=== PATIENT | male | born 1935 | race Caucasian/White ===

== ENCOUNTER 2020-02-10 14:34 | Inpatient (IN) | payer MEDICARE, SELFPAY ==
[2020-02-10 15:43] VITALS: BP 150/95; PULSE 78; RESP 18; TEMP 36.2; O2SAT 100
[2020-02-10 17:33] LABS: Lactate Dehydrogenase 239 U/L (118-273); Phosphorus 3.7 mg/dL (2.7-4.5)
[2020-02-10 17:34] LABS: Alanine Aminotransferase 35 U/L (0-40); Albumin Level 3.8 g/dL (3.5-5.0); Alkaline Phosphatase 107 U/L (39-117); Anion Gap 12 (12-20); Aspartate Amino Transferase 30 U/L (5-37); Bilirubin Total 0.3 mg/dL (0.0-1.0); Blood Urea Nitrogen 36 mg/dL (9-16); Calcium 9.4 mg/dL (8.4-10.2); Carbon Dioxide 27 mmol/L (22-29); Chloride 109 mmol/L (96-108); Estimated Glomerular Filt Rate 40; Glucose Random 145 mg/dL (60-115); Potassium 4.9 mmol/l (3.3-5.1); Sodium 143 mmol/L (135-145)
[2020-02-10 17:36] LABS: Uric Acid 5.8 mg/dL (3.4-7.0)
[2020-02-10] MEDS: 0.9 % Sodium Chloride 1,000 ML 100 ML IVCONT (17:59)
[2020-02-10] MEDS: 0.9 % Sodium Chloride Flush 3 ML SYRINGE 2 ML IVFLUSH (18:00)
[2020-02-10 19:42] LABS: INTERNATIONAL NORM RATIO 2.6 (0.9-1.1); Prothrombin Time 30.7 SEC (10.8-13.0)
[2020-02-10] MEDS: Warfarin Sodium 2.5 MG TABLET PO (20:51)
[2020-02-11] VITALS: BP 140/73; PULSE 79; RESP 19; TEMP 36.8; O2SAT 98
[2020-02-11] MEDS: 0.9 % Sodium Chloride 1,000 ML 100 ML IVCONT (03:31)
[2020-02-11 07:04] LABS: Anion Gap 13 (12-20); Blood Urea Nitrogen 32 mg/dL (9-16); Carbon Dioxide 23 mmol/L (22-29); Chloride 110 mmol/L (96-108); Estimated Glomerular Filt Rate 45; Glucose Random 142 mg/dL (60-115); Lactate Dehydrogenase 240 U/L (118-273); Potassium 4.2 mmol/l (3.3-5.1); Sodium 142 mmol/L (135-145); Uric Acid 5.6 mg/dL (3.4-7.0)
[2020-02-11 07:30] LABS: Calcium 8.7 mg/dL (8.4-10.2)
[2020-02-11 08:00] VITALS: BP 149/80; PULSE 92; RESP 20; TEMP 36.3; O2SAT 99
--- NOTE | 2020-02-11 09:38 | HP_ITS ---
DATE OF SERVICE: 02/10/2020 ONCOLOGIST: Sarah Villarreal MD CHIEF COMPLAINT: The patient undergoing chemotherapy treatment for chronic lymphocytic leukemia with high risk for tumor lysis syndrome due to increase dose of chemotherapy agent. HISTORY OF PRESENTING ILLNESS: This 84-year-old gentleman with past medical history of chronic kidney disease, BPH, and CLL, currently undergoing treatment with venetoclax followed by Dr. Villarreal due to increase in dosage of the chemo agent, the patient is at high risk for tumor lysis syndrome, therefore needs to be admitted to [facility] for IV hydration and monitoring of electrolytes including phosphorus, potassium, LDH, and uric acid. At the present time, the patient offers no acute complaints of chest pain, shortness of breath, nausea, and vomiting. He does complain of chronic ongoing constipation, no relief with use of stool softeners. PAST MEDICAL HISTORY: 1. Significant for diet-controlled diabetes mellitus. 2. Basal cell carcinoma. 3. History of melanoma. 4. History of benign prostatic hypertrophy. 5. History of hypertension. 6. History of chronic kidney disease stage 3. 7. History of DVT, currently on Coumadin. 8. History of CLL. PAST SURGICAL HISTORY: 1. Status post ruptured appendix. 2. Status post TURP. 3. History of umbilical hernia repair. 4. History of right inguinal hernia surgery. 5. Status post cataract surgery. 6. Status post multiple skin cancer removal. FAMILY HISTORY: Significant for coronary artery disease. SOCIAL HISTORY: The patient denies history of tobacco use, illicit drug use, or alcohol abuse. The patient ambulates with the assistance of cane. CURRENT MEDICATIONS: The patient's current medications are, allopurinol 100 mg daily, vitamin B daily, Colace 200 mg daily, fluconazole 400 mg daily, multivitamin 1 by mouth daily, pyridoxine 50 mg daily, Venetocllex dose increased from 50 mg to 100 mg by mouth daily, and Coumadin 2.5 mg by mouth daily. ALLERGIES: THE PATIENT IS ALLERGIC TO GLUTEN, LACTOSE, UNKNOWN ALLERGY; SILVER FROM TEGADERM MESH THAT CAUSES PEELING OF SKIN; AND MORPHINE CAUSES VOMITING. REVIEW OF SYSTEMS: GENERAL: The patient denies any fever or chills. CVS: The patient denies any chest pain or palpitation. PULMONARY: The patient denies any cough or sputum production. All other systems are reviewed and are negative. PHYSICAL EXAMINATION: GENERAL: The patient is sitting comfortably. Does not appear to be in acute distress. VITAL SIGNS: BP 150/95 with a pulse of 78, respiratory rate 18, he is afebrile with a finger oximetry of 100 on room air. CONSTITUTIONAL: The patient awake, alert, no apparent distress. NECK: Supple. No increased JVD. HEART: Regular rate and rhythm. No murmur, regurg, or gallop. The patient has bilateral mild pitting edema. RESPIRATORY: Lungs are clear to auscultation. No respiratory distress. No use of accessory muscles. SKIN: Warm and dry with no rashes. NEUROLOGICAL: The patient is alert and oriented x3. ASSESSMENT AND PLAN: This 84-year-old gentleman with a history of chronic kidney disease, benign prostatic hyperplasia, and chronic lymphocytic leukemia, currently undergoing chemotherapy by Dr. Villarreal, is being admitted to monitor for tumor lysis syndrome. PROBLEM LIST: 1. CLL. The patient will be continued on venetoclax. The patient will be placed on IV fluids. We will continue allopurinol. The patient's electrolytes,ldh,uric acid,phosphorous, will be monitored. 2. Chronic kidney disease stage 3. The patient's renal function seems to be at baseline. We will monitor renal function. 3. Diabetes mellitus, diet controlled. Continue diabetic diet. Follow blood sugars and insulin sliding scale. 4. History of DVT/PE. Continue Coumadin. Follow INR. 5. Deep vein thrombosis prophylaxis. The patient is on Coumadin. MD PAT Jimenes/LUCIAN / [id number] MTDD
[2020-02-11] MEDS: Pyridoxine HCl (Vitamin B6) 50 MG TABLET PO (10:39)
[2020-02-11] MEDS: Fluconazole 100 MG TABLET 400 MG PO (10:39)
[2020-02-11] MEDS: Docusate Sodium 100 MG CAPSULE 200 MG PO (10:39)
[2020-02-11] MEDS: Cyanocobalamin (Vitamin B-12) 1,000 MCG TABLET 1000 MCG PO (10:39)
[2020-02-11] MEDS: allopurinoL 100 MG TABLET PO (10:39)
[2020-02-11] MEDS: Multivitamin TABLET 1 TAB PO (10:39)
[2020-02-11] MEDS: 0.9 % Sodium Chloride Flush 3 ML SYRINGE 2 ML IVFLUSH (10:40)
--- NOTE | 2020-02-11 11:12 | PM.DS ---
DS: Providers Provider Date of admission: 02/10/20 14:34 Primary care physician: Abel Velasco MD DS: Summary Hospital Course Hospital Course: 84-year-old gentleman with past medical history of chronic kidney disease BPH and CLL currently undergoing treatment with venetoclax due to recent increase in dose and for high risk for tumor lysis syndrome patient was admitted to [facility] for monitoring of electrolytes, uric acid, phosphorous and LDH all labs are within normal range patient will receive it today's dose of mannitol clocks and will be subsequently discharged home to have close outpatient follow-up with oncologist. Status at Discharge Functional status at discharge: uses cane/walker Time Spent with Patient Time attestation: Total time spent providing and/or coordinating discharge services: Time spent: Greater than 30 minutes Physical Exam Vital Signs and I&O and Narrative: Vital Signs and I&O: Vital Signs Temp 97.3 F 02/11/20 08:00 Pulse 92 02/11/20 08:00 Resp 20 02/11/20 08:00 BP 149/80 H 02/11/20 08:00 Pulse Ox 99 02/11/20 08:00 Intake & Output 02/10/20 02/11/20 02/11/20 18:59 06:59 18:59 Intake Total 1073.333 / 1073.33 3 Output Total 1350 / 1350 1000 / 1000 Balance -276.667 / -276.66 7 -1000 / -1000 Intake: Intake, Oral [place] unt 120 / 120 Intake, IV Amoun t 953.333 / 953.333 0.9 % Sodium C hloride 1,000 ml 953.333 / 953.333 @ 100 mls/hr I VCONT .Q10H YONNY Rx#:[id number] Output: Output, Urine Am ount 1350 / 1350 1000 / 1000 Other: Meal Refused No NPO No Breakfast % Eate n 75% Dinner % Eaten 75% Number of Bowel Movements 1 Urine Urinal Urinal Urine Color Yellow Yellow Stool Bathroom DS: Data Data Completed and Pending Labs on day of discharge: Labs from last 24 hours 02/11/20 02/11/20 02/10/20 06:03 06:03 19:06 PT 30.7 H INR 2.6 H Sodium 142 Potassium 4.2 Chloride 110 H Carbon Dioxide 23 Anion Gap 13 BUN 32 H Creatinine 1.48 H Estim Creat Clear Calc TNP Estimated GFR 45 Random Glucose 142 H Uric Acid 5.6 Calcium 8.7 Phosphorus 3.0 Total Bilirubin AST ALT Alkaline Phosphatase Lactate Dehydrogenase 240 Total Protein Albumin 02/10/20 02/10/20 02/10/20 16:46 16:46 16:46 PT INR Sodium 143 Potassium 4.9 Chloride 109 H Carbon Dioxide 27 Anion Gap 12 BUN 36 H Creatinine 1.65 H Estim Creat Clear Calc TNP Estimated GFR 40 Random Glucose 145 H Uric Acid 5.8 Calcium 9.4 Phosphorus 3.7 Total Bilirubin 0.3 AST 30 ALT 35 Alkaline Phosphatase 107 Lactate Dehydrogenase 239 Total Protein 6.0 L Albumin 3.8 Discharge Plan Discharge Patient Disposition: Home, Self-Care Referrals: Abel Velasco MD [Primary Care Provider] - Lexie Wang MD [Physician] - Discharge Medications: Continued multivitamin Tablet 1 tab PO DAILY RF: 0 fluconazole 200 mg Tablet 400 mg PO DAILY RF: 0 cyanocobalamin (vitamin B-12) 1,000 mcg Tablet 1,000 mcg PO DAILY RF: 0 warfarin 2.5 mg Tablet 2.5 mg PO DAILY RF: 0 allopurinol 100 mg tablet 100 mg PO DAILY RF: 0 pyridoxine (vitamin B6) 50 mg tablet 50 mg PO DAILY RF: 0 docusate sodium 100 mg Tablet 200 mg PO DAILY RF: 0 Venclexta 100 mg Tablet 100 mg PO DAILY RF: 0 Discharge Orders: Discharge Order (Routine); Ordered 02/11/20 Ordered By: Lexie Wang Activity on Discharge: As tolerated Visit Report Forms: Patient Portal Discharge page Care Plan Goals: as per discharge plan Health Concerns: as per discharge plan Plan of Treatment: close outpatient follow-up with primary care physician and Dr. Villarreal from Oncology
--- NOTE | 2020-02-11 12:20 | MHC.CM.PN ---
Pt discharging home today with no services
[2020-02-11 13:46] LABS: INTERNATIONAL NORM RATIO 2.3 (0.9-1.1); Prothrombin Time 28.1 SEC (10.8-13.0)
--- NOTE | 2020-02-11 14:23 | MHC.CM.PN ---
Pt lives at home with his and is independent with care. Pt uses a cane for mobility and has no in home services. PCP and HCP on file and confirmed by pt. IMM delivered and DC planning initiated. pt will be discharged home today with no services pts to transport
== END 2020-02-11 14:30 | disposition home or self-care (01) | DRG 842 ==
PROVIDERS: Admitting Provider Internal Medicine Medical Oncology; PCP Internal Medicine; Visit Provider Hospitalist
DX: C91.10 Chronic lymphocytic leukemia of B-cell type not having achieved remission (principal); N40.0 Benign prostatic hyperplasia without lower urinary tract symptoms; I12.9 Hypertensive chronic kidney disease with stage 1 through stage 4 chronic kidney disease, or unspecified chronic kidney disease; E11.22 Type 2 diabetes mellitus with diabetic chronic kidney disease; N18.30 Chronic kidney disease, stage 3 unspecified; Z86.718 Personal history of other venous thrombosis and embolism; Z79.01 Long term (current) use of anticoagulants; Z79.899 Other long term (current) drug therapy
CPT/HCPCS: 36415; 80048; 80053; 83615; 84100; 84550; 85610; 99212

== ENCOUNTER → 2020-02-11 15:10 | Outpatient (BNVA) | payer MEDICARE, SELFPAY | PROVIDERS: PCP Internal Medicine; Referring Provider Internal Medicine; Visit Provider Internal Medicine | DX: I26.99 Other pulmonary embolism without acute cor pulmonale (principal); Z51.81 Encounter for therapeutic drug level monitoring; Z79.01 Long term (current) use of anticoagulants | CPT/HCPCS: 99211 ==

== ENCOUNTER → 2020-02-15 08:00 | Outpatient (BNV) | payer MEDICARE, SELFPAY | PROVIDERS: PCP Internal Medicine; Visit Provider Internal Medicine Medical Oncology | DX: D64.9 Anemia, unspecified (principal) | CPT/HCPCS: 99212; 99213; 99214 ==

== ENCOUNTER → 2020-02-16 07:51 | Outpatient (BNVA) | payer MEDICARE, SELFPAY | PROVIDERS: PCP Internal Medicine; Visit Provider Internal Medicine Endocrinology, Diabetes & Metabolism | DX: E11.65 Type 2 diabetes mellitus with hyperglycemia (principal); E11.22 Type 2 diabetes mellitus with diabetic chronic kidney disease; N18.32 Chronic kidney disease, stage 3b; E11.40 Type 2 diabetes mellitus with diabetic neuropathy, unspecified; E78.5 Hyperlipidemia, unspecified | CPT/HCPCS: 82947; 99214 ==

== ENCOUNTER 2020-02-25 07:29 | Outpatient (REF) | payer MEDICARE, SELFPAY ==
[2020-02-25 11:32] LABS: Hematocrit 34.1 % (42-52); Hemoglobin 10.9 g/dl (14.0-18.0); Mean Corpuscular Hemoglobin 32.2 pg (27.0-33.0); Mean Corpuscular Volume 100.6 fL (80-98); Mean Platelet Volume 10.1 fL (9.4-12.4); Platelet Count 145 X10*3/uL (160-400); Red Blood Count 3.39 X10*6/uL (4.60-5.80); Red Cell Distribution Width 14.2 % (11.0-16.0); White Blood Count 2.8 X10*3/uL (4.8-10.8)
[2020-02-25 12:06] LABS: Alanine Aminotransferase 33 U/L (0-40); Albumin Level 3.9 g/dL (3.5-5.0); Alkaline Phosphatase 105 U/L (39-117); Aspartate Amino Transferase 33 U/L (5-37); Bilirubin Direct 0.2 mg/dL (0.0-0.5); Bilirubin Total 0.3 mg/dL (0.0-1.0); Total Protein 6.2 g/dL (6.5-8.0)
[2020-02-25 12:08] LABS: Alanine Aminotransferase 33 U/L (0-40); Albumin Level 3.8 g/dL (3.5-5.0); Alkaline Phosphatase 104 U/L (39-117); Anion Gap 14 (12-20); Aspartate Amino Transferase 34 U/L (5-37); Bilirubin Total 0.3 mg/dL (0.0-1.0); Blood Urea Nitrogen 39 mg/dL (9-16); Calcium 8.9 mg/dL (8.4-10.2); Carbon Dioxide 24 mmol/L (22-29); Chloride 110 mmol/L (96-108); Estimated Glomerular Filt Rate 32; Glucose Random 200 mg/dL (60-115); Potassium 4.7 mmol/l (3.3-5.1); Sodium 143 mmol/L (135-145); Total Protein 6.2 g/dL (6.5-8.0)
[2020-02-25 12:14] LABS: Band Neutrophils Percent 16 % (3-5); Lymphocytes Absolute Manual 0.3 X10*3/uL (0.6-4.8); Lymphocytes Percent Manual 12 % (20-40); Metamyelocytes Absolute 0.1 X10*3/uL; Metamyelocytes Percent 3 %; Monocytes Absolute Manual 0.4 X10*3/uL (0.0-1.2); Monocytes Percent Manual 16 % (2-11); Myelocytes Percent 1 %; Neutrophils Absolute Manual 1.9 X10*3/uL (2.2-7.9); Neutrophils Percent Manual 52 % (45-73); Nucleated Red Blood Cells 1 /100WBC (0-0)
[2020-02-25 12:15] LABS: Platelet Estimate DECREASED (NORMAL)
[2020-02-25 12:16] LABS: Macrocytosis 1+; Platelet Morphology Comment NORMAL; RBC Morphology NOTED
[2020-02-25 12:17] LABS: Acanthocytes 1+; Ovalocytes 1+; Tear Drop Cells 1+
[2020-02-25 14:19] LABS: Cholesterol 143 mg/dL; HDL Cholesterol 34 mg/dL; LDL Cholesterol Calculated 96 mg/dl; Triglycerides 67 mg/dL
[2020-02-27 15:15] LABS: Cryptococcal Ag Source SERUM
[2020-02-27 15:20] LABS: Cryptococcal Ag Serum DETECTED
== END 2020-02-25 07:30 | disposition home or self-care (01) ==
LOC: HO.HMGCLDS 07:29
PROVIDERS: PCP Internal Medicine; Referring Provider Internal Medicine; Visit Provider Internal Medicine Medical Oncology
DX: C91.10 Chronic lymphocytic leukemia of B-cell type not having achieved remission (principal); E11.22 Type 2 diabetes mellitus with diabetic chronic kidney disease; E11.21 Type 2 diabetes mellitus with diabetic nephropathy; N18.30 Chronic kidney disease, stage 3 unspecified; E78.5 Hyperlipidemia, unspecified; M22.2X1 Patellofemoral disorders, right knee; M22.2X2 Patellofemoral disorders, left knee
CPT/HCPCS: 36415; 80053; 80061; 80076; 85007; 85027; 85060; 86403; 99213

== ENCOUNTER 2020-03-08 12:59 | Outpatient (REF) | payer MEDICARE, SELFPAY ==
[2020-03-08 15:57] LABS: Alanine Aminotransferase 25 U/L (0-40); Albumin Level 3.9 g/dL (3.5-5.0); Alkaline Phosphatase 94 U/L (39-117); Anion Gap 16 (12-20); Aspartate Amino Transferase 26 U/L (5-37); Bilirubin Direct 0.2 mg/dL (0.0-0.5); Bilirubin Total 0.4 mg/dL (0.0-1.0); Blood Urea Nitrogen 36 mg/dL (9-16); Calcium 9.3 mg/dL (8.4-10.2); Carbon Dioxide 22 mmol/L (22-29); Chloride 109 mmol/L (96-108); Estimated Glomerular Filt Rate 38; Glucose Random 124 mg/dL (60-115); Potassium 4.7 mmol/l (3.3-5.1); Sodium 142 mmol/L (135-145); Total Protein 6.3 g/dL (6.5-8.0)
[2020-03-11 14:08] LABS: Cryptococcal Ag Source SERUM
[2020-03-11 14:11] LABS: Cryptococcal Ag Serum DETECTED
== END 2020-03-08 13:00 | disposition home or self-care (01) ==
LOC: HO.LAB 12:59
PROVIDERS: PCP Internal Medicine; Referring Provider Internal Medicine Medical Oncology; Visit Provider Internal Medicine
DX: B45.9 Cryptococcosis, unspecified (principal); M51.9 Unspecified thoracic, thoracolumbar and lumbosacral intervertebral disc disorder
CPT/HCPCS: 80048; 80076; 86403; 99212

== ENCOUNTER 2020-03-17 09:06 | Outpatient (REF) | payer MEDICARE, SELFPAY ==
--- NOTE | 2020-03-17 | US_ITS ---
EXAMINATION: US RETROPERITONEAL LIMITED (RENAL ONLY) CLINICAL INFORMATION: Nephrolithiasis. COMPARISON: None TECHNIQUE: Routine grayscale imaging of kidneys was performed. FINDINGS: RIGHT KIDNEY: 11.9 x 4.5 x 4.7 cm (SAG x AP x TRV). The kidney is normal in size, contour, and echogenicity. Renal cortical thickness is normal. No calculi or focal parenchymal lesions. No hydronephrosis. There are multiple anechoic cysts seen some appear to be complex with the largest cyst measuring 2.0 x 2.4 x 2.7 cm. Innumerable clusters of stones seen largest measuring 1.1 cm in the upper pole 0.6 mm in midpole and 1.0 cm in the lower pole. LEFT KIDNEY: 12.1 x 4.1 x 4.2 cm (SAG x AP x TRV). The kidney is normal in size, contour, and echogenicity. Renal cortical thickness is normal. No calculi or focal parenchymal lesions. No hydronephrosis. Multiple cysts seen. Some appear to be complex with the largest measuring 3.0 x 3.8 x 3.4 cm in the upper pole. There are innumerable clusters of echogenic stones seen within the largest in the upper pole measuring 0.9 cm, mid pole measuring 0.9 cm and lower pole measuring 1.0 cm. US/US renal BI IMPRESSION: Multiple bilateral renal cysts some of the cysts bilaterally a complex. There are multiple bilateral clusters of stones in the upper mid and lower pole of both kidneys. No caliectasis or hydronephrosis seen.
== END 2020-03-17 09:07 | disposition home or self-care (01) ==
LOC: HO.HMGCX 09:06
PROVIDERS: Visit Provider Urology
DX: N20.0 Calculus of kidney (principal)
CPT/HCPCS: 76775

== ENCOUNTER 2020-03-30 07:34 | Outpatient (REF) | payer MEDICARE, SELFPAY ==
--- NOTE | 2020-03-30 07:37 | CT_ITS ---
EXAMINATION: CT CHEST WITHOUT CONTRAST CLINICAL INFORMATION: Follow-up lung nodules COMPARISON: Multiple priors, most recently 12/06/2019. TECHNIQUE: Multidetector volumetric CT imaging of the chest was done. Axial MIP volume rendering provided. Sagittal and coronal reformatted images were obtained. This CT examination was performed using dose optimization techniques as appropriate, variously including the following: *Automated exposure control *Adjustment of mA and/or kV according to patient size (this includes techniques or standardized protocols for targeted exams where dose is matched to indication/reason for exam; i.e. extremities or head) *Use of iterative reconstruction technique DLP: 174 mGy-cm FINDINGS: LUNGS: The central airways are patent. There is no dense consolidation. There is minimal bibasilar scarring/atelectasis. Multiple pulmonary nodules which were seen on the previous study have resolved or improved. There are residual nodules visualized. 1. Spiculated right lower lobe nodule near the major fissure measuring 1 cm on series 8 image 333. This previously measured 1.4 cm. 2. Bilobed nodule in the right lower lobe with pleural retraction and spiculated margins measuring 2.6 x 1.3 cm on series 8 image 351. This had measured 3.3 x 1.7 cm on prior. There is some adjacent smaller nodules which are also decreased in prominence from prior. 3. Pleural-based right lower lobe nodule medially measuring 0.7 cm on series 8 image 373. This had measured 1 cm on prior. There are a few additional nodules in the right lower lobe which are also seen, decreased in size from prior. No new pulmonary nodules are seen. MEDIASTINUM: Normal heart size. Coronary artery calcifications are present. No pericardial effusion. Decreased size of mediastinal lymph nodes when compared to prior. For instance, there is a left paratracheal node with short axis dimension of 1 cm on series 4 image 28. This had measured 1.3 cm on prior. Wall thickening of the distal side. PLEURA: There is no pleural effusion. No pneumothorax. AXILLA: No axillary lymphadenopathy. Decreased size of right axillary lymph node significantly from prior. For instance there is a long axis I.5 cm node on series 4 image 21 in the right axilla, previously measuring 3.2 cm. UPPER ABDOMEN: Multiple hypoattenuating lesions are again seen throughout the liver, unchanged from prior and likely representing cysts. Cholecystectomy. Renal calculi noted. Renal cysts are noted. OSSEOUS STRUCTURES: No acute or suspicious osseous abnormality. Diffuse degenerative changes throughout the spine. DISH. CT/CT chest wo con IMPRESSION: Multiple previously visualized right lower lobe nodules have either resolved or decreased in size from prior, as described above. The largest remaining measures 2.6 x 1.3 cm with pleural abutment. Decreasing mediastinal and axillary lymphadenopathy.
--- NOTE | 2020-03-30 07:37 | CT_ITS ---
EXAMINATION: CT HEAD WITHOUT CONTRAST CLINICAL INFORMATION: Headaches COMPARISON: 08/28/2019. TECHNIQUE: Contiguous axial imaging was performed from the skull base to vertex without intravenous contrast. This CT examination was performed using dose optimization techniques as appropriate, variously including the following: * Automated exposure control * Adjustment of mA and/or kV according to patient size (this includes techniques or standardized protocols for targeted exams where dose is matched to indication/reason for exam; i.e. extremities or head) Use of iterative reconstruction technique DLP: 890 mGy-cm. FINDINGS: There is no evidence of acute intracranial hemorrhage or territorial infarction. No abnormal mass effect or midline shift is seen. Moyer to white matter differentiation is well preserved. No extra-axial fluid collections are identified. No hydrocephalus. Proportional prominence of the ventricles and sulcal spaces is consistent with moderate volume loss. Patchy periventricular and deep white matter hypoattenuation is consistent with mild small vessel ischemic changes. The osseous structures and soft tissues are normal. Mild opacification of the right ethmoid air cells. Mild mucosal thickening of the right maxillary sinus. The mastoid air cells and visualized portions of the paranasal sinuses are well aerated. CT/CT head/brain wo con IMPRESSION: No acute intracranial pathology. Chronic volume loss with small vessel ischemic changes.
== END 2020-03-30 07:35 | disposition home or self-care (01) ==
LOC: HO.CT 07:34
PROVIDERS: Visit Provider Internal Medicine Medical Oncology
DX: B45.0 Pulmonary cryptococcosis (principal); R51.9 Headache, unspecified
CPT/HCPCS: 70450; 71250

== ENCOUNTER → 2020-04-03 13:47 | Outpatient (BNVA) | payer MEDICARE, SELFPAY | PROVIDERS: PCP Internal Medicine; Referring Provider Internal Medicine; Visit Provider Internal Medicine | DX: I26.99 Other pulmonary embolism without acute cor pulmonale (principal); Z51.81 Encounter for therapeutic drug level monitoring; Z79.01 Long term (current) use of anticoagulants | CPT/HCPCS: 85610; 99211 ==

== ENCOUNTER 2020-04-12 07:27 | Outpatient (REF) | payer MEDICARE, SELFPAY ==
[2020-04-12 12:02] LABS: Anion Gap 15 (12-20); Blood Urea Nitrogen 28 mg/dL (9-16); Calcium 8.8 mg/dL (8.4-10.2); Carbon Dioxide 24 mmol/L (22-29); Chloride 109 mmol/L (96-108); Estimated Glomerular Filt Rate 45; Phosphorus 2.8 mg/dL (2.7-4.5); Potassium 4.9 mmol/l (3.3-5.1); Sodium 143 mmol/L (135-145)
[2020-04-12 13:38] LABS: Renal w Reflex Lab Use Only Order verified
[2020-04-14 09:34] LABS: Cryptococcal Ag Source SERUM
== END 2020-04-12 07:28 | disposition home or self-care (01) ==
LOC: HO.HMGCLDS 07:27
PROVIDERS: Internal Medicine; PCP Internal Medicine; Visit Provider Internal Medicine Nephrology
DX: B45.9 Cryptococcosis, unspecified (principal); I12.9 Hypertensive chronic kidney disease with stage 1 through stage 4 chronic kidney disease, or unspecified chronic kidney disease; N18.30 Chronic kidney disease, stage 3 unspecified; N17.9 Acute kidney failure, unspecified; N20.0 Calculus of kidney
CPT/HCPCS: 80051; 82310; 82565; 84100; 84520; 86403

== ENCOUNTER → 2020-04-19 12:38 | Outpatient (BNVA) | payer MEDICARE, SELFPAY | PROVIDERS: Visit Provider Orthopaedic Surgery | DX: M22.2X1 Patellofemoral disorders, right knee (principal); M22.2X2 Patellofemoral disorders, left knee | CPT/HCPCS: 20610; 99212; J1040 ==

== ENCOUNTER 2020-04-20 16:21 | Outpatient (REF) | payer MEDICARE, SELFPAY ==
[2020-04-20 16:45] LABS: INTERNATIONAL NORM RATIO 3.1 (0.9-1.1); Prothrombin Time 37.2 SEC (10.8-13.0)
== END 2020-04-20 16:22 | disposition home or self-care (01) ==
LOC: HO.LAB 16:21
PROVIDERS: Visit Provider Internal Medicine
DX: C91.10 Chronic lymphocytic leukemia of B-cell type not having achieved remission (principal)
CPT/HCPCS: 36415; 85610

== ENCOUNTER → 2020-04-24 11:32 | Outpatient (BNVA) | payer MEDICARE, SELFPAY | PROVIDERS: PCP Internal Medicine; Visit Provider Internal Medicine | DX: I26.99 Other pulmonary embolism without acute cor pulmonale (principal); Z51.81 Encounter for therapeutic drug level monitoring; Z79.01 Long term (current) use of anticoagulants | CPT/HCPCS: 85610; 99211 ==

== ENCOUNTER → 2020-05-03 13:16 | Outpatient (BNVA) | payer MEDICARE, SELFPAY | PROVIDERS: Visit Provider Internal Medicine | DX: B45.9 Cryptococcosis, unspecified (principal); E11.22 Type 2 diabetes mellitus with diabetic chronic kidney disease; E11.65 Type 2 diabetes mellitus with hyperglycemia; N18.30 Chronic kidney disease, stage 3 unspecified | CPT/HCPCS: 85610; 99211; 99212 ==

== ENCOUNTER 2020-05-11 | Outpatient (REF) | payer MEDICARE, SELFPAY | END 2020-05-11 00:01 | disposition home or self-care (01) | LOC: CF | PROVIDERS: Visit Provider Internal Medicine | DX: Z13.89 Encounter for screening for other disorder (principal) ==

== ENCOUNTER → 2020-05-31 13:41 | Outpatient (BNVA) | payer MEDICARE, SELFPAY | PROVIDERS: Visit Provider Internal Medicine | DX: B45.9 Cryptococcosis, unspecified (principal) | CPT/HCPCS: 99212 ==

== ENCOUNTER → 2020-06-01 08:38 | Outpatient (BNVA) | payer MEDICARE, SELFPAY | PROVIDERS: PCP Internal Medicine; Visit Provider Internal Medicine | DX: I26.99 Other pulmonary embolism without acute cor pulmonale (principal); Z79.01 Long term (current) use of anticoagulants; Z51.81 Encounter for therapeutic drug level monitoring | CPT/HCPCS: 85610; 99211 ==

== ENCOUNTER → 2020-06-15 09:26 | Outpatient (BNVA) | payer MEDICARE, SELFPAY | PROVIDERS: PCP Internal Medicine; Visit Provider Internal Medicine Endocrinology, Diabetes & Metabolism | DX: E11.65 Type 2 diabetes mellitus with hyperglycemia (principal); E11.22 Type 2 diabetes mellitus with diabetic chronic kidney disease; N18.32 Chronic kidney disease, stage 3b; E78.5 Hyperlipidemia, unspecified | CPT/HCPCS: 82947; 99212 ==

== ENCOUNTER 2020-06-19 09:49 | Outpatient (REF) | payer MEDICARE, SELFPAY | END 2020-06-19 09:50 | disposition home or self-care (01) | LOC: HO.LAB 09:49 | PROVIDERS: Visit Provider Internal Medicine | DX: Z20.822 Contact with and (suspected) exposure to COVID-19 (principal) | CPT/HCPCS: 36415; C9803; U0003; U0005 ==

== ENCOUNTER → 2020-06-27 11:17 | Outpatient (BNVA) | payer MEDICARE, SELFPAY | PROVIDERS: PCP Internal Medicine; Visit Provider Internal Medicine | DX: I26.99 Other pulmonary embolism without acute cor pulmonale (principal); Z51.81 Encounter for therapeutic drug level monitoring; Z79.01 Long term (current) use of anticoagulants | CPT/HCPCS: 85610; 99211 ==

== ENCOUNTER → 2020-06-28 14:10 | Outpatient (BNVA) | payer MEDICARE, SELFPAY | PROVIDERS: PCP Internal Medicine; Visit Provider Internal Medicine | DX: Z13.89 Encounter for screening for other disorder (principal) | CPT/HCPCS: Q3014 ==

== ENCOUNTER 2020-07-05 07:57 | Outpatient (REF) | payer MEDICARE, SELFPAY ==
--- NOTE | ~2020-07-05 | CT_ITS ---
EXAMINATION: CT CHEST, ABDOMEN AND PELVIS WITHOUT IV CONTRAST CLINICAL INFORMATION: CLL. Followup cryptococcal pneumonitis. COMPARISON: Previous chest CT most recent March 2020 and abdominal and pelvic CT most recent November 2019 TECHNIQUE: Axial images through the chest, abdomen and pelvis without IV and following oral contrast. Sagittal and coronal reconstructions on the technologist workstation were performed. Patient dose total DLP: 532 mGy-cm. This CT examination was performed using dose optimization techniques as appropriate, variously including the following: *Automated exposure control *Adjustment of mA and/or kV according to patient size (this includes techniques or standardized protocols for targeted exams where dose is matched to indication/reason for exam; i.e. extremities or head) *Use of iterative reconstruction technique FINDINGS: CHEST: There is a small peripheral or subpleural superior segment right lower lobe nodule measuring 4 mm axial image 31 series 3. There is a 0.9 cm right lower lobe nodule axial image 33 series 3. There is an irregularly-shaped 2.3 x 1.6 cm right lower lobe nodule axial image 36 series 3. There is an 8 mm peripheral or subpleural right lower lobe nodule axial image 38 series 3. There is a 5 mm right lower lobe nodule axial image 49 series 3. These are stable from most recent chest CT March 2020. The left lung is clear. There are small mediastinal lymph nodes that are stable. No enlarged lymph nodes are seen. The heart does not appear enlarged. There is coronary artery calcification. The thoracic aorta is tortuous. There is no pericardial effusion. There is no pleural effusion or pleural thickening. There is bilateral axillary lymphadenopathy. This appears slightly decreased from March 2019 exam. The largest lymph node is a right axillary lymph node measuring 0.9 x 1.7 cm axial image 18 series 3 compared to 1.2 x 1.9 cm March 2020. There are degenerative changes of the spine. No fracture or bone lesion is seen. ABDOMEN AND PELVIS: There are innumerable liver cysts. The largest measures 3 cm in the lateral segment of the left lobe of the liver. These are stable. The liver is otherwise unremarkable. The gallbladder has been removed. There is no biliary duct dilatation. The spleen is unremarkable. There is fatty infiltration of the pancreas. The pancreas is otherwise unremarkable. The adrenal glands are unremarkable. There are multiple bilateral renal stones. There are bilateral renal cysts. No hydronephrosis, ureteral dilatation or ureteral stone is seen. The prostate gland is slightly enlarged and protrudes into the base of the bladder. The bladder is otherwise unremarkable. There is diverticulosis of the colon. There is stool throughout the colon questionable for constipation. There is diverticulosis of the small bowel, as well. The appendix is not identified and may have been removed. No enlarged lymph nodes are seen. There is a 1.2 cm left inguinal lymph node axial image 79 series 3 that is stable. There is no ascites. There is evidence of atherosclerotic disease. No aneurysm is seen. There is evidence of previous anterior abdominal wall and right inguinal hernia repairs. There are degenerative changes of the spine and joints. CT/CT abdomen pelvis wo con IMPRESSION: CHEST: Stable right pulmonary nodules from most recent exam March 2020. Stable small mediastinal lymph nodes. Slight interval decrease in bilateral axillary lymph nodes. ABDOMEN AND PELVIS: Stable small left inguinal lymph node. Diverticulosis of the small and large bowel. Constipation. Bilateral renal and liver cysts. Bilateral renal stones.
[2020-07-05] MEDS: Barium Sulfate Oral (Berry) 450 ML ORAL.SUSP 900 ML PO (10:34)
== END 2020-07-05 07:58 | disposition home or self-care (01) ==
LOC: HO.CT 07:57
PROVIDERS: Visit Provider Internal Medicine Medical Oncology
DX: B45.0 Pulmonary cryptococcosis (principal); C91.10 Chronic lymphocytic leukemia of B-cell type not having achieved remission
CPT/HCPCS: 71250; 74176

== ENCOUNTER 2020-07-13 09:22 | Outpatient (REF) | payer MEDICARE, SELFPAY ==
--- NOTE | ~2020-07-13 | XR_ITS ---
EXAMINATION: XR SCAPULA, LEFT CLINICAL INFORMATION: Pain left scapula COMPARISON: CT chest noncontrast 07/05/2020 TECHNIQUE: Frontal and lateral views of the left scapula. FINDINGS: There is no bony destructive process or fracture. Degenerative changes are present at the acromioclavicular joint. The acromioclavicular alignment normal. Left lung apex is clear. XR/XR scapula LT IMPRESSION: 1. No bony destructive process. 2. Degenerative changes acromioclavicular joint.
== END 2020-07-13 09:23 | disposition home or self-care (01) ==
LOC: HO.XRAY 09:22
PROVIDERS: Visit Provider Internal Medicine Medical Oncology
DX: M89.8X1 Other specified disorders of bone, shoulder (principal); I26.99 Other pulmonary embolism without acute cor pulmonale; Z51.81 Encounter for therapeutic drug level monitoring; Z79.01 Long term (current) use of anticoagulants
CPT/HCPCS: 73010; 85610; 99211

== ENCOUNTER → 2020-07-26 10:09 | Outpatient (BNVA) | payer MEDICARE, SELFPAY | PROVIDERS: PCP Internal Medicine; Visit Provider Internal Medicine | DX: B45.9 Cryptococcosis, unspecified (principal) | CPT/HCPCS: Q3014 ==

== ENCOUNTER 2020-07-28 08:51 | Outpatient (REF) | payer MEDICARE, SELFPAY ==
--- NOTE | ~2020-07-28 | XR_ITS ---
EXAMINATION: XR SHOULDER, LEFT CLINICAL INFORMATION: Pain left shoulder. COMPARISON: Radiographs left scapula 07/13/2020 and left shoulder 11/03/2018 TECHNIQUE: Left shoulder is imaged in 3 views. FINDINGS: There is no fracture, dislocation, destructive process. Degenerative changes are present at the glenohumeral joint with mild joint narrowing and inferior spurring. There is also mild spurring greater tuberosity and mild degenerative changes acromioclavicular joint. The acromioclavicular alignment is normal. There are no visible rotator cuff calcifications. XR/XR shoulder LT min 2V IMPRESSION: 1. Degenerative changes glenohumeral joint and acromioclavicular joint. 2. Mild spurring greater tuberosity. 3. No visible rotator cuff calcifications.
== END 2020-07-28 08:52 | disposition home or self-care (01) ==
LOC: HO.HOSX 08:51
PROVIDERS: Visit Provider Orthopaedic Surgery
DX: M25.512 Pain in left shoulder (principal); M25.511 Pain in right shoulder
CPT/HCPCS: 73030; Q3014

== ENCOUNTER → 2020-08-30 10:55 | Outpatient (BNVA) | payer MEDICARE, SELFPAY | PROVIDERS: Visit Provider Internal Medicine | DX: B45.9 Cryptococcosis, unspecified (principal) | CPT/HCPCS: Q3014 ==

== ENCOUNTER → 2020-09-13 08:23 | Outpatient (BNVA) | payer MEDICARE, SELFPAY | PROVIDERS: Visit Provider Internal Medicine Endocrinology, Diabetes & Metabolism | DX: E11.65 Type 2 diabetes mellitus with hyperglycemia (principal); E11.21 Type 2 diabetes mellitus with diabetic nephropathy; N18.32 Chronic kidney disease, stage 3b; E78.5 Hyperlipidemia, unspecified; R00.0 Tachycardia, unspecified | CPT/HCPCS: 82947; 99212 ==

== ENCOUNTER 2020-09-13 09:01 | Emergency (ER) | payer OTHER, MEDICARE, SELFPAY ==
--- NOTE | ~2020-09-13 | XR_ITS ---
EXAMINATION: XR CHEST CLINICAL INFORMATION: Shortness of breath. COMPARISON: CT chest 07/05/2020 TECHNIQUE: Frontal view of the chest was obtained. FINDINGS: The lungs are well-expanded and clear of acute process. The previously seen superior to the right lower lobe nodule on CT chest is not visualized on chest x-ray. Heart size and pulmonary vascularity is normal. No gross bony abnormality seen. XR/XR chest 1V IMPRESSION: Unremarkable chest exam.
--- NOTE | 2020-09-13 09:07 | ED_ITS ---
HPI - Arrhythmia/Palpitations General Chief Complaint: General Medical Stated Complaint: PE rule out Time Seen by Provider: 09/13/20 09:07 Source: patient Mode of arrival: EMS Limitations: no limitations History of Present Illness HPI narrative: Found to have tachycardia at rest. Patient has no complaints currently. No chest pain or shortness of breath Onset (ago): unknown Related Data Home Medications Medication Instructions Recorded Confirmed Venclexta 200 mg PO DAILY 02/10/20 09/13/20 allopurinol 100 mg PO DAILY 02/10/20 09/13/20 cyanocobalamin (vitamin B-12) 1,000 mcg PO DAILY 02/10/20 09/13/20 docusate sodium 200 mg PO DAILY 02/10/20 09/13/20 multivitamin 1 tab PO DAILY 02/10/20 09/13/20 warfarin 1 tab PO DAILY 05/11/20 09/13/20 Previous Rx's Medication Instructions Recorded pyridoxine (vitamin B6) 100 mg PO DAILY 90 Days #90 tab 08/14/20 blood sugar diagnostic #300 ea 09/13/20 glipizide 5 mg tablet, extended 5 mg PO DAILY 90 Days #90 tab 09/13/20 release 24 hr lancets 33 gauge #300 ea 09/13/20 Allergies Allergy/AdvReac Type Severity Reaction Status Date / Time silver Allergy Intermediate SKIN COMES Verified 08/30/20 10:56 [From TEGADERM AG MESH] OFF morphine [MORPHINE] Allergy Unknown VOMITING, Verified 08/30/20 10:56 vomitting Tegaderm Allergy Unknown blisters Uncoded 06/12/20 08:26 Review of Systems Constitutional: Constitutional: Reports no additional constitutional complaints Eyes: Eyes: Reports no additional eye complaints ENT: Denies dizziness Cardiovascular: Cardiovascular: Reports no additional cardiovascular complaints Respiratory: Respiratory: Reports as per HPI Gastrointestinal: Gastrointestinal: Reports no additional gastrointestinal complaints Musculoskeletal: Musculoskeletal: Reports no additional musculoskeletal complaints Integumentary/Breasts: Skin/Breast: Denies rash Neurologic: Reports system reviewed and no additional complaints, except as documented, Denies dizziness and Denies Sensory deficit (Neuro) Psychiatric: Psychiatric: Denies anxiety [facility] Past Medical History 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 Dyslipidemia Gout Headache above the eye region Melanoma Skin cancer Tachycardia Surgical History H/O inguinal hernia repair H/O umbilical hernia repair Hx of cataract surgery S/P appendectomy S/P TURP Family History Family History Other Family history of cancer in sister Social History Social History Household Members: Spouse Housing: House Smoking Status: Never smoker Second Hand Smoke Exposure: No Advance Directives: Yes Advance Directives on File: Yes Advance Directives Date on File: 02/10/20 service: Yes Current occupational status: retired 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 Physical Exam Vital Signs: Vital Signs: Last Vital Signs Temp 98.5 F 09/13/20 09:29 Pulse 99 09/13/20 09:29 Resp 15 09/13/20 09:29 BP 167/92 H 09/13/20 09:29 Pulse Ox 99 09/13/20 09:29 Body Mass Index 25.7 Const: General: healthy appearing Nutritional Appearance: average body habitus Orientation/consciousness: oriented to person and patient oriented x3 Limitations: no limitations HENMT: Head: Yes normal to inspection Ears: external ears normal General nose exam: Normal external nose present Mouth: Normal oral and palatal mucosa present and oropharynx normal Throat: Yes posterior oropharynx normal Eyes: General: appearance normal, both eyes and all related structures Neck: Other: supple Neck: Yes normal visual inspection Chest: Chest palpation & inspection: normal inspection of the chest Resp: Auscultation: clear to auscultation bilaterally Cardio: Jugular venous distension: no JVD Rate: tachycardic Rhythm: regular rhythm Heart sounds: S1 normal heart sound present and S2 normal heart sound present GI: Inspection: Yes normal to inspection Palpation (GI): Soft to palpation, nontender and No hepatosplenomegaly present Auscultation: normal bowel sounds : General: Yes no CVA tenderness Back/Spine/Pelvis: Back: no CVA tenderness Skin: General skin exam: no rashes or lesions noted Neuro: General: oriented to person and patient oriented x3 Cranial nerves: Yes CN's II-XII intact bilaterally Motor exam (neuro): 5/5 motor strength present throughout Sensory Exam: No Sensory deficit (Neuro) Extrem: General: Yes normal to inspection Psych: Appearance: grossly normal MDM - Arrhythmia/Palpitations MDM Narrative Medical decision making narrative: patient with normal sinus rhythm, no ischemia on EKG, cxr normal, no infiltrate, troponin negative, INR is therapeutic, I doubt this is PE. Will not CT at this time will dc with follow up Lab Data Result diagrams: 09/13/20 10:05 09/13/20 10:05 Labs: Lab Results 09/13/20 09/13/20 09/13/20 Range/Units 10:05 10:05 10:05 WBC 2.4 L (4.8-10.8) X10*3/uL RBC 3.36 L (4.60-5.80) X10*6/uL Hgb 11.7 L (14.0-18.0) g/dl Hct 35.3 L (42-52) % MCV 105.1 H (80-98) fL MCH 34.8 H (27.0-33.0) pg MCHC 33.1 (31.0-36.0) g/dl RDW 13.9 (11.0-16.0) % Plt Count 71 L (160-400) X10*3/uL MPV 9.9 (9.4-12.4) fL Immature Gran % (Auto) Cancelled Neut % (Auto) Cancelled Lymph % (Auto) Cancelled [place] % (Auto) Cancelled Eos % (Auto) Cancelled Baso % (Auto) Cancelled Lymph # (Auto) Cancelled [place] # (Auto) Cancelled Eos # (Auto) Cancelled Baso # (Auto) Cancelled Abs Immat Gran (auto) Cancelled Absolute Neuts (auto) Cancelled Absolute Nucleated RBC 0.000 (0.0-0.012) X10*3/uL Nucleated RBC % (auto) 0.0 (0.0-0.2) /100WBC Neutrophils % (Manual) 33 L (45-73) % Band Neutrophils % 8 H (3-5) % Lymphocytes % (Manual) 32 (20-40) % Monocytes % (Manual) 27 H (2-11) % Abs Neuts (Manual) 1.0 L (2.2-7.9) X10*3/uL Lymphocytes # (Manual) 0.8 (0.6-4.8) X10*3/uL Monocytes # (Manual) 0.6 (0.0-1.2) X10*3/uL Platelet Estimate DECREASED (NORMAL) Plt Morphology Comment NORMAL RBC Morphology NOTED Polychromasia 1+ (0-2) /OIF Macrocytosis 2+ (15-30) /OIF Peel Cells 2+ (3-5) /OIF PT 27.5 H D (10.8-13.0) SEC INR 2.3 H (0.9-1.1) Sodium 141 (135-145) mmol/L Potassium 3.8 (3.3-5.1) mmol/L Chloride 110 H (96-108) mmol/L Carbon Dioxide 20 L (22-29) mmol/L Anion Gap 15 (12-20) BUN 22 H (9-16) mg/dL Creatinine 1.63 H (0.5-1.4) mg/dL Estim Creat Clear Calc 39.2 Estimated GFR 41 Random Glucose 158 H (60-115) mg/dL Calcium 8.7 (8.4-10.2) mg/dL Troponin I High Sens (<3.5-35.0) ng/L 05// Range/Units 10:05 WBC (4.8-10.8) X10*3/uL RBC (4.60-5.80) X10*6/uL Hgb (14.0-18.0) g/dl Hct (42-52) % MCV (80-98) fL MCH (27.0-33.0) pg MCHC (31.0-36.0) g/dl RDW (11.0-16.0) % Plt Count (160-400) X10*3/uL MPV (9.4-12.4) fL Immature Gran % (Auto) Neut % (Auto) Lymph % (Auto) [place] % (Auto) Eos % (Auto) Baso % (Auto) Lymph # (Auto) [place] # (Auto) Eos # (Auto) Baso # (Auto) Abs Immat Gran (auto) Absolute Neuts (auto) Absolute Nucleated RBC (0.0-0.012) X10*3/uL Nucleated RBC % (auto) (0.0-0.2) /100WBC Neutrophils % (Manual) (45-73) % Band Neutrophils % (3-5) % Lymphocytes % (Manual) (20-40) % Monocytes % (Manual) (2-11) % Abs Neuts (Manual) (2.2-7.9) X10*3/uL Lymphocytes # (Manual) (0.6-4.8) X10*3/uL Monocytes # (Manual) (0.0-1.2) X10*3/uL Platelet Estimate (NORMAL) Plt Morphology Comment RBC Morphology Polychromasia /OIF Macrocytosis /OIF Peel Cells /OIF PT (10.8-13.0) SEC INR (0.9-1.1) Sodium (135-145) mmol/L Potassium (3.3-5.1) mmol/L Chloride (96-108) mmol/L Carbon Dioxide (22-29) mmol/L Anion Gap (12-20) BUN (9-16) mg/dL Creatinine (0.5-1.4) mg/dL Estim Creat Clear Calc Estimated GFR Random Glucose (60-115) mg/dL Calcium (8.4-10.2) mg/dL Troponin I High Sens 21.6 (<3.5-35.0) ng/L ECG Data Attestation: I personally reviewed and interpreted this ECG as follows: Interpretation: normal sinus rate 99, no st or twave changes Discharge Plan Discharge Clinical Impression: Tachycardia Patient Disposition: Home, Self-Care Instructions: Tachycardia (ED) Prescriptions: No Action multivitamin Tablet 1 tab PO DAILY RF: 0 cyanocobalamin (vitamin B-12) 1,000 mcg Tablet 1,000 mcg PO DAILY RF: 0 allopurinol 100 mg tablet 100 mg PO DAILY RF: 0 docusate sodium 100 mg Tablet 200 mg PO DAILY RF: 0 Venclexta 100 mg Tablet 200 mg PO DAILY RF: 0 warfarin 2.5 mg tablet 1 tab PO DAILY RF: 0 pyridoxine (vitamin B6) 100 mg tablet 100 mg PO DAILY 90 Days Qty: 90 RF: 1 glipizide 5 mg tablet extended release 24hr 5 mg PO DAILY 90 Days Qty: 90 RF: 1 (DME) lancets [OneTouch Delica Lancets] 33 gauge misc See Rx Instructions .ROUTE .MEDSUPPLY Qty: 300 RF: 3 (DME) OneTouch Verio test strips Strip See Rx Instructions .ROUTE .MEDSUPPLY Qty: 300 RF: 3 Referrals: Abel Velasco MD [Primary Care Provider] - 2 days
--- NOTE | 2020-09-13 09:10 | ECG_ITS ---
Test Reason : CHEST PAIN Blood Pressure : / mmHG Vent. Rate : 099 BPM Atrial Rate : 099 BPM P-R Int : 142 ms QRS Dur : 078 ms QT Int : 354 ms P-R-T Axes : 081 056 034 degrees QTc Int : 454 ms Normal sinus rhythm Normal ECG When compared with ECG of 02-MAR-2020 09:16, Premature ventricular complexes are no longer Present Referred By: Grabiel Wahl Electronically Signed By:JOSÉ MIGUEL PIMENTEL
[2020-09-13 09:11] VITALS: BP 167/92; PULSE 134; PULSE 98; RESP 20; TEMP 36.3; O2SAT 99; BMI 25.7
[2020-09-13 09:29] VITALS: BP 167/92; PULSE 99; RESP 15; TEMP 36.9; O2SAT 99
[2020-09-13 10:13] LABS: Hematocrit 35.3 % (42-52); Hemoglobin 11.7 g/dl (14.0-18.0); Mean Corpuscular HGB Conc 33.1 g/dl (31.0-36.0); Mean Corpuscular Hemoglobin 34.8 pg (27.0-33.0); Mean Corpuscular Volume 105.1 fL (80-98); Mean Platelet Volume 9.9 fL (9.4-12.4); Red Blood Count 3.36 X10*6/uL (4.60-5.80); Red Cell Distribution Width 13.9 % (11.0-16.0)
[2020-09-13 10:18] LABS: Platelet Count 71 X10*3/uL (160-400)
[2020-09-13 10:19] LABS: WBC ABN SCTR FOR CBC 1
[2020-09-13 10:32] LABS: INTERNATIONAL NORM RATIO 2.3 (0.9-1.1); Prothrombin Time 27.5 SEC (10.8-13.0)
[2020-09-13 10:42] LABS: Band Neutrophils Percent 8 % (3-5); Lymphocytes Percent Manual 32 % (20-40); Monocytes Percent Manual 27 % (2-11); Neutrophils Percent Manual 33 % (45-73)
[2020-09-13 10:43] LABS: Burr Cells 2+ (3-5) /OIF; Macrocytosis 2+ (15-30) /OIF; Platelet Estimate DECREASED (NORMAL); Platelet Morphology Comment NORMAL; RBC Morphology NOTED
[2020-09-13 10:44] LABS: Lymphocytes Absolute Manual 0.8 X10*3/uL (0.6-4.8); Monocytes Absolute Manual 0.6 X10*3/uL (0.0-1.2); Polychromasia 1+ (0-2) /OIF; Troponin-I High Sensitivity 21.6 ng/L (<3.5-35.0); White Blood Count 2.4 X10*3/uL (4.8-10.8)
[2020-09-13 10:49] LABS: Anion Gap 15 (12-20); Blood Urea Nitrogen 22 mg/dL (9-16); Calcium 8.7 mg/dL (8.4-10.2); Carbon Dioxide 20 mmol/L (22-29); Chloride 110 mmol/L (96-108); Creatinine Clr Calc Pharmacy 39.2; Estimated Glomerular Filt Rate 41; Glucose Random 158 mg/dL (60-115); Potassium 3.8 mmol/L (3.3-5.1); Sodium 141 mmol/L (135-145)
== END 2020-09-13 11:42 | disposition home or self-care (01) ==
PROVIDERS: Emergency Provider Emergency Medicine; PCP Internal Medicine
DX: R00.0 Tachycardia, unspecified (principal); E11.22 Type 2 diabetes mellitus with diabetic chronic kidney disease; N18.9 Chronic kidney disease, unspecified; E78.5 Hyperlipidemia, unspecified
CPT/HCPCS: 36415; 71045; 80048; 84484; 85007; 85027; 85610; 93005; 99283; 99284

== ENCOUNTER → 2020-09-19 08:43 | Outpatient (BNVA) | payer MEDICARE, OTHER, SELFPAY | PROVIDERS: PCP Internal Medicine; Referring Provider Internal Medicine Medical Oncology; Visit Provider Internal Medicine | DX: I49.3 Ventricular premature depolarization (principal); C91.10 Chronic lymphocytic leukemia of B-cell type not having achieved remission; R00.0 Tachycardia, unspecified | CPT/HCPCS: 93005; 99212 ==

== ENCOUNTER 2020-09-19 09:26 | Emergency (ER) | payer OTHER, MEDICARE, SELFPAY ==
--- NOTE | ~2020-09-19 | CT_ITS ---
EXAMINATION: CT CHEST WITHOUT CONTRAST CLINICAL INFORMATION: Tachycardia. Rule out pneumonia. COMPARISON: Previous chest CT June 2020 TECHNIQUE: Multidetector volumetric CT imaging of the chest was done. Axial MIP volume rendering provided. Sagittal and coronal reformatted images were obtained. This CT examination was performed using dose optimization techniques as appropriate, variously including the following: *Automated exposure control *Adjustment of mA and/or kV according to patient size (this includes techniques or standardized protocols for targeted exams where dose is matched to indication/reason for exam; i.e. extremities or head) *Use of iterative reconstruction technique DLP: 319 mGy-cm FINDINGS: LUNGS: There are multiple right pulmonary nodules that are stable. The largest is located in the right lower lobe and measures 1.3 x 2.3 cm in transverse and AP dimension. No new pulmonary nodule is seen. There is no evidence of a pneumonia. MEDIASTINUM: There are small mediastinal lymph nodes that are stable. No enlarged hilar or mediastinal lymph nodes are seen. The heart does not appear enlarged. There is coronary artery calcification. There is no pericardial effusion. There may be a small esophageal hernia. PLEURA: There is no pleural effusion. No pleural mass or thickening. AXILLA: There is bilateral axillary lymphadenopathy that appears unchanged. UPPER ABDOMEN: There are multiple liver cysts. There are bilateral renal stones, right greater than left. There is a probable small cyst in the upper pole of the right kidney. The gallbladder has been removed. OSSEOUS STRUCTURES: There are degenerative changes of the spine CT/CT chest wo con IMPRESSION: Stable right pulmonary nodules. No evidence of pneumonia. Stable bilateral axillary lymphadenopathy. Mesenteric artery calcification.
--- NOTE | ~2020-09-19 | NM_ITS ---
EXAMINATION: PULMONARY PERFUSION STUDY CLINICAL INFORMATION: History of cancer, tachycardia, rule out pulmonary embolism. COMPARISON: The previous lung scan dated 08/18/2018 is available for comparison. A radiograph the chest dated 09/13/[address] scan of the chest dated 09/19/2020, the same date as this lung scan, are available for comparison. TECHNIQUE: Following the intravenous injection of 4.0 mCi Tc-99m MAA, an 8-view perfusion study was performed using a gamma scintillation camera. FINDINGS: No segmental perfusion defects are present. There is homogeneous distribution of activity bilaterally. There are no focal anatomic appearing perfusion defects present. Compared to the previous lung scan dated 08/18/2018, there has not been a significant change. NM/NM pul perfusion IMPRESSION: Normal radionuclide lung perfusion scan.
--- NOTE | 2020-09-19 09:37 | ECG_ITS ---
Test Reason : TACHYCARDIA Blood Pressure : / mmHG Vent. Rate : 132 BPM Atrial Rate : 132 BPM P-R Int : 122 ms QRS Dur : 074 ms QT Int : 320 ms P-R-T Axes : 056 064 016 degrees QTc Int : 474 ms Sinus tachycardia with Premature ventricular complexes or Fusion complexes Otherwise normal ECG When compared with ECG of 13-SEP-2020 09:16, Fusion complexes are now Present Premature ventricular complexes are now Present Referred By: Nataly Diehl Electronically Signed By:Josiah Zhang
--- NOTE | 2020-09-19 09:39 | ED_ITS ---
HPI - Arrhythmia/Palpitations General Chief Complaint: Arrhythmia/Palpitations Stated Complaint: Tachycardia Time Seen by Provider: 09/19/20 09:33 Source: patient Mode of arrival: ambulatory (from cardiology office) Limitations: no limitations History of Present Illness HPI narrative: 84 yo male with hx of CLL, PE/DVT on coumadin, CKD, DM just seen for tachycardia - referred to cardiology today, sinus tachycardia 130s - sent to ED for rule out infection, patient has no complaints, of note HR seems to be dependent on position changes at rest 90s upon standing 120s complaint: rapid heart beat Onset (ago): week(s) (1) Duration: intermittent Severity: mild Context: occurred during rest and occurred during exertion Associated symptoms: denies other symptoms Related Data Home Medications Medication Instructions Recorded Confirmed Venclexta 200 mg PO DAILY 02/10/20 09/19/20 allopurinol 100 mg PO DAILY 02/10/20 09/19/20 cyanocobalamin (vitamin B-12) 1,000 mcg PO DAILY 02/10/20 09/19/20 docusate sodium 200 mg PO DAILY 02/10/20 09/19/20 multivitamin 1 tab PO DAILY 02/10/20 09/19/20 warfarin 1 tab PO DAILY 05/11/20 09/19/20 fluconazole 300 mg PO DAILY 09/19/20 09/19/20 warfarin 1.25 mg PO SUTUTHSA 09/19/20 09/19/20 warfarin 2.5 mg PO MOWEFR 09/19/20 09/19/20 Previous Rx's Medication Instructions Recorded pyridoxine (vitamin B6) 100 mg PO DAILY 90 Days #90 tab 08/14/20 blood sugar diagnostic #300 ea 09/13/20 glipizide 5 mg tablet, extended 5 mg PO DAILY 90 Days #90 tab 09/13/20 release 24 hr lancets 33 gauge #300 ea 09/13/20 metoprolol succinate [Toprol XL] 25 mg PO DAILY #30 tab 09/19/20 Allergies Allergy/AdvReac Type Severity Reaction Status Date / Time silver Allergy Intermediate SKIN COMES Verified 09/19/20 08:54 [From TEGADERM AG MESH] OFF morphine [MORPHINE] Allergy Unknown VOMITING, Verified 09/19/20 08:54 vomitting Review of Systems Review of Systems: Constitutional : No Weight loss, No Fever, No Chills, No Fatigue, No Malaise ENT/Mouth : No sore throat, No Rhinorrhea Eyes: No Eye Pain, No Swelling, No Redness Cardiovascular : No Chest Pain, No SOB, No Dyspnea on Exertion, No Orthopnea, No Edema, No Palpitations Respiratory : No Cough, No Sputum, No Wheezing Gastrointestinal : No Nausea, No Vomiting, No Diarrhea, No Constipation, No abdominal Pain, No Hematochezia, No Melena Genitourinary : No Dysuria, No Urinary Frequency, No Hematuria, Musculoskeletal : No joint pain, No Myalgias, No Joint Swelling Skin : No Skin Lesions, No rash Neuro : No Weakness, No Numbness, No Dizziness, No Headache Psych : No Anxiety/Panic, No Depression Heme/Lymph: pos Bruising, No Bleeding,No Lymphadenopathy Endocrine : No Polyuria, No Polydipsia All other systems reviewed and are negative [facility] Past Medical History Attestation statement: The following information was validated with the patient. 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 Dyslipidemia Gout Headache above the eye region Melanoma Skin cancer Tachycardia Surgical History H/O inguinal hernia repair H/O umbilical hernia repair Hx of cataract surgery S/P appendectomy S/P TURP Family History Family History Other Family history of cancer in sister Social History Social History Household Members: Spouse Housing: House Alcohol intake: never Smoking Status: Never smoker Second Hand Smoke Exposure: No Use of substances other than those prescribed or required for medical reasons: No Advance Directives: Yes Advance Directives on File: Yes Advance Directives Date on File: 02/10/20 service: Yes 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 Oriented X3. No acute distress. Eyes: Pupils equal, round and reactive to light. ENT: Pharynx normal. Neck: Normal inspection. Neck supple. CVS: Normal heart rate and rhythm. Pulses normal. laying down HR 92, standing HR 115 Respiratory: No respiratory distress. Breath sounds normal. Abdomen: Soft and nontender. Skin: Skin warm and dry. Normal skin color. Normal skin turgor. areas of easy bruising on forearms Extremities: No lower extremity edema. No calf ttp Neuro: Oriented X 3. No motor deficit. No sensory deficit. Course Course Course Narrative: lactic acid 2.5 but likely related to CKD no fevers, negative for pneumonia/UTI at this time message sent to Dr. Del Cid can follow up as outaptient start on toprol XL 25mg daily MDM - Arrhythmia/Palpitations MDM Narrative Medical decision making narrative: 84 yo male with hx of CLL, PE/DVT on coumadin, CKD, DM just seen for tachycardia - referred to cardiology today, sinus tachycardia 130s - sent to ED for rule out infection, patient has no complaints, of note HR seems to be dependent on position changes at rest 90s upon standing 120s, he is not on any rate control medications, he has no symptoms given his history will need labs, cultures, CT chest for occult pneumonia/mass, VQ scan to r/o PE even on coumadin, dispo per results and findings, seems very much related to position changes Lab Data Result diagrams: 09/19/20 10:08 09/19/20 10:08 Labs: Lab Results 09/19/20 09/19/20 09/19/20 Range/Units 10:08 10:08 10:08 WBC 2.4 L (4.8-10.8) X10*3/uL RBC 3.33 L (4.60-5.80) X10*6/uL Hgb 11.5 L (14.0-18.0) g/dl Hct 34.8 L (42-52) % MCV 104.5 H (80-98) fL MCH 34.5 H (27.0-33.0) pg MCHC 33.0 (31.0-36.0) g/dl RDW 14.0 (11.0-16.0) % Plt Count 74 L (160-400) X10*3/uL MPV 9.4 (9.4-12.4) fL Immature Gran % (Auto) 3.3 H (0.0-0.4) % Neut % (Auto) 35.7 L (45-73) % Lymph % (Auto) 30.1 (20-40) % [place] % (Auto) 30.5 H (2-11) % Eos % (Auto) 0.0 (0-4) % Baso % (Auto) 0.4 (0-2) % Lymph # (Auto) 0.7 L (1.2-4.9) X10*3/uL [place] # (Auto) 0.7 (0.1-1.2) X10*3/uL Eos # (Auto) 0.0 (0.0-0.4) X10*3/uL Baso # (Auto) 0.0 (0.0-0.2) X10*3/uL Abs Immat Gran (auto) 0.08 H (0.00-0.03) X10*3/uL Absolute Neuts (auto) 0.9 L (2.0-8.3) X10*3/uL Absolute Nucleated RBC 0.000 (0.0-0.012) X10*3/uL Nucleated RBC % (auto) 0.0 (0.0-0.2) /100WBC Smear Tech's Comments VERIFIED PT 32.4 H (10.8-13.0) SEC INR 2.7 H (0.9-1.1) APTT 49.3 H (24.1-38.0) SEC Sodium 143 (135-145) mmol/L Potassium 4.2 (3.3-5.1) mmol/L Chloride 110 H (96-108) mmol/L Carbon Dioxide 22 (22-29) mmol/L Anion Gap 15 (12-20) BUN 27 H (9-16) mg/dL Creatinine 1.70 H (0.5-1.4) mg/dL Estim Creat Clear Calc 40.1 Estimated GFR 39 Random Glucose 178 H (60-115) mg/dL Lactic Acid (0.5-2.0) mmol/L Lactic Acid Fup @ 2Hr (0.5-2.0) mmol/L Calcium 8.9 (8.4-10.2) mg/dL Magnesium 1.8 (1.6-2.6) mg/dL Total Bilirubin 0.5 (0.0-1.0) mg/dL Direct Bilirubin 0.2 (0.0-0.5) mg/dL AST 27 (5-37) U/L ALT 23 (0-40) U/L Alkaline Phosphatase 100 (39-117) U/L Troponin I High Sens (<3.5-35.0) ng/L B-Natriuretic Peptide (<100) pg/mL Total Protein 6.2 L (6.5-8.0) g/dL Albumin 4.2 (3.5-5.0) g/dL TSH 3.63 (0.32-4.0) uIU/mL Urine Color Urine Appearance Urine pH (5.0-8.0) Ur Specific [place] (1.005-1.025) Urine Protein (NEG-TRACE) MG/DL Urine Glucose (UA) (NEG) MG/DL Urine Ketones (NEG) MG/DL Urine Blood (NEG) Urine Nitrite (NEG) Ur Leukocyte Esterase (NEG) COVID-19 (NEREYDA) (Negative) COVID-19 Clin Com 09/19/20 09/19/20 09/19/20 Range/Units 10:08 10:08 10:08 WBC (4.8-10.8) X10*3/uL RBC (4.60-5.80) X10*6/uL Hgb (14.0-18.0) g/dl Hct (42-52) % MCV (80-98) fL MCH (27.0-33.0) pg MCHC (31.0-36.0) g/dl RDW (11.0-16.0) % Plt Count (160-400) X10*3/uL MPV (9.4-12.4) fL Immature Gran % (Auto) (0.0-0.4) % Neut % (Auto) (45-73) % Lymph % (Auto) (20-40) % [place] % (Auto) (2-11) % Eos % (Auto) (0-4) % Baso % (Auto) (0-2) % Lymph # (Auto) (1.2-4.9) X10*3/uL [place] # (Auto) (0.1-1.2) X10*3/uL Eos # (Auto) (0.0-0.4) X10*3/uL Baso # (Auto) (0.0-0.2) X10*3/uL Abs Immat Gran (auto) (0.00-0.03) X10*3/uL Absolute Neuts (auto) (2.0-8.3) X10*3/uL Absolute Nucleated RBC (0.0-0.012) X10*3/uL Nucleated RBC % (auto) (0.0-0.2) /100WBC Smear Tech's Comments PT (10.8-13.0) SEC INR (0.9-1.1) APTT (24.1-38.0) SEC Sodium (135-145) mmol/L Potassium (3.3-5.1) mmol/L Chloride (96-108) mmol/L Carbon Dioxide (22-29) mmol/L Anion Gap (12-20) BUN (9-16) mg/dL Creatinine (0.5-1.4) mg/dL Estim Creat Clear Calc Estimated GFR Random Glucose (60-115) mg/dL Lactic Acid 2.5 H* (0.5-2.0) mmol/L Lactic Acid Fup @ 2Hr (0.5-2.0) mmol/L Calcium (8.4-10.2) mg/dL Magnesium (1.6-2.6) mg/dL Total Bilirubin (0.0-1.0) mg/dL Direct Bilirubin (0.0-0.5) mg/dL AST (5-37) U/L ALT (0-40) U/L Alkaline Phosphatase (39-117) U/L Troponin I High Sens 23.4 (<3.5-35.0) ng/L B-Natriuretic Peptide 168 H (<100) pg/mL Total Protein (6.5-8.0) g/dL Albumin (3.5-5.0) g/dL TSH (0.32-4.0) uIU/mL Urine Color Urine Appearance Urine pH (5.0-8.0) Ur Specific [place] (1.005-1.025) Urine Protein (NEG-TRACE) MG/DL Urine Glucose (UA) (NEG) MG/DL Urine Ketones (NEG) MG/DL Urine Blood (NEG) Urine Nitrite (NEG) Ur Leukocyte Esterase (NEG) COVID-19 (NEREYDA) Negative (Negative) COVID-19 Clin Com See Note 09/19/20 09/19/20 Range/Units 12:23 12:23 WBC (4.8-10.8) X10*3/uL RBC (4.60-5.80) X10*6/uL Hgb (14.0-18.0) g/dl Hct (42-52) % MCV (80-98) fL MCH (27.0-33.0) pg MCHC (31.0-36.0) g/dl RDW (11.0-16.0) % Plt Count (160-400) X10*3/uL MPV (9.4-12.4) fL Immature Gran % (Auto) (0.0-0.4) % Neut % (Auto) (45-73) % Lymph % (Auto) (20-40) % [place] % (Auto) (2-11) % Eos % (Auto) (0-4) % Baso % (Auto) (0-2) % Lymph # (Auto) (1.2-4.9) X10*3/uL [place] # (Auto) (0.1-1.2) X10*3/uL Eos # (Auto) (0.0-0.4) X10*3/uL Baso # (Auto) (0.0-0.2) X10*3/uL Abs Immat Gran (auto) (0.00-0.03) X10*3/uL Absolute Neuts (auto) (2.0-8.3) X10*3/uL Absolute Nucleated RBC (0.0-0.012) X10*3/uL Nucleated RBC % (auto) (0.0-0.2) /100WBC Smear Tech's Comments PT (10.8-13.0) SEC INR (0.9-1.1) APTT (24.1-38.0) SEC Sodium (135-145) mmol/L Potassium (3.3-5.1) mmol/L Chloride (96-108) mmol/L Carbon Dioxide (22-29) mmol/L Anion Gap (12-20) BUN (9-16) mg/dL Creatinine (0.5-1.4) mg/dL Estim Creat Clear Calc Estimated GFR Random Glucose (60-115) mg/dL Lactic Acid (0.5-2.0) mmol/L Lactic Acid Fup @ 2Hr 2.5 H* (0.5-2.0) mmol/L Calcium (8.4-10.2) mg/dL Magnesium (1.6-2.6) mg/dL Total Bilirubin (0.0-1.0) mg/dL Direct Bilirubin (0.0-0.5) mg/dL AST (5-37) U/L ALT (0-40) U/L Alkaline Phosphatase (39-117) U/L Troponin I High Sens (<3.5-35.0) ng/L B-Natriuretic Peptide (<100) pg/mL Total Protein (6.5-8.0) g/dL Albumin (3.5-5.0) g/dL TSH (0.32-4.0) uIU/mL Urine Color YELLOW Urine Appearance CLEAR Urine pH 6.0 (5.0-8.0) Ur Specific [place] 1.020 (1.005-1.025) Urine Protein NEG (NEG-TRACE) MG/DL Urine Glucose (UA) NEG (NEG) MG/DL Urine Ketones NEG (NEG) MG/DL Urine Blood TRACE (NEG) Urine Nitrite NEG (NEG) Ur Leukocyte Esterase NEG (NEG) COVID-19 (NEREYDA) (Negative) COVID-19 Clin Com ECG Data Attestation: I personally reviewed and interpreted this ECG as follows: ECG interpretation date: 09/19/20 ECG interpretation time: 09:39 Interpretation: Rate: 132 Rhythm: sinus tachcyardia with PVCs [place]: normal Normal P waves. Normal MINGO. Normal QRS complex. ST T wave : no RUSS, normal qTC: normal prior studies: no sig change from prior The study has been interpreted contemporaneously by me. . Discharge Plan Discharge Clinical Impression: Tachycardia, Acidosis, lactic Patient Disposition: Home, Self-Care Instructions: Tachycardia (ED) Additional Instructions: return to ED for any worsening symptoms or concerns Prescriptions: New metoprolol succinate [Toprol XL] 25 mg tablet extended release 24 hr 25 mg PO DAILY Qty: 30 RF: 0 No Action multivitamin Tablet 1 tab PO DAILY RF: 0 cyanocobalamin (vitamin B-12) 1,000 mcg Tablet 1,000 mcg PO DAILY RF: 0 allopurinol 100 mg tablet 100 mg PO DAILY RF: 0 docusate sodium 100 mg Tablet 200 mg PO DAILY RF: 0 Venclexta 100 mg Tablet 200 mg PO DAILY RF: 0 warfarin 2.5 mg tablet 1 tab PO DAILY RF: 0 pyridoxine (vitamin B6) 100 mg tablet 100 mg PO DAILY 90 Days Qty: 90 RF: 1 warfarin 2.5 mg Tablet 2.5 mg PO MOWEFR RF: 0 warfarin 2.5 mg tablet 1.25 mg PO SUTUTHSA RF: 0 fluconazole 200 mg tablet 300 mg PO DAILY RF: 0 glipizide 5 mg tablet extended release 24hr 5 mg PO DAILY 90 Days Qty: 90 RF: 1 (DME) lancets [OneTouch Delica Lancets] 33 gauge misc See Rx Instructions .ROUTE .MEDSUPPLY Qty: 300 RF: 3 (DME) OneTouch Verio test strips Strip See Rx Instructions .ROUTE .MEDSUPPLY Qty: 300 RF: 3 Referrals: Ion Del Cid MD [Physician] - 2 days (they will call to arrange appointment)
[2020-09-19 09:44] VITALS: BP 156/116; PULSE 133; RESP 18; TEMP 36.7; O2SAT 98; BMI 29.0
[2020-09-19 10:01] VITALS: PULSE 92
[2020-09-19 10:12] VITALS: BP 156/93; PULSE 91; RESP 16; O2SAT 94
[2020-09-19 10:21] LABS: Basophils Percent Auto 0.4 % (0-2); Hematocrit 34.8 % (42-52); Hemoglobin 11.5 g/dl (14.0-18.0); Imm Gran Abs Auto 0.08 X10*3/uL (0.00-0.03); Imm Gran Pct Auto 3.3 % (0.0-0.4); Lymphocytes Absolute Auto 0.7 X10*3/uL (1.2-4.9); Lymphocytes Percent Auto 30.1 % (20-40); MANUAL DIFF FLAG SCAN; Mean Corpuscular Hemoglobin 34.5 pg (27.0-33.0); Mean Corpuscular Volume 104.5 fL (80-98); Mean Platelet Volume 9.4 fL (9.4-12.4); Monocytes Absolute Auto 0.7 X10*3/uL (0.1-1.2); Monocytes Percent Auto 30.5 % (2-11); Neutrophils Absolute Auto 0.9 X10*3/uL (2.0-8.3); Neutrophils Percent Auto 35.7 % (45-73); Red Blood Count 3.33 X10*6/uL (4.60-5.80); SCAN SMEAR FLAG 1
[2020-09-19 10:23] LABS: White Blood Count 2.4 X10*3/uL (4.8-10.8)
[2020-09-19 10:24] LABS: INTERNATIONAL NORM RATIO 2.7 (0.9-1.1); Prothrombin Time 32.4 SEC (10.8-13.0)
[2020-09-19 10:25] LABS: Platelet Count 74 X10*3/uL (160-400)
[2020-09-19 10:38] LABS: COVID-19 Test Negative (Negative); Partial Thromboplastin Time 49.3 SEC (24.1-38.0)
[2020-09-19 10:40] LABS: Alanine Aminotransferase 23 U/L (0-40); Albumin Level 4.2 g/dL (3.5-5.0); Alkaline Phosphatase 100 U/L (39-117); Aspartate Amino Transferase 27 U/L (5-37); Bilirubin Direct 0.2 mg/dL (0.0-0.5); Bilirubin Total 0.5 mg/dL (0.0-1.0); Magnesium 1.8 mg/dL (1.6-2.6); Total Protein 6.2 g/dL (6.5-8.0)
[2020-09-19 10:41] LABS: Lactic Acid 2.5 mmol/L (0.5-2.0)
[2020-09-19 10:45] LABS: SLIDE REVIEW VERIFIED
[2020-09-19 10:47] LABS: B Type Natriuretic Peptide 168 pg/mL (<100); Troponin-I High Sensitivity 23.4 ng/L (<3.5-35.0)
[2020-09-19 11:02] LABS: Thyroid Stimulating Hormone 3.63 uIU/mL (0.32-4.0)
[2020-09-19] MEDS: 0.9 % Sodium Chloride 500 ML IV (11:19)
[2020-09-19 11:21] VITALS: PULSE 84
[2020-09-19 11:24] VITALS: BP 143/86; PULSE 84; RESP 13; O2SAT 100
[2020-09-19 12:14] LABS: Reflex Lactate? Lactic Acid Added
[2020-09-19 12:16] LABS: Anion Gap 15 (12-20); Calcium 8.9 mg/dL (8.4-10.2); Carbon Dioxide 22 mmol/L (22-29); Chloride 110 mmol/L (96-108); Creatinine Clr Calc Pharmacy 40.1; Estimated Glomerular Filt Rate 39; Potassium 4.2 mmol/L (3.3-5.1); Sodium 143 mmol/L (135-145)
[2020-09-19 12:44] LABS: Blood Urea Nitrogen 27 mg/dL (9-16); Glucose Random 178 mg/dL (60-115)
[2020-09-19 12:49] LABS: Glucose Urine UA NEG (NEG); Leukocyte Esterase Urine NEG (NEG); Nitrite Urine NEG (NEG); Urine Blood TRACE (NEG); Urine Ketones NEG (NEG); Urine Protein NEG (NEG-TRACE)
[2020-09-19 12:52] LABS: Appearance Urine CLEAR; Color Urine YELLOW
[2020-09-19 13:02] LABS: ~Lactic Acid-LAB USE ONLY 2.5 mmol/L (0.5-2.0)
[2020-09-19 13:07] LABS: Mucus Urine TRACE /LPF; Squamous Epithelial Cell Urine TRACE /LPF
[2020-09-19 13:23] VITALS: BP 160/106; PULSE 124; RESP 18; TEMP 36.8; O2SAT 100
[2020-09-19 14:31] LABS: Reflex Lactate? 2 Y
== END 2020-09-19 13:30 | disposition home or self-care (01) ==
PROVIDERS: Emergency Provider Emergency Medicine; PCP Internal Medicine
DX: R00.0 Tachycardia, unspecified (principal); E87.2 Acidosis; R00.2 Palpitations; Z20.822 Contact with and (suspected) exposure to COVID-19; E11.22 Type 2 diabetes mellitus with diabetic chronic kidney disease; N18.30 Chronic kidney disease, stage 3 unspecified; E78.5 Hyperlipidemia, unspecified; Z86.711 Personal history of pulmonary embolism; Z86.718 Personal history of other venous thrombosis and embolism; Z79.01 Long term (current) use of anticoagulants
CPT/HCPCS: 36415; 71250; 78580; 80048; 80076; 81001; 83605; 83735; 83880; 84443; 84484; 85025; 85610; 85730; 87040; 87635; 93005; 96360; 99284; 99285; A9540

== ENCOUNTER → 2020-10-12 08:26 | Outpatient (BNVA) | payer MEDICARE, SELFPAY | PROVIDERS: PCP Internal Medicine; Visit Provider Internal Medicine | DX: I26.99 Other pulmonary embolism without acute cor pulmonale (principal); Z51.81 Encounter for therapeutic drug level monitoring; Z79.01 Long term (current) use of anticoagulants | CPT/HCPCS: 85610; 99211 ==

== ENCOUNTER → 2020-10-16 07:21 | Outpatient (REF) | payer MEDICARE, SELFPAY ==
--- NOTE | 2020-10-16 07:24 | CA_ITS ---
Transthoracic Echocardiogram Patient (Last, First, Middle): Jose Guadalupe Yoder J Gender: Male Date of : 1935 Age: 85 Procedure Date: 10/16/2020 Procedure Type: Transthoracic Echocardiogram Location: OP Height: 187.96 cm Weight: 86.18 kg BSA: 2.13 m2 Heart Rate: bpm BP: 124 / 72 mmHg Upholstery Repairer: SYMONE Alexander MD: Ion Del Cid MD Intensive Care Anaesthetist: Joel Benjamin MD Symptoms: R00.0 - Tachycardia, unspecified Study Quality: Fair ECG Rhythm: Sinuswith intermittent possible atrial fibrillatio Conclusions: - 1. LV systolic function appears to be normal while in sinus rhythm with impaired relaxation filling pattern 2. Moderate mitral and calcification with normal cardiac valvular Doppler 3. Normal RV systolic pressure 4. No pericardial effusion Findings Procedure Information The patient receives contrast. Left Ventricle Normal left ventricular size, thickness, and systolic function. The visually estimated ejection fraction is between 55-60%. Spectral Doppler is indicative of an impaired relaxation filling pattern. E/E prime ratio is between 8 and 15 consistent with indeterminate filling pressures. Right Ventricle The right ventricle was not well visualized. Atria The left atrium is likely dilated. Interatrial shunt cannot be excluded. The right atrium was not well visualized. Aortic Valve There is mild calcification of the aortic valve. There is mild thickening of the aortic valve. There is no aortic valve stenosis. There is no aortic valve regurgitation. Mitral Valve There is mild anterior and moderate posterior mitral leaflet thickening. There is moderate mitral annular calcification. There is mild mitral valve regurgitation. There is no mitral valve stenosis. Pulmonic Valve The pulmonic valve was not well visualized. Tricuspid Valve Likely normal tricuspid valve structure and function. There is trace tricuspid valve regurgitation. The right ventricular systolic pressure is normal. The right ventricular systolic pressure is 18 mmHg. Great Vessels All visible segments of the aorta are normal in size. The pulmonary artery was not well visualized. Venous The inferior vena cava is normal in size and collapses greater than 50% with inspiration. Pericardium/Pleural There is no evidence of pericardial effusion. Prior Study Comparison No significant change compared to prior study dated: 09/02/2018. Measurements 2D Linear Measurements RVIDd: 2.76 RVIDd Index: 1.30 IVSd: 1.05 0.6-0.9/0.6-1.0 cm LVIDd: 4.65 3.9-5.3/4.2-5.9 cm LVIDd Index: 2.18 2.4-3.2/2.2-3.1 cm/m2 LVIDs: 3.43 2.0-3.6 cm LVPWd: 1.16 0.7-1.1 cm Ao Root: 3.30 2.1-3.5 cm LA Diam: 3.20 2.7-3.8/3.0-4.0 cm LAIDs Index: 1.50 1.5-2.3 cm/m2 LV Mass: 231.18 67-162/88-224 g LV Mass Index: 108.53 43-95/49-115 g/m2 LVOT Diam: 2.40 3.0+(-)1.3 cm 2D Systolic Function EF 4C: 66.50 >55% EF 2C: 32.30 >55% Mitral Valve MV Pk E: 0.49 MV PK A: 0.73 MV Decel Time: 306.00 E/A: 0.70 E'Lateral: 4.79 E'Medial: 4.57 E/E' Med: 10.70 E/E' Lat: 10.20 Aortic Valve AoV Pk Jared: 1.06 AoV Mn Jared: 0.83 AoV VTI: 0.22 AoV Pk Grad: 4.00 Aov Mn Grad: 3.00 CELSO Cont.VTI: 2.88 LVOT LVOT Pk Jared: 0.57 LVOT Mn Jared: 0.43 LVOT VTI: 0.14 LVOT Pk Grad: 1.00 LVOT Mn Grad: 1.00 LVOT Diam: 2.40 LVOT Area: 4.52 Diastolic Function MV Pk E: 0.49 MV Pk A: 0.73 E/A: 0.70 E'Medial: 4.57 E/E' Med: 10.70 E' Laterial: 4.79 E/E' Lat: 10.20 Tricuspid Valve TR Pk Jared: 1.95 TR Pk Grad: 15.00 RA Press: 3.00 RVSP: 18.00 Great Vessels Aorta Ao Root-2D: 3.30 2.0-3.7 cm Ao Asc: 3.70 2.1-3.4 cm Ao Arch: 2.90 Updated in Other Vendor System with Status of Final Joel Sourav MD electronically signed on 10/17/2020 3:39:41 PM with status of Final
--- NOTE | 2020-10-16 07:45 | ECG_ITS ---
Hook-up date: 2020-10-16 09:08:00 Duration: 26:32:00 Test Indications: TACHYCARDIA, PVC'S Medications: 564777 QRS complexes 96 Ventricular ectopics which represent <1 % of total QRS comp. 1676 Supraventricular ectopics which represent 1 % of total QRS comp. * Paced QRS complexs which represent % of total QRS comp. VENTRICULAR ECTOPY 96 Isolated 0 Bigeminal Cycles 0 Couplets 0 Runs 0 Beats in Runs * Beats LONGEST at * BPM at :: -- * Beats FASTEST at * BPM at :: -- SUPRAVENTRICULAR ECTOPY 337 Isolated 19 Couplets 84 Runs 1301 Beats in Runs 132 Beats LONGEST at 129 BPM at 08:24:17 2020-10-17 3 Beats FASTEST at 138 BPM at 11:08:06 2020-10-16 HEART RATES 50 MIN at 06:54:04 2020-10-17 86 AVG 129 MAX at 08:33:59 2020-10-17 LONGEST RR 1.7920 secs at 06:53:59 2020-10-17 S-T LEVELS Channel 1 - 128 mm at 09:08:00 2020-10-16 - 128 mm at 09:08:00 2020-10-16 Channel 2 - 128 mm at 09:08:00 2020-10-16 - 128 mm at 09:08:00 2020-10-16 Channel 3 - 128 mm at 02:82:71 -- - 128 mm at 02:82:71 Underlying rhythm is sinus; There are narrow complex tachycardia episodes, possibly atrial tachycardia based on abrupt heart rate changes; max rate 125/min; Rare PVCs, isolated; Patient diary without any relevant symptoms. Referred By: José Miguel Pimentel Overread By: JOSÉ MIGUEL PIMENTEL
== END ==
LOC: HO.CARD 07:21
PROVIDERS: Visit Provider Internal Medicine
DX: R00.0 Tachycardia, unspecified (principal); I49.3 Ventricular premature depolarization
CPT/HCPCS: 93225; 93226; 93306; Q9957

== ENCOUNTER → 2020-10-19 08:17 | Outpatient (BNVA) | payer MEDICARE, SELFPAY | PROVIDERS: PCP Internal Medicine; Visit Provider Internal Medicine | DX: I26.99 Other pulmonary embolism without acute cor pulmonale (principal); Z51.81 Encounter for therapeutic drug level monitoring; Z79.01 Long term (current) use of anticoagulants | CPT/HCPCS: 85610; 99211 ==

== ENCOUNTER → 2020-11-02 08:23 | Outpatient (BNVA) | payer MEDICARE, SELFPAY | PROVIDERS: PCP Internal Medicine; Visit Provider Internal Medicine | DX: I26.99 Other pulmonary embolism without acute cor pulmonale (principal); Z51.81 Encounter for therapeutic drug level monitoring; Z79.01 Long term (current) use of anticoagulants | CPT/HCPCS: 85610; 99211 ==

== ENCOUNTER → 2020-11-22 12:15 | Outpatient (BNVA) | payer MEDICARE, SELFPAY | PROVIDERS: PCP Internal Medicine; Referring Provider Internal Medicine; Visit Provider Internal Medicine | DX: I47.1 Supraventricular tachycardia (principal); I49.3 Ventricular premature depolarization; C91.10 Chronic lymphocytic leukemia of B-cell type not having achieved remission; Z79.899 Other long term (current) drug therapy | CPT/HCPCS: 99212 ==

== ENCOUNTER → 2020-12-12 10:12 | Outpatient (BNVA) | payer MEDICARE, SELFPAY | PROVIDERS: PCP Internal Medicine; Visit Provider Internal Medicine | DX: I26.99 Other pulmonary embolism without acute cor pulmonale (principal); Z51.81 Encounter for therapeutic drug level monitoring; Z79.01 Long term (current) use of anticoagulants | CPT/HCPCS: 85610; 99211 ==

== ENCOUNTER → 2020-12-13 09:21 | Outpatient (REF) | payer MEDICARE, SELFPAY ==
--- NOTE | 2020-12-13 11:50 | ECG_ITS ---
Hook-up date: 2020-12-13 09:39:00 Duration: 27:22:00 Test Indications: SVT Medications: [id number] QRS complexes 184 Ventricular ectopics which represent <1 % of total QRS comp. 2375 Supraventricular ectopics which represent 1 % of total QRS comp. * Paced QRS complexs which represent % of total QRS comp. VENTRICULAR ECTOPY 182 Isolated 0 Bigeminal Cycles 1 Couplets 0 Runs 0 Beats in Runs * Beats LONGEST at * BPM at :: -- * Beats FASTEST at * BPM at :: -- SUPRAVENTRICULAR ECTOPY 1994 Isolated 55 Couplets 30 Runs 271 Beats in Runs 32 Beats LONGEST at 130 BPM at 11:17:18 2020-12-13 3 Beats FASTEST at 144 BPM at 09:01:28 2020-12-14 HEART RATES 57 MIN at 06:57:48 2020-12-14 82 AVG 136 MAX at 13:41:10 2020-12-13 LONGEST RR 1.5680 secs at 03:27:19 2020-12-14 S-T LEVELS Channel 1 - 128 mm at 09:39:00 2020-12-13 - 128 mm at 09:39:00 2020-12-13 Channel 2 - 128 mm at 09:39:00 2020-12-13 - 128 mm at 09:39:00 2020-12-13 Channel 3 - 128 mm at 02:85:81 -- - 128 mm at 02:85:81 Underlying rhythm is sinus; Average ventricular rate 82/min; range 57-136/min; About 14% of the time, rate >100/min; Frequent Premature atrial complexes (2%); Longest run 32 beats at 130/min; Rare Premature ventricular complexes ; Patient did not report any symptoms in the diary Referred By: José Miguel Pimentel Overread By: JOSÉ MIGUEL PIMENTEL
== END ==
LOC: HO.CARD 09:21
PROVIDERS: PCP Internal Medicine; Referring Provider Internal Medicine; Visit Provider Internal Medicine Cardiovascular Disease
DX: I47.1 Supraventricular tachycardia (principal)
CPT/HCPCS: 93226

== ENCOUNTER 2020-12-18 | Outpatient (REF) | payer MEDICARE, SELFPAY | END 2020-12-18 00:01 | disposition home or self-care (01) | LOC: CF | PROVIDERS: Visit Provider Internal Medicine | DX: I26.99 Other pulmonary embolism without acute cor pulmonale (principal); Z79.01 Long term (current) use of anticoagulants; Z51.81 Encounter for therapeutic drug level monitoring | CPT/HCPCS: 85610; 99211; 99214 ==

== ENCOUNTER 2020-12-28 06:54 | Outpatient (REF) | payer MEDICARE, SELFPAY ==
--- NOTE | ~2020-12-28 | CT_ITS ---
EXAMINATION: CT CHEST WITHOUT CONTRAST CLINICAL INFORMATION: Follow-up pulmonary nodules. COMPARISON: Prior CT examinations of the chest, most recently 09/19/2020; MRI abdomen dated 07/29/2017.. TECHNIQUE: Multidetector volumetric CT imaging of the chest was done. Axial MIP volume rendering provided. Sagittal and coronal reformatted images were obtained. This CT examination was performed using dose optimization techniques as appropriate, variously including the following: *Automated exposure control *Adjustment of mA and/or kV according to patient size (this includes techniques or standardized protocols for targeted exams where dose is matched to indication/reason for exam; i.e. extremities or head) *Use of iterative reconstruction technique DLP: 736 mGy-cm FINDINGS: LUNGS: At the right apex, a benign, calcified granuloma is seen. Also at the right apex (8:156 and 1 9), there are 2 noncalcified 1-2 mm nodules. Inferiorly within the right upper lobe (8:314), there is a 4 mm ovoid, noncalcified nodule. Within the superior segment of the right lower lobe (8:304 and 326), there are 6 mm pleural-based and 2.4 x 1.7 cm subpleural, noncalcified nodules. The latter of these nodules shows an associated 4 mm noncalcified satellite nodule (8:325). Within the lateral basal segment of the left lower lobe (8:370, 402 and 465), there are 3 mm pleural-based, 1-2 mm parenchymal and 5 mm parenchymal noncalcified nodules. Within the posterior basal segment of the right lower lobe (8:43), a 4 mm noncalcified nodule is seen. Within the anterior segment of the left upper lobe (8:3 2), there is a 3 mm noncalcified nodule. Within the lateral and basal segment of the left lower lobe (8:42), a 3 mm noncalcified nodule is seen. There is a small endobronchial density again seen within the posterior basal segment of the left lower lobe (8:472). These bilateral pulmonary nodules show no interim change in size or number. Within the right middle lobe and the bilateral lower lobes, are scattered foci of minor scar/subsegmental atelectasis. There is no generalized increase in peripheral interlobular septal markings. No significant bleb or bullous formation is seen. No small airway thickening is seen. The central airways appear patent. MEDIASTINUM: The thyroid is unremarkable. There is no thoracic aneurysm. There are moderate atherosclerotic calcifications of the great vessel origins, thoracic aorta and coronary arteries. No mediastinal or hilar lymphadenopathy is seen. PLEURA: There is no pleural effusion. No pleural mass or thickening. AXILLA: There are multiple shotty, nonpathologically enlarged bilateral axillary lymph nodes. The largest in the right axilla show a short axis diameter of 8 mm each (3:17 and 22), and the largest in the left axilla shows a short axis diameters of 7 mm (3:17). No sizable axillary or internal thoracic lymphadenopathy is seen. UPPER ABDOMEN: Multiple scattered hepatic cysts are seen, many too small to fully characterize with CT and consistent with prior CT and MRI findings. Again, there are incompletely characterized bilateral renal calculi and cysts. OSSEOUS STRUCTURES: There is multi-level marked lower cervical, thoracic and upper lumbar degenerative disc disease and spondylosis, with an appearance suggesting possible DISH (diffuse idiopathic skeletal hyperostosis). No acute or aggressive osseous abnormality is seen. CT/CT chest wo con IMPRESSION: There is a continued stable appearance of previously seen bilateral pulmonary nodules, as detailed above. No new nodule, mass, infiltrate or groundglass opacity is seen. There is no pleural effusion or thoracic lymphadenopathy. Skeletal findings suggest possible DISH.
--- NOTE | ~2020-12-28 | CT_ITS ---
EXAMINATION: CT ABDOMEN AND PELVIS WITHOUT CONTRAST CLINICAL INFORMATION: Pulmonary nodule follow-up COMPARISON: Baseline 07/05/2020 TECHNIQUE: Multidetector volumetric imaging was performed from the superior aspect of the liver through the pubic symphysis. Sagittal and coronal reformatted images were obtained on the technologist's workstation. This CT examination was performed using dose optimization techniques as appropriate, variously including the following: *Automated exposure control *Adjustment of mA and/or kV according to patient size (this includes techniques or standardized protocols for targeted exams where dose is matched to indication/reason for exam; i.e. extremities or head) *Use of iterative reconstruction technique DLP: 484 mGy-cm FINDINGS: LUNG BASES: As per CT chest report LIVER, GALLBLADDER, AND BILIARY TREE: Innumerable well-defined low-density lesions are similar consistent with hepatic cysts. Liver morphology normal. No biliary dilatation. Clips consistent cholecystectomy. PANCREAS: Unremarkable. SPLEEN: Unremarkable. ADRENAL GLANDS: Unremarkable. KIDNEYS AND URETERS: Multiple renal cortical cysts again noted.. No hydronephrosis,. Stable calculi bilaterally. BLADDER: Unremarkable. GASTROINTESTINAL TRACT: Large amount stool within the rectum. No specific findings of stercoral colitis. Severe diverticulosis without acute inflammatory changes throughout the colon. No obstruction. No fluid collection or serosal abnormality. No small bowel pathology. Grossly normal appearance of the stomach. ABDOMINAL WALL: No significant hernia is appreciated. Evidence of previous mesh placement right pelvis without recurrence of hernia. LYMPH NODES: Normal. VASCULAR: Unremarkable. PELVIC VISCERA: Unremarkable. OSSEOUS STRUCTURES: Unremarkable. CT/CT abdomen pelvis wo con IMPRESSION: No suspicious abnormality within the abdomen. Chronic findings stable as above.
[2020-12-28] MEDS: Barium Sulfate Oral (Vanilla) 450 ML ORAL.SUSP 900 ML PO (09:03)
== END 2020-12-28 06:55 | disposition home or self-care (01) ==
LOC: HO.CT 06:54
PROVIDERS: Visit Provider Internal Medicine Medical Oncology
DX: C91.10 Chronic lymphocytic leukemia of B-cell type not having achieved remission (principal); B45.0 Pulmonary cryptococcosis
CPT/HCPCS: 71250; 74176

== ENCOUNTER 2021-01-01 08:02 | Outpatient (REF) | payer MEDICARE, SELFPAY ==
[2021-01-01 09:32] LABS: Estimated Average Glucose 120 mg/dL; Hemoglobin A1c % 5.8 %
[2021-01-01 09:37] LABS: Cholesterol 170 mg/dL; HDL Cholesterol 32 mg/dL; LDL Cholesterol Calculated 104 mg/dl; Triglycerides 170 mg/dL
[2021-01-01 09:52] LABS: Creatinine Urine 109.09 mg/dL
== END 2021-01-01 08:03 | disposition home or self-care (01) ==
LOC: HO.LAB 08:02
PROVIDERS: Absent Provider Internal Medicine; PCP Internal Medicine; Visit Provider Internal Medicine
DX: I26.99 Other pulmonary embolism without acute cor pulmonale (principal); I10 Essential (primary) hypertension; E11.29 Type 2 diabetes mellitus with other diabetic kidney complication; Z51.81 Encounter for therapeutic drug level monitoring; Z79.01 Long term (current) use of anticoagulants
CPT/HCPCS: 36415; 80061; 82043; 83036; 85610; 99211

== ENCOUNTER → 2021-01-08 11:30 | Outpatient (BNVA) | payer MEDICARE, SELFPAY | PROVIDERS: PCP Internal Medicine; Visit Provider Internal Medicine | DX: I26.99 Other pulmonary embolism without acute cor pulmonale (principal); Z51.81 Encounter for therapeutic drug level monitoring; Z79.01 Long term (current) use of anticoagulants | CPT/HCPCS: 85610; 99211 ==

== ENCOUNTER 2021-01-15 12:27 | Emergency (ER) | payer OTHER, SELFPAY ==
--- NOTE | 2021-01-15 | ECG_ITS ---
Test Reason : CHEST PAIN Blood Pressure : / mmHG Vent. Rate : 092 BPM Atrial Rate : 092 BPM P-R Int : 154 ms QRS Dur : 074 ms QT Int : 366 ms P-R-T Axes : 080 062 036 degrees QTc Int : 452 ms Sinus rhythm with Premature supraventricular complexes Otherwise normal ECG When compared with ECG of 14-NOV-2020 09:57, Premature supraventricular complexes are now Present Heart rate has decreased Referred By: Generic ED Physician Electronically Signed By:DENISE MACIAS
--- NOTE | ~2021-01-15 | XR_ITS ---
EXAMINATION: XR CHEST CLINICAL INFORMATION: Chest pain and cough COMPARISON: Chest CT 12/28/2020. Chest CT 09/19/2020. Chest x-ray 09/13/2020, and priors TECHNIQUE: AP portable upright (3 images) view of the chest was obtained. FINDINGS: A dominant right midlung pulmonary nodule has decreased in size over the last year. Smaller right lung nodules better seen on CT are not visualized on portable plain radiography. CT identified left lung nodules are also not visualized. A recent CT of 12/28/2020 when compared with 12/06/2019 shows resolution of multiple similar-appearing ill-defined right lower lobe pulmonary nodules. No acute consolidation or effusion is seen. Lung volumes are stable. There is chronic airways disease. The heart and mediastinum are stable. Nonobstructive gas pattern. XR/XR chest 1V IMPRESSION: 1. No acute consolidation or effusion. Chronic airways disease. 2. Gradual improvement in right midlung nodule. Recent cross-sectional imaging also shows improvement in right lower lobe pulmonary nodules.
[2021-01-15 12:40] VITALS: BP 157/97; PULSE 87; RESP 16; TEMP 36.7; O2SAT 100; BMI 25.0
--- NOTE | 2021-01-15 14:06 | ED_ITS ---
HPI - Chest Pain General Chief Complaint: Chest Pain Stated Complaint: CHEST PAIN Time Seen by Provider: 01/15/21 13:44 Source: patient Mode of arrival: ambulatory History of Present Illness HPI narrative: 85-year-old male with a past medical history BPH, CKD, Cryptococcus, DM, HLD, gout, sinus tachycardia, melanoma, DVT/PE on Coumadin, pr esenting to the ED complaining of substernal chest pressure since last night. Reports symptoms began at rest. Reports associated back pain, however has been dealing with scapular pain which he has been seeing orthopedics for. Also reports productive cough x1 month. Denies SOB, numbness, tingling, weakness, LE edema, calf pain, recent travel, sick contacts MD complaint: chest pain Related Data Home Medications Medication Instructions Recorded Confirmed cyanocobalamin (vitamin B-12) 1,000 mcg PO DAILY 02/10/20 01/08/21 1,000 mcg tablet docusate sodium 100 mg tablet 200 mg PO DAILY 02/10/20 01/08/21 multivitamin 1 tab PO DAILY 02/10/20 01/08/21 venetoclax 100 mg tablet 200 mg PO DAILY 02/10/20 01/08/21 (Venclexta) warfarin 2.5 mg tablet 1 tab PO DAILY 05/11/20 01/08/21 azithromycin 250 mg tablet 250 mg PO DIRECTED 12/18/20 01/08/21 fluconazole 100 mg tablet 100 mg PO .COMPLEX 12/18/20 01/08/21 doxycycline hyclate 100 mg capsule 100 mg PO BID 12/29/20 01/08/21 fluconazole 200 mg tablet 0 mg PO 01/01/21 01/08/21 metoprolol succinate 50 mg 50 mg PO DAILY 01/01/21 01/08/21 tablet,extended release 24 hr Previous Rx's Medication Instructions Recorded blood sugar diagnostic (Surya Power MagicTouch #300 ea 09/13/20 Verio test strips) lancets 33 gauge (OneTouch Delica #300 ea 09/13/20 Lancets) glipizide 5 mg tablet, extended 5 mg PO DAILY #90 tab 10/25/20 release 24 hr metoprolol succinate 25 mg 25 mg PO BID 90 Days #180 tab 11/22/20 tablet,extended release 24 hr (Toprol XL) allopurinol 100 mg tablet 100 mg PO DAILY #90 tab 12/08/20 pyridoxine (vitamin B6) 100 mg 100 mg PO DAILY 90 Days #90 tab 01/08/21 tablet Allergies Allergy/AdvReac Type Severity Reaction Status Date / Time silver Allergy Intermediate SKIN COMES Verified 12/12/20 10:14 [From TEGADERM AG MESH] OFF morphine [MORPHINE] Allergy Unknown VOMITING, Verified 12/12/20 10:14 vomitting Review of Systems Review of Systems: Constitutional: No Fever, No Chills, No Fatigue, No Malaise ENT/Mouth: No Ear Pain, No Nasal Congestion,No sore throat Eyes: No Eye Pain, No Vision Changes Cardiovascular: + Chest Pain, No SOB, No Edema, No Palpitations Respiratory: + Cough, + Sputum, No Wheezing, No Dyspnea Gastrointestinal: No Nausea, No Vomiting, No Diarrhea, No Constipation, No Abdominal pain Genitourinary: No Dysuria, No Hematuria, No Flank Pain Musculoskeletal: No joint pain, No Myalgias Skin: No Skin Lesions, No rash Neuro: No Weakness, No Numbness, No Paresthesias, No Dizziness, No Headache Yes all other systems are reviewed and are negative [facility] Past Medical History Attestation statement: The following information was validated with the patient. 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 Dyslipidemia Gout Headache above the eye region Melanoma Skin cancer Tachycardia Surgical History H/O inguinal hernia repair H/O umbilical hernia repair Hx of cataract surgery S/P appendectomy S/P TURP Family History Family History Other Family history of cancer in sister Social History Social History Household Members: Spouse Housing: House Do you presently have visiting nurse or other home services: No Alcohol intake: never Patient Tobacco Use Status: Never used Tobacco Second Hand Smoke Exposure: No Use of substances other than those prescribed or required for medical reasons: No Advance Directives: Yes Advance Directives on File: Yes Advance Directives Date on File: 02/10/20 service: Yes Current occupational status: retired 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 Physical Exam Vital Signs: Vital Signs: Last Vital Signs Temp 98.0 F 01/15/21 12:40 Pulse 79 01/15/21 17:53 Resp 16 01/15/21 17:53 BP 149/78 H 01/15/21 17:53 Pulse Ox 99 01/15/21 17:53 Body Mass Index 25.0 Const: General: cooperative and healthy appearing Orientation/consciousness: patient oriented x3 Limitations: no limitations HENMT: Head: Yes normal to inspection Ears: hearing grossly normal bilaterally General nose exam: Normal external nose present Face and sinus: Yes normal facial exam Eyes: General: appearance normal, both eyes and all related structures EOM: EOMs intact bilaterally Neck: Neck: Yes normal visual inspection Resp: Effort & Inspection: normal respiratory effort Auscultation: clear to auscultation bilaterally, no rales, no rhonchi and no wheezes Cardio: Rate: regular rate Heart sounds: S1 normal heart sound present and S2 normal heart sound present GI: Inspection: Yes normal to inspection Palpation (GI): Soft to palpation, nontender, no guarding and not rigid Skin: Rashes: no rashes Wounds: no wounds Neuro: General: patient oriented x3 Extrem: General: Yes normal to inspection, Yes no pedal edema and Yes no calf tenderness Course Course Course Narrative: -chronic leukopenia. H&H at patient's baseline. INR supratherapeutic at 3.3. -troponin elevated at 9.4 (elevated in the past) > will obtain 3 hour repeat. BNP 243 -1641--chronic renal insufficiency, AST/ALT mildly elevated XR chest 1V IMPRESSION: 1. No acute consolidation or effusion. Chronic airways disease. 2. Gradual improvement in right midlung nodule. Recent cross-sectional imaging also shows improvement in right lower lobe pulmonary nodules. -1816--repeat troponin without 50% rise. UT unlikely. Results discussed with patient including worrisome signs and symptoms and strict return precautions, verbalized understanding feel safe for discharge home to follow-up with PCP/cardiology MDM - Chest Pain MDM Narrative Medical decision making narrative: 85-year-old male with a past medical history BPH, CKD, Cryptococcus, DM, HLD, gout, sinus tachycardia, melanoma, DVT/PE on Coumadin, presenting to the ED complaining of substernal chest pressure since last night. Also reports productive cough x1 month. On exam VSS, NAD/nontoxic, Lungs CTA, no pedal edema/Calf tenderness. Concern for ACS. Low concern for PE as patient is anticoagulated. Rule out pneumonia. Plan: EKG, labs, CXR, COVID-19 testing, reassess Medical Records Data Attestation: I reviewed the patient's medical records. Lab Data Attestation: I reviewed the patient's lab results. Result diagrams: 01/15/21 14:14 01/15/21 14:14 Labs: Lab Results 01/15/21 01/15/21 01/15/21 Range/Units 14:14 14:14 14:14 WBC 3.5 L (4.8-10.8) X10*3/uL RBC 3.20 L (4.60-5.80) X10*6/uL Hgb 11.7 L (14.0-18.0) g/dl Hct 34.5 L (42-52) % MCV 107.8 H (80-98) fL MCH 36.6 H (27.0-33.0) pg MCHC 33.9 (31.0-36.0) g/dl RDW 14.4 (11.0-16.0) % Plt Count 44 L (160-400) X10*3/uL MPV 10.0 (9.4-12.4) fL Immature Gran % (Auto) Cancelled Neut % (Auto) Cancelled Lymph % (Auto) Cancelled [place] % (Auto) Cancelled Eos % (Auto) Cancelled Baso % (Auto) Cancelled Lymph # (Auto) Cancelled [place] # (Auto) Cancelled Eos # (Auto) Cancelled Baso # (Auto) Cancelled Abs Immat Gran (auto) Cancelled Absolute Neuts (auto) Cancelled Absolute Nucleated RBC 0.000 (0.0-0.012) X10*3/uL Nucleated RBC % (auto) 0.0 (0.0-0.2) /100WBC Neutrophils % (Manual) 47 (45-73) % Band Neutrophils % 3 (3-5) % Lymphocytes % (Manual) 34 (20-40) % Monocytes % (Manual) 14 H (2-11) % Metamyelocytes % 2 % Abs Neuts (Manual) 1.8 L (2.2-7.9) X10*3/uL Lymphocytes # (Manual) 1.2 (0.6-4.8) X10*3/uL Monocytes # (Manual) 0.5 (0.0-1.2) X10*3/uL Metamyelocytes # 0.1 X10*3/uL WBC Morphology Comment DYSMORPHIC Platelet Estimate DECREASED (NORMAL) Plt Morphology Comment NORM RBC Morphology NOTED Sickle Cells 1+ (0-2) /OIF Ovalocytes 1+ (5-14) /OIF Acanthocytes (Spur) 1+ (0-2) /OIF PT (9.9-13.0) SEC INR (0.9-1.1) APTT (24.1-38.0) SEC Sodium 144 (135-145) mmol/L Potassium 4.2 (3.3-5.1) mmol/L Chloride 110 H (96-108) mmol/L Carbon Dioxide 22 (22-29) mmol/L Anion Gap 16 (12-20) BUN 21 H (9-16) mg/dL Creatinine 1.64 H (0.5-1.4) mg/dL Estim Creat Clear Calc 39.3 Estimated GFR 40 Random Glucose 155 H (60-115) mg/dL Calcium 9.5 (8.4-10.2) mg/dL Magnesium 1.7 (1.6-2.6) mg/dL Total Bilirubin 0.4 (0.0-1.0) mg/dL Direct Bilirubin < 0.2 (0.0-0.5) mg/dL AST 51 H (5-37) U/L ALT 68 H (0-40) U/L Alkaline Phosphatase 117 (39-117) U/L Troponin I High Sens 9.4 (<3.5-35.0) ng/L B-Natriuretic Peptide 243 H (<100) pg/mL Total Protein 6.4 L (6.5-8.0) g/dL Albumin 4.3 (3.5-5.0) g/dL Coronavirus (PCR) COVID-19 ([facility]) (Negative) COVID-19 Clin Com Influenza Type A (PCR) Influenza Type B (PCR) RSV RNA Qual (PCR) 01/15/21 01/15/21 01/15/21 Range/Units 14:14 14:14 14:25 WBC (4.8-10.8) X10*3/uL RBC (4.60-5.80) X10*6/uL Hgb (14.0-18.0) g/dl Hct (42-52) % MCV (80-98) fL MCH (27.0-33.0) pg MCHC (31.0-36.0) g/dl RDW (11.0-16.0) % Plt Count (160-400) X10*3/uL MPV (9.4-12.4) fL Immature Gran % (Auto) Neut % (Auto) Lymph % (Auto) [place] % (Auto) Eos % (Auto) Baso % (Auto) Lymph # (Auto) [place] # (Auto) Eos # (Auto) Baso # (Auto) Abs Immat Gran (auto) Absolute Neuts (auto) Absolute Nucleated RBC (0.0-0.012) X10*3/uL Nucleated RBC % (auto) (0.0-0.2) /100WBC Neutrophils % (Manual) (45-73) % Band Neutrophils % (3-5) % Lymphocytes % (Manual) (20-40) % Monocytes % (Manual) (2-11) % Metamyelocytes % % Abs Neuts (Manual) (2.2-7.9) X10*3/uL Lymphocytes # (Manual) (0.6-4.8) X10*3/uL Monocytes # (Manual) (0.0-1.2) X10*3/uL Metamyelocytes # X10*3/uL WBC Morphology Comment Platelet Estimate (NORMAL) Plt Morphology Comment RBC Morphology Sickle Cells /OIF Ovalocytes /OIF Acanthocytes (Spur) /OIF PT 37.9 H (9.9-13.0) SEC INR 3.3 H (0.9-1.1) APTT 55.4 H (24.1-38.0) SEC Sodium (135-145) mmol/L Potassium (3.3-5.1) mmol/L Chloride (96-108) mmol/L Carbon Dioxide (22-29) mmol/L Anion Gap (12-20) BUN (9-16) mg/dL Creatinine (0.5-1.4) mg/dL Estim Creat Clear Calc Estimated GFR Random Glucose (60-115) mg/dL Calcium (8.4-10.2) mg/dL Magnesium (1.6-2.6) mg/dL Total Bilirubin (0.0-1.0) mg/dL Direct Bilirubin (0.0-0.5) mg/dL AST (5-37) U/L ALT (0-40) U/L Alkaline Phosphatase (39-117) U/L Troponin I High Sens (<3.5-35.0) ng/L B-Natriuretic Peptide (<100) pg/mL Total Protein (6.5-8.0) g/dL Albumin (3.5-5.0) g/dL Coronavirus (PCR) Cancelled COVID-19 ([facility]) Negative (Negative) COVID-19 Clin Com See Note Influenza Type A (PCR) Cancelled Influenza Type B (PCR) Cancelled RSV RNA Qual (PCR) Cancelled 01/15/21 Range/Units 17:21 WBC (4.8-10.8) X10*3/uL RBC (4.60-5.80) X10*6/uL Hgb (14.0-18.0) g/dl Hct (42-52) % MCV (80-98) fL MCH (27.0-33.0) pg MCHC (31.0-36.0) g/dl RDW (11.0-16.0) % Plt Count (160-400) X10*3/uL MPV (9.4-12.4) fL Immature Gran % (Auto) Neut % (Auto) Lymph % (Auto) [place] % (Auto) Eos % (Auto) Baso % (Auto) Lymph # (Auto) [place] # (Auto) Eos # (Auto) Baso # (Auto) Abs Immat Gran (auto) Absolute Neuts (auto) Absolute Nucleated RBC (0.0-0.012) X10*3/uL Nucleated RBC % (auto) (0.0-0.2) /100WBC Neutrophils % (Manual) (45-73) % Band Neutrophils % (3-5) % Lymphocytes % (Manual) (20-40) % Monocytes % (Manual) (2-11) % Metamyelocytes % % Abs Neuts (Manual) (2.2-7.9) X10*3/uL Lymphocytes # (Manual) (0.6-4.8) X10*3/uL Monocytes # (Manual) (0.0-1.2) X10*3/uL Metamyelocytes # X10*3/uL WBC Morphology Comment Platelet Estimate (NORMAL) Plt Morphology Comment RBC Morphology Sickle Cells /OIF Ovalocytes /OIF Acanthocytes (Spur) /OIF PT (9.9-13.0) SEC INR (0.9-1.1) APTT (24.1-38.0) SEC Sodium (135-145) mmol/L Potassium (3.3-5.1) mmol/L Chloride (96-108) mmol/L Carbon Dioxide (22-29) mmol/L Anion Gap (12-20) BUN (9-16) mg/dL Creatinine (0.5-1.4) mg/dL Estim Creat Clear Calc Estimated GFR Random Glucose (60-115) mg/dL Calcium (8.4-10.2) mg/dL Magnesium (1.6-2.6) mg/dL Total Bilirubin (0.0-1.0) mg/dL Direct Bilirubin (0.0-0.5) mg/dL AST (5-37) U/L ALT (0-40) U/L Alkaline Phosphatase (39-117) U/L Troponin I High Sens 7.2 (<3.5-35.0) ng/L B-Natriuretic Peptide (<100) pg/mL Total Protein (6.5-8.0) g/dL Albumin (3.5-5.0) g/dL Coronavirus (PCR) COVID-19 ([facility]) (Negative) COVID-19 Clin Com Influenza Type A (PCR) Influenza Type B (PCR) RSV RNA Qual (PCR) ECG Data ECG #1: Attestation: I personally reviewed and interpreted this ECG as follows: ECG interpretation date: 01/15/21 ECG interpretation time: 12:36 Interpretation: EKG sinus rhythm with premature supraventricular complexes. Rate of 92. No STEMI Discharge Plan Discharge Clinical Impression: Chest pain Qualifiers: Chest pain type: unspecified Qualified Code(s): R07.9 - Chest pain, unspecified Patient Disposition: Home, Self-Care Instructions: Chest Pain (ED) Additional Instructions: Your blood work is reassuring today in the ED Your x-ray does not show any pneumonia It is very important you to follow-up with her primary care doctor's with Cardiology If her symptoms persist or worsen, become more constant, have shortness of breath, fever, or swelling in your legs please return to the ED Prescriptions: No Action glipizide 5 mg tablet extended release 24hr 5 mg PO DAILY Qty: 90 RF: 1 allopurinol 100 mg tablet 100 mg PO DAILY Qty: 90 RF: 4 doxycycline hyclate 100 mg capsule 100 mg PO BID RF: 0 multivitamin Tablet 1 tab PO DAILY RF: 0 cyanocobalamin (vitamin B-12) 1,000 mcg Tablet 1,000 mcg PO DAILY RF: 0 docusate sodium 100 mg Tablet 200 mg PO DAILY RF: 0 Venclexta 100 mg Tablet 200 mg PO DAILY RF: 0 warfarin 2.5 mg tablet 1 tab PO DAILY RF: 0 pyridoxine (vitamin B6) 100 mg tablet 100 mg PO DAILY 90 Days Qty: 90 RF: 1 metoprolol succinate [Toprol XL] 25 mg tablet extended release 24 hr 25 mg PO BID 90 Days Qty: 180 RF: 4 metoprolol succinate 50 mg tablet extended release 24 hr 50 mg PO DAILY RF: 0 fluconazole 200 mg tablet 0 mg PO RF: 0 (DME) lancets [OneTouch Delica Lancets] 33 gauge misc See Rx Instructions .ROUTE .MEDSUPPLY Qty: 300 RF: 3 (DME) OneTouch Verio test strips Strip See Rx Instructions .ROUTE .MEDSUPPLY Qty: 300 RF: 3 azithromycin 250 mg tablet 250 mg PO DIRECTED RF: 0 fluconazole 100 mg tablet 100 mg PO .COMPLEX RF: 0 Referrals: Abel Velasco MD [Primary Care Provider] - 2 days Joel Benjamin MD [Physician] - 1 week
[2021-01-15 14:21] LABS: Hematocrit 34.5 % (42-52); Hemoglobin 11.7 g/dl (14.0-18.0); Mean Corpuscular HGB Conc 33.9 g/dl (31.0-36.0); Mean Corpuscular Hemoglobin 36.6 pg (27.0-33.0); Mean Corpuscular Volume 107.8 fL (80-98); Red Cell Distribution Width 14.4 % (11.0-16.0); White Blood Count 3.5 X10*3/uL (4.8-10.8)
[2021-01-15 14:22] LABS: Platelet Count 44 X10*3/uL (160-400)
[2021-01-15 14:27] LABS: INTERNATIONAL NORM RATIO 3.3 (0.9-1.1); Prothrombin Time 37.9 SEC (9.9-13.0)
[2021-01-15 14:30] LABS: Partial Thromboplastin Time 55.4 SEC (24.1-38.0)
[2021-01-15 14:43] LABS: COVID-19 Test Negative (Negative)
[2021-01-15 14:43] LABS: B Type Natriuretic Peptide 243 pg/mL (<100); Troponin-I High Sensitivity 9.4 ng/L (<3.5-35.0)
[2021-01-15 14:52] LABS: Band Neutrophils Percent 3 % (3-5); Lymphocytes Absolute Manual 1.2 X10*3/uL (0.6-4.8); Lymphocytes Percent Manual 34 % (20-40); Metamyelocytes Absolute 0.1 X10*3/uL; Metamyelocytes Percent 2 %; Monocytes Absolute Manual 0.5 X10*3/uL (0.0-1.2); Monocytes Percent Manual 14 % (2-11); Neutrophils Absolute Manual 1.8 X10*3/uL (2.2-7.9); Neutrophils Percent Manual 47 % (45-73)
[2021-01-15 14:53] LABS: Ovalocytes 1+ (5-14) /OIF; RBC Morphology NOTED
[2021-01-15 14:54] LABS: Acanthocytes 1+ (0-2) /OIF; Sickle Cells 1+ (0-2) /OIF
[2021-01-15 14:55] LABS: WBC Morphology Comment DYSMORPHIC
[2021-01-15 14:56] LABS: Platelet Estimate DECREASED (NORMAL)
[2021-01-15 14:57] LABS: Alanine Aminotransferase 68 U/L (0-40); Albumin Level 4.3 g/dL (3.5-5.0); Alkaline Phosphatase 117 U/L (39-117); Anion Gap 16 (12-20); Aspartate Amino Transferase 51 U/L (5-37); Bilirubin Direct < 0.2 mg/dL (0.0-0.5); Bilirubin Total 0.4 mg/dL (0.0-1.0); Blood Urea Nitrogen 21 mg/dL (9-16); Calcium 9.5 mg/dL (8.4-10.2); Carbon Dioxide 22 mmol/L (22-29); Chloride 110 mmol/L (96-108); Creatinine Clr Calc Pharmacy 39.3; Estimated Glomerular Filt Rate 40; Glucose Random 155 mg/dL (60-115); Magnesium 1.7 mg/dL (1.6-2.6); Potassium 4.2 mmol/L (3.3-5.1); Sodium 144 mmol/L (135-145); Total Protein 6.4 g/dL (6.5-8.0)
[2021-01-15 14:58] LABS: Platelet Morphology Comment NORM
[2021-01-15 15:19] VITALS: BP 173/93; PULSE 78; RESP 16; O2SAT 100
[2021-01-15 15:57] VITALS: BP 162/89; PULSE 73; RESP 16; O2SAT 996
[2021-01-15 17:45] LABS: Troponin-I High Sensitivity 7.2 ng/L (<3.5-35.0)
[2021-01-15 17:53] VITALS: BP 149/78; PULSE 79; RESP 16; O2SAT 99
[2021-01-15 18:26] VITALS: BP 178/101; PULSE 90; RESP 16; O2SAT 98
== END 2021-01-15 18:27 | disposition home or self-care (01) ==
PROVIDERS: Physician Assistant; Emergency Provider Internal Medicine; PCP Internal Medicine
DX: R07.9 Chest pain, unspecified (principal); Z20.822 Contact with and (suspected) exposure to COVID-19; R05 Cough; E11.22 Type 2 diabetes mellitus with diabetic chronic kidney disease; N18.30 Chronic kidney disease, stage 3 unspecified; Z86.718 Personal history of other venous thrombosis and embolism; Z79.01 Long term (current) use of anticoagulants
CPT/HCPCS: 36415; 71045; 80048; 80076; 83735; 83880; 84484; 85007; 85027; 85610; 85730; 87635; 93005; 99283; 99285

== ENCOUNTER 2021-01-17 08:38 | Outpatient (REF) | payer MEDICARE, SELFPAY ==
--- NOTE | ~2021-01-17 | XR_ITS ---
EXAMINATION: XR KNEE STANDING, BILATERAL XR KNEE, RIGHT XR KNEE, LEFT CLINICAL INFORMATION: Pain. COMPARISON: Right and left knee radiographs dated 11/03/2018 TECHNIQUE: AP standing, lateral, and sunrise views of the right and left knee. FINDINGS: RIGHT KNEE: No significant joint space narrowing. Tiny tricompartmental marginal osteophytes. No osseous erosion. No fracture or dislocation. Prominent atherosclerotic calcifications. Trace joint effusion. LEFT KNEE: Mild medial compartment joint space narrowing. Tiny tricompartmental marginal osteophytes. No osseous erosion. No fracture or dislocation. Prominent atherosclerotic calcifications. Trace joint effusion. XR/XR knee standing BI IMPRESSION: RIGHT KNEE: Mild tricompartmental osteoarthritis, slightly progressed. Trace joint effusion. LEFT KNEE: Mild tricompartmental osteoarthritis, slightly progressed. Trace joint effusion.
--- NOTE | ~2021-01-17 | XR_ITS ---
EXAMINATION: XR KNEE STANDING, BILATERAL XR KNEE, RIGHT XR KNEE, LEFT CLINICAL INFORMATION: Pain. COMPARISON: Right and left knee radiographs dated 11/03/2018 TECHNIQUE: AP standing, lateral, and sunrise views of the right and left knee. FINDINGS: RIGHT KNEE: No significant joint space narrowing. Tiny tricompartmental marginal osteophytes. No osseous erosion. No fracture or dislocation. Prominent atherosclerotic calcifications. Trace joint effusion. LEFT KNEE: Mild medial compartment joint space narrowing. Tiny tricompartmental marginal osteophytes. No osseous erosion. No fracture or dislocation. Prominent atherosclerotic calcifications. Trace joint effusion. XR/XR knee LT 2V IMPRESSION: RIGHT KNEE: Mild tricompartmental osteoarthritis, slightly progressed. Trace joint effusion. LEFT KNEE: Mild tricompartmental osteoarthritis, slightly progressed. Trace joint effusion.
--- NOTE | ~2021-01-17 | XR_ITS ---
EXAMINATION: XR KNEE STANDING, BILATERAL XR KNEE, RIGHT XR KNEE, LEFT CLINICAL INFORMATION: Pain. COMPARISON: Right and left knee radiographs dated 11/03/2018 TECHNIQUE: AP standing, lateral, and sunrise views of the right and left knee. FINDINGS: RIGHT KNEE: No significant joint space narrowing. Tiny tricompartmental marginal osteophytes. No osseous erosion. No fracture or dislocation. Prominent atherosclerotic calcifications. Trace joint effusion. LEFT KNEE: Mild medial compartment joint space narrowing. Tiny tricompartmental marginal osteophytes. No osseous erosion. No fracture or dislocation. Prominent atherosclerotic calcifications. Trace joint effusion. XR/XR knee RT 2V IMPRESSION: RIGHT KNEE: Mild tricompartmental osteoarthritis, slightly progressed. Trace joint effusion. LEFT KNEE: Mild tricompartmental osteoarthritis, slightly progressed. Trace joint effusion.
== END 2021-01-17 08:39 | disposition home or self-care (01) ==
LOC: HO.HOSX 08:38
PROVIDERS: PCP Internal Medicine; Visit Provider Internal Medicine
DX: M22.2X1 Patellofemoral disorders, right knee (principal); M22.2X2 Patellofemoral disorders, left knee; I26.99 Other pulmonary embolism without acute cor pulmonale; Z51.81 Encounter for therapeutic drug level monitoring; Z79.01 Long term (current) use of anticoagulants
CPT/HCPCS: 20610; 73560; 73565; 85610; 99211; 99212; J1020

== ENCOUNTER → 2021-01-24 09:27 | Outpatient (BNVA) | payer MEDICARE, SELFPAY | PROVIDERS: Visit Provider Internal Medicine | DX: I26.99 Other pulmonary embolism without acute cor pulmonale (principal); Z51.81 Encounter for therapeutic drug level monitoring; Z79.01 Long term (current) use of anticoagulants | CPT/HCPCS: 85610; 99211 ==

== ENCOUNTER → 2021-01-29 08:18 | Outpatient (BNVA) | payer MEDICARE, SELFPAY | PROVIDERS: PCP Internal Medicine; Visit Provider Internal Medicine | DX: I47.1 Supraventricular tachycardia (principal); I49.3 Ventricular premature depolarization; R07.2 Precordial pain; C91.10 Chronic lymphocytic leukemia of B-cell type not having achieved remission; I26.99 Other pulmonary embolism without acute cor pulmonale; Z79.01 Long term (current) use of anticoagulants; Z51.81 Encounter for therapeutic drug level monitoring | CPT/HCPCS: 85610; 99211; 99212 ==

== ENCOUNTER → 2021-02-06 07:47 | Outpatient (REF) | payer MEDICARE, SELFPAY ==
--- NOTE | 2021-02-06 07:52 | CA_ITS ---
Acquisition Time: 2021-02-06 07:54:11 Total Exercise Time: 00:02:00 Test Indications: Chest Pain Medications: WARFARIN ALLOPURINOL DOXYCYCLINE GLIPIZIDE METOPROLOL Protocol: LEXISCAN Max HR: 111 BPM 82% of Pred: 135 BPM Max BP: 152/090 mmHG Max Work Load: 1.0 METS Pharmacological stress test with Lexiscan injection while sitting and kicking his legs, without anginal symptoms, with isolated PACs and PVCs, with normotensive response to injection, with nondiagnostic EKG for ischemia. Nuclear images pending. Test reviewed with Dr Del Cid. Referred By: Ion Del Cid Overread By: GINA ARGUETA
== END ==
LOC: HO.CARD 07:47
PROVIDERS: PCP Internal Medicine; Visit Provider Internal Medicine
DX: R07.2 Precordial pain (principal)
CPT/HCPCS: 78452; 93017; A9500; J0280; J2785

== ENCOUNTER 2021-02-08 10:33 | Emergency (ER) | payer MEDICARE, SELFPAY ==
--- NOTE | ~2021-02-08 | CT_ITS ---
EXAMINATION: CT CERVICAL SPINE WITHOUT CONTRAST CLINICAL INFORMATION: Clinic in the neck. Pain. COMPARISON: Previous cervical spine CT August 2020 TECHNIQUE: Axial images through the cervical spine without contrast. Sagittal and coronal reconstructions on the technologist workstation. This CT examination was performed using dose optimization techniques as appropriate, variously including the following: *Automated exposure control *Adjustment of mA and/or kV according to patient size (this includes techniques or standardized protocols for targeted exams where dose is matched to indication/reason for exam; i.e. extremities or head) *Use of iterative reconstruction technique DLP: 441 mGy-cm FINDINGS: There is evidence of multilevel degenerative spondylosis and degenerative disc disease seen at all levels. There is mild anterior subluxation of T1 with respect to T2 measuring 3 mm. This is increased from prior exam August 2020. Bone alignment is otherwise normal. No fracture or dislocation is seen. There are degenerative changes at the C1 dens articulation. Spinal levels: C2-C3: Normal. C3-C4: There is left paracentral disc bulge. There is bilateral facet arthritis left greater than right. There is left-sided lateral recess and neural foraminal narrowing from bony osteophyte. C4-C5: Large left disc osteophyte complex. Bilateral facet arthritis. Significant left C4-C5 neural foraminal and lateral recess narrowing from disc osteophyte complex. C5-C6: Small disc osteophyte complex. Bilateral facet arthritis. Mild secondary spinal stenosis. C6-C7: Small disc osteophyte complex. Bilateral facet arthritis. Mild to moderate secondary spinal stenosis. C7-T1: Small disc osteophyte complex. Bilateral facet arthritis. Mild to moderate secondary spinal stenosis. T1-T2 there is severe degenerative disc disease with discogenic sclerosis. There is a new air in the T1-T2 disc space. There is new mild 3 mm anterior subluxation of C1 with respect to T2. Prevertebral soft tissues are normal. There is soft tissue ossification or calcification adjacent to the skull base/right occipital bone. There is soft tissue ossification adjacent to the C6 spinous processes likely related to old trauma. Prevertebral soft tissues are normal. There is a 2 mm calcified right upper lobe nodule axial image 341 series 4 and 2 mm noncalcified right upper lobe nodule axial image [address]/CT cervical spine wo con IMPRESSION: No fracture, dislocation or bone lesion. Multilevel degenerative disc disease and spondylosis. This is most significant at the C4-C5 on the left where there is left lateral recess and neural foraminal narrowing from calcified disc osteophyte complex and facet arthritis. There is severe degenerative disc disease and spondylosis at T1-T2. There is new 3 mm anterior subluxation of T1 with respect to T2 and air in the disc space. This may be related to progression of degenerative disc disease. Possible infection cannot be excluded and clinical correlation is recommended. This could be better evaluated with cervical spine MRI if clinically indicated.
--- NOTE | ~2021-02-08 | CT_ITS ---
EXAMINATION: CT HEAD WITHOUT CONTRAST CLINICAL INFORMATION: Fall on blood thinners. Hit head. COMPARISON: CT head 03/30/2020 TECHNIQUE: Contiguous axial imaging was performed from the skull base to vertex without intravenous administration of contrast. This CT examination was performed using dose optimization techniques as appropriate, variously including the following: *Automated exposure control *Adjustment of mA and/or kV according to patient size (this includes techniques or standardized protocols for targeted exams where dose is matched to indication/reason for exam; i.e. extremities or head) *Use of iterative reconstruction technique DLP: 739 mGy-cm FINDINGS: There is no evidence of acute intracranial hemorrhage or territorial infarction. No abnormal mass effect or midline shift is seen. Moyer to white matter differentiation is well preserved. No extra-axial fluid collections are identified. The lateral ventricles are symmetrical in size and configuration without enlargement. There is mild perivesical hypodensity in both cerebral hemispheres without mass effect. There is no abnormal attenuation within the brain parenchyma. There is a small bony excrescence along the right occipital bone on image 22/3. No additional calvarial abnormality seen. There is no scalp soft tissue abnormality. The mastoid air cells and visualized portions of the paranasal sinuses are well aerated. CT/CT head/brain wo con IMPRESSION: No acute intracranial process seen. Age-related mild cerebral volume loss.
[2021-02-08 10:50] VITALS: BP 132/87; PULSE 83; RESP 12; TEMP 36.3; O2SAT 98; BMI 23.7
--- NOTE | 2021-02-08 11:05 | ECG_ITS ---
Test Reason : FALL Blood Pressure : / mmHG Vent. Rate : 077 BPM Atrial Rate : 077 BPM P-R Int : 142 ms QRS Dur : 078 ms QT Int : 388 ms P-R-T Axes : 069 040 030 degrees QTc Int : 439 ms Normal sinus rhythm Normal ECG When compared with ECG of 15-JAN-2021 12:36, Premature supraventricular complexes are no longer Present Referred By: Gaurav Hawkins Electronically Signed By:DENISE MACIAS
--- NOTE | 2021-02-08 11:13 | ED.FALL ---
HPI - Fall General Chief Complaint: Fall Stated Complaint: fall - hit head - on coumadin Time Seen by Provider: 02/08/21 11:04 Source: patient Mode of arrival: ambulatory Limitations: no limitations History of Present Illness HPI Narrative: 85-year-old male past medical history significant for CLL, atrial tachycardia, CKD, DM and on warfarin presents to the emergency department after falling at home and hitting his head on hard wood floor 1 prior to his arrival at the ED. He states he dropped a pill bottled bent down to grab it he lost his balance and fell to the ground and hit his head. He also mentions this morning he had loss of sensation to bilateral upper extremities, which caused him to drop a few things due to poor private duty nurse. He denies LOC, DURAN, changes in vision, CP, SOB, nausea, vomiting, fevers, chills. He also denies preceding dizziness, nausea, and chest pain. MD complaint: fall Onset (ago): hour(s) (2) Related Data Home Medications Medication Instructions Recorded Confirmed cyanocobalamin (vitamin B-12) 1,000 mcg PO DAILY 02/10/20 01/29/21 1,000 mcg tablet docusate sodium 100 mg tablet 200 mg PO DAILY 02/10/20 01/29/21 multivitamin 1 tab PO DAILY 02/10/20 01/29/21 warfarin 2.5 mg tablet 1 tab PO DAILY 05/11/20 01/29/21 fluconazole 100 mg tablet 100 mg PO .COMPLEX 12/18/20 01/29/21 doxycycline hyclate 100 mg capsule 100 mg PO BID 12/29/20 01/29/21 fluconazole 200 mg tablet 200 mg PO DAILY tab 01/29/21 01/29/21 Previous Rx's Medication Instructions Recorded blood sugar diagnostic (Online AgilityTouch #300 ea 09/13/20 Verio test strips) lancets 33 gauge (OneTouch Delica #300 ea 09/13/20 Lancets) glipizide 5 mg tablet, extended 5 mg PO DAILY #90 tab 10/25/20 release 24 hr metoprolol succinate 25 mg 25 mg PO BID 90 Days #180 tab 11/22/20 tablet,extended release 24 hr (Toprol XL) allopurinol 100 mg tablet 100 mg PO DAILY #90 tab 12/08/20 pyridoxine (vitamin B6) 100 mg 100 mg PO DAILY 90 Days #90 tab 01/08/21 tablet Allergies Allergy/AdvReac Type Severity Reaction Status Date / Time silver Allergy Intermediate SKIN COMES Verified 01/17/21 10:00 [From TEGADERM AG MESH] OFF morphine [MORPHINE] Allergy Unknown VOMITING, Verified 01/17/21 10:00 vomitting Review of Systems Review of Systems: Yes all other systems are reviewed and are negative PMFSH Past Medical History 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 Dyslipidemia Gout Headache above the eye region Melanoma Skin cancer Tachycardia Surgical History H/O inguinal hernia repair H/O umbilical hernia repair Hx of cataract surgery S/P appendectomy S/P TURP Family History Family History Other Family history of cancer in sister Social History Social History Household Members: Spouse Housing: House Do you presently have visiting nurse or other home services: No Alcohol intake: never Patient Tobacco Use Status: Never used Tobacco Second Hand Smoke Exposure: No Use of substances other than those prescribed or required for medical reasons: No Advance Directives: Yes Advance Directives on File: Yes Advance Directives Date on File: 02/10/20 service: Yes Current occupational status: retired 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 Physical Exam Vital Signs: Vital Signs: Last Vital Signs Temp 97.4 F 02/08/21 10:50 Pulse 75 02/08/21 11:37 Resp 14 02/08/21 11:37 BP 148/98 H 02/08/21 11:37 Pulse Ox 100 02/08/21 11:37 Body Mass Index 23.7 Const: General: cooperative and no acute distress Orientation/consciousness: oriented to person and oriented to place Limitations: no limitations HENMT: Head: Yes normal to inspection, Yes normocephalic and Yes atraumatic Ears: external ears normal General nose exam: Normal external nose present Face and sinus: Yes normal facial exam Mouth: Normal oral and palatal mucosa present Throat: Yes posterior oropharynx normal Eyes: General: appearance normal, both eyes and all related structures Pupils: Equal, round and reactive pupils present Neck: Neck: Yes normal visual inspection, Yes no lymphadenopathy, Yes trachea midline and Yes supple Chest: Chest palpation & inspection: normal inspection of the chest and normal palpation of entire chest wall Resp: Effort & Inspection: normal respiratory effort and able to speak in complete sentences Auscultation: clear to auscultation bilaterally Cardio: Rate: regular rate Rhythm: regular rhythm Heart sounds: S1 normal heart sound present, S2 normal heart sound present and no murmurs GI: Inspection: Yes normal to inspection Palpation (GI): Soft to palpation, nontender and no guarding Auscultation: normal bowel sounds : General: Yes no CVA tenderness Back/Spine/Pelvis: Back: no CVA tenderness Skin: General skin exam: no rashes or lesions noted Neuro: General: oriented to person, oriented to place, gait normal, moves all extremities, Normal light touch and pain sensation, no focal motor deficits, CN's II-XI intact bilaterally and normal sensation to monofilament Cranial nerves: Yes CN's II-XII intact bilaterally, Yes Equal, round and reactive pupils present and Yes Nystagmus not present Cognition (Neuro): normal cognition Motor exam (neuro): 5/5 motor strength present throughout Coordination: [id number]-[id number] test normal, almd-eb-rjev test normal and Romberg test negative Romberg Test: Negative Extrem: General: Yes normal to inspection Psych: Appearance: grossly normal Speech and movement: Normal speech and movement present Affect: normal affect Attitude: cooperative Thought process: Normal thought process present Thought content: Normal thought content present Course Course Course Narrative: 1310- patient still reports no symptoms, no headaches, no vision changes, no neck pain, no c spine tenderness, no altered mentation. CT scan shows no acute intracranial process. Leukopenia is noted on CBC 2.4, however, this appears to be the patients baseline since december 2020. Patient now mentions he is worried about his neck due to neck clicking and discomfort he states he has broken a bone in his neck before a CT scan has been ordred. Reevaluation(s) Reevaluation #1: Ct of cervical spine shows no fractures or dislocations. It only shows an anterior subluc of T1 w/ respect to T2 which may be related to degenerative disc disease. It states that infection can not be ruled out and an MRI may be needed if clinical suspicion. However, there is no clinical suspicion for infection. He a is 100% on room air, afebrile, he is not tachycardic or tachypneic. White blood cell count is 2.4, which appears to be is baseline. There is no signs of acute infection at this time. He has no tenderness to palpation all of these findings are likley chronic in nature. Reevaluation #2: Patient is safe for DC home with PCP follow up in two days. He has been instructed to return to the ED with new or worsening symptoms he has also been instructed to return to the ED if he falls again and or hits his head since he is on a blood thinner he understands this and agrees to plan. Safe for dc home. MDM - Fall MDM Narrative Medical decision making narrative: 85-year-old male past medical history of CLL, atrial tachycardia, DM , ckd and on warfarin presents to the emergency department after he lost balance while picking up a pill bottle on the floor and fell and hit his head on hardwood floor. He states he did not lose consciousness, he was not is the prior to falling. He denies headache, chest pain, shortness of breath, changes in vision, weakness. Pfqrlh-vt-ufzo was normal, negative Romberg, alert to person place time and situation. Sensation intac to bilateral upper and lower extremities, as well as the face. Steady gait. Unlikely a bleed, however since patient is on warfarin, CT noncontrast of the head will be done to rule out a bleed. He feels well at this time. He is not having c spine tenderness and states he hit the top of his head. No pain with ROM of neck. No need for cervical spine imaging. Plan- CT noncontrast head, EKG, troponin, CBC, CMP, PTT, INR, UA Lab Data Result diagrams: 02/08/21 11:28 02/08/21 11:28 Labs: Lab Results 02/08/21 02/08/21 02/08/21 Range/Units 11:28 11:28 11:28 WBC 2.4 L (4.8-10.8) X10*3/uL RBC 2.98 L (4.60-5.80) X10*6/uL Hgb 10.9 L (14.0-18.0) g/dl Hct 32.6 L (42-52) % MCV 109.4 H (80-98) fL MCH 36.6 H (27.0-33.0) pg MCHC 33.4 (31.0-36.0) g/dl RDW 14.8 (11.0-16.0) % Plt Count 42 L (160-400) X10*3/uL MPV 10.7 (9.4-12.4) fL Immature Gran % (Auto) 3.8 H (0.0-0.4) % Neut % (Auto) 47.3 (45-73) % Lymph % (Auto) 27.2 (20-40) % [facility] [place] [facility] % (Auto) 19.2 H (2-11) % Eos % (Auto) 1.7 (0-4) % Baso % (Auto) 0.8 (0-2) % Lymph # (Auto) 0.7 L (1.2-4.9) X10*3/uL [facility] # (Auto) 0.5 (0.1-1.2) X10*3/uL Eos # (Auto) 0.0 (0.0-0.4) X10*3/uL Baso # (Auto) 0.0 (0.0-0.2) X10*3/uL Abs Immat Gran (auto) 0.09 H (0.00-0.03) X10*3/uL Absolute Neuts (auto) 1.1 L (2.0-8.3) X10*3/uL Absolute Nucleated RBC 0.000 (0.0-0.012) X10*3/uL Nucleated RBC % (auto) 0.0 (0.0-0.2) /100WBC Smear Tech's Comments VERIFIED PT 24.0 H D (9.9-13.0) SEC INR 2.1 H (0.9-1.1) APTT 36.1 D (24.1-38.0) SEC Sodium 143 (135-145) mmol/L Potassium 4.9 (3.3-5.1) mmol/L Chloride 111 H (96-108) mmol/L Carbon Dioxide 21 L (22-29) mmol/L Anion Gap 16 (12-20) BUN 24 H (9-16) mg/dL Creatinine 1.79 H (0.5-1.4) mg/dL Estim Creat Clear Calc 36.0 Estimated GFR 36 Random Glucose 222 H (60-115) mg/dL Calcium 9.2 (8.4-10.2) mg/dL Total Bilirubin 0.4 (0.0-1.0) mg/dL AST 37 D (5-37) U/L ALT 31 (0-40) U/L Alkaline Phosphatase 96 (39-117) U/L Troponin I High Sens (<3.5-35.0) ng/L Total Protein 5.9 L (6.5-8.0) g/dL Albumin 3.9 (3.5-5.0) g/dL 02/08/21 Range/Units 11:28 WBC (4.8-10.8) X10*3/uL RBC (4.60-5.80) X10*6/uL Hgb (14.0-18.0) g/dl Hct (42-52) % MCV (80-98) fL MCH (27.0-33.0) pg MCHC (31.0-36.0) g/dl RDW (11.0-16.0) % Plt Count (160-400) X10*3/uL MPV (9.4-12.4) fL Immature Gran % (Auto) (0.0-0.4) % Neut % (Auto) (45-73) % Lymph % (Auto) (20-40) % [facility] % (Auto) (2-11) % Eos % (Auto) (0-4) % Baso % (Auto) (0-2) % Lymph # (Auto) (1.2-4.9) X10*3/uL [facility] # (Auto) (0.1-1.2) X10*3/uL Eos # (Auto) (0.0-0.4) X10*3/uL Baso # (Auto) (0.0-0.2) X10*3/uL Abs Immat Gran (auto) (0.00-0.03) X10*3/uL Absolute Neuts (auto) (2.0-8.3) X10*3/uL Absolute Nucleated RBC (0.0-0.012) X10*3/uL Nucleated RBC % (auto) (0.0-0.2) /100WBC Smear Tech's Comments PT (9.9-13.0) SEC INR (0.9-1.1) APTT (24.1-38.0) SEC Sodium (135-145) mmol/L Potassium (3.3-5.1) mmol/L Chloride (96-108) mmol/L Carbon Dioxide (22-29) mmol/L Anion Gap (12-20) BUN (9-16) mg/dL Creatinine (0.5-1.4) mg/dL Estim Creat Clear Calc Estimated GFR Random Glucose (60-115) mg/dL Calcium (8.4-10.2) mg/dL Total Bilirubin (0.0-1.0) mg/dL AST (5-37) U/L ALT (0-40) U/L Alkaline Phosphatase (39-117) U/L Troponin I High Sens 10.0 (<3.5-35.0) ng/L Total Protein (6.5-8.0) g/dL Albumin (3.5-5.0) g/dL Discharge Plan Discharge Clinical Impression: Fall Patient Disposition: Home, Self-Care Instructions: Fall Prevention for Older Adults (ED), Fall Prevention (ED) Additional Instructions: Your INR today was 2.1. A CT of your head/ cervical spine was done, which showed no bleed or new fractures If you fall again, it is important to get evaluated, since you are on a blood thinner. Follow-up with your primary care provider in 2 days. Return to the emergency department with new or worsening symptoms Prescriptions: No Action glipizide 5 mg tablet extended release 24hr 5 mg PO DAILY Qty: 90 RF: 1 allopurinol 100 mg tablet 100 mg PO DAILY Qty: 90 RF: 4 doxycycline hyclate 100 mg capsule 100 mg PO BID RF: 0 multivitamin Tablet 1 tab PO DAILY RF: 0 cyanocobalamin (vitamin B-12) 1,000 mcg Tablet 1,000 mcg PO DAILY RF: 0 docusate sodium 100 mg Tablet 200 mg PO DAILY RF: 0 warfarin 2.5 mg tablet 1 tab PO DAILY RF: 0 pyridoxine (vitamin B6) 100 mg tablet 100 mg PO DAILY 90 Days Qty: 90 RF: 1 metoprolol succinate [Toprol XL] 25 mg tablet extended release 24 hr 25 mg PO BID 90 Days Qty: 180 RF: 4 fluconazole 200 mg tablet 200 mg PO DAILY RF: 0 (DME) lancets [OneTouch Delica Lancets] 33 gauge misc See Rx Instructions .ROUTE .MEDSUPPLY Qty: 300 RF: 3 (DME) OneTouch Verio test strips Strip See Rx Instructions .ROUTE .MEDSUPPLY Qty: 300 RF: 3 fluconazole 100 mg tablet 100 mg PO .COMPLEX RF: 0 Referrals: Abel Velasco MD [Primary Care Provider] - 2 days
[2021-02-08] MEDS: 0.9 % Sodium Chloride 1,000 ML 999 ML IV (11:35)
[2021-02-08 11:37] VITALS: BP 148/98; PULSE 75; RESP 14; O2SAT 100
[2021-02-08 11:37] LABS: Basophils Percent Auto 0.8 % (0-2); Eosinophils Percent Auto 1.7 % (0-4); Hematocrit 32.6 % (42-52); Hemoglobin 10.9 g/dl (14.0-18.0); Imm Gran Abs Auto 0.09 X10*3/uL (0.00-0.03); Imm Gran Pct Auto 3.8 % (0.0-0.4); Lymphocytes Absolute Auto 0.7 X10*3/uL (1.2-4.9); Lymphocytes Percent Auto 27.2 % (20-40); MANUAL DIFF FLAG SCAN; Mean Corpuscular HGB Conc 33.4 g/dl (31.0-36.0); Mean Corpuscular Hemoglobin 36.6 pg (27.0-33.0); Mean Corpuscular Volume 109.4 fL (80-98); Mean Platelet Volume 10.7 fL (9.4-12.4); Monocytes Absolute Auto 0.5 X10*3/uL (0.1-1.2); Monocytes Percent Auto 19.2 % (2-11); Neutrophils Absolute Auto 1.1 X10*3/uL (2.0-8.3); Neutrophils Percent Auto 47.3 % (45-73); Red Blood Count 2.98 X10*6/uL (4.60-5.80); Red Cell Distribution Width 14.8 % (11.0-16.0); SCAN SMEAR FLAG 1
[2021-02-08 11:42] LABS: Platelet Count 42 X10*3/uL (160-400); White Blood Count 2.4 X10*3/uL (4.8-10.8)
[2021-02-08 11:43] LABS: INTERNATIONAL NORM RATIO 2.1 (0.9-1.1)
[2021-02-08 11:46] LABS: Partial Thromboplastin Time 36.1 SEC (24.1-38.0)
[2021-02-08 11:54] LABS: Alanine Aminotransferase 31 U/L (0-40); Albumin Level 3.9 g/dL (3.5-5.0); Alkaline Phosphatase 96 U/L (39-117); Anion Gap 16 (12-20); Aspartate Amino Transferase 37 U/L (5-37); Bilirubin Total 0.4 mg/dL (0.0-1.0); Blood Urea Nitrogen 24 mg/dL (9-16); Calcium 9.2 mg/dL (8.4-10.2); Carbon Dioxide 21 mmol/L (22-29); Chloride 111 mmol/L (96-108); Estimated Glomerular Filt Rate 36; Glucose Random 222 mg/dL (60-115); Potassium 4.9 mmol/L (3.3-5.1); Sodium 143 mmol/L (135-145); Total Protein 5.9 g/dL (6.5-8.0)
[2021-02-08 11:58] LABS: SLIDE REVIEW VERIFIED
== END 2021-02-08 15:32 | disposition home or self-care (01) ==
PROVIDERS: Emergency Provider Emergency Medicine Emergency Medical Services; PCP Internal Medicine
DX: S09.90XA Unspecified injury of head, initial encounter (principal); G44.309 Post-traumatic headache, unspecified, not intractable; M54.2 Cervicalgia; W01.0XXA Fall on same level from slipping, tripping and stumbling without subsequent striking against object, initial encounter; Y93.9 Activity, unspecified; Y92.9 Unspecified place or not applicable; Y99.9 Unspecified external cause status; Z79.899 Other long term (current) drug therapy; Z20.822 Contact with and (suspected) exposure to COVID-19
CPT/HCPCS: 36415; 70450; 72125; 80053; 84484; 85025; 85610; 85730; 93005; 96360; 99284

== ENCOUNTER → 2021-02-12 08:15 | Outpatient (BNVA) | payer OTHER, MEDICARE, SELFPAY | PROVIDERS: PCP Internal Medicine; Visit Provider Internal Medicine | DX: I26.99 Other pulmonary embolism without acute cor pulmonale (principal); Z51.81 Encounter for therapeutic drug level monitoring; Z79.01 Long term (current) use of anticoagulants | CPT/HCPCS: 85610; 99211 ==

== ENCOUNTER → 2021-02-26 08:23 | Outpatient (BNVA) | payer MEDICARE, SELFPAY | PROVIDERS: PCP Internal Medicine; Visit Provider Internal Medicine | DX: I26.99 Other pulmonary embolism without acute cor pulmonale (principal); I47.1 Supraventricular tachycardia; I49.3 Ventricular premature depolarization; C91.10 Chronic lymphocytic leukemia of B-cell type not having achieved remission; R07.2 Precordial pain; Z51.81 Encounter for therapeutic drug level monitoring; Z79.01 Long term (current) use of anticoagulants; Z79.899 Other long term (current) drug therapy | CPT/HCPCS: 85610; 99211; 99212 ==

== ENCOUNTER → 2021-03-05 10:14 | Outpatient (BNVA) | payer MEDICARE, SELFPAY | PROVIDERS: PCP Internal Medicine; Visit Provider Internal Medicine | DX: I26.99 Other pulmonary embolism without acute cor pulmonale (principal); Z51.81 Encounter for therapeutic drug level monitoring; Z79.01 Long term (current) use of anticoagulants | CPT/HCPCS: 85610; 99211 ==

== ENCOUNTER → 2021-03-12 08:21 | Outpatient (BNVA) | payer MEDICARE, SELFPAY | PROVIDERS: PCP Internal Medicine; Visit Provider Internal Medicine | DX: I26.99 Other pulmonary embolism without acute cor pulmonale (principal); Z51.81 Encounter for therapeutic drug level monitoring; Z79.01 Long term (current) use of anticoagulants | CPT/HCPCS: 85610; 99211 ==

== ENCOUNTER → 2021-03-19 07:54 | Outpatient (BNVA) | payer MEDICARE, SELFPAY | PROVIDERS: PCP Internal Medicine; Visit Provider Nurse Practitioner Gerontology | DX: E11.21 Type 2 diabetes mellitus with diabetic nephropathy (principal); N18.32 Chronic kidney disease, stage 3b; E78.5 Hyperlipidemia, unspecified | CPT/HCPCS: 82947; 83036; 99212 ==

== ENCOUNTER → 2021-03-27 08:56 | Outpatient (BNVA) | payer MEDICARE, OTHER, SELFPAY | PROVIDERS: PCP Internal Medicine; Visit Provider Dietitian, Registered | DX: E11.65 Type 2 diabetes mellitus with hyperglycemia (principal); E11.22 Type 2 diabetes mellitus with diabetic chronic kidney disease; N18.32 Chronic kidney disease, stage 3b | CPT/HCPCS: 97803 ==

== ENCOUNTER → 2021-03-29 08:17 | Outpatient (BNVA) | payer MEDICARE, SELFPAY | PROVIDERS: PCP Internal Medicine; Visit Provider Internal Medicine | DX: I26.99 Other pulmonary embolism without acute cor pulmonale (principal); Z51.81 Encounter for therapeutic drug level monitoring; Z79.01 Long term (current) use of anticoagulants | CPT/HCPCS: 85610; 99211 ==

== ENCOUNTER → 2021-04-10 08:38 | Outpatient (BNVA) | payer MEDICARE, SELFPAY | PROVIDERS: PCP Internal Medicine; Visit Provider Internal Medicine | DX: I26.99 Other pulmonary embolism without acute cor pulmonale (principal); Z51.81 Encounter for therapeutic drug level monitoring; Z79.01 Long term (current) use of anticoagulants | CPT/HCPCS: 85610; 99211 ==

== ENCOUNTER 2021-04-16 08:38 | Outpatient (REF) | payer MEDICARE, SELFPAY ==
--- NOTE | ~2021-04-16 | CT_ITS ---
EXAMINATION: CT CHEST WITHOUT CONTRAST CLINICAL INFORMATION: CLL. 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 COMPARISON: Previous chest CT scans most recent December 2020 and chest x-ray January 2021. TECHNIQUE: Multidetector volumetric CT imaging of the chest was done. Axial MIP volume rendering provided. Sagittal and coronal reformatted images were obtained. This CT examination was performed using dose optimization techniques as appropriate, variously including the following: *Automated exposure control. *Adjustment of mA and/or kV according to patient size (this includes techniques or standardized protocols for targeted exams where dose is matched to indication/reason for exam; i.e. extremities or head). *Use of iterative reconstruction technique. DLP: 212 mGy-cm FINDINGS: LUNGS: The lobulated superior segment right lower lobe nodule measuring 2.4 x 1.7 cm is stable, axial image 33 series 4. The 4 mm peripheral or subpleural superior segment right lower lobe nodule, axial image 31 series 4, is stable. The 6 mm peripheral or subpleural right lower lobe nodule, axial image 37 series 4, is stable. The 3 mm peripheral or subpleural right lower lobe nodule, axial 39 series 4, is stable. The 4 mm right lower lobe nodule, axial image 45 series 4, is stable. The small calcified and noncalcified micronodules are stable. No new pulmonary nodule is seen. MEDIASTINUM: The heart does not appear enlarged. There is mild coronary artery calcification. There is no pericardial effusion. The ascending aorta is upper normal in size. There are small mediastinal lymph nodes that are stable. No enlarged lymph nodes are seen. PLEURA: There is no pleural effusion. No pleural mass or thickening. AXILLA: There is bilateral axillary lymphadenopathy, right greater than left, that is stable. OSSEOUS STRUCTURES: There are degenerative changes of the spine. CT/CT chest wo con IMPRESSION: Stable pulmonary nodules, largest a lobulated 1.7 x 2.4 cm nodule in the superior segment of the right lower lobe. Atherosclerotic disease and coronary artery calcification. Stable bilateral axillary lymphadenopathy. Fleischner guidelines were followed.
--- NOTE | ~2021-04-16 | CT_ITS ---
EXAMINATION: CT ABDOMEN AND PELVIS WITHOUT CONTRAST CLINICAL INFORMATION: CLL. On chemotherapy. COMPARISON: Previous CT of the abdomen and pelvis most recent December 2020. TECHNIQUE: Multidetector volumetric imaging was performed from the superior aspect of the liver through the pubic symphysis. Sagittal and coronal reformatted images were obtained on the technologist's workstation. This CT examination was performed using dose optimization techniques as appropriate, variously including the following: *Automated exposure control. *Adjustment of mA and/or kV according to patient size (this includes techniques or standardized protocols for targeted exams where dose is matched to indication/reason for exam; i.e. extremities or head). *Use of iterative reconstruction technique. DLP: 464 mGy-cm FINDINGS: LIVER, GALLBLADDER, AND BILIARY TREE: The liver is normal in size, shape, and attenuation. There are innumerable liver cysts that are stable. The largest measures 4 mm in the left lobe of the liver. The gallbladder has been removed. There is no biliary duct dilatation. PANCREAS: There are atrophic changes of the pancreas. There is question of a remaining residual pancreatic tissue in the head of the pancreas versus pancreatic lesion or lymph node. This measures 1 x 1.5 cm, axial image 31 series 3, and appears more prominent compared to previous exams. There may be small calcifications in the head of the pancreas. SPLEEN: Unremarkable. ADRENAL GLANDS: Unremarkable. KIDNEYS AND URETERS: There are multiple bilateral renal stones. There are multiple bilateral renal cysts. The largest cyst measures 3 cm in the left kidney. No imaging follow up needed. The kidneys are otherwise unremarkable. BLADDER: Unremarkable. GASTROINTESTINAL TRACT: The small and large bowel are unremarkable. The appendix is not seen. ABDOMINAL WALL: No significant hernia is appreciated. LYMPH NODES: There are small retroperitoneal lymph nodes in the abdomen that are stable. There are small bilateral external iliac and right common iliac retroperitoneal lymph nodes in the pelvis that are stable. There is a small left inguinal lymph node that is stable. No enlarged lymph nodes are seen. No ascites is seen. VASCULAR: There is evidence of atherosclerotic disease. 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 PELVIC VISCERA: Unremarkable. OSSEOUS STRUCTURES: There are degenerative changes of the spine and hip joints. CT/CT abdomen pelvis wo con IMPRESSION: Multiple liver cysts. Multiple bilateral renal cysts. Bilateral renal stones. Atrophic changes of the pancreas. Question nodule versus prominent peripancreatic lymph node or remaining pancreatic tissue in the head of the pancreas measuring 1 x 1.5 cm. This is new or more apparent than seen on prior exams. Stable small retroperitoneal lymph nodes in the abdomen and pelvis and left inguinal lymph node. Fleischner guidelines were followed.
== END 2021-04-16 08:39 | disposition home or self-care (01) ==
LOC: HO.CT 08:38
PROVIDERS: Visit Provider Internal Medicine Medical Oncology
DX: C91.10 Chronic lymphocytic leukemia of B-cell type not having achieved remission (principal)
CPT/HCPCS: 71250; 74176

== ENCOUNTER → 2021-04-20 08:51 | Outpatient (BNVA) | payer MEDICARE, SELFPAY | PROVIDERS: PCP Internal Medicine; Visit Provider Internal Medicine | DX: I26.99 Other pulmonary embolism without acute cor pulmonale (principal); Z51.81 Encounter for therapeutic drug level monitoring; Z79.01 Long term (current) use of anticoagulants | CPT/HCPCS: 85610; 99211 ==

== ENCOUNTER → 2021-04-30 08:32 | Outpatient (BNVA) | payer MEDICARE, SELFPAY | PROVIDERS: PCP Internal Medicine; Visit Provider Internal Medicine | DX: I26.99 Other pulmonary embolism without acute cor pulmonale (principal); Z51.81 Encounter for therapeutic drug level monitoring; Z79.01 Long term (current) use of anticoagulants | CPT/HCPCS: 85610; 99211 ==

== ENCOUNTER 2021-05-09 09:46 | Outpatient (REF) | payer MEDICARE, SELFPAY ==
--- NOTE | ~2021-05-09 | MR_ITS ---
EXAMINATION: MR ABDOMEN WITHOUT AND WITH CONTRAST CLINICAL INFORMATION: New pancreatic abnormality COMPARISON: CT abdomen pelvis 04/16/2021, MR abdomen 07/29/2017 TECHNIQUE: MR abdomen was performed without and with use of 10 mL intravenous Gadavist gadolinium contrast. Postcontrast images are performed in multiphase dynamic sequences. Imaging was performed in 3 planes. Heavily T2 weighted MRCP sequences were also obtained. FINDINGS: LUNG BASES: The visualized lung bases are unremarkable. KIDNEYS AND URETERS: Bilateral Bosniak 1 and Bosniak 2 simple and proteinaceous renal cysts. No imaging follow-up recommended. GALLBLADDER: Surgically absent. LIVER AND BILIARY TREE: Loss of signal on opposed phase imaging compatible with hepatic steatosis. Scattered T2 hyperintense benign-appearing hepatic cysts. No intra or extrahepatic biliary duct dilatation. PANCREAS: A 1.7 cm cyst in the pancreatic head, corresponding to the CT finding. No pancreatic duct dilatation or solid components. Pancreas is relatively atrophic. This cyst does not appear to communicate with the main pancreatic duct. SPLEEN: Unremarkable ADRENAL GLANDS: Unremarkable GASTROINTESTINAL TRACT: Colonic diverticulosis without evidence of diverticulitis. LYMPH NODES: No lymphadenopathy. VASCULAR: Unremarkable ABDOMINAL WALL: Unremarkable. OSSEOUS STRUCTURES: Unremarkable. MR/MR abdomen wo/w con IMPRESSION: A 1.7 cm cyst in the pancreatic head corresponding to the CT finding. No pancreatic duct dilatation or solid components. Per ACR white paper* on the management of incidental pancreatic, for cysts measuring less than 2.5 cm with patient age greater than or equal to 80 years old at presentation, recommendations are: * Every other year imaging follow-up with contrast-enhanced MR or CT pancreas protocol x2. If stable, no further imaging follow-up is required. If there is interval growth during imaging follow-up and cyst is still less than or equal to 2.5 cm, increase imaging to annually. If cyst stabilizes or if patient is no longer a surgical candidate then no further imaging required. Hepatic steatosis. *Tammy AJ, Ash ME, Walker DE, Maki IR, Kayleen DV, Chet E, Mery WR, Stephanie LL, Jose Miguel PV. Management of Incidental Pancreatic Cysts: A White Paper of the ACR Incidental Findings Committee. J Am Lamont Radiol. 2017 Nov;14(7):911-923. doi: 10.1016/[email or web address].2017.03.010. Epub 2016September 27. PMID: [id number].
== END 2021-05-09 09:47 | disposition home or self-care (01) ==
LOC: HO.MRI 09:46
PROVIDERS: PCP Internal Medicine; Visit Provider Internal Medicine Medical Oncology
DX: I26.99 Other pulmonary embolism without acute cor pulmonale (principal); Z51.81 Encounter for therapeutic drug level monitoring; Z79.01 Long term (current) use of anticoagulants; K86.89 Other specified diseases of pancreas
CPT/HCPCS: 74183; 85610; 99211; A9585

== ENCOUNTER 2021-05-14 11:00 | Outpatient (RCR) | payer MEDICARE, SELFPAY ==
[2021-04-13 09:03] VITALS: BP 135/84
== END 2021-05-18 09:49 | disposition home or self-care (01) ==
LOC: HO.PTCHIC 11:00
PROVIDERS: PCP Internal Medicine; Visit Provider Internal Medicine
DX: H81.13 Benign paroxysmal vertigo, bilateral (principal)
CPT/HCPCS: 95992; 97110; 97112; 97162

== ENCOUNTER → 2021-05-23 08:27 | Outpatient (BNVA) | payer MEDICARE, SELFPAY | PROVIDERS: PCP Internal Medicine; Visit Provider Internal Medicine | DX: I26.99 Other pulmonary embolism without acute cor pulmonale (principal); Z51.81 Encounter for therapeutic drug level monitoring; Z79.01 Long term (current) use of anticoagulants | CPT/HCPCS: 85610; 99211 ==

== ENCOUNTER → 2021-06-06 08:28 | Outpatient (BNVA) | payer MEDICARE, SELFPAY | PROVIDERS: PCP Internal Medicine; Visit Provider Internal Medicine | DX: I26.99 Other pulmonary embolism without acute cor pulmonale (principal); Z51.81 Encounter for therapeutic drug level monitoring; Z79.01 Long term (current) use of anticoagulants | CPT/HCPCS: 85610; 99211 ==

== ENCOUNTER → 2021-06-12 08:39 | Outpatient (BNVA) | payer MEDICARE, SELFPAY | PROVIDERS: PCP Internal Medicine; Visit Provider Internal Medicine | DX: I26.99 Other pulmonary embolism without acute cor pulmonale (principal); Z51.81 Encounter for therapeutic drug level monitoring; Z79.01 Long term (current) use of anticoagulants | CPT/HCPCS: 85610; 99211 ==

== ENCOUNTER → 2021-06-13 14:24 | Outpatient (BNVA) | payer MEDICARE, SELFPAY | PROVIDERS: PCP Internal Medicine; Visit Provider Physician Assistant | DX: M17.0 Bilateral primary osteoarthritis of knee (principal) | CPT/HCPCS: 20610; 99212; J1020 ==

== ENCOUNTER → 2021-06-26 10:48 | Outpatient (BNVA) | payer MEDICARE, SELFPAY | PROVIDERS: PCP Internal Medicine; Visit Provider Internal Medicine | DX: I26.99 Other pulmonary embolism without acute cor pulmonale (principal); Z51.81 Encounter for therapeutic drug level monitoring; Z79.01 Long term (current) use of anticoagulants | CPT/HCPCS: 85610 ==

== ENCOUNTER → 2021-07-09 08:23 | Outpatient (BNVA) | payer MEDICARE, SELFPAY | PROVIDERS: PCP Internal Medicine; Visit Provider Internal Medicine | DX: E11.65 Type 2 diabetes mellitus with hyperglycemia (principal); E11.22 Type 2 diabetes mellitus with diabetic chronic kidney disease; N18.32 Chronic kidney disease, stage 3b; Z71.3 Dietary counseling and surveillance; I26.99 Other pulmonary embolism without acute cor pulmonale; Z51.81 Encounter for therapeutic drug level monitoring; Z79.01 Long term (current) use of anticoagulants | CPT/HCPCS: 85610; 97803; 99211 ==

== ENCOUNTER → 2021-07-23 08:39 | Outpatient (BNVA) | payer MEDICARE, SELFPAY | PROVIDERS: PCP Internal Medicine; Visit Provider Internal Medicine | DX: I26.99 Other pulmonary embolism without acute cor pulmonale (principal); Z51.81 Encounter for therapeutic drug level monitoring; Z79.01 Long term (current) use of anticoagulants | CPT/HCPCS: 85610; 99211 ==

== ENCOUNTER → 2021-07-30 08:30 | Outpatient (BNVA) | payer MEDICARE, SELFPAY | PROVIDERS: PCP Internal Medicine; Visit Provider Internal Medicine | DX: I26.99 Other pulmonary embolism without acute cor pulmonale (principal); Z79.01 Long term (current) use of anticoagulants; Z51.81 Encounter for therapeutic drug level monitoring | CPT/HCPCS: 85610; 99211 ==

== ENCOUNTER → 2021-08-07 08:29 | Outpatient (BNVA) | payer MEDICARE, SELFPAY | PROVIDERS: PCP Internal Medicine; Visit Provider Internal Medicine | DX: I26.99 Other pulmonary embolism without acute cor pulmonale (principal); Z51.81 Encounter for therapeutic drug level monitoring; Z79.01 Long term (current) use of anticoagulants | CPT/HCPCS: 85610 ==

== ENCOUNTER → 2021-08-13 08:53 | Outpatient (BNVA) | payer MEDICARE, SELFPAY | PROVIDERS: PCP Internal Medicine; Referring Provider Internal Medicine; Visit Provider Internal Medicine | DX: I47.1 Supraventricular tachycardia (principal); I49.3 Ventricular premature depolarization; I25.10 Atherosclerotic heart disease of native coronary artery without angina pectoris; I05.9 Rheumatic mitral valve disease, unspecified | CPT/HCPCS: 99212 ==

== ENCOUNTER → 2021-08-21 08:22 | Outpatient (BNVA) | payer MEDICARE, SELFPAY | PROVIDERS: PCP Internal Medicine; Visit Provider Internal Medicine | DX: I26.99 Other pulmonary embolism without acute cor pulmonale (principal); Z79.01 Long term (current) use of anticoagulants; Z51.81 Encounter for therapeutic drug level monitoring | CPT/HCPCS: 85610; 99211 ==

== ENCOUNTER → 2021-08-29 08:14 | Outpatient (BNVA) | payer MEDICARE, SELFPAY | PROVIDERS: PCP Internal Medicine; Visit Provider Internal Medicine | DX: I26.99 Other pulmonary embolism without acute cor pulmonale (principal); Z79.01 Long term (current) use of anticoagulants; Z51.81 Encounter for therapeutic drug level monitoring | CPT/HCPCS: 85610; 99211 ==

== ENCOUNTER → 2021-09-05 08:24 | Outpatient (BNVA) | payer MEDICARE, SELFPAY | PROVIDERS: PCP Internal Medicine; Visit Provider Internal Medicine | DX: I26.99 Other pulmonary embolism without acute cor pulmonale (principal); Z79.01 Long term (current) use of anticoagulants; Z51.81 Encounter for therapeutic drug level monitoring | CPT/HCPCS: 85610; 99211 ==

== ENCOUNTER → 2021-09-17 08:02 | Outpatient (BNVA) | payer MEDICARE, SELFPAY | PROVIDERS: PCP Internal Medicine; Visit Provider Nurse Practitioner Gerontology | DX: E11.21 Type 2 diabetes mellitus with diabetic nephropathy (principal); E11.22 Type 2 diabetes mellitus with diabetic chronic kidney disease; N18.32 Chronic kidney disease, stage 3b; E78.5 Hyperlipidemia, unspecified | CPT/HCPCS: 82947; 83036; 99212 ==

== ENCOUNTER → 2021-09-19 08:50 | Outpatient (BNVA) | payer MEDICARE, SELFPAY | PROVIDERS: PCP Internal Medicine; Visit Provider Internal Medicine | DX: M17.0 Bilateral primary osteoarthritis of knee (principal); I26.99 Other pulmonary embolism without acute cor pulmonale; Z79.01 Long term (current) use of anticoagulants; Z51.81 Encounter for therapeutic drug level monitoring | CPT/HCPCS: 20610; 85610; 99211; 99212; J1020 ==

== ENCOUNTER 2021-09-26 09:04 | Outpatient (REF) | payer MEDICARE, SELFPAY ==
--- NOTE | ~2021-09-26 | CT_ITS ---
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 COMPARISON: Previous CT of the abdomen and pelvis and abdominal MRI April 2021. TECHNIQUE: Multidetector volumetric imaging was performed from the superior aspect of the liver through the pubic symphysis. Sagittal and coronal reformatted images were obtained on the technologist's workstation. This CT examination was performed using dose optimization techniques as appropriate, variously including the following: *Automated exposure control *Adjustment of mA and/or kV according to patient size (this includes techniques or standardized protocols for targeted exams where dose is matched to indication/reason for exam; i.e. extremities or head) *Use of iterative reconstruction technique DLP: 520 mGy-cm FINDINGS: LUNG BASES: The visualized lung bases are unremarkable. LIVER, GALLBLADDER, AND BILIARY TREE: There are multiple stable liver cysts. No other focal liver lesion is seen. The gallbladder has been removed. There is no biliary duct dilatation. PANCREAS: There are atrophic changes of the pancreas. There are small calcifications in the pancreas. There is a 1.3 x 1.6 cm lesion in the head of the pancreas that is stable. This was found to represent a cyst on previous MRI. SPLEEN: The spleen does not appear enlarged. No focal splenic lesion. ADRENAL GLANDS: Unremarkable. KIDNEYS AND URETERS: There are multiple bilateral renal stones. There are multiple bilateral renal cysts. No hydronephrosis. BLADDER: Unremarkable. GASTROINTESTINAL TRACT: There is diverticulosis of the colon. Small and large bowel is otherwise unremarkable. The appendix is not seen and may have been removed. ABDOMINAL WALL: There are postsurgical changes in the right inguinal region. There is a small right inguinal hernia containing fat. LYMPH NODES: There is a small left inguinal lymph node measuring 1 cm that is stable. No new adenopathy. No ascites. VASCULAR: Atherosclerotic disease. No aneurysm. PELVIC VISCERA: The prostate gland is slightly enlarged measuring 3.5 x 4.9 cm in AP and transverse dimension. OSSEOUS STRUCTURES: There are degenerative changes of the spine and hip joints. CT/CT abdomen pelvis wo con IMPRESSION: No evidence of new or increasing lymphadenopathy. Stable exam. Fleischner guidelines were followed.
--- NOTE | ~2021-09-26 | CT_ITS ---
EXAMINATION: CT CHEST WITHOUT CONTRAST CLINICAL INFORMATION: Follow up lung nodules. COMPARISON: Previous chest CT April 2021. TECHNIQUE: Multidetector volumetric CT imaging of the chest was done. Axial MIP volume rendering provided. Sagittal and coronal reformatted images were obtained. This CT examination was performed using dose optimization techniques as appropriate, variously including the following: *Automated exposure control *Adjustment of mA and/or kV according to patient size (this includes techniques or standardized protocols for targeted exams where dose is matched to indication/reason for exam; i.e. extremities or head) *Use of iterative reconstruction technique DLP: 202 mGy-cm FINDINGS: LUNGS: Right lower lobe nodules and solitary right middle lobe nodule are stable. Largest right pulmonary nodule is a lobulated right lower lobe nodule measuring 1.7 x 2.1 cm with small focus of calcification. No new pulmonary nodule is seen. MEDIASTINUM: There is coronary artery calcification. The mediastinum is otherwise normal. PLEURA: There is no pleural effusion. No pleural mass or thickening. AXILLA: There are small bilateral axillary lymph nodes that are stable. UPPER ABDOMEN: See CT of the abdomen and pelvis from the same day. OSSEOUS STRUCTURES: There are degenerative changes of the spine. CT/CT chest wo con IMPRESSION: Stable right lower lobe and right middle lobe pulmonary nodules. Fleischner guidelines were followed.
== END 2021-09-26 09:05 | disposition home or self-care (01) ==
LOC: HO.CT 09:04
PROVIDERS: PCP Internal Medicine; Visit Provider Internal Medicine Medical Oncology
DX: C91.10 Chronic lymphocytic leukemia of B-cell type not having achieved remission (principal); R91.8 Other nonspecific abnormal finding of lung field
CPT/HCPCS: 71250; 74176

== ENCOUNTER → 2021-10-03 08:52 | Outpatient (BNVA) | payer MEDICARE, SELFPAY | PROVIDERS: PCP Internal Medicine; Visit Provider Internal Medicine | DX: M65.342 Trigger finger, left ring finger (principal); I26.99 Other pulmonary embolism without acute cor pulmonale; Z79.01 Long term (current) use of anticoagulants; Z51.81 Encounter for therapeutic drug level monitoring | CPT/HCPCS: 20550; 85610; 99202; 99211; J1100 ==

== ENCOUNTER → 2021-10-10 08:04 | Outpatient (BNVA) | payer MEDICARE, SELFPAY | PROVIDERS: PCP Internal Medicine; Visit Provider Internal Medicine | DX: I26.99 Other pulmonary embolism without acute cor pulmonale (principal); Z79.01 Long term (current) use of anticoagulants; Z51.81 Encounter for therapeutic drug level monitoring | CPT/HCPCS: 85610; 99211 ==

== ENCOUNTER → 2021-10-12 10:44 | Outpatient (BNVA) | payer MEDICARE, SELFPAY | PROVIDERS: PCP Internal Medicine; Visit Provider Internal Medicine | DX: I26.99 Other pulmonary embolism without acute cor pulmonale (principal); Z79.01 Long term (current) use of anticoagulants; Z51.81 Encounter for therapeutic drug level monitoring | CPT/HCPCS: 85610; 99211 ==

== ENCOUNTER → 2021-10-15 08:44 | Outpatient (BNVA) | payer MEDICARE, SELFPAY | PROVIDERS: PCP Internal Medicine; Visit Provider Internal Medicine | DX: I26.99 Other pulmonary embolism without acute cor pulmonale (principal); Z79.01 Long term (current) use of anticoagulants; Z51.81 Encounter for therapeutic drug level monitoring | CPT/HCPCS: 85610; 99211 ==

== ENCOUNTER → 2021-10-19 09:25 | Outpatient (BNVA) | payer MEDICARE, SELFPAY | PROVIDERS: PCP Internal Medicine; Visit Provider Internal Medicine | DX: I26.99 Other pulmonary embolism without acute cor pulmonale (principal); Z79.01 Long term (current) use of anticoagulants; Z51.81 Encounter for therapeutic drug level monitoring | CPT/HCPCS: 85610; 99211 ==

== ENCOUNTER → 2021-10-26 10:25 | Outpatient (BNVA) | payer MEDICARE, SELFPAY | PROVIDERS: PCP Internal Medicine; Visit Provider Internal Medicine | DX: I26.99 Other pulmonary embolism without acute cor pulmonale (principal); Z79.01 Long term (current) use of anticoagulants; Z51.81 Encounter for therapeutic drug level monitoring | CPT/HCPCS: 85610; 99211 ==

== ENCOUNTER → 2021-10-29 10:11 | Outpatient (BNVA) | payer MEDICARE, SELFPAY | PROVIDERS: PCP Internal Medicine; Visit Provider Internal Medicine | DX: I26.99 Other pulmonary embolism without acute cor pulmonale (principal); Z79.01 Long term (current) use of anticoagulants; Z51.81 Encounter for therapeutic drug level monitoring | CPT/HCPCS: 85610; 99211 ==

== ENCOUNTER → 2021-11-05 09:55 | Outpatient (BNVA) | payer MEDICARE, SELFPAY | PROVIDERS: PCP Internal Medicine; Visit Provider Internal Medicine | DX: I26.99 Other pulmonary embolism without acute cor pulmonale (principal); Z79.01 Long term (current) use of anticoagulants; Z51.81 Encounter for therapeutic drug level monitoring | CPT/HCPCS: 85610; 99211 ==

== ENCOUNTER 2021-11-08 08:08 | Outpatient (REF) | payer MEDICARE, SELFPAY ==
[2021-11-08 12:31] LABS: Alanine Aminotransferase 36 U/L (0-40); Albumin Level 3.8 g/dL (3.5-5.0); Alkaline Phosphatase 80 U/L (39-117); Anion Gap 13 (12-20); Aspartate Amino Transferase 34 U/L (5-37); Bilirubin Direct 0.3 mg/dL (0.0-0.5); Bilirubin Total 0.7 mg/dL (0.0-1.0); Blood Urea Nitrogen 17 mg/dL (9-16); Calcium 8.7 mg/dL (8.4-10.2); Carbon Dioxide 23 mmol/L (22-29); Chloride 114 mmol/L (96-108); Estimated Glomerular Filt Rate 40; Phosphorus 3.4 mg/dL (2.7-4.5); Potassium 4.5 mmol/L (3.3-5.1); Sodium 145 mmol/L (135-145); Total Protein 5.6 g/dL (6.5-8.0)
== END 2021-11-08 08:09 | disposition home or self-care (01) ==
LOC: HO.HMGCLDS 08:08
PROVIDERS: PCP Internal Medicine; Visit Provider Internal Medicine Nephrology
DX: I12.9 Hypertensive chronic kidney disease with stage 1 through stage 4 chronic kidney disease, or unspecified chronic kidney disease (principal); N18.31 Chronic kidney disease, stage 3a
CPT/HCPCS: 36415; 80051; 80076; 82310; 82565; 84100; 84520

== ENCOUNTER → 2021-11-19 08:18 | Outpatient (BNVA) | payer MEDICARE, SELFPAY | PROVIDERS: PCP Internal Medicine; Visit Provider Internal Medicine | DX: I26.99 Other pulmonary embolism without acute cor pulmonale (principal); Z79.01 Long term (current) use of anticoagulants; Z51.81 Encounter for therapeutic drug level monitoring | CPT/HCPCS: 85610; 99211 ==

== ENCOUNTER → 2021-11-26 08:05 | Outpatient (BNVA) | payer MEDICARE, SELFPAY | PROVIDERS: PCP Internal Medicine; Visit Provider Internal Medicine | DX: I26.99 Other pulmonary embolism without acute cor pulmonale (principal); Z79.01 Long term (current) use of anticoagulants; Z51.81 Encounter for therapeutic drug level monitoring | CPT/HCPCS: 85610; 99211 ==

== ENCOUNTER → 2021-12-06 08:20 | Outpatient (BNVA) | payer MEDICARE, SELFPAY | PROVIDERS: PCP Internal Medicine; Visit Provider Internal Medicine | DX: I26.99 Other pulmonary embolism without acute cor pulmonale (principal); Z79.01 Long term (current) use of anticoagulants; Z51.81 Encounter for therapeutic drug level monitoring | CPT/HCPCS: 85610; 99211 ==

== ENCOUNTER → 2021-12-21 08:12 | Outpatient (BNVA) | payer MEDICARE, SELFPAY | PROVIDERS: PCP Internal Medicine; Visit Provider Internal Medicine | DX: I26.99 Other pulmonary embolism without acute cor pulmonale (principal); Z79.01 Long term (current) use of anticoagulants; Z51.81 Encounter for therapeutic drug level monitoring | CPT/HCPCS: 85610; 99211 ==

== ENCOUNTER → 2022-01-02 13:12 | Outpatient (BNVA) | payer MEDICARE, SELFPAY | PROVIDERS: PCP Internal Medicine; Visit Provider Orthopaedic Surgery | DX: M65.342 Trigger finger, left ring finger (principal) | CPT/HCPCS: 99212 ==

== ENCOUNTER → 2022-01-04 08:26 | Outpatient (BNVA) | payer MEDICARE, SELFPAY | PROVIDERS: PCP Internal Medicine; Visit Provider Internal Medicine | DX: I26.99 Other pulmonary embolism without acute cor pulmonale (principal); Z79.01 Long term (current) use of anticoagulants; Z51.81 Encounter for therapeutic drug level monitoring | CPT/HCPCS: 85610; 99211 ==

== ENCOUNTER → 2022-01-07 08:53 | Outpatient (BNVA) | payer MEDICARE, SELFPAY | PROVIDERS: PCP Internal Medicine; Visit Provider Dietitian, Registered | DX: E11.65 Type 2 diabetes mellitus with hyperglycemia (principal); E11.21 Type 2 diabetes mellitus with diabetic nephropathy; N18.32 Chronic kidney disease, stage 3b; Z71.3 Dietary counseling and surveillance | CPT/HCPCS: 97803 ==

== ENCOUNTER → 2022-01-09 08:23 | Outpatient (BNVA) | payer MEDICARE, SELFPAY | PROVIDERS: PCP Internal Medicine; Visit Provider Internal Medicine | DX: I26.99 Other pulmonary embolism without acute cor pulmonale (principal); Z51.81 Encounter for therapeutic drug level monitoring; Z79.01 Long term (current) use of anticoagulants | CPT/HCPCS: 85610; 99211 ==

== ENCOUNTER → 2022-01-15 08:21 | Outpatient (BNVA) | payer MEDICARE, SELFPAY | PROVIDERS: PCP Internal Medicine; Visit Provider Internal Medicine | DX: I26.99 Other pulmonary embolism without acute cor pulmonale (principal); Z79.01 Long term (current) use of anticoagulants; Z51.81 Encounter for therapeutic drug level monitoring | CPT/HCPCS: 85610; 99211 ==

== ENCOUNTER 2022-01-19 11:32 | Emergency (ER) | payer MEDICARE, SELFPAY ==
--- NOTE | ~2022-01-19 | XR_ITS ---
EXAMINATION: XR CHEST CLINICAL INFORMATION: Generalized weakness. COMPARISON: Chest CT dated September 26, 2021. Chest x-ray dated January 15, 2021. TECHNIQUE: Portable AP view of the chest was obtained. XR/XR chest 1V FINDINGS/IMPRESSION: The study is limited by portable technique and overlying leads. There is no acute radiographic finding. No pneumothorax, effusion, or infiltrate is seen. A previously seen right mid lung nodule is redemonstrated, poorly evaluated on the current portable chest x-ray. Chondral calcification is again seen. The heart appears normal in size. The aorta is mildly atherosclerotic. There are mild degenerative changes of the shoulders and spine. The patient is status post cholecystectomy.
[2022-01-19 11:36] VITALS: BP 113/71; PULSE 90; RESP 19; TEMP 36.6; O2SAT 98; BMI 23.7
--- NOTE | 2022-01-19 11:41 | ECG_ITS ---
Test Reason : WEAKNESS Blood Pressure : / mmHG Vent. Rate : 098 BPM Atrial Rate : 098 BPM P-R Int : 142 ms QRS Dur : 072 ms QT Int : 342 ms P-R-T Axes : 080 059 021 degrees QTc Int : 436 ms Normal sinus rhythm Normal ECG When compared with ECG of 08-FEB-2021 11:17, No significant change was found Referred By: Generic ED Physician Electronically Signed By:DENISE MACIAS
[2022-01-19 11:56] LABS: MANUAL DIFF FLAG NO
[2022-01-19 11:57] LABS: Eosinophils Percent Auto 0.8 % (0-4); Hematocrit 37.5 % (42.0-52.0); Hemoglobin 12.1 g/dl (14.0-18.0); Imm Gran Abs Auto 0.03 X10*3/uL (0.00-0.03); Imm Gran Pct Auto 0.6 % (0.0-0.4); Lymphocytes Absolute Auto 0.9 X10*3/uL (1.2-4.9); Lymphocytes Percent Auto 17.5 % (20-40); Mean Corpuscular HGB Conc 32.3 g/dl (31.0-36.0); Mean Corpuscular Hemoglobin 35.8 pg (27.0-33.0); Mean Platelet Volume 11.7 fL (9.4-12.4); Monocytes Absolute Auto 0.7 X10*3/uL (0.1-1.2); Monocytes Percent Auto 14.1 % (2-11); Neutrophils Absolute Auto 3.5 x10*3/uL (2.0-8.3); Red Blood Count 3.38 X10*6/uL (4.60-5.80); Red Cell Distribution Width 14.3 % (11.0-16.0); White Blood Count 5.3 X10*3/uL (4.8-10.8)
[2022-01-19 11:59] LABS: Mean Corpuscular Volume 110.9 fL (80.0-98.0); Platelet Count 56 X10*3/uL (160-400)
[2022-01-19 12:03] VITALS: BP 124/87; PULSE 104; RESP 14; TEMP 37.9; O2SAT 97
[2022-01-19 12:04] LABS: INTERNATIONAL NORM RATIO 3.6 (0.9-1.1); Prothrombin Time 43.9 SEC (10.0-13.1)
--- NOTE | 2022-01-19 12:12 | ED.GENADULT ---
HPI - General Adult General Chief complaint: General Medical Stated complaint: low BP, Time Seen by Provider: 01/19/22 12:05 Source: patient and family (son) Mode of arrival: ambulatory Limitations: no limitations History of Present Illness HPI narrative: 86-year-old male came in for evaluation of generalized weakness. Patient was seen and evaluated at the walk-in clinic today was sent here today for further evaluation for congestion, coughing, low blood pressure (100/68). Patient is here today for evaluation of chest congestion for the past 6 months, now has been having persistent nonproductive cough, on and off subjective fever. Overall patient is feeling generalized weakness and lack of energy. Patient also been complaining of low back pain, patient had a recent CT about 4 months ago which shows no aneurysm concern. Related Data Home Medications Medication Instructions Recorded Confirmed cyanocobalamin (vitamin B-12) 1,000 mcg PO 3XW 02/10/20 01/15/22 1,000 mcg tablet multivitamin 1 tab PO DAILY 02/10/20 01/15/22 warfarin 2.5 mg tablet 1 tab PO DAILY 05/11/20 01/15/22 metoprolol tartrate 50 mg tablet 50 mg PO BID 07/23/21 01/15/22 Previous Rx's Medication Instructions Recorded blood sugar diagnostic (OneTouch #300 ea 09/13/20 Verio test strips) lancets 33 gauge (OneTouch Delica #300 ea 09/13/20 Lancets) blood-glucose meter (OneTouch #1 ea 03/28/21 Verio Flex Start kit) pyridoxine (vitamin B6) 100 mg 100 mg PO DAILY 90 days #90 tabs 10/18/21 tablet glipizide 5 mg tablet, extended 5 mg PO DAILY #90 tabs 11/09/21 release 24 hr atorvastatin 20 mg tablet 20 mg PO BEDTIME #30 tabs 11/27/21 allopurinol 100 mg tablet 100 mg PO DAILY #90 tabs 12/10/21 Allergies Allergy/AdvReac Type Severity Reaction Status Date / Time silver Allergy Intermediate SKIN COMES Verified 01/19/22 10:25 [From TEGADERM AG MESH] OFF morphine [MORPHINE] Allergy Unknown VOMITING, Verified 01/19/22 10:25 vomitting Review of Systems Review of Systems: All other systems are reviewed and are negative Constitutional: Reports as per HPI and Reports no additional constitutional complaints Eyes: Reports as per HPI and Reports no additional eye complaints Reports system reviewed and no additional complaints, except as documented Cardiovascular: Reports as per HPI and Reports no additional cardiovascular complaints Respiratory: Reports as per HPI and Reports no additional respiratory complaints Gastrointestinal: Reports as per HPI and Reports no additional gastrointestinal complaints Genitourinary: Reports no additional female genitourinary complaints Musculoskeletal: Reports no additional musculoskeletal complaints Skin/Breast: Reports system reviewed and no additional complaints, except as docu Psychiatric: Reports no additional psychiatric complaints Endocrine: Reports no additional endocrine complaints Hematologic/Lymphatic: Reports no additional hematologic/lymphatic complaints Allergic/Immunologic: Reports no additional allergic/immunologic complaints Reports system reviewed and no additional complaints, except as documented and Reports Abnormal speech present PMFSH Past Medical History 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 Dyslipidemia Gout Headache above the eye region Melanoma Skin cancer Tachycardia Surgical History H/O inguinal hernia repair H/O umbilical hernia repair Hx of basal cell carcinoma excision Hx of cataract surgery S/P appendectomy S/P TURP Family History Family History Other Family history of cancer in sister Social History Social History Household Members: Spouse Housing: House Do you presently have visiting nurse or other home services: No Alcohol intake: never Patient Tobacco Use Status: Never used Tobacco Second Hand Smoke Exposure: No Advance Directives: No Advance Directives Information Provided: No Advance Directives Date on File: 02/10/20 service: Yes Current occupational status: retired 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 Blood pressure normal. Heart rate normal. Respiration rate normal. Temperature normal. Oxygen saturation normal. Appearance: Alert. Oriented X3. No acute distress. Head: Normal external exam. Normocephalic. Atraumatic. No Garcia signs noted. No raccoon eyes noted Eyes: PERRLA. EOMI. Conjunctiva and sclera normal. Eyelids normal. ENT: TM's Normal. Pharynx normal. Uvula midline. Moist mucous membranes. No trismus noted. No drooling noted. No muffled voice noted. Neck: Normal inspection. Neck supple. FROM. No adenopathy. Thyroid Normal. No meningeal signs. No neck mass noted. CVS: Normal heart rate and rhythm. Heart sound normal. No murmurs noted. Pulses normal throughout. Respiratory: No respiratory distress. Painless inspiration. Breath sounds normal. No wheezes/rales/rhonchi noted. Chest nontender. No accessory muscle usage noted or decreased air movement noted. Abdomen: Soft and nontender. Bowel sounds normal in all 4 quadrants. No distention noted. No organomegaly noted. No visible injury noted. Back: No CVA tenderness. Full range of motion noted. Skin: Skin warm and dry. Normal skin color. Normal skin turgor. No rashes/lesions/lacerations noted. Extremities: No lower extremity edema. Extremities exhibit normal range of motion. Extremities nontender. Neuro: Oriented X 3. Cranial nerve exam: II-XII are grossly intact No motor deficit. No sensory deficit. Reflexes normal. Course Course Course Narrative: 86-year-old male came in for evaluation of generalized weakness, patient tested positive for COVID-19, O2 sat on room air is 96%, negative chest x-ray for superimposed infection, since symptoms being there for few days. Patient will be discharged was instructed to keep social distancing, frequent hand motion, where face mask at all times, and self quarantine for the next 5 days PCP in 1 week. Medical Decision Making Lab Data Lab results reviewed: Yes I reviewed the patient's lab results. Result diagrams: 01/19/22 11:50 01/19/22 11:50 Labs: Lab Results 01/19/22 01/19/22 01/19/22 Range/Units 11:50 11:50 11:50 WBC 5.3 (4.8-10.8) X10*3/uL RBC 3.38 L (4.60-5.80) X10*6/uL Hgb 12.1 L (14.0-18.0) g/dl Hct 37.5 L (42.0-52.0) % MCV 110.9 H (80.0-98.0) fL MCH 35.8 H (27.0-33.0) pg MCHC 32.3 (31.0-36.0) g/dl RDW 14.3 (11.0-16.0) % Plt Count 56 L D (160-400) X10*3/uL MPV 11.7 (9.4-12.4) fL Immature Gran % (Auto) 0.6 H (0.0-0.4) % Neut % (Auto) 67.0 (45-73) % Lymph % (Auto) 17.5 L (20-40) % Pershing % (Auto) 14.1 H (2-11) % Eos % (Auto) 0.8 (0-4) % Baso % (Auto) 0.0 (0-2) % Lymph # (Auto) 0.9 L (1.2-4.9) X10*3/uL Pershing # (Auto) 0.7 (0.1-1.2) X10*3/uL Eos # (Auto) 0.0 (0.0-0.4) X10*3/uL Baso # (Auto) 0.0 (0.0-0.2) X10*3/uL Abs Immat Gran (auto) 0.03 (0.00-0.03) X10*3/uL Absolute Neuts (auto) 3.5 (2.0-8.3) x10*3/uL Absolute Nucleated RBC 0.000 (0.0-0.012) X10*3/uL Nucleated RBC % (auto) 0.0 (0.0-0.2) /100WBC PT (10.0-13.1) SEC INR (0.9-1.1) Sodium 143 (135-145) mmol/L Potassium 3.9 (3.3-5.1) mmol/L Chloride 112 H (96-108) mmol/L Carbon Dioxide 17 L (22-29) mmol/L Anion Gap 18 (12-20) BUN 20 H (9-16) mg/dL Creatinine 1.66 H (0.5-1.4) mg/dL Estim Creat Clear Calc 38.1 Estimated GFR 39 Random Glucose 170 H (60-115) mg/dL Calcium 8.4 D (8.4-10.2) mg/dL Total Bilirubin 0.9 (0.0-1.0) mg/dL Direct Bilirubin 0.4 (0.0-0.5) mg/dL AST 33 (5-37) U/L ALT 27 (0-40) U/L Alkaline Phosphatase 120 H D (39-117) U/L Troponin I High Sens 19.3 (<3.5-35.0) ng/L B-Natriuretic Peptide 239 H (<100) pg/mL Total Protein 5.8 L (6.5-8.0) g/dL Albumin 3.9 (3.5-5.0) g/dL Lipase 20 (8-78) U/L Influenza Type A (PCR) (Negative) Influenza Type B (PCR) (Negative) RSV RNA Qual (PCR) (Negative) SARS-CoV-2 RNA (RT-PCR) (Negative) 01/19/22 01/19/22 Range/Units 11:50 12:49 WBC (4.8-10.8) X10*3/uL RBC (4.60-5.80) X10*6/uL Hgb (14.0-18.0) g/dl Hct (42.0-52.0) % MCV (80.0-98.0) fL MCH (27.0-33.0) pg MCHC (31.0-36.0) g/dl RDW (11.0-16.0) % Plt Count (160-400) X10*3/uL MPV (9.4-12.4) fL Immature Gran % (Auto) (0.0-0.4) % Neut % (Auto) (45-73) % Lymph % (Auto) (20-40) % Pershing % (Auto) (2-11) % Eos % (Auto) (0-4) % Baso % (Auto) (0-2) % Lymph # (Auto) (1.2-4.9) X10*3/uL Pershing # (Auto) (0.1-1.2) X10*3/uL Eos # (Auto) (0.0-0.4) X10*3/uL Baso # (Auto) (0.0-0.2) X10*3/uL Abs Immat Gran (auto) (0.00-0.03) X10*3/uL Absolute Neuts (auto) (2.0-8.3) x10*3/uL Absolute Nucleated RBC (0.0-0.012) X10*3/uL Nucleated RBC % (auto) (0.0-0.2) /100WBC PT 43.9 H (10.0-13.1) SEC INR 3.6 H (0.9-1.1) Sodium (135-145) mmol/L Potassium (3.3-5.1) mmol/L Chloride (96-108) mmol/L Carbon Dioxide (22-29) mmol/L Anion Gap (12-20) BUN (9-16) mg/dL Creatinine (0.5-1.4) mg/dL Estim Creat Clear Calc Estimated GFR Random Glucose (60-115) mg/dL Calcium (8.4-10.2) mg/dL Total Bilirubin (0.0-1.0) mg/dL Direct Bilirubin (0.0-0.5) mg/dL AST (5-37) U/L ALT (0-40) U/L Alkaline Phosphatase (39-117) U/L Troponin I High Sens (<3.5-35.0) ng/L B-Natriuretic Peptide (<100) pg/mL Total Protein (6.5-8.0) g/dL Albumin (3.5-5.0) g/dL Lipase (8-78) U/L Influenza Type A (PCR) NEGATIVE (Negative) Influenza Type B (PCR) NEGATIVE (Negative) RSV RNA Qual (PCR) NEGATIVE (Negative) SARS-CoV-2 RNA (RT-PCR) POSITIVE A (Negative) Imaging Data Chest x-ray: Attestation: I personally reviewed and interpreted this imaging study as follows: Radiologist's impression: The study is limited by portable technique and overlying leads. ? There is no acute radiographic finding. No pneumothorax, effusion, or infiltrate is seen. ? A previously seen right mid lung nodule is redemonstrated, poorly evaluated on the current portable chest x-ray. Chondral calcification is again seen. ? The heart appears normal in size. The aorta is mildly atherosclerotic. ? There are mild degenerative changes of the shoulders and spine. ? The patient is status post cholecystectomy. ECG Data Attestation: I personally reviewed and interpreted this ECG as follows: Interpretation: Normal sinus rhythm at 98 beats per minutes, normal axis deviation, normal intervals, no ST-T changes, no significant change from previous EKG. Discharge Plan Discharge Clinical Impression: COVID-19 virus infection Patient Disposition: Home, Self-Care Instructions: Covid-19 Viral Syndrome and Novel Coronavirus (ED) Hey/Ath Additional Instructions: Frequent hand washing, wear face mask at all times, keep social distancing, self-quarantine for 1 week. Prescriptions: No Action (DME) blood-glucose meter [OneTouch Verio Flex Start] Kit See Rx Instructions .Route Qty: 1 0RF Rx Instructions: As directed to check blood glucose 3x/day glipizide 5 mg tablet extended release 24 hr 5 mg PO DAILY Qty: 90 0RF atorvastatin 20 mg tablet 20 mg PO BEDTIME Qty: 30 5RF allopurinol 100 mg tablet 100 mg PO DAILY Qty: 90 4RF multivitamin Tablet 1 tab PO DAILY cyanocobalamin (vitamin B-12) 1,000 mcg Tablet 1,000 mcg PO 3XW warfarin 2.5 mg tablet 1 tab PO DAILY Protocol: Dose Management Condition: Friday (Week One) Dose/Route: 2.5 mg Instruction: 1 x 2.5 mg tablet Condition: Friday Dose/Route: 5 mg Instruction: 2 x 2.5 mg tablets Condition: Friday Dose/Route: 2.5 mg Instruction: 1 x 2.5 mg tablet Condition: Friday Dose/Route: 2.5 mg Instruction: 1 x 2.5 mg tablet Condition: Dose/Route: 5 mg Instruction: 2 x 2.5 mg tablets Condition: Friday Dose/Route: 2.5 mg Instruction: 1 x 2.5 mg tablet Condition: Friday Dose/Route: 2.5 mg Instruction: 1 x 2.5 mg tablet Condition: Friday (Week Two) Dose/Route: 2.5 mg Instruction: 1 x 2.5 mg tablet Condition: Friday Dose/Route: 5 mg Instruction: 2 x 2.5 mg tablets Condition: Friday Dose/Route: 2.5 mg Instruction: 1 x 2.5 mg tablet Condition: Friday Dose/Route: 2.5 mg Instruction: 1 x 2.5 mg tablet Condition: Dose/Route: 5 mg Instruction: 2 x 2.5 mg tablets Condition: Friday Dose/Route: 2.5 mg Instruction: 1 x 2.5 mg tablet Condition: Friday Dose/Route: 2.5 mg Instruction: 1 x 2.5 mg tablet Protocol Text: Adjustment Start Date: Friday01/15/22 INR Value: 3.1 INR Date: 01/15/22 Recheck Date: 01/25/22 Additional Instructions: resume weekly greens or ensure - but not daily pyridoxine (vitamin B6) 100 mg tablet 100 mg PO DAILY 90 Days Qty: 90 1RF (DME) lancets [OneTouch Delica Lancets] 33 gauge misc See Rx Instructions .ROUTE .MEDSUPPLY Qty: 300 3RF Rx Instructions: 3 times a day (DME) OneTouch Verio test strips Strip See Rx Instructions .ROUTE .MEDSUPPLY Qty: 300 3RF Rx Instructions: 3 times a day metoprolol tartrate 50 mg tablet 50 mg PO BID Referrals: Abel Velasco MD [Primary Care Provider] -
[2022-01-19 12:17] LABS: B Type Natriuretic Peptide 239 pg/mL (<100); Troponin-I High Sensitivity 19.3 ng/L (<3.5-35.0)
[2022-01-19 12:23] LABS: Alanine Aminotransferase 27 U/L (0-40); Albumin Level 3.9 g/dL (3.5-5.0); Alkaline Phosphatase 120 U/L (39-117); Anion Gap 18 (12-20); Aspartate Amino Transferase 33 U/L (5-37); Bilirubin Direct 0.4 mg/dL (0.0-0.5); Bilirubin Total 0.9 mg/dL (0.0-1.0); Blood Urea Nitrogen 20 mg/dL (9-16); Calcium 8.4 mg/dL (8.4-10.2); Carbon Dioxide 17 mmol/L (22-29); Chloride 112 mmol/L (96-108); Creatinine Clr Calc Pharmacy 38.1; Estimated Glomerular Filt Rate 39; Glucose Random 170 mg/dL (60-115); Lipase 20 U/L (8-78); Potassium 3.9 mmol/L (3.3-5.1); Sodium 143 mmol/L (135-145); Total Protein 5.8 g/dL (6.5-8.0)
[2022-01-19] MEDS: Acetaminophen 325 MG TABLET 650 MG PO (12:47)
[2022-01-19] MEDS: 0.9 % Sodium Chloride 1,000 ML 999 ML IV (12:47)
[2022-01-19 13:31] LABS: Influenza A PCR NEGATIVE (Negative); Influenza B PCR NEGATIVE (Negative); Resp Syncy Virus RNA Qual PCR NEGATIVE (Negative); SARS COV2 PCR INHOUSE POSITIVE (Negative)
[2022-01-19 14:21] VITALS: BP 135/84; PULSE 82; RESP 16; TEMP 37.2; O2SAT 96
--- NOTE | 2022-01-19 15:04 | PC.NURSE ---
pt pwd, a&o x 3, son at bedside. Discharge packet provided at time of discharge. Patient verbalized understanding of discharge plan.
== END 2022-01-19 15:06 | disposition home or self-care (01) ==
PROVIDERS: Emergency Provider Emergency Medicine; PCP Internal Medicine
DX: U07.1 COVID-19 (principal); R53.1 Weakness; E11.22 Type 2 diabetes mellitus with diabetic chronic kidney disease; N18.30 Chronic kidney disease, stage 3 unspecified; E78.5 Hyperlipidemia, unspecified; C91.10 Chronic lymphocytic leukemia of B-cell type not having achieved remission; Z79.01 Long term (current) use of anticoagulants; Z79.02 Long term (current) use of antithrombotics/antiplatelets
CPT/HCPCS: 0241U; 36415; 71045; 80048; 80076; 83690; 83880; 84484; 85025; 85610; 93005; 96360; 99284

== ENCOUNTER 2022-01-23 09:15 | Inpatient (IN) | payer MEDICARE, SELFPAY ==
--- NOTE | ~2022-01-23 | XR_ITS ---
EXAMINATION: XR CHEST CLINICAL INFORMATION: Weakness, Covid positive. COMPARISON: Chest radiograph 01/19/2022. TECHNIQUE: Frontal view of the chest was obtained. FINDINGS: Stable appearance of the cardiomediastinal silhouette. Increased pulmonary hypoexpansion and interstitial markings, more noticeable centrally and in the lower lobes. No dense consolidation. No pleural effusion or pneumothorax. A previously described right middle lobe pulmonary nodule is not well visualized in this examination, likely secondary to limitations of technique. No acute osseous abnormalities. XR/XR chest 1V IMPRESSION: Worsening pulmonary hyperexpansion with increased interstitial markings, nonspecific, but raising the possibility of an atypical pneumonia.
[2022-01-23 09:27] VITALS: BP 144/78; BP 158/94; PULSE 84; PULSE 87; RESP 20; TEMP 37.7; O2SAT 96; O2SAT 97; BMI 24.3
--- NOTE | 2022-01-23 09:42 | ECG_ITS ---
Test Reason : weakness Blood Pressure : / mmHG Vent. Rate : 086 BPM Atrial Rate : 086 BPM P-R Int : 166 ms QRS Dur : 074 ms QT Int : 390 ms P-R-T Axes : 082 044 -05 degrees QTc Int : 466 ms Sinus rhythm with Premature supraventricular complexes Nonspecific ST abnormality Abnormal ECG When compared with ECG of 19-JAN-2022 11:43, Premature supraventricular complexes are now Present Nonspecific ST abnormality is now Present Referred By: Nataliya Tyler Electronically Signed By:DENISE MACIAS
--- NOTE | 2022-01-23 09:51 | ED.WEAKNESS ---
HPI - Weakness General Chief complaint: Weakness Stated complaint: WEAK,SUTURE SITE OPENED LLE,+COVID 3DAYS AGO Time Seen by Provider: 01/23/22 09:18 Source: patient Mode of arrival: ambulatory History of Present Illness HPI Narrative: 86-year-old male with PMHx of CKD, DM, HLD, gout, melanoma, COVID-19 positive on 01/19/2022 presenting to the ED via EMS complaining of increased lethargy, generalized fatigue/weakness, and decreased p.o. intake since COVID-19 diagnosis. Per EMS patient unable to ambulate. Patient reports mechanical fall out of chair this morning, slid to ground, denies head trauma or LOC, was unable to get himself off the ground. Also reports healing wound to left posterior thigh s/p mole removal last week. Denies known fever, headache, worsening cough, chest pain, shortness of breath, abdominal pain, nausea/vomiting, neck/back pain MD Complaint: generalized weakness, lack of energy and difficulty walking Onset (ago): day(s) Duration: constant and progressively worsening Related Data Home Medications Medication Instructions Recorded Confirmed cyanocobalamin (vitamin B-12) 1,000 mcg PO 3XW 02/10/20 01/15/22 1,000 mcg tablet multivitamin 1 tab PO DAILY 02/10/20 01/15/22 warfarin 2.5 mg tablet 1 tab PO DAILY 05/11/20 01/15/22 metoprolol tartrate 50 mg tablet 50 mg PO BID 07/23/21 01/15/22 Previous Rx's Medication Instructions Recorded blood sugar diagnostic (OneTouch #300 ea 09/13/20 Verio test strips) lancets 33 gauge (OneTouch Delica #300 ea 09/13/20 Lancets) blood-glucose meter (OneTouch #1 ea 03/28/21 Verio Flex Start kit) pyridoxine (vitamin B6) 100 mg 100 mg PO DAILY 90 days #90 tabs 10/18/21 tablet glipizide 5 mg tablet, extended 5 mg PO DAILY #90 tabs 11/09/21 release 24 hr atorvastatin 20 mg tablet 20 mg PO BEDTIME #30 tabs 11/27/21 allopurinol 100 mg tablet 100 mg PO DAILY #90 tabs 12/10/21 Allergies Allergy/AdvReac Type Severity Reaction Status Date / Time silver Allergy Intermediate SKIN COMES Verified 01/19/22 10:25 [From TEGADERM AG MESH] OFF morphine [MORPHINE] Allergy Unknown VOMITING, Verified 01/19/22 10:25 vomitting Review of Systems Review of Systems: Constitutional: No Fever, No Chills, No Night Sweats, + Fatigue, + Malaise ENT/Mouth: No Ear Pain, No Nasal Congestion, No Sinus Pain, No Hoarseness, No sore throat, No Rhinorrhea, No Swallowing Difficulty Eyes: No Eye Pain, No Swelling, No Redness, No Vision Changes Cardiovascular: No Chest Pain, No SOB, No Dyspnea on Exertion, No Orthopnea, No Edema Respiratory: No Cough, No Sputum, No Dyspnea Gastrointestinal: No Nausea, No Vomiting, No Diarrhea, No Constipation, No Abdominal pain Genitourinary: No Dysuria, No Urinary Frequency, No Hematuria, No Urinary Incontinence/retention, No Urgency, No Flank Pain, No Urinary Flow Changes, No Hesitancy Musculoskeletal: No joint pain, + Myalgias, No Joint Swelling Skin: No Skin Lesions, No rash Neuro: + Weakness, No Numbness, No Paresthesias, No Loss of Consciousness, No Dizziness, No Headache Yes all other systems are reviewed and are negative Constitutional: Constitutional: Reports as per HPI Neurologic: Denies Abnormal speech present [facility] Past Medical History Attestation statement: The following information was validated with the patient. 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 Dyslipidemia Gout Headache above the eye region Melanoma Skin cancer Tachycardia Surgical History H/O inguinal hernia repair H/O umbilical hernia repair Hx of basal cell carcinoma excision Hx of cataract surgery S/P appendectomy S/P TURP Family History Family History Other Family history of cancer in sister Social History Social History Household Members: Spouse Housing: House Do you presently have visiting nurse or other home services: No Alcohol intake: never Patient Tobacco Use Status: Never used Tobacco Second Hand Smoke Exposure: No Advance Directives: Yes Advance Directives on File: Yes Advance Directives Date on File: 02/10/20 service: Yes Current occupational status: retired 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 Physical Exam Vital Signs: Vital Signs: Last Vital Signs Temp 100 F 01/23/22 09:27 Pulse 84 01/23/22 09:27 Resp 20 01/23/22 09:27 BP 158/94 H 01/23/22 09:27 Pulse Ox 96 01/23/22 09:27 O2 Del Method 01/23/22 09:27 BMI result Body Mass Index 24.3 Const: General: cooperative, comfortable and no acute distress Orientation/consciousness: patient oriented x3 Limitations: no limitations HEENT: Head: Yes normal to inspection and Yes atraumatic Ears: hearing grossly normal bilaterally General nose exam: Normal external nose present Face and sinus: Yes normal facial exam Eyes: General: appearance normal, both eyes and all related structures Pupils: Equal, round and reactive pupils present EOM: EOMs intact bilaterally Neck: Neck: Yes normal visual inspection, Yes full ROM and Yes no meningeal signs Resp: Effort & Inspection: normal respiratory effort and no respiratory distress Auscultation: clear to auscultation bilaterally, no crackles, no rales, no rhonchi and no wheezes Cardio: Rate: regular rate Heart sounds: S1 normal heart sound present and S2 normal heart sound present GI: Inspection: Yes normal to inspection Palpation (GI): Soft to palpation, nontender, no guarding and not rigid : General: Yes no CVA tenderness Back/Spine/Pelvis: Back: no CVA tenderness Skin: Other: + appropriately healing wound to left mid posterior thigh with running suture in place. Surrounding healing ecchymosis. No erythema/warmth, no fluctuance/induration or streaking. Rashes: no rashes Neuro: Other: Unsteady/wobbly gait, able to take a few steps General: patient oriented x3, tone normal, no meningeal signs, no focal motor deficits and CN's II-XI intact bilaterally Cranial nerves: Yes CN's II-XII intact bilaterally and Yes Equal, round and reactive pupils present Cognition (Neuro): normal cognition Speech: No Abnormal speech present Gait exam (Neuro): not ataxic Motor exam (neuro): 5/5 motor strength present throughout and no tremor noted Extrem: General: Yes normal to inspection, Yes no pedal edema and Yes no calf tenderness Course Course Course Narrative: -1130--XR chest 1V IMPRESSION: Worsening pulmonary hyperexpansion with increased interstitial markings, nonspecific, but raising the possibility of an atypical pneumonia. > empiric IV Rocephin and Azithromycin ordered, as well as lactic/blood cultures. -leukopenia as expected from COVID-19. H&H around patient's baseline. -chronic CKD better than baseline, lactic acid negative. Initial troponin 32.2 > will obtain 3 hour repeat > Plan for admission vs PT/case management which patient is agreeable Plan to admit for further management due to failed outpatient/worsening sx -1500--PT evaluated patient and recommended STR. MDM - Weakness MDM Narrative Medical decision making narrative: 86-year-old male with PMHx of CKD, DM, HLD, gout, melanoma, COVID-19 positive on 01/19/2022 presenting to the ED via EMS complaining of increased lethargy, generalized fatigue/weakness, and decreased p.o. intake since COVID-19 diagnosis. Exam low-grade fever 100.0, NAD, nontoxic appearing, no focal neuro deficits, no evidence of trauma, lungs CTA, abdomen soft/nontender. Concern for continued COVID-19 symptoms vs dehydration/metabolic abnormalities. Rule out viral pneumonia. Lower suspicion for ACS. Rule out other infectious etiologies. Low suspicion for severe sepsis this time as known viral etiology. Unlikely CVA Plan: EKG, labs, UA, CXR, IVF, orthostatics, re-evaluate, +/-PT/CM consults Medical Records Attestation: I reviewed the patient's medical records. Lab Data Attestation: I reviewed the patient's lab results. Result diagrams: 01/23/22 11:48 01/23/22 11:48 Labs: Lab Results 01/23/22 01/23/22 01/23/22 Range/Units 11:48 11:48 11:48 WBC 3.6 L (4.8-10.8) X10*3/uL RBC 3.07 L (4.60-5.80) X10*6/uL Hgb 10.8 L (14.0-18.0) g/dl Hct 33.2 L (42.0-52.0) % MCV 108.1 H (80.0-98.0) fL MCH 35.2 H (27.0-33.0) pg MCHC 32.5 (31.0-36.0) g/dl RDW 13.9 (11.0-16.0) % Plt Count 43 L (160-400) X10*3/uL MPV 12.0 (9.4-12.4) fL Immature Gran % (Auto) 0.6 H (0.0-0.4) % Neut % (Auto) 72.1 (45-73) % Lymph % (Auto) 13.1 L (20-40) % [place] % (Auto) 13.9 H (2-11) % Eos % (Auto) 0.3 (0-4) % Baso % (Auto) 0.0 (0-2) % Lymph # (Auto) 0.5 L (1.2-4.9) X10*3/uL [place] # (Auto) 0.5 (0.1-1.2) X10*3/uL Eos # (Auto) 0.0 (0.0-0.4) X10*3/uL Baso # (Auto) 0.0 (0.0-0.2) X10*3/uL Abs Immat Gran (auto) 0.02 (0.00-0.03) X10*3/uL Absolute Neuts (auto) 2.6 (2.0-8.3) x10*3/uL Absolute Nucleated RBC 0.000 (0.0-0.012) X10*3/uL Nucleated RBC % (auto) 0.0 (0.0-0.2) /100WBC Sodium 141 (135-145) mmol/L Potassium 3.8 (3.3-5.1) mmol/L Chloride 110 H (96-108) mmol/L Carbon Dioxide 19 L (22-29) mmol/L Anion Gap 16 (12-20) BUN 18 H (9-16) mg/dL Creatinine 1.45 H (0.5-1.4) mg/dL Estim Creat Clear Calc 42.5 Estimated GFR 46 Random Glucose 122 H (60-115) mg/dL Lactic Acid (0.5-2.0) mmol/L Calcium 8.0 L (8.4-10.2) mg/dL Magnesium 1.6 (1.6-2.6) mg/dL Total Bilirubin 0.9 (0.0-1.0) mg/dL Direct Bilirubin 0.5 (0.0-0.5) mg/dL AST 30 (5-37) U/L ALT 20 (0-40) U/L Alkaline Phosphatase 104 (39-117) U/L Total Creatine Kinase (38-174) U/L Troponin I High Sens 32.2 D (<3.5-35.0) ng/L Total Protein 5.1 L (6.5-8.0) g/dL Albumin 3.4 L (3.5-5.0) g/dL Urine Color Urine Appearance Urine pH (5.0-9.0) Ur Specific [place] (1.005-1.025) Urine Protein (Neg-Trace) mg/dL Urine Glucose (UA) (Negative) mg/dL Urine Ketones (Negative) mg/dL Urine Blood (Negative) Urine Nitrite (Negative) Ur Leukocyte Esterase (Negative) Urine RBC (0-2) /HPF Urine WBC (0-5) /HPF Ur Squamous Epith Cells (0-2) /HPF Urine Bacteria (None Seen) Hyaline Casts (0-2) /LPF 01/23/22 01/23/22 01/23/22 Range/Units 11:48 11:48 15:00 WBC (4.8-10.8) X10*3/uL RBC (4.60-5.80) X10*6/uL Hgb (14.0-18.0) g/dl Hct (42.0-52.0) % MCV (80.0-98.0) fL MCH (27.0-33.0) pg MCHC (31.0-36.0) g/dl RDW (11.0-16.0) % Plt Count (160-400) X10*3/uL MPV (9.4-12.4) fL Immature Gran % (Auto) (0.0-0.4) % Neut % (Auto) (45-73) % Lymph % (Auto) (20-40) % [place] % (Auto) (2-11) % Eos % (Auto) (0-4) % Baso % (Auto) (0-2) % Lymph # (Auto) (1.2-4.9) X10*3/uL [place] # (Auto) (0.1-1.2) X10*3/uL Eos # (Auto) (0.0-0.4) X10*3/uL Baso # (Auto) (0.0-0.2) X10*3/uL Abs Immat Gran (auto) (0.00-0.03) X10*3/uL Absolute Neuts (auto) (2.0-8.3) x10*3/uL Absolute Nucleated RBC (0.0-0.012) X10*3/uL Nucleated RBC % (auto) (0.0-0.2) /100WBC Sodium (135-145) mmol/L Potassium (3.3-5.1) mmol/L Chloride (96-108) mmol/L Carbon Dioxide (22-29) mmol/L Anion Gap (12-20) BUN (9-16) mg/dL Creatinine (0.5-1.4) mg/dL Estim Creat Clear Calc Estimated GFR Random Glucose (60-115) mg/dL Lactic Acid 1.2 (0.5-2.0) mmol/L Calcium (8.4-10.2) mg/dL Magnesium (1.6-2.6) mg/dL Total Bilirubin (0.0-1.0) mg/dL Direct Bilirubin (0.0-0.5) mg/dL AST (5-37) U/L ALT (0-40) U/L Alkaline Phosphatase (39-117) U/L Total Creatine Kinase 101 (38-174) U/L Troponin I High Sens (<3.5-35.0) ng/L Total Protein (6.5-8.0) g/dL Albumin (3.5-5.0) g/dL Urine Color Yellow Urine Appearance Clear Urine pH 6.0 (5.0-9.0) Ur Specific [place] 1.015 (1.005-1.025) Urine Protein 100 (2+) H (Neg-Trace) mg/dL Urine Glucose (UA) Negative (Negative) mg/dL Urine Ketones Trace (Negative) mg/dL Urine Blood Large (3+) H (Negative) Urine Nitrite Negative (Negative) Ur Leukocyte Esterase Negative (Negative) Urine RBC >20 H (0-2) /HPF Urine WBC 0-5 (0-5) /HPF Ur Squamous Epith Cells 0-2 (0-2) /HPF Urine Bacteria None Seen (None Seen) Hyaline Casts 0-2 (0-2) /LPF Discharge Plan Discharge Clinical Impression: Pneumonia due to COVID-19 virus Patient Disposition: Admitted As Inpatient
[2022-01-23] MEDS: 0.9 % Sodium Chloride 1,000 ML 999 ML IV (10:46)
[2022-01-23 12:00] LABS: MANUAL DIFF FLAG NO
[2022-01-23 12:09] LABS: Eosinophils Percent Auto 0.3 % (0-4); Hematocrit 33.2 % (42.0-52.0); Hemoglobin 10.8 g/dl (14.0-18.0); Imm Gran Abs Auto 0.02 X10*3/uL (0.00-0.03); Imm Gran Pct Auto 0.6 % (0.0-0.4); Lymphocytes Absolute Auto 0.5 X10*3/uL (1.2-4.9); Lymphocytes Percent Auto 13.1 % (20-40); Mean Corpuscular HGB Conc 32.5 g/dl (31.0-36.0); Mean Corpuscular Hemoglobin 35.2 pg (27.0-33.0); Mean Corpuscular Volume 108.1 fL (80.0-98.0); Monocytes Absolute Auto 0.5 X10*3/uL (0.1-1.2); Monocytes Percent Auto 13.9 % (2-11); Neutrophils Absolute Auto 2.6 x10*3/uL (2.0-8.3); Neutrophils Percent Auto 72.1 % (45-73); Platelet Count 43 X10*3/uL (160-400); Red Blood Count 3.07 X10*6/uL (4.60-5.80); Red Cell Distribution Width 13.9 % (11.0-16.0); White Blood Count 3.6 X10*3/uL (4.8-10.8)
[2022-01-23] MEDS: cefTRIAXone sodium 1 GM in 0.9 % Sodium Chloride 50 ML IV (12:11)
[2022-01-23 12:24] LABS: Lactic Acid 1.2 mmol/L (0.5-2.0)
[2022-01-23 12:27] LABS: Troponin-I High Sensitivity 32.2 ng/L (<3.5-35.0)
[2022-01-23 12:33] LABS: Alanine Aminotransferase 20 U/L (0-40); Anion Gap 16 (12-20); Aspartate Amino Transferase 30 U/L (5-37); Bilirubin Direct 0.5 mg/dL (0.0-0.5); Bilirubin Total 0.9 mg/dL (0.0-1.0); Blood Urea Nitrogen 18 mg/dL (9-16); Carbon Dioxide 19 mmol/L (22-29); Chloride 110 mmol/L (96-108); Creatinine Clr Calc Pharmacy 42.5; Estimated Glomerular Filt Rate 46; Glucose Random 122 mg/dL (60-115); Magnesium 1.6 mg/dL (1.6-2.6); Potassium 3.8 mmol/L (3.3-5.1); Sodium 141 mmol/L (135-145)
[2022-01-23 12:34] LABS: Albumin Level 3.4 g/dL (3.5-5.0); Alkaline Phosphatase 104 U/L (39-117); Total Protein 5.1 g/dL (6.5-8.0)
[2022-01-23] MEDS: Azithromycin 500 MG in 0.9 % Sodium Chloride 250 ML 125 MG IV (13:12)
[2022-01-23 15:11] LABS: Appearance Urine Clear; Color Urine Yellow; Glucose Urine UA Negative (Negative); Leukocyte Esterase Urine Negative (Negative); Nitrite Urine Negative (Negative); Specific Gravity - Urine 1.015 (1.005-1.025); UMIC TRIGGER UACC YES; Urine Blood Large (3+) (Negative); Urine Ketones Trace mg/dL (Negative); Urine Protein 100 (2+) mg/dL (Neg-Trace)
--- NOTE | 2022-01-23 15:14 | PC.NURSE ---
Difficulty in getting blood. Phlebotomy called.
[2022-01-23 15:15] LABS: Bacteria Urine None Seen (None Seen); Hyaline Casts Urine 0-2 /LPF (0-2); RBC Urine >20 /HPF (0-2); Squamous Epithelial Cell Urine 0-2 /HPF (0-2); WBC Urine 0-5 /HPF (0-5)
--- NOTE | 2022-01-23 15:58 | MHC.CM.ED ---
Received case management consult from Nataliya MANCINI. Patient was in ER on 01/19 with Covid. Patient was d/c'd home. Patient returned due to weakness. Physical therapy eval completed. Short term rehab is recommended. Anticipate patient will be difficult to place due to being Covid positive. Referral broadcasted in [facility] within 50 miles of patient's home. CXR completed. Shows worsening Covid pneumonia. Per Nataliya, patient will be admitted. Continue to monitor for d/c needs.
--- NOTE | 2022-01-23 16:13 | PM.IMHP ---
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 He essentially comes back today before of persistent lethargy, generalized weakness, anorexia, he so weak that he's not able to walk? but no focal neuro deficit, no sob, no cough, he has had some diarrhea but presetntly denies any, no fever, no cough. He felt this morning getting out chair and deny head injury, no confusion, no neck pain. He has a wound to the left tigh with suture still in place and appear open. CXR shows viral pattern pneumonia. No fever, no leukocytosis. He is vaccinated with covid x 2 and 1 booster about 6 months ago Review of Systems Review of Systems: Gen: no fever Resp: no sob, no cough CV: no chest, no PANCHAL, no leg edema GI: No n/v, no abd pain Neuro: No confusion, gen weakness Yes all other systems are reviewed and are negative [facility] 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 Dyslipidemia Gout Headache above the eye region Melanoma Skin cancer Tachycardia Family History Other Family history of cancer in sister Surgical History H/O inguinal hernia repair H/O umbilical hernia repair Hx of basal cell carcinoma excision Hx of cataract surgery S/P appendectomy S/P TURP Social History Household Members: Spouse Housing: House Do you presently have visiting nurse or other home services: No Alcohol intake: never Patient Tobacco Use Status: Never used Tobacco Second Hand Smoke Exposure: No Use of substances other than those prescribed or required for medical reasons: No Advance Directives: Yes Advance Directives on File: Yes Advance Directives Date on File: 02/10/20 service: Yes Current occupational status: retired 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[employer] Allergies Allergy/AdvReac Type Severity Reaction Status Date / Time silver Allergy Intermediate SKIN COMES Verified 01/19/22 10:25 [From TEGADERM AG MESH] OFF morphine [MORPHINE] Allergy Unknown VOMITING, Verified 01/19/22 10:25 vomitting Active Medications: Current Medications Pharmacy Consult (Consult Rx Perform Med Rec) 1 each MISCELLANE ONCE PRN PRN Reason: Consult order Home Medications Medication Instructions Recorded Confirmed Last Taken Type cyanocobalamin (vitamin B-12) 1,000 mcg PO 3XW 02/10/20 01/24/22 02/10/20 08:00 History 1,000 mcg tablet multivitamin 1 tab PO DAILY 02/10/20 01/24/22 02/10/20 08:00 History warfarin 2.5 mg tablet 1 tab PO DAILY 05/11/20 01/24/22 Unknown History metoprolol tartrate 50 mg tablet 50 mg PO BID 07/23/21 01/24/22 Unknown History Physical Exam Vital Signs and Narrative: Vital Signs: Last Vital Signs Temp 100 F 01/23/22 09:27 Pulse 84 01/23/22 09:27 Resp 20 01/23/22 09:27 BP 158/94 H 01/23/22 09:27 Pulse Ox 96 01/23/22 09:27 O2 Del Method 01/23/22 09:27 BMI result Body Mass Index 24.3 Const: Other: Constitutional: Alert, in no distress, Mental Status: Oriented to person, place and time. Eyes: Pupils are equal, round and reactive to light. Ear, Nose and Throat: Oropharynx clear, mucous membranes moist. Ears and nose without eformities. Trachea midline. Respiratory: Clear to auscultation. No wheezing, rales or rhonchi. Cardiovascular: S1 S2 regular. No murmurs, rubs or gallops. Gastrointestinal: Abdomen soft, non-tender, non-distended. Normal bowel sounds.? Neurologic: Cranial nerves II-XII grossly intact. No focal neurological deficits. Moves all extremities spontaneously.? Skin: No rashes or lesions.? Musculoskeletal: No cyanosis or clubbing. Psychiatric: Normal mood and affect? Results Labs CBC and Chem 7: 01/24/22 04:39 01/23/22 11:48 Labs: Laboratory Results - last 24 hr 01/23/22 01/23/22 01/23/22 11:48 11:48 11:48 MCV 108.1 H MCH 35.2 H MCHC 32.5 RDW 13.9 Plt Count 43 L MPV 12.0 Immature Gran % (Auto) 0.6 H Neut % (Auto) 72.1 Lymph % (Auto) 13.1 L [place] % (Auto) 13.9 H Eos % (Auto) 0.3 Baso % (Auto) 0.0 Lymph # (Auto) 0.5 L [place] # (Auto) 0.5 Eos # (Auto) 0.0 Baso # (Auto) 0.0 Abs Immat Gran (auto) 0.02 Absolute Neuts (auto) 2.6 Absolute Nucleated RBC 0.000 Nucleated RBC % (auto) 0.0 Anion Gap 16 Estim Creat Clear Calc 42.5 Estimated GFR 46 Random Glucose 122 H Lactic Acid Calcium 8.0 L Magnesium 1.6 Total Bilirubin 0.9 Direct Bilirubin 0.5 AST 30 ALT 20 Alkaline Phosphatase 104 Total Creatine Kinase 101 Total Protein 5.1 L Albumin 3.4 L Urine Color Urine Appearance Urine pH Ur Specific [place] Urine Protein Urine Glucose (UA) Urine Ketones Urine Blood Urine Nitrite Ur Leukocyte Esterase Urine RBC Urine WBC Ur Squamous Epith Cells Urine Bacteria Hyaline Casts 01/23/22 01/23/22 11:48 15:00 MCV MCH MCHC RDW Plt Count MPV Immature Gran % (Auto) Neut % (Auto) Lymph % (Auto) [place] % (Auto) Eos % (Auto) Baso % (Auto) Lymph # (Auto) [place] # (Auto) Eos # (Auto) Baso # (Auto) Abs Immat Gran (auto) Absolute Neuts (auto) Absolute Nucleated RBC Nucleated RBC % (auto) Anion Gap Estim Creat Clear Calc Estimated GFR Random Glucose Lactic Acid 1.2 Calcium Magnesium Total Bilirubin Direct Bilirubin AST ALT Alkaline Phosphatase Total Creatine Kinase Total Protein Albumin Urine Color Yellow Urine Appearance Clear Urine pH 6.0 Ur Specific [place] 1.015 Urine Protein 100 (2+) H Urine Glucose (UA) Negative Urine Ketones Trace Urine Blood Large (3+) H Urine Nitrite Negative Ur Leukocyte Esterase Negative Urine RBC >20 H Urine WBC 0-5 Ur Squamous Epith Cells 0-2 Urine Bacteria None Seen Hyaline Casts 0-2 Imaging Radiologist's Impressions: Impressions Chest X-Ray 01/23/22 10:21 IMPRESSION: Worsening pulmonary hyperexpansion with increased interstitial markings, nonspecific, but raising the possibility of an atypical pneumonia. 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 He essentially comes back today before of persistent lethargy, generalized weakness, anorexia, he so weak that he's not able to walk? but no focal neuro deficit, no sob, no cough and found to have have viral pneumonia without hypoxia 1/Covid without hypoxia but high risk for severe disease given immunocompromised state with CLL -request Remdesevir since Paxlovid not an option -empiric Abx -IVF 2/H/o PE/DVT--continue coumadin but first check INR 3/history of Atrial tachy--Metoprolol 4/Diabetes,Glipizide, SSI 5/ HLD--Lipitor DVT-porpylaxis--coumadin Admission to required at least 2 midngith for mangement of covid related penumonia, high risk for severe disease and on remdesevir PT eval in the morning Quality Stroke Does the patient have a stroke diagnosis?: No VTE Prior VTE?: Yes VTE Risk Level:: Medical - moderate - high VTE Device Contraindication: Treatment Not Indicated VTE Drug Contraindication: N/A - Med Ordered
[2022-01-23 16:36] LABS: Troponin-I High Sensitivity 32.8 ng/L (<3.5-35.0)
[2022-01-23] MEDS: Dextrose 5 % and 0.45 % NaCl 1,000 ML 100 ML IVCONT (19:16)
[2022-01-23 19:25] LABS: INTERNATIONAL NORM RATIO 3.8 (0.9-1.1); Prothrombin Time 46.2 SEC (10.0-13.1)
[2022-01-23] MEDS: Remdesivir 200 MG in 0.9 % Sodium Chloride 210 ML 105 MG IV (21:29)
--- NOTE | 2022-01-23 21:29 | PM.EVENT ---
Event Note Date of Service: 01/23/22 Event Note: Call from nursing staff in ED. Patient oozing blood from wound on posterior left leg. He states he had moles removed by Dr. Coleman at [facility] about 1.5 weeks ago and has 10-[address] with a slow continuous ooze from the medial aspect of the wound. Patient is anticoagulated with coumadin due to history of PE/DVT and last INR was 3.8 today. Coumadin is on hold at this time. Nonstick dressing applied and pressure held with ongoing bleeding. Absorbant abdominal pad placed over non-adherent dressing and compression wrap applied. Recheck in one hour. Hold coumadin. Check INR and CBC am. General surgery consulted to eval wound dehiscence.
[2022-01-24] MEDS: Dextrose 5 % and 0.45 % NaCl 1,000 ML 100 ML IVCONT ×3 (03:39→23:00)
--- NOTE | 2022-01-24 03:52 | PC.NURSE ---
This RN went into exam room d/t pt luna garcia. Patient was found to have urinated in gauze container and onto floor. IV in R hand out and bleeding. DSD applied and new IV inserted. Patient cleaned up and bed linens changed. Remdesivir bag was found on top of the IV pump with tubing pulled out. ??aprox 50ml infused.
[2022-01-24 03:55] VITALS: BP 150/78; PULSE 74; RESP 21; TEMP 37.2; O2SAT 94
[2022-01-24 04:50] LABS: MANUAL DIFF FLAG NO
[2022-01-24 04:51] LABS: Eosinophils Percent Auto 0.2 % (0-4); Hematocrit 39.8 % (42.0-52.0); Hemoglobin 12.9 g/dl (14.0-18.0); Imm Gran Abs Auto 0.02 X10*3/uL (0.00-0.03); Imm Gran Pct Auto 0.4 % (0.0-0.4); Lymphocytes Absolute Auto 0.8 X10*3/uL (1.2-4.9); Lymphocytes Percent Auto 17.2 % (20-40); Mean Corpuscular HGB Conc 32.4 g/dl (31.0-36.0); Mean Corpuscular Hemoglobin 35.2 pg (27.0-33.0); Mean Corpuscular Volume 108.7 fL (80.0-98.0); Mean Platelet Volume 12.9 fL (9.4-12.4); Monocytes Absolute Auto 0.9 X10*3/uL (0.1-1.2); Monocytes Percent Auto 17.8 % (2-11); Neutrophils Absolute Auto 3.1 x10*3/uL (2.0-8.3); Neutrophils Percent Auto 64.4 % (45-73); Platelet Count 37 X10*3/uL (160-400); Red Blood Count 3.66 X10*6/uL (4.60-5.80); White Blood Count 4.8 X10*3/uL (4.8-10.8)
[2022-01-24 05:21] VITALS: BP 133/86; PULSE 97; RESP 15
--- NOTE | 2022-01-24 06:55 | PM.CNGS ---
History of Present Illness Consult details Consult date: 01/24/22 Narrative: The patient is an 86-year-old gentleman seen in the emergency department with COVID-related pneumonia who is supra-therapeutic on his Coumadin due to history of DVT and PE. He had an excision approximately 10 days ago by dermatology on his left posterior calf and I was asked to recommendations regarding wound care since the patient has oozing & bleeding with his INR 3.8.. Per nursing staff, this is been addressed with a pressure dressing. [facility] Past Medical History 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 Dyslipidemia Gout Headache above the eye region Melanoma Skin cancer Tachycardia Family History Family History Other Family history of cancer in sister Surgical History Surgical History H/O inguinal hernia repair H/O umbilical hernia repair Hx of basal cell carcinoma excision Hx of cataract surgery S/P appendectomy S/P TURP Social History Social History Household Members: Spouse Housing: House Do you presently have visiting nurse or other home services: No Alcohol intake: never Patient Tobacco Use Status: Never used Tobacco Second Hand Smoke Exposure: No Use of substances other than those prescribed or required for medical reasons: No Advance Directives: Yes Advance Directives on File: Yes Advance Directives Date on File: 02/10/20 service: Yes Current occupational status: retired 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[place], 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 Allergies Allergy/AdvReac Type Severity Reaction Status Date / Time silver Allergy Intermediate SKIN COMES Verified 01/19/22 10:25 [From TEGADERM AG MESH] OFF morphine [MORPHINE] Allergy Unknown VOMITING, Verified 01/19/22 10:25 vomitting Active Medications: Current Medications Acetaminophen (Acetaminophen Supp 650 Mg Supp.Rect) 650 mg [place] Q6H PRN PRN Reason: Pain, Mild (Pain Scale 1-3) Dextrose/Sodium Chloride (D51/2ns) 1,000 mls @ 100 mls/hr IVCONT .Q10H [facility] Last Admin: 01/24/22 03:39 Dose: 100 mls/hr Remdesivir 100 mg/ Sodium (Chloride) 230 mls @ 115 mls/hr IV Q24H [facility] Stop: 01/27/22 21:59 Melatonin (Melatonin 3 Mg Tablet) 6 mg PO BEDTIME PRN PRN Reason: Insomnia Ondansetron HCl (Ondansetron Hcl 4 Mg/2 Ml Vial) 4 mg IVPUSH Q8H PRN PRN Reason: Nausea and Vomiting Pharmacy Consult (Consult Rx Perform Med Rec) 1 each MISCELLANE ONCE PRN PRN Reason: Consult order Sodium Chloride (0.9 % Sodium Chloride Flush 3 Ml Syringe) 3 ml IVFLUSH QSHIFT [facility] Last Admin: 01/24/22 01:13 Dose: Not Given Home Medications Medication Instructions Recorded Confirmed Last Taken Type cyanocobalamin (vitamin B-12) 1,000 mcg PO 3XW 02/10/20 01/24/22 02/10/20 08:00 History 1,000 mcg tablet multivitamin 1 tab PO DAILY 02/10/20 01/24/22 02/10/20 08:00 History warfarin 2.5 mg tablet 1 tab PO DAILY 05/11/20 01/24/22 Unknown History metoprolol tartrate 50 mg tablet 50 mg PO BID 07/23/21 01/24/22 Unknown History Physical Exam Vital Signs: Vital Signs: Last Vital Signs Temp 99.0 F 01/24/22 03:55 Pulse 97 01/24/22 05:21 Resp 15 01/24/22 05:21 BP 133/86 01/24/22 05:21 Pulse Ox 94 01/24/22 03:55 O2 Del Method 01/24/22 05:21 BMI result Body Mass Index 24.3 The patient is elderly but nontoxic and in no acute distress Left leg dressing is clean, dry and intact Results Labs Result diagrams: 01/24/22 04:39 01/23/22 11:48 Labs: Abnormal lab results 01/23/22 01/23/22 01/23/22 Range/Units 11:48 11:48 15:00 WBC 3.6 L (4.8-10.8) X10*3/uL RBC 3.07 L (4.60-5.80) X10*6/uL Hgb 10.8 L (14.0-18.0) g/dl Hct 33.2 L (42.0-52.0) % MCV 108.1 H (80.0-98.0) fL MCH 35.2 H (27.0-33.0) pg Plt Count 43 L (160-400) X10*3/uL MPV (9.4-12.4) fL Immature Gran % (Auto) 0.6 H (0.0-0.4) % Lymph % (Auto) 13.1 L (20-40) % [place] % (Auto) 13.9 H (2-11) % Lymph # (Auto) 0.5 L (1.2-4.9) X10*3/uL PT (10.0-13.1) SEC INR (0.9-1.1) Chloride 110 H (96-108) mmol/L Carbon Dioxide 19 L (22-29) mmol/L BUN 18 H (9-16) mg/dL Creatinine 1.45 H (0.5-1.4) mg/dL Random Glucose 122 H (60-115) mg/dL Calcium 8.0 L (8.4-10.2) mg/dL Total Protein 5.1 L (6.5-8.0) g/dL Albumin 3.4 L (3.5-5.0) g/dL Urine Protein 100 (2+) H (Neg-Trace) mg/dL Urine Blood Large (3+) H (Negative) Urine RBC >20 H (0-2) /HPF 01/23/22 01/24/22 Range/Units 19:11 04:39 WBC (4.8-10.8) X10*3/uL RBC 3.66 L (4.60-5.80) X10*6/uL Hgb 12.9 L (14.0-18.0) g/dl Hct 39.8 L (42.0-52.0) % MCV 108.7 H (80.0-98.0) fL MCH 35.2 H (27.0-33.0) pg Plt Count 37 L (160-400) X10*3/uL MPV 12.9 H (9.4-12.4) fL Immature Gran % (Auto) (0.0-0.4) % Lymph % (Auto) 17.2 L (20-40) % [place] % (Auto) 17.8 H (2-11) % Lymph # (Auto) 0.8 L (1.2-4.9) X10*3/uL PT 46.2 H (10.0-13.1) SEC INR 3.8 H (0.9-1.1) Chloride (96-108) mmol/L Carbon Dioxide (22-29) mmol/L BUN (9-16) mg/dL Creatinine (0.5-1.4) mg/dL Random Glucose (60-115) mg/dL Calcium (8.4-10.2) mg/dL Total Protein (6.5-8.0) g/dL Albumin (3.5-5.0) g/dL Urine Protein (Neg-Trace) mg/dL Urine Blood (Negative) Urine RBC (0-2) /HPF Short CBC 01/23/22 01/24/22 Range/Units 11:48 04:39 WBC 3.6 L 4.8 (4.8-10.8) X10*3/uL Hgb 10.8 L 12.9 L (14.0-18.0) g/dl Hct 33.2 L 39.8 L (42.0-52.0) % Plt Count 43 L 37 L (160-400) X10*3/uL BMP 01/23/22 11:48 Sodium 141 Potassium 3.8 Chloride 110 H Carbon Dioxide 19 L BUN 18 H Creatinine 1.45 H Calcium 8.0 L Cardiac Enzymes 01/23/22 Range/Units 11:48 Total Creatine Kinase 101 (38-174) U/L Liver Function 01/23/22 Range/Units 11:48 Total Bilirubin 0.9 (0.0-1.0) mg/dL Direct Bilirubin 0.5 (0.0-0.5) mg/dL AST 30 (5-37) U/L ALT 20 (0-40) U/L Alkaline Phosphatase 104 (39-117) U/L Albumin 3.4 L (3.5-5.0) g/dL Urine 01/23/22 Range/Units 15:00 Urine Color Yellow Urine Appearance Clear Urine pH 6.0 (5.0-9.0) Ur Specific [place] 1.015 (1.005-1.025) Urine Protein 100 (2+) H (Neg-Trace) mg/dL Urine Glucose (UA) Negative (Negative) mg/dL INR is 3.8 Assessment and Plan (1) COVID-19 virus infection: Status: Acute (2) Pneumonia due to COVID-19 virus: Status: Acute (3) Mitral annular calcification: Status: Acute (4) Current use of anticoagulant therapy: Status: Acute (5) CKD (chronic kidney disease) stage 3, GFR 30-59 ml/min: Qualifiers: Chronic kidney disease stage 3 subtype: stage 3b (GFR 30-44) Qualified Code(s): N18.32 - Chronic kidney disease, stage 3b Status: Acute (6) Diabetic nephropathy associated with type 2 diabetes mellitus: Status: Acute (7) Diabetes type 2, uncontrolled: Qualifiers: Glycemic state: with hyperglycemia Qualified Code(s): E11.65 - Type 2 diabetes mellitus with hyperglycemia Status: Acute (8) Melanoma: Status: Resolved Plan per ER staff, the bleeding has stopped with a recent dressing. Option of vitamin K reversal deferred to the primary service. If topical hemostatic agents do not address the ongoing ooze, reversal seems to be indicated. The patient has a supratherapeutic INR and will continue to ooze. Unless there is an active arterial bleed, topical hemostatic agents are recommended. Consider Surgicel or Gelfoam has a topical agent with pressure dressing at elevation of the leg. An ice pack may also be helpful. 1400 recheck: per RN, there was some ooze & blood at the dressing change. Would redress with Surgicell if there's still blood a t the next dressing change. Procedures Date of Service Date of Service: 01/24/22
--- NOTE | 2022-01-24 07:44 | PHA.MEDREC ---
Pharmacy Consult ? Medication Reconciliation Pharmacy has REVIEWED the medication reconciliation by Alea
--- NOTE | 2022-01-24 08:01 | PC.NURSE ---
Pt provided urinal.
[2022-01-24 09:34] VITALS: BP 149/89; PULSE 106; RESP 19; TEMP 37.1; O2SAT 97
--- NOTE | 2022-01-24 09:34 | PC.NURSE ---
waiting for pharmacy to verify the meds on MAR
--- NOTE | 2022-01-24 09:45 | PC.NURSE ---
pt alert and oriented, skin pwd, respirations even and unlabored, pt denies pain at this time, the left thigh dressing unwrapped and there is one of the stitches is bleeding a small amount, pressure applied and re-wrapped with the yosi wrap, dr obregon aware plan to hold the Coumadin today inr at 3.8
[2022-01-24] MEDS: Multivitamin TABLET 1 TAB PO (10:39)
[2022-01-24] MEDS: Metoprolol Tartrate 50 MG TABLET PO ×2 (10:39→21:20)
[2022-01-24] MEDS: allopurinoL 100 MG TABLET PO (10:39)
--- NOTE | 2022-01-24 10:47 | PC.NURSE ---
pt takes his meds with applesauce
[2022-01-24] MEDS: glipiZIDE XL 5 MG TAB.ER.24 PO (11:20)
[2022-01-24 11:21] LABS: INTERNATIONAL NORM RATIO 4.5 (0.9-1.1); Prothrombin Time 55.4 SEC (10.0-13.1)
--- NOTE | 2022-01-24 12:41 | MHC.CM.PN ---
CM CALLED PTS /HCP DON LOPEZ [phone] PER DISCUSSION: PT LIVES AT HOME WITH HE IS INDEPENDENT WITH CARE HAS NO SERVICES AND USES A CANE PT IS COVID VACCINATED X 4 HCP ON FILE PCP: CECILIA BIGGS IMM DELIVERED, ORIGINAL TO BE MAILED TO PTS HOME, COPY SENT TO [facility] CURRENTLY DC PLAN TBD PER PHYSICAL THERAPY EVAL, STR HAS BEEN RECOMMENDED HOWEVER PTS HOPES HE IS WELL ENOUGH TO RETUNR HOME. STR REFERRALS HAVE BEEN MADE [facility]NA REFERRALS ALSO MADE IN THE EVENT PT IS ABLE TO DC HOME TRANSPORT TBD BY DISPO: SON VS BLS
[2022-01-24 13:11] LABS: Glucose, Whole Blood 181 mg/dL (60-115)
[2022-01-24] MEDS: Insulin Lispro 100 UNIT/ML 3 ML VIAL SUBCUT (13:30)
--- NOTE | 2022-01-24 13:40 | P.PNIM_ITS ---
Subjective Subjective Date of Service: 01/24/22 Interval History: f/u covid related weakness, and pneumonia interval history: still feel weak, no sob, no fever Review of Systems no sob gen weakness Physical Exam Vital Signs: Vital Signs: Last Vital Signs Temp 98.8 F 01/24/22 09:34 Pulse 106 H 01/24/22 09:34 Resp 19 01/24/22 09:34 BP 149/89 H 01/24/22 09:34 Pulse Ox 97 01/24/22 09:34 O2 Del Method 01/24/22 09:34 BMI result Body Mass Index 24.3 Const: Other: General: AO X 3, no acute distress Resp: CTA bilateral CVS: S1,S2,RRR GI: +BS, NT, no distention Skin: No rash, left tigh wound dressing in place Neuro: motor grossly intact Psych: appropriate affect Objective Data Active Medications Acetaminophen (Acetaminophen Supp 650 Mg Supp.Rect) 650 mg [place] Q6H PRN PRN Reason: Pain, Mild (Pain Scale 1-3) Allopurinol (Allopurinol 100 Mg Tablet) 100 mg PO DAILY [facility] Last Admin: 01/24/22 10:39 Dose: 100 mg Documented By: VINEET Atorvastatin Calcium (Atorvastatin Calcium 20 Mg Tablet) 20 mg PO BEDTIME [facility] Cyanocobalamin (Cyanocobalamin (Vitamin B-12) 1,000 Mcg Tablet) 1,000 mcg PO MoWeFr [facility] Last Admin: 01/24/22 10:47 Dose: Not Given Documented By: VINEET Non-Admin Reason: not do today Glipizide (Glipizide Xl 5 Mg Tab.Er.24) 5 mg PO DAILY [facility] Last Admin: 01/24/22 11:20 Dose: 5 mg Documented By: VINEET Dextrose/Sodium Chloride (D51/2ns) 1,000 mls @ 100 mls/hr IVCONT .Q10H [facility] Last Admin: 01/24/22 13:33 Dose: 100 mls/hr Documented By: VINEET Remdesivir 100 mg/ Sodium (Chloride) 230 mls @ 115 mls/hr IV Q24H [facility] Stop: 01/27/22 21:59 Ceftriaxone Sodium 1 gm/ (Sodium Chloride) 50 mls @ 100 mls/hr IV Q24H [facility] Insulin Human Lispro (Insulin Lispro 100 Unit/Ml 3 Ml Vial) 0 unit SUBCUT QIDACHS [facility]; Protocol Last Admin: 01/24/22 13:30 Dose: 2 unit Documented By: VINEET Melatonin (Melatonin 3 Mg Tablet) 6 mg PO BEDTIME PRN PRN Reason: Insomnia Metoprolol Tartrate (Metoprolol Tartrate 50 Mg Tablet) 50 mg PO BID [facility]; P rotocol Last Admin: 01/24/22 10:39 Dose: 50 mg Documented By: VINEET Multivitamins/Vitamin C (Multivitamin Tablet) 1 tab PO DAILY [facility] Last Admin: 01/24/22 10:39 Dose: 1 tab Documented By: VINEET Ondansetron HCl (Ondansetron Hcl 4 Mg/2 Ml Vial) 4 mg IVPUSH Q8H PRN PRN Reason: Nausea and Vomiting Pharmacy Consult (Consult Rx Perform Med Rec) 1 each MISCELLANE ONCE PRN PRN Reason: Consult order Pyridoxine HCl (Pyridoxine Hcl (Vitamin B6) 50 Mg Tablet) 100 mg PO DAILY [facility] Sodium Chloride (0.9 % Sodium Chloride Flush 3 Ml Syringe) 3 ml IVFLUSH QSHIFT [facility] Last Admin: 01/24/22 08:15 Dose: Not Given Documented By: VINEET Non-Admin Reason: Patient Asleep Warfarin Sodium (Warfarin Sodium 2.5 Mg Tablet) 2.5 mg PO DAILY [facility] Last Admin: 01/24/22 10:43 Dose: Not Given Documented By: VINEET Non-Admin Reason: o hold Labs CBC & Chem 7: 01/24/22 04:39 01/23/22 11:48 Labs: Laboratory Results - last 24 hr 01/23/22 01/23/22 01/24/22 15:00 19:11 04:39 MCV 108.7 H MCH 35.2 H MCHC 32.4 RDW 14.0 Plt Count 37 L MPV 12.9 H Immature Gran % (Auto) 0.4 Neut % (Auto) 64.4 Lymph % (Auto) 17.2 L Miller % (Auto) 17.8 H Eos % (Auto) 0.2 Baso % (Auto) 0.0 Lymph # (Auto) 0.8 L Miller # (Auto) 0.9 Eos # (Auto) 0.0 Baso # (Auto) 0.0 Abs Immat Gran (auto) 0.02 Absolute Neuts (auto) 3.1 Absolute Nucleated RBC 0.000 Nucleated RBC % (auto) 0.0 PT 46.2 H INR 3.8 H POC Glucose Urine Color Yellow Urine Appearance Clear Urine pH 6.0 Ur Specific [place] 1.015 Urine Protein 100 (2+) H Urine Glucose (UA) Negative Urine Ketones Trace Urine Blood Large (3+) H Urine Nitrite Negative Ur Leukocyte Esterase Negative Urine RBC >20 H Urine WBC 0-5 Ur Squamous Epith Cells 0-2 Urine Bacteria None Seen Hyaline Casts 0-2 01/24/22 01/24/22 10:49 13:04 MCV MCH MCHC RDW Plt Count MPV Immature Gran % (Auto) Neut % (Auto) Lymph % (Auto) Miller % (Auto) Eos % (Auto) Baso % (Auto) Lymph # (Auto) Miller # (Auto) Eos # (Auto) Baso # (Auto) Abs Immat Gran (auto) Absolute Neuts (auto) Absolute Nucleated RBC Nucleated RBC % (auto) PT 55.4 H INR 4.5 H POC Glucose 181 H Urine Color Urine Appearance Urine pH Ur Specific [place] Urine Protein Urine Glucose (UA) Urine Ketones Urine Blood Urine Nitrite Ur Leukocyte Esterase Urine RBC Urine WBC Ur Squamous Epith Cells Urine Bacteria Hyaline Casts Assessment and Plan (1) COVID-19 virus infection: Status: Acute (2) Pneumonia due to COVID-19 virus: Status: Acute Plan 84-year-old gentleman with past medical history of chronic kidney disease stage 3, history of cryptococcosis , BPH and 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 He essentially comes back today before of persistent lethargy, generalized weakness, anorexia, he so weak that he's not able to walk? but no focal neuro deficit, no sob, no cough and found to have have viral pneumonia without hypoxia 1/Covid without hypoxia but high risk for severe disease given immunocompromised state with CLL -request Remdesevir since Paxlovid not an option--remdesevir D2 -empiric Abx with Ceftriaxone -IVF 2/H/o PE/DVT-- INR 3.8 and given ozzing from wound, hold today, recheck tomorrow 3/history of Atrial tachy--Metoprolol, OAC 4/Diabetes,Glipizide, SSI 5/ HLD--Lipitor 6/ PT recommends STR DVT-porpylaxis--coumadin need for inpatient: covid PNA in pt with immunocompromised high ris for mortality, unable to walk and needs STR PT eval in the morning Quality Stroke Does the patient have a stroke diagnosis?: No VTE Prior VTE?: Yes VTE Risk Level:: Medical - moderate - high VTE Device Contraindication: Treatment Not Indicated VTE Drug Contraindication: N/A - Med Ordered
--- NOTE | 2022-01-24 14:10 | PC.NURSE ---
dylon reynolds at bedside to see pt. dr osborne states if any bleeding rn/md can use surgicel to help/control bleeding.
[2022-01-24 14:29] VITALS: BP 150/78; PULSE 87; RESP 18; TEMP 37.2; O2SAT 94
[2022-01-24] MEDS: cefTRIAXone sodium 1 GM in 0.9 % Sodium Chloride 50 ML IV (14:29)
[2022-01-24 18:25] LABS: INTERNATIONAL NORM RATIO 4.7 (0.9-1.1); Prothrombin Time 58.2 SEC (10.0-13.1)
[2022-01-24 18:29] LABS: Glucose, Whole Blood 116 mg/dL (60-115)
[2022-01-24 20:10] VITALS: BP 154/93; PULSE 88; RESP 16; TEMP 37.1; O2SAT 95
[2022-01-24] MEDS: Atorvastatin Calcium 20 MG TABLET PO (21:20)
[2022-01-24] MEDS: Remdesivir 100 MG in 0.9 % Sodium Chloride 230 ML 115 MG IV (21:20)
[2022-01-24 23:39] VITALS: BP 149/85; PULSE 87; RESP 17; O2SAT 94
[2022-01-25 07:12] LABS: INTERNATIONAL NORM RATIO 4.2 (0.9-1.1); Prothrombin Time 51.8 SEC (10.0-13.1)
[2022-01-25 07:29] LABS: Glucose, Whole Blood 153 mg/dL (60-115)
[2022-01-25] MEDS: Insulin Lispro 100 UNIT/ML 3 ML VIAL SUBCUT ×2 (07:39→17:35)
[2022-01-25 08:34] VITALS: BP 138/75; PULSE 89; RESP 16; O2SAT 95
--- NOTE | 2022-01-25 09:13 | HO.PM.IMPN ---
Subjective Subjective Date of Service: 01/25/22 Interval History: f/u covid related weakness, and pneumonia interval history: still feel weak, no sob, no fever, no bleeding Review of Systems no sob gen weakness Physical Exam Vital Signs: Vital Signs: Last Vital Signs Temp 98.7 F 01/24/22 20:10 Pulse 89 01/25/22 08:34 Resp 16 01/25/22 08:34 BP 138/75 01/25/22 08:34 Pulse Ox 95 01/25/22 08:34 O2 Del Method 01/25/22 08:34 BMI result Body Mass Index 24.3 Const: Other: General: AO X 3, no acute distress Resp: CTA bilateral CVS: S1,S2,RRR GI: +BS, NT, no distention Skin: No rash, left tigh wound dressing in place Neuro: motor grossly intact Psych: appropriate affect Objective Data Active Medications Acetaminophen (Acetaminophen Supp 650 Mg Supp.Rect) 650 mg [place] Q6H PRN PRN Reason: Pain, Mild (Pain Scale 1-3) Allopurinol (Allopurinol 100 Mg Tablet) 100 mg PO DAILY [facility] Last Admin: 01/24/22 10:39 Dose: 100 mg Documented By: VINEET Atorvastatin Calcium (Atorvastatin Calcium 20 Mg Tablet) 20 mg PO BEDTIME [facility] Last Admin: 01/24/22 21:20 Dose: 20 mg Documented By: VIRI Cyanocobalamin (Cyanocobalamin (Vitamin B-12) 1,000 Mcg Tablet) 1,000 mcg PO MoWeFr [facility] Last Admin: 01/24/22 10:47 Dose: Not Given Documented By: VINEET Non-Admin Reason: not do today Glipizide (Glipizide Xl 5 Mg Tab.Er.24) 5 mg PO DAILY [facility] Last Admin: 01/24/22 11:20 Dose: 5 mg Documented By: VINEET Dextrose/Sodium Chloride (D51/2ns) 1,000 mls @ 100 mls/hr IVCONT .Q10H [facility] Last Admin: 01/24/22 23:00 Dose: 100 mls/hr Documented By: VIRI Remdesivir 100 mg/ Sodium (Chloride) 230 mls @ 115 mls/hr IV Q24H [facility] Stop: 01/27/22 21:59 Last Admin: 01/24/22 21:20 Dose: 115 mls/hr Documented By: VIRI Ceftriaxone Sodium 1 gm/ (Sodium Chloride) 50 mls @ 100 mls/hr IV Q24H [facility] Last Infusion: 01/24/22 15:05 Dose: 0 mls/hr Documented By: VINEET Insulin Human Lispro (Insulin Lispro 100 Unit/Ml 3 Ml Vial) 0 unit SUBCUT QIDACHS [facility]; Protocol Last Admin: 01/25/22 07:39 Dose: 2 unit Documented By: TRIXIE Melatonin (Melatonin 3 Mg Tablet) 6 mg PO BEDTIME PRN PRN Reason: Insomnia Metoprolol Tartrate (Metoprolol Tartrate 50 Mg Tablet) 50 mg PO BID [facility]; Protocol Last Admin: 01/24/22 21:20 Dose: 50 mg Documented By: VIRI Multivitamins/Vitamin C (Multivitamin Tablet) 1 tab PO DAILY [facility] Last Admin: 01/24/22 10:39 Dose: 1 tab Documented By: VINEET Ondansetron HCl (Ondansetron Hcl 4 Mg/2 Ml Vial) 4 mg IVPUSH Q8H PRN PRN Reason: Nausea and Vomiting Pharmacy Consult (Consult Rx Perform Med Rec) 1 each MISCELLANE ONCE PRN PRN Reason: Consult order Pyridoxine HCl (Pyridoxine Hcl (Vitamin B6) 50 Mg Tablet) 100 mg PO DAILY [facility] Sodium Chloride (0.9 % Sodium Chloride Flush 3 Ml Syringe) 3 ml IVFLUSH QSHIFT [facility] Last Admin: 01/25/22 08:54 Dose: Not Given Documented By: RADHA Non-Admin Reason: IV Running Warfarin Sodium (Warfarin Sodium 2.5 Mg Tablet) 2.5 mg PO DAILY@1800 [facility] Labs CBC & Chem 7: 01/24/22 04:39 01/23/22 11:48 Labs: Laboratory Results - last 24 hr 01/24/22 01/24/22 01/24/22 10:49 13:04 18:00 PT 55.4 H 58.2 H INR 4.5 H 4.7 H POC Glucose 181 H 01/24/22 01/25/22 01/25/22 18:22 05:53 07:26 PT 51.8 H INR 4.2 H POC Glucose 116 H 153 H Microbiology Microbiology Results: Microbiology 01/23/22 11:48 Blood Culture - Preliminary Blood - Venous No growth after 24 hours. 01/23/22 11:50 Blood Culture - Preliminary Blood - Venous No growth after 24 hours. 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 He essentially comes back today before of persistent lethargy, generalized weakness, anorexia, he so weak that he's not able to walk? but no focal neuro deficit, no sob, no cough and found to have have viral pneumonia without hypoxia 1/Covid without hypoxia but high risk for severe disease given immunocompromised state with CLL -request Remdesevir since Paxlovid not an option--remdesevir D3 -empiric Abx with Ceftriaxone -IVF 2/H/o PE/DVT-- INR 4.2 today, no active bleeding so will continue to monitor and holf off Vitamin 3/history of Atrial tachy--Metoprolol, coumadin 4/Diabetes,Glipizide, SSI 5/ HLD--Lipitor 6/ PT recommends STR DVT-porpylaxis--coumadin need for inpatient: covid PNA in pt with immunocompromised high ris for mortality, unable to walk and needs STR PT is recommending short term rehab Quality Stroke Does the patient have a stroke diagnosis?: No VTE Prior VTE?: Yes VTE Risk Level:: Medical - moderate - high VTE Device Contraindication: Treatment Not Indicated VTE Drug Contraindication: N/A - Med Ordered
--- NOTE | 2022-01-25 10:09 | PC.NURSE ---
Pt A&ox4, states he isn't hungry at this time, refused breakfast. No complaints of pain, states he just feels tired. NSR on monitor in the 80's at this time. Call [facility] within reach. Plan for DC to a rehab facility per MD. Pt has urinal at bedside. COVID precautins in place, awaiting for medications from pharmacy. Will continue to monitor.
[2022-01-25] MEDS: Pyridoxine HCl (Vitamin B6) 50 MG TABLET 100 MG PO (10:46)
[2022-01-25] MEDS: Metoprolol Tartrate 50 MG TABLET PO ×2 (10:46→22:18)
[2022-01-25] MEDS: allopurinoL 100 MG TABLET PO (10:46)
[2022-01-25] MEDS: Dextrose 5 % and 0.45 % NaCl 1,000 ML 100 ML IVCONT ×2 (10:46→22:19)
[2022-01-25] MEDS: Multivitamin TABLET 1 TAB PO (10:46)
[2022-01-25] MEDS: glipiZIDE XL 5 MG TAB.ER.24 PO (10:46)
[2022-01-25] MEDS: Cyanocobalamin (Vitamin B-12) 1,000 MCG TABLET 1000 MCG PO (11:00)
[2022-01-25 11:23] VITALS: BP 126/75; PULSE 84; RESP 18; TEMP 36.7; O2SAT 94
[2022-01-25 11:30] LABS: Glucose, Whole Blood 120 mg/dL (60-115)
[2022-01-25 13:58] VITALS: BP 126/75; PULSE 84; O2SAT 94
[2022-01-25] MEDS: cefTRIAXone sodium 1 GM in 0.9 % Sodium Chloride 50 ML IV (14:28)
--- NOTE | 2022-01-25 14:58 | PC.NURSE ---
pt was repositioned and ws cleaned up during my shift . Hes able to use the urinal but was incontinent. pt has a skin tear on his back and nurse put a small dressing on it.
[2022-01-25 17:17] LABS: Glucose, Whole Blood 185 mg/dL (60-115)
[2022-01-25] MEDS: 0.9 % Sodium Chloride Flush 3 ML SYRINGE IVFLUSH ×2 (17:35→22:23)
--- NOTE | 2022-01-25 18:07 | PC.NURSE ---
report given to [facility] RN
[2022-01-25 19:08] VITALS: BP 181/93; PULSE 90; RESP 18; TEMP 37.8; O2SAT 96
[2022-01-25 19:54] LABS: Glucose, Whole Blood 144 mg/dL (60-115)
[2022-01-25] MEDS: Atorvastatin Calcium 20 MG TABLET PO (22:18)
[2022-01-25] MEDS: Remdesivir 100 MG in 0.9 % Sodium Chloride 230 ML 115 MG IV (22:19)
[2022-01-25 23:04] VITALS: BP 145/80; PULSE 80; RESP 18; TEMP 36.2; O2SAT 94
[2022-01-26 04:00] VITALS: BP 175/92; PULSE 82; RESP 15; TEMP 36.8; O2SAT 96; BMI 24.4
[2022-01-26 06:57] LABS: INTERNATIONAL NORM RATIO 4.3 (0.9-1.1); Prothrombin Time 51.9 SEC (10.0-13.1)
[2022-01-26 07:54] LABS: Glucose, Whole Blood 156 mg/dL (60-115)
[2022-01-26 08:03] VITALS: BP 119/59; PULSE 88; RESP 20; TEMP 37.2; O2SAT 96
[2022-01-26] MEDS: Pyridoxine HCl (Vitamin B6) 50 MG TABLET 100 MG PO (08:27)
[2022-01-26] MEDS: Metoprolol Tartrate 50 MG TABLET PO ×2 (08:27→19:57)
[2022-01-26] MEDS: Insulin Lispro 100 UNIT/ML 3 ML VIAL SUBCUT ×2 (08:27→12:05)
[2022-01-26] MEDS: glipiZIDE 5 MG TABLET PO (08:27)
[2022-01-26] MEDS: allopurinoL 100 MG TABLET PO (08:27)
[2022-01-26] MEDS: Dextrose 5 % and 0.45 % NaCl 1,000 ML 100 ML IVCONT ×2 (08:33→18:31)
--- NOTE | 2022-01-26 09:28 | P.PNIM_ITS ---
Subjective Subjective Date of Service: 01/26/22 Interval History: f/u covid related weakness, and pneumonia interval history: still feel weak, no sob, no fever, no bleeding from the wound- -overall a bit better today Review of Systems no sob gen weakness Physical Exam Vital Signs: Vital Signs: Last Vital Signs Temp 99.0 F 01/26/22 08:03 Pulse 88 01/26/22 08:03 Resp 20 01/26/22 08:03 BP 119/59 L 01/26/22 08:03 Pulse Ox 96 01/26/22 08:03 O2 Del Method 01/26/22 08:03 BMI result Body Mass Index 24.4 Const: Other: General: AO X 3, no acute distress Resp: CTA bilateral CVS: S1,S2,RRR GI: +BS, NT, no distention Skin: No rash, left tigh wound dressing in place Neuro: motor grossly intact Psych: appropriate affect Objective Data Active Medications Acetaminophen (Acetaminophen Supp 650 Mg Supp.Rect) 650 mg SD Q6H PRN PRN Reason: Pain, Mild (Pain Scale 1-3) Allopurinol (Allopurinol 100 Mg Tablet) 100 mg PO DAILY [facility] Last Admin: 01/26/22 08:27 Dose: 100 mg Documented By: PATY Atorvastatin Calcium (Atorvastatin Calcium 20 Mg Tablet) 20 mg PO BEDTIME [facility] Last Admin: 01/25/22 22:18 Dose: 20 mg Documented By: HARMONY Cyanocobalamin (Cyanocobalamin (Vitamin B-12) 1,000 Mcg Tablet) 1,000 mcg PO MoWeFr [facility] Last Admin: 01/25/22 11:00 Dose: 1,000 mcg Documented By: RADHA Glipizide (Glipizide 5 Mg Tablet) 5 mg PO DAILY [facility] Last Admin: 01/26/22 08:27 Dose: 5 mg Documented By: PATY Dextrose/Sodium Chloride (D51/2ns) 1,000 mls @ 100 mls/hr IVCONT .Q10H [facility] Last Admin: 01/26/22 08:33 Dose: 100 mls/hr Documented By: PATY Remdesivir 100 mg/ Sodium (Chloride) 230 mls @ 115 mls/hr IV Q24H [facility] Stop: 01/27/22 21:59 Last Infusion: 01/26/22 01:11 Dose: 0 mls/hr Documented By: HARMONY Ceftriaxone Sodium 1 gm/ (Sodium Chloride) 50 mls @ 100 mls/hr IV Q24H [facility] Last Infusion: 01/25/22 16:55 Dose: 0 mls/hr Documented By: MARCELLE Insulin Human Lispro (Insulin Lispro 100 Unit/Ml 3 Ml Vial) 0 unit SUBCUT QIDACHS [facility]; Protocol Last Admin: 01/26/22 08:27 Dose: 2 unit Documented By: PATY Melatonin (Melatonin 3 Mg Tablet) 6 mg PO BEDTIME PRN PRN Reason: Insomnia Metoprolol Tartrate (Metoprolol Tartrate 50 Mg Tablet) 50 mg PO BID [facility]; Protocol Last Admin: 01/26/22 08:27 Dose: 50 mg Documented By: PATY Multivitamins/Vitamin C (Multivitamin Tablet) 1 tab PO DAILY [facility] Last Admin: 01/25/22 10:46 Dose: 1 tab Documented By: RADHA Ondansetron HCl (Ondansetron Hcl 4 Mg/2 Ml Vial) 4 mg IVPUSH Q8H PRN PRN Reason: Nausea and Vomiting Pharmacy Consult (Consult Rx Perform Med Rec) 1 each MISCELLANE ONCE PRN PRN Reason: Consult order Pyridoxine HCl (Pyridoxine Hcl (Vitamin B6) 50 Mg Tablet) 100 mg PO DAILY [facility] Last Admin: 01/26/22 08:27 Dose: 100 mg Documented By: PATY Sodium Chloride (0.9 % Sodium Chloride Flush 3 Ml Syringe) 3 ml IVFLUSH QSHIFT [facility] Last Admin: 01/26/22 08:28 Dose: Not Given Documented By: PATY Non-Admin Reason: IV Running Warfarin Sodium (Warfarin Sodium 2.5 Mg Tablet) 2.5 mg PO DAILY@1800 [facility] Labs CBC & Chem 7: 01/24/22 04:39 01/23/22 11:48 Labs: Laboratory Results - last 24 hr 01/25/22 01/25/22 01/25/22 11:21 17:10 19:49 PT INR POC Glucose 120 H 185 H 144 H 01/26/22 01/26/22 06:32 07:50 PT 51.9 H INR 4.3 H POC Glucose 156 H Microbiology Microbiology Results: Microbiology 01/23/22 11:50 Blood Culture - Preliminary Blood - Venous No growth after 48 hours. 01/23/22 11:48 Blood Culture - Preliminary Blood - Venous No growth after 48 hours. 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 He essentially comes back today before of persistent lethargy, generalized weakness, anorexia, he so weak that he's not able to walk? but no focal neuro deficit, no sob, no cough and found to have have viral pneumonia without hypoxia 1/Covid without hypoxia but high risk for severe disease given immunocompromised state with CLL -request Remdesevir since Paxlovid not an option--remdesevir D4 -empiric Abx with Ceftriaxone for pneumonia which could bacterial superimpose on viral 2/H/o PE/DVT-- INR 4.2 today, no active bleeding so will continue to monitor and holf off Vitamin 3/history of Atrial tachy--Metoprolol, coumadin 4/Diabetes,Glipizide, SSI 5/ HLD--Lipitor 6/ PT recommends STR DVT-porpylaxis--coumadin need for inpatient: covid PNA in pt with immunocompromised high ris for mortality, unable to walk and needs STR PT is recommending short term rehab Quality Stroke Does the patient have a stroke diagnosis?: No VTE Prior VTE?: Yes VTE Risk Level:: Medical - moderate - high VTE Device Contraindication: Treatment Not Indicated VTE Drug Contraindication: N/A - Med Ordered
[2022-01-26] MEDS: Multivitamin TABLET 1 TAB PO (10:08)
[2022-01-26 11:54] LABS: Glucose, Whole Blood 191 mg/dL (60-115)
[2022-01-26 12:00] VITALS: BP 149/85; PULSE 80; RESP 16; TEMP 37.1; O2SAT 96
[2022-01-26] MEDS: cefTRIAXone sodium 1 GM in 0.9 % Sodium Chloride 50 ML IV (14:24)
[2022-01-26 15:45] VITALS: BP 139/93; PULSE 95; RESP 16; TEMP 37.4; O2SAT 96
[2022-01-26 17:17] LABS: Glucose, Whole Blood 148 mg/dL (60-115)
--- NOTE | 2022-01-26 19:02 | PC.NURSE ---
Pt A+Ox4, bedrest for this shift, repositioned q2 hours. no c/o pain. SR on monitor with occacional PACs noted, satting 96-97% on room air, lungs clear, occasional nonproductive cough. Call alford within reach, encouraged to call for any help, bed alarm on, locked and in lowest position, camera in room. Report given to overnight RN.
[2022-01-26 19:24] VITALS: BP 133/75; PULSE 89; RESP 20; TEMP 37.7; O2SAT 95
[2022-01-26 19:43] LABS: Glucose, Whole Blood 121 mg/dL (60-115)
[2022-01-26] MEDS: Atorvastatin Calcium 20 MG TABLET PO (19:57)
[2022-01-26] MEDS: 0.9 % Sodium Chloride Flush 3 ML SYRINGE IVFLUSH (19:57)
[2022-01-26] MEDS: Remdesivir 100 MG in 0.9 % Sodium Chloride 230 ML 115 MG IV (19:57)
[2022-01-26 23:48] VITALS: BP 129/74; PULSE 85; RESP 16; TEMP 37; O2SAT 93
[2022-01-27 03:30] VITALS: BP 144/70; PULSE 88; RESP 15; TEMP 36.9; O2SAT 95
[2022-01-27 07:14] LABS: INTERNATIONAL NORM RATIO 4.5 (0.9-1.1); Prothrombin Time 54.5 SEC (10.0-13.1)
[2022-01-27 07:24] LABS: Glucose, Whole Blood 128 mg/dL (60-115)
[2022-01-27 07:56] VITALS: BP 146/84; PULSE 85; RESP 16; TEMP 36.8; O2SAT 97
[2022-01-27] MEDS: Multivitamin TABLET 1 TAB PO (10:10)
[2022-01-27] MEDS: Pyridoxine HCl (Vitamin B6) 50 MG TABLET 100 MG PO (10:10)
[2022-01-27] MEDS: Metoprolol Tartrate 50 MG TABLET PO ×2 (10:10→20:48)
[2022-01-27] MEDS: allopurinoL 100 MG TABLET PO (10:10)
[2022-01-27] MEDS: glipiZIDE 5 MG TABLET PO (10:10)
--- NOTE | 2022-01-27 11:18 | P.PNIM_ITS ---
Subjective Subjective Date of Service: 01/27/22 Interval History: f/u covid related weakness, and pneumonia interval history: overall feels a bit better, no sob, Review of Systems no sob gen weakness Physical Exam Vital Signs: Vital Signs: Last Vital Signs Temp 98.3 F 01/27/22 07:56 Pulse 85 01/27/22 07:56 Resp 16 01/27/22 07:56 BP 146/84 H 01/27/22 07:56 Pulse Ox 97 01/27/22 07:56 O2 Del Method 01/27/22 07:56 BMI result Body Mass Index 24.4 Const: Other: General: AO X 3, no acute distress Resp: CTA bilateral CVS: S1,S2,RRR GI: +BS, NT, no distention Skin: No rash, left tigh wound dressing in place Neuro: motor grossly intact Psych: appropriate affect Objective Data Active Medications Acetaminophen (Acetaminophen Supp 650 Mg Supp.Rect) 650 mg HI Q6H PRN PRN Reason: Pain, Mild (Pain Scale 1-3) Allopurinol (Allopurinol 100 Mg Tablet) 100 mg PO DAILY [facility] Last Admin: 01/27/22 10:10 Dose: 100 mg Documented By: MARY Atorvastatin Calcium (Atorvastatin Calcium 20 Mg Tablet) 20 mg PO BEDTIME [facility] Last Admin: 01/26/22 19:57 Dose: 20 mg Documented By: DALE Cyanocobalamin (Cyanocobalamin (Vitamin B-12) 1,000 Mcg Tablet) 1,000 mcg PO MoWeFr [facility] Last Admin: 01/25/22 11:00 Dose: 1,000 mcg Documented By: RADHA Glipizide (Glipizide 5 Mg Tablet) 5 mg PO DAILY [facility] Last Admin: 01/27/22 10:10 Dose: 5 mg Documented By: MARY Remdesivir 100 mg/ Sodium (Chloride) 230 mls @ 115 mls/hr IV Q24H [facility] Stop: 01/27/22 21:59 Last Infusion: 01/26/22 22:00 Dose: 0 mls/hr Documented By: DALE Ceftriaxone Sodium 1 gm/ (Sodium Chloride) 50 mls @ 100 mls/hr IV Q24H [facility] Last Infusion: 01/26/22 15:01 Dose: 0 mls/hr Documented By: PATY Insulin Human Lispro (Insulin Lispro 100 Unit/Ml 3 Ml Vial) 0 unit SUBCUT QIDACHS [facility]; Protocol Last Admin: 01/27/22 07:35 Dose: Not Given Documented By: MARY Non-Admin Reason: No Insulin Coverage Melatonin (Melatonin 3 Mg Tablet) 6 mg PO BEDTIME PRN PRN Reason: Insomnia Metoprolol Tartrate (Metoprolol Tartrate 50 Mg Tablet) 50 mg PO BID [facility]; Protocol Last Admin: 01/27/22 10:10 Dose: 50 mg Documented By: MARY Multivitamins/Vitamin C (Multivitamin Tablet) 1 tab PO DAILY [facility] Last Admin: 01/27/22 10:10 Dose: 1 tab Documented By: MARY Ondansetron HCl (Ondansetron Hcl 4 Mg/2 Ml Vial) 4 mg IVPUSH Q8H PRN PRN Reason: Nausea and Vomiting Pharmacy Consult (Consult Rx Perform Med Rec) 1 each MISCELLANE ONCE PRN PRN Reason: Consult order Pyridoxine HCl (Pyridoxine Hcl (Vitamin B6) 50 Mg Tablet) 100 mg PO DAILY [facility] Last Admin: 01/27/22 10:10 Dose: 100 mg Documented By: MARY Sodium Chloride (0.9 % Sodium Chloride Flush 3 Ml Syringe) 3 ml IVFLUSH QSHIFT [facility] Last Admin: 01/27/22 10:09 Dose: Not Given Documented By: MARY Non-Admin Reason: IV Running Warfarin Sodium (Warfarin Sodium 2.5 Mg Tablet) 2.5 mg PO DAILY@1800 [facility] Labs CBC & Chem 7: 01/24/22 04:39 01/23/22 11:48 Labs: Laboratory Results - last 24 hr 01/26/22 01/26/22 01/26/22 11:50 17:12 19:34 PT INR POC Glucose 191 H 148 H 121 H 01/27/22 01/27/22 06:44 07:16 PT 54.5 H INR 4.5 H POC Glucose 128 H Assessment and Plan (1) COVID-19 virus infection: Status: Acute (2) Pneumonia due to COVID-19 virus: Status: Acute Plan 84-year-old gentleman with past medical history of chronic kidney disease stage 3, history of cryptococcosis , BPH and 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 He essentially comes back today before of persistent lethargy, generalized weakness, anorexia, he so weak that he's not able to walk? but no focal neuro deficit, no sob, no cough and found to have have viral pneumonia without hypoxia 1/Covid without hypoxia but high risk for severe disease given immunocompromised state with CLL -request Remdesevir since Paxlovid not an option--remdesevir D5/5 -empiric Abx with Ceftriaxone for pneumonia which could bacterial superimpose on viral 2/H/o PE/DVT-- INR 4.5 today, no active bleeding so will continue to monitor and hold coumadin and no vit K at this time 3/history of Atrial tachy--Metoprolol, coumadin 4/Diabetes, Glipizide, SSI 5/ HLD--Lipitor 6/ PT recommends STR DVT-porpylaxis--coumadin, INR is high need for inpatient: covid PNA in pt with immunocompromised high ris for mortality, unable to walk and needs STR PT is recommending short term rehab, won't be able to go until recovers fro covid Quality Stroke Does the patient have a stroke diagnosis?: No VTE Prior VTE?: Yes VTE Risk Level:: Medical - moderate - high VTE Device Contraindication: Treatment Not Indicated VTE Drug Contraindication: N/A - Med Ordered
[2022-01-27 11:24] LABS: Glucose, Whole Blood 196 mg/dL (60-115)
[2022-01-27 11:35] VITALS: BP 141/80; PULSE 87; RESP 20; TEMP 36.8; O2SAT 97
[2022-01-27] MEDS: Insulin Lispro 100 UNIT/ML 3 ML VIAL SUBCUT ×2 (13:03→17:53)
[2022-01-27] MEDS: cefTRIAXone sodium 1 GM in 0.9 % Sodium Chloride 50 ML IV (14:52)
[2022-01-27] MEDS: 0.9 % Sodium Chloride Flush 3 ML SYRINGE IVFLUSH ×2 (14:53→20:49)
[2022-01-27 15:26] VITALS: BP 153/74; PULSE 80; RESP 20; TEMP 37.6; O2SAT 95
[2022-01-27 16:57] LABS: Glucose, Whole Blood 152 mg/dL (60-115)
[2022-01-27 18:50] VITALS: BP 153/72; PULSE 86; RESP 20; TEMP 37.2; O2SAT 95
[2022-01-27 20:15] LABS: Glucose, Whole Blood 113 mg/dL (60-115)
[2022-01-27] MEDS: Atorvastatin Calcium 20 MG TABLET PO (20:48)
[2022-01-27] MEDS: Remdesivir 100 MG in 0.9 % Sodium Chloride 230 ML 115 MG IV (20:48)
[2022-01-27 23:55] VITALS: BP 114/64; PULSE 82; RESP 16; TEMP 37.4; O2SAT 95
[2022-01-28 02:49] VITALS: BP 128/64; PULSE 79; RESP 16; TEMP 36.9; O2SAT 93
[2022-01-28 06:33] LABS: INTERNATIONAL NORM RATIO 3.9 (0.9-1.1); Prothrombin Time 47.6 SEC (10.0-13.1)
[2022-01-28 07:33] VITALS: BP 145/75; PULSE 81; RESP 20; TEMP 36.9; O2SAT 95
[2022-01-28 07:44] LABS: Glucose, Whole Blood 113 mg/dL (60-115)
[2022-01-28] MEDS: Pyridoxine HCl (Vitamin B6) 50 MG TABLET 100 MG PO (09:12)
[2022-01-28] MEDS: allopurinoL 100 MG TABLET PO (09:12)
[2022-01-28] MEDS: Multivitamin TABLET 1 TAB PO (09:12)
[2022-01-28] MEDS: glipiZIDE 5 MG TABLET PO (09:12)
[2022-01-28] MEDS: Metoprolol Tartrate 50 MG TABLET PO ×2 (09:12→22:00)
[2022-01-28] MEDS: 0.9 % Sodium Chloride Flush 3 ML SYRINGE IVFLUSH ×2 (09:13→22:04)
--- NOTE | 2022-01-28 09:30 | HO.PM.IMPN ---
Subjective Subjective Date of Service: 01/28/22 Interval History: f/u covid related weakness, and pneumonia interval history: feels a bit stronger, no sob Review of Systems no sob gen weakness Physical Exam Vital Signs: Vital Signs: Last Vital Signs Temp 98.5 F 01/28/22 07:33 Pulse 81 01/28/22 07:33 Resp 20 01/28/22 07:33 BP 145/75 H 01/28/22 07:33 Pulse Ox 95 01/28/22 07:33 O2 Del Method 01/28/22 07:33 BMI result Body Mass Index 24.4 Const: Other: General: AO X 3, no acute distress Resp: CTA bilateral CVS: S1,S2,RRR GI: +BS, NT, no distention Skin: No rash, left tigh wound dressing in place Neuro: motor grossly intact Psych: appropriate affect Objective Data Active Medications Acetaminophen (Acetaminophen Supp 650 Mg Supp.Rect) 650 mg [place] Q6H PRN PRN Reason: Pain, Mild (Pain Scale 1-3) Allopurinol (Allopurinol 100 Mg Tablet) 100 mg PO DAILY [facility] Last Admin: 01/28/22 09:12 Dose: 100 mg Documented By: MARY Atorvastatin Calcium (Atorvastatin Calcium 20 Mg Tablet) 20 mg PO BEDTIME [facility] Last Admin: 01/27/22 20:48 Dose: 20 mg Documented By: HARMONY Cyanocobalamin (Cyanocobalamin (Vitamin B-12) 1,000 Mcg Tablet) 1,000 mcg PO MoWeFr [facility] Last Admin: 01/25/22 11:00 Dose: 1,000 mcg Documented By: RADHA Glipizide (Glipizide 5 Mg Tablet) 5 mg PO DAILY [facility] Last Admin: 01/28/22 09:12 Dose: 5 mg Documented By: MARY Ceftriaxone Sodium 1 gm/ (Sodium Chloride) 50 mls @ 100 mls/hr IV Q24H [facility] Last Infusion: 01/27/22 15:59 Dose: 0 mls/hr Documented By: MARY Insulin Human Lispro (Insulin Lispro 100 Unit/Ml 3 Ml Vial) 0 unit SUBCUT QIDACHS [facility]; Protocol Last Admin: 01/28/22 07:41 Dose: Not Given Documented By: MARY Non-Admin Reason: No Insulin Coverage Melatonin (Melatonin 3 Mg Tablet) 6 mg PO BEDTIME PRN PRN Reason: Insomnia Metoprolol Tartrate (Metoprolol Tartrate 50 Mg Tablet) 50 mg PO BID [facility]; Protocol Last Admin: 01/28/22 09:12 Dose: 50 mg Documented By: MARY Multivitamins/Vitamin C (Multivitamin Tablet) 1 tab PO DAILY [facility] Last Admin: 01/28/22 09:12 Dose: 1 tab Documented By: MARY Ondansetron HCl (Ondansetron Hcl 4 Mg/2 Ml Vial) 4 mg IVPUSH Q8H PRN PRN Reason: Nausea and Vomiting Pharmacy Consult (Consult Rx Perform Med Rec) 1 each MISCELLANE ONCE PRN PRN Reason: Consult order Pyridoxine HCl (Pyridoxine Hcl (Vitamin B6) 50 Mg Tablet) 100 mg PO DAILY [facility] Last Admin: 01/28/22 09:12 Dose: 100 mg Documented By: MARY Sodium Chloride (0.9 % Sodium Chloride Flush 3 Ml Syringe) 3 ml IVFLUSH QSHIFT [facility] Last Admin: 01/28/22 09:13 Dose: 3 ml Documented By: MARY Warfarin Sodium (Warfarin Sodium 2.5 Mg Tablet) 2.5 mg PO DAILY@1800 [facility] Labs CBC & Chem 7: 01/24/22 04:39 01/23/22 11:48 Labs: Laboratory Results - last 24 hr 01/27/22 01/27/22 01/27/22 11:21 16:50 18:51 PT INR POC Glucose 196 H 152 H 113 01/28/22 01/28/22 05:46 07:38 PT 47.6 H INR 3.9 H POC Glucose 113 Assessment and Plan (1) COVID-19 virus infection: Status: Acute (2) Pneumonia due to COVID-19 virus: Status: Acute Plan 84-year-old gentleman with past medical history of chronic kidney disease stage 3, history of cryptococcosis , BPH and 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 He essentially comes back today before of persistent lethargy, generalized weakness, anorexia, he so weak that he's not able to walk? but no focal neuro deficit, no sob, no cough and found to have have viral pneumonia without hypoxia 1/Covid without hypoxia but high risk for severe disease given immunocompromised state with CLL -request Remdesevir since Paxlovid not an option--remdesevir D5/5 -empiric Abx with Ceftriaxone for pneumonia which could bacterial superimpose on viral 2/H/o PE/DVT-- INR 4.5 today, no active bleeding so will continue to monitor and hold coumadin and no vit K at this time 3/history of Atrial tachy--Metoprolol, coumadin 4/Diabetes, Glipizide, SSI 5/ HLD--Lipitor 6/ PT recommends STR DVT-porpylaxis--coumadin, INR is high need for inpatient: covid PNA in pt with immunocompromised high ris for mortality, unable to walk and needs STR PT is recommending short term rehab, won't be able to go until recovers fro covid Quality Stroke Does the patient have a stroke diagnosis?: No VTE Prior VTE?: Yes VTE Risk Level:: Medical - moderate - high VTE Device Contraindication: Treatment Not Indicated VTE Drug Contraindication: N/A - Med Ordered
[2022-01-28] MEDS: Cyanocobalamin (Vitamin B-12) 1,000 MCG TABLET 1000 MCG PO (09:59)
[2022-01-28 11:23] VITALS: BP 129/75; PULSE 75; RESP 20; TEMP 37; O2SAT 97
[2022-01-28 11:31] LABS: Glucose, Whole Blood 161 mg/dL (60-115)
[2022-01-28] MEDS: Insulin Lispro 100 UNIT/ML 3 ML VIAL SUBCUT (13:14)
--- NOTE | 2022-01-28 13:24 | MHC.CM.PN ---
PT is recommending STR and referrals have been updated and expanded r/t Covid (+) status. CM will follow.
[2022-01-28] MEDS: cefTRIAXone sodium 1 GM in 0.9 % Sodium Chloride 50 ML IV (14:16)
[2022-01-28 15:19] VITALS: BP 140/78; PULSE 83; RESP 18; TEMP 37; O2SAT 95
[2022-01-28 15:41] LABS: Glucose, Whole Blood 138 mg/dL (60-115)
[2022-01-28 19:30] VITALS: BP 168/87; PULSE 92; RESP 17; TEMP 37.1; O2SAT 97
[2022-01-28 19:59] LABS: Glucose, Whole Blood 116 mg/dL (60-115)
[2022-01-28] MEDS: Atorvastatin Calcium 20 MG TABLET PO (22:00)
[2022-01-28 23:35] VITALS: BP 127/67; PULSE 77; RESP 18; TEMP 37.1; O2SAT 98
[2022-01-29 03:57] VITALS: BP 138/73; PULSE 82; RESP 20; TEMP 36.8; O2SAT 95
[2022-01-29 06:36] LABS: INTERNATIONAL NORM RATIO 3.2 (0.9-1.1); Prothrombin Time 38.9 SEC (10.0-13.1)
[2022-01-29 07:23] LABS: Glucose, Whole Blood 107 mg/dL (60-115)
[2022-01-29 07:38] VITALS: BP 134/73; PULSE 76; RESP 18; TEMP 36.5; O2SAT 97
[2022-01-29] MEDS: allopurinoL 100 MG TABLET PO (08:05)
[2022-01-29] MEDS: glipiZIDE 5 MG TABLET PO (08:05)
[2022-01-29] MEDS: Pyridoxine HCl (Vitamin B6) 50 MG TABLET 100 MG PO (08:05)
[2022-01-29] MEDS: Metoprolol Tartrate 50 MG TABLET PO ×2 (08:05→21:09)
[2022-01-29] MEDS: Multivitamin TABLET 1 TAB PO (08:05)
--- NOTE | 2022-01-29 09:47 | MHC.CM.PN ---
Per MD, Patient is medically cleared for dc to SNF/STR today. Patient will dc to his first choice SNF/[facility] today at 1 PM, via [facility]. Patient is Covid (+); CM addressed second IMM with /HCP/Mirella @ [phone](original will be mailed certified letter to Mirella and a copy has been placed on the chart). Patient will have a private room at [facility].
--- NOTE | 2022-01-29 10:27 | PM.DS ---
DS: Providers Provider Date of Service: 01/29/22 Date of admission: 01/23/22 17:02 Primary care physician: Abel Velasco MD Consults: 01/23/22 21:35 Consult to General Surgery Routine Consulting Provider: Rodrigue Francis Reason for consultation: wound dehiscence DS: Diagnosis Discharge Diagnosis (1) COVID-19 virus infection: Status: Acute (2) Pneumonia due to COVID-19 virus: Status: Acute DS: Summary Hospital Course Hospital Course: 84-year-old gentleman with past medical history of chronic kidney disease stage 3, history of cryptococcosis ? 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 He essentially comes back today before of persistent lethargy, generalized weakness, anorexia, he so weak that he's not able to walk? but no focal neuro deficit, no sob, no cough, he has had some diarrhea but presetntly denies any, no fever, no cough. He felt this morning getting out? chair and deny head injury, no confusion, no neck pain.? He has a wound to the left tigh with suture still in place and appear open. CXR shows viral pattern pneumonia. No fever, no leukocytosis. 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 He essentially comes back today before of persistent lethargy, generalized weakness, anorexia, he so weak that he's not able to walk? but no focal neuro deficit, no sob, no cough and found to have have viral pneumonia without hypoxia 1/Covid without hypoxia but was at high risk for severe disease given immunocompromised state with CLL sow he was treted with Remdesevir for 5 days, there was no hypoxia so no steroid. He remains assymptomatic at thist. He was also empirically treated with Ceftriaxone for possible bacterial superimpose pneumonia. 2/H/o PE/DVT-- INR 4.5 on presentation and was having some bleeding from wound. Coumadin was on hold and only restartred later. INR is now 3.2 continue coumadin 3/history of Atrial tachy--Metoprolol, coumadin 4/Diabetes, Glipizide, 5/ HLD--Lipitor 6/ PT recommends STR for deconditioning and weakness from covid. 7/ excision by dermatology on his left posterior calf that was bleeding, was evaluated by Dr. Francis, dressing was enforced, no further bleeding and should followed up with Dermatoligst as previously planned Time Spent with Patient Time attestation: Total time spent providing and/or coordinating discharge services: Discharge coordination time: Greater than 30 minutes Quality: Safe Use of Opioids Does Pt have an Active Cancer Diagnosis on the Problem List?: No Quality: Stroke Does the patient have a stroke diagnosis?: No Physical Exam Vital Signs: Vital Signs: Last Vital Signs Temp 97.7 F 01/29/22 07:38 Pulse 76 01/29/22 07:38 Resp 18 01/29/22 07:38 BP 134/73 01/29/22 07:38 Pulse Ox 97 01/29/22 07:38 O2 Del Method 01/29/22 07:38 BMI result Body Mass Index 24.4 DS: Data Data Completed and Pending Labs on day of discharge: Laboratory Results - last 24 hr 01/28/22 01/28/22 01/28/22 11:26 15:21 19:32 PT INR POC Glucose 161 H 138 H 116 H 01/29/22 01/29/22 06:06 07:19 PT 38.9 H INR 3.2 H POC Glucose 107 Discharge Plan Discharge Anticipated Discharge Date/Time: 01/29/22 10:21 Patient Disposition: Xfer SNF Discharge Diagnosis: Covid pneumonia, generalized weakness, coagulopathy Referrals: [facility] [Outside] - 1 Week Abel Velasco MD [Primary Care Provider] - 1 Week Discharge Medications: Continued (DME) blood-glucose meter [OneTouch Verio Flex Start] Kit See Rx Instructions .Route Qty: 1 0RF Rx Instructions: As directed to check blood glucose 3x/day glipizide 5 mg tablet extended release 24 hr 5 mg PO DAILY Qty: 90 0RF atorvastatin 20 mg tablet 20 mg PO BEDTIME Qty: 30 5RF allopurinol 100 mg tablet 100 mg PO DAILY Qty: 90 4RF multivitamin Tablet 1 tab PO DAILY cyanocobalamin (vitamin B-12) 1,000 mcg Tablet 1,000 mcg PO 3XW warfarin 2.5 mg tablet 1 tab PO DAILY Protocol: Dose Management Condition: Friday (Week One) Dose/Route: 2.5 mg Instruction: 1 x 2.5 mg tablet Condition: Friday Dose/Route: 5 mg Instruction: 2 x 2.5 mg tablets Condition: Friday Dose/Route: 2.5 mg Instruction: 1 x 2.5 mg tablet Condition: Friday Dose/Route: 2.5 mg Instruction: 1 x 2.5 mg tablet Condition: Dose/Route: 5 mg Instruction: 2 x 2.5 mg tablets Condition: Friday Dose/Route: 2.5 mg Instruction: 1 x 2.5 mg tablet Condition: Friday Dose/Route: 2.5 mg Instruction: 1 x 2.5 mg tablet Condition: Friday (Week Two) Dose/Route: 2.5 mg Instruction: 1 x 2.5 mg tablet Condition: Friday Dose/Route: 5 mg Instruction: 2 x 2.5 mg tablets Condition: Friday Dose/Route: 2.5 mg Instruction: 1 x 2.5 mg tablet Condition: Friday Dose/Route: 2.5 mg Instruction: 1 x 2.5 mg tablet Condition: Dose/Route: 5 mg Instruction: 2 x 2.5 mg tablets Condition: Friday Dose/Route: 2.5 mg Instruction: 1 x 2.5 mg tablet Condition: Friday Dose/Route: 2.5 mg Instruction: 1 x 2.5 mg tablet Protocol Text: Adjustment Start Date: Friday01/15/22 INR Value: 3.1 INR Date: 01/15/22 Recheck Date: 01/25/22 Additional Instructions: resume weekly greens or ensure - but not daily pyridoxine (vitamin B6) 100 mg tablet 100 mg PO DAILY 90 Days Qty: 90 1RF (DME) lancets [OneTouch Delica Lancets] 33 gauge misc See Rx Instructions .ROUTE .MEDSUPPLY Qty: 300 3RF Rx Instructions: 3 times a day (DME) OneTouch Verio test strips Strip See Rx Instructions .ROUTE .MEDSUPPLY Qty: 300 3RF Rx Instructions: 3 times a day metoprolol tartrate 50 mg tablet 50 mg PO BID Discharge Orders: Discharge Order (Routine); Ordered 01/29/22 Ordered By: Ancelmo Corrigan Diet: Advance to usual diet Activity on Discharge: As tolerated Stand Alone Forms: Patient Portal Discharge page Care Plan Goals: Full recovery from COVID pneumonia Health Concerns: General weakness, covid pneumonia. history of DVT and PE Plan of Treatment: Short-term rehab coumadin goal of INR 2 to 3, INR 3.2 today hold coumadin today and restart at 2 tomorrow To follow up with his dermatoligst in a week Assessment: As above
[2022-01-29 11:22] LABS: Glucose, Whole Blood 127 mg/dL (60-115)
[2022-01-29 11:30] VITALS: BP 130/62; PULSE 80; RESP 17; TEMP 36.6; O2SAT 96
--- NOTE | 2022-01-29 12:13 | PC.NURSE ---
Report given to [place]. Karen jernigan. 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
[2022-01-29] MEDS: 0.9 % Sodium Chloride Flush 3 ML SYRINGE IVFLUSH ×2 (12:31→21:09)
[2022-01-29] MEDS: cefTRIAXone sodium 1 GM in 0.9 % Sodium Chloride 50 ML IV (15:54)
[2022-01-29 16:00] VITALS: BP 144/80; PULSE 89; RESP 18; TEMP 37; O2SAT 98
[2022-01-29 16:27] LABS: Glucose, Whole Blood 127 mg/dL (60-115)
[2022-01-29 20:00] VITALS: BP 145/79; PULSE 78; RESP 17; TEMP 36.6; O2SAT 98
[2022-01-29 20:20] LABS: Glucose, Whole Blood 114 mg/dL (60-115)
[2022-01-29] MEDS: Atorvastatin Calcium 20 MG TABLET PO (21:09)
[2022-01-30 05:24] VITALS: BP 131/66; PULSE 79; RESP 20; TEMP 36.8; O2SAT 98
[2022-01-30 07:00] VITALS: BP 148/80; PULSE 82; RESP 20; TEMP 36.7; O2SAT 95
[2022-01-30 07:08] LABS: INTERNATIONAL NORM RATIO 2.4 (0.9-1.1); Prothrombin Time 28.7 SEC (10.0-13.1)
[2022-01-30 07:10] LABS: Glucose, Whole Blood 105 mg/dL (60-115)
[2022-01-30] MEDS: Multivitamin TABLET 1 TAB PO (08:43)
[2022-01-30] MEDS: Pyridoxine HCl (Vitamin B6) 50 MG TABLET 100 MG PO (08:43)
[2022-01-30] MEDS: 0.9 % Sodium Chloride Flush 3 ML SYRINGE IVFLUSH (08:43)
[2022-01-30] MEDS: Metoprolol Tartrate 50 MG TABLET PO (08:43)
[2022-01-30] MEDS: glipiZIDE 5 MG TABLET PO (08:43)
[2022-01-30] MEDS: allopurinoL 100 MG TABLET PO (08:43)
[2022-01-30] MEDS: Cyanocobalamin (Vitamin B-12) 1,000 MCG TABLET 1000 MCG PO (08:49)
--- NOTE | 2022-01-30 09:02 | MHC.CM.PN ---
Patient did not dc to [facility] yesterday because there was not a [facility] to transport. Per [facility] Liaison/Erika, [facility] will transport Patient to [facility] today between 10 and 10:30 AM; ,RN, Patient and have been updated on the new dc plan.
--- NOTE | 2022-01-30 10:11 | PM.EVENT ---
Event Note Date of Service: 01/30/22 Event Note: Patient reportedly was not discharged yesterday due to transportation issues, no chnage in status, seen and examined this morning, vitals stable, exam unchanged Discharge plan remains unchanged as of 01/29 and is effective d/c day
--- NOTE | 2022-01-30 11:06 | PC.NURSE ---
Alert and oriented. Denies pain, VSS, afebrile, no acute resp. distress noted. Took all schedule meds. Patient [facility]. All paper works given to outboard motor tester. Left the hospital via stretcher accompanied by 2 outboard motor tester.
== END 2022-01-30 10:00 | disposition skilled nursing facility (03) | DRG 177 ==
LOC: HO.ED 15:38 → HO.EDOVER 17:12 → HO.IMC 01-25 17:56
PROVIDERS: Internal Medicine; Physician Assistant; Admitting Provider Internal Medicine; Emergency Provider Emergency Medicine; PCP Internal Medicine; Visit Provider Internal Medicine
DX: U07.1 COVID-19 (principal); J12.82 Pneumonia due to coronavirus disease 2019; C91.11 Chronic lymphocytic leukemia of B-cell type in remission; I47.1 Supraventricular tachycardia; L76.21 Postprocedural hemorrhage of skin and subcutaneous tissue following a dermatologic procedure; N40.0 Benign prostatic hyperplasia without lower urinary tract symptoms; E78.5 Hyperlipidemia, unspecified; M10.9 Gout, unspecified; N18.32 Chronic kidney disease, stage 3b; E11.22 Type 2 diabetes mellitus with diabetic chronic kidney disease; E11.65 Type 2 diabetes mellitus with hyperglycemia; E11.40 Type 2 diabetes mellitus with diabetic neuropathy, unspecified; T45.515A Adverse effect of anticoagulants, initial encounter; Z86.711 Personal history of pulmonary embolism; Z86.718 Personal history of other venous thrombosis and embolism; Z85.828 Personal history of other malignant neoplasm of skin; Z79.01 Long term (current) use of anticoagulants; Z79.84 Long term (current) use of oral hypoglycemic drugs; Z79.899 Other long term (current) drug therapy
CPT/HCPCS: 36415; 71045; 80048; 80076; 81001; 82550; 82947; 83605; 83735; 84484; 85025; 85610; 87040; 93005; 96361; 96365; 96366; 96375; 97110; 97116; 97162; 97530; 99285; J0248; J0456; J0696

== ENCOUNTER 2022-03-05 05:38 | Outpatient (REF) | payer MEDICARE, SELFPAY ==
[2022-03-05 07:26] LABS: INTERNATIONAL NORM RATIO 1.2 (0.9-1.1); Prothrombin Time 14.2 SEC (10.0-13.1)
== END 2022-03-05 05:39 | disposition home or self-care (01) ==
LOC: HO.MMNH1L 05:38
PROVIDERS: Visit Provider Family Medicine
DX: I48.91 Unspecified atrial fibrillation (principal); Z86.718 Personal history of other venous thrombosis and embolism
CPT/HCPCS: 36415; 85610

== ENCOUNTER 2022-03-08 09:43 | Outpatient (REF) | payer SELFPAY ==
[2022-03-08 06:36] LABS: INTERNATIONAL NORM RATIO 1.5 (0.9-1.1)
== END 2022-03-08 09:44 | disposition home or self-care (01) ==
LOC: HO.MMNH1L 09:43
PROVIDERS: Visit Provider Family Medicine
DX: I48.91 Unspecified atrial fibrillation (principal)
CPT/HCPCS: 36415; 85610

== ENCOUNTER → 2022-03-14 16:12 | Outpatient (BNVA) | payer MEDICARE, BC, SELFPAY | PROVIDERS: PCP Internal Medicine; Visit Provider Internal Medicine | DX: I26.99 Other pulmonary embolism without acute cor pulmonale (principal); Z79.01 Long term (current) use of anticoagulants; Z51.81 Encounter for therapeutic drug level monitoring | CPT/HCPCS: 99212 ==

== ENCOUNTER → 2022-03-19 15:32 | Outpatient (BNVA) | payer MEDICARE, BC, SELFPAY | PROVIDERS: PCP Internal Medicine; Visit Provider Internal Medicine | DX: I26.99 Other pulmonary embolism without acute cor pulmonale (principal); Z79.01 Long term (current) use of anticoagulants; Z51.81 Encounter for therapeutic drug level monitoring | CPT/HCPCS: G0248 ==

== ENCOUNTER 2022-04-08 08:08 | Outpatient (REF) | payer MEDICARE, BC, SELFPAY ==
--- NOTE | ~2022-04-08 | XR_ITS ---
EXAMINATION: XR HIP, RIGHT CLINICAL INFORMATION: Right hip pain COMPARISON: None TECHNIQUE: Two views of the right hip and AP view of the pelvis.. FINDINGS: AP pelvis: There is mild reduction in the bilateral hip joint space with inferior periarticular spurring. No bony erosive changes seen. There is no fracture or dislocation involving the hip joints or the pelvic bones. The SI joints are symmetrical and normal. There is lower anterior abdominal wall hernia repair with mesh in place.. The bowel gas pattern is nonspecific. There are bridging osteophyte on the left at the L4-L5 disc level. XR/XR hip RT w PEL1V IMPRESSION: 1. Mild degenerative changes bilateral hip joints. No visible acute fracture, dislocation or subluxation seen. 2. Bridging osteophyte on the left at the L4-L5 disc level.
== END 2022-04-08 08:09 | disposition home or self-care (01) ==
LOC: HO.HOSX 08:08
PROVIDERS: Visit Provider Physician Assistant
DX: I47.1 Supraventricular tachycardia (principal); I49.3 Ventricular premature depolarization; I25.10 Atherosclerotic heart disease of native coronary artery without angina pectoris; I05.9 Rheumatic mitral valve disease, unspecified; I95.1 Orthostatic hypotension; Z79.899 Other long term (current) drug therapy; Z86.718 Personal history of other venous thrombosis and embolism; Z86.711 Personal history of pulmonary embolism; Z79.01 Long term (current) use of anticoagulants; Z85.72 Personal history of non-Hodgkin lymphomas; M70.61 Trochanteric bursitis, right hip
CPT/HCPCS: 20610; 73502; 99212; J1020

== ENCOUNTER → 2022-04-16 08:22 | Outpatient (BNVA) | payer MEDICARE, SELFPAY | PROVIDERS: PCP Internal Medicine; Visit Provider Internal Medicine | DX: I26.99 Other pulmonary embolism without acute cor pulmonale (principal); Z79.01 Long term (current) use of anticoagulants; Z51.81 Encounter for therapeutic drug level monitoring | CPT/HCPCS: 85610; 99211 ==

== ENCOUNTER → 2022-04-19 08:10 | Outpatient (BNVA) | payer MEDICARE, SELFPAY | PROVIDERS: PCP Internal Medicine; Visit Provider Internal Medicine | DX: I26.99 Other pulmonary embolism without acute cor pulmonale (principal); Z79.01 Long term (current) use of anticoagulants; Z51.81 Encounter for therapeutic drug level monitoring | CPT/HCPCS: 85610; 99211 ==

== ENCOUNTER → 2022-04-25 08:13 | Outpatient (BNVA) | payer MEDICARE, SELFPAY | PROVIDERS: PCP Internal Medicine; Visit Provider Internal Medicine | DX: I26.99 Other pulmonary embolism without acute cor pulmonale (principal); Z79.01 Long term (current) use of anticoagulants; Z51.81 Encounter for therapeutic drug level monitoring | CPT/HCPCS: 85610; 99211 ==

== ENCOUNTER 2022-04-29 08:28 | Outpatient (REF) | payer MEDICARE, SELFPAY ==
[2022-04-29 11:44] LABS: Estimated Average Glucose 146 mg/dL; Hemoglobin A1c % 6.7 %
[2022-04-29 12:13] LABS: Anion Gap 14 (12-20); Blood Urea Nitrogen 17 mg/dL (9-16); Calcium 9.3 mg/dL (8.4-10.2); Carbon Dioxide 26 mmol/L (22-29); Chloride 110 mmol/L (96-108); Estimated Glomerular Filt Rate 52; Glucose Random 166 mg/dL (60-115); Potassium 4.6 mmol/L (3.3-5.1); Sodium 145 mmol/L (135-145)
== END 2022-04-29 08:29 | disposition home or self-care (01) ==
LOC: HO.HMGCLDS 08:28
PROVIDERS: PCP Internal Medicine; Visit Provider Internal Medicine
DX: E11.22 Type 2 diabetes mellitus with diabetic chronic kidney disease (principal); N18.32 Chronic kidney disease, stage 3b
CPT/HCPCS: 36415; 80048; 83036

== ENCOUNTER → 2022-05-02 08:12 | Outpatient (BNVA) | payer MEDICARE, SELFPAY | PROVIDERS: PCP Internal Medicine; Visit Provider Internal Medicine | DX: I26.99 Other pulmonary embolism without acute cor pulmonale (principal); Z79.01 Long term (current) use of anticoagulants; Z51.81 Encounter for therapeutic drug level monitoring | CPT/HCPCS: 85610; 99211 ==

== ENCOUNTER → 2022-05-14 08:44 | Outpatient (BNVA) | payer MEDICARE, SELFPAY | PROVIDERS: PCP Internal Medicine; Visit Provider Internal Medicine | DX: I26.99 Other pulmonary embolism without acute cor pulmonale (principal); Z79.01 Long term (current) use of anticoagulants; Z51.81 Encounter for therapeutic drug level monitoring | CPT/HCPCS: 85610; 99211 ==

== ENCOUNTER → 2022-05-17 09:42 | Outpatient (BNVA) | payer MEDICARE, SELFPAY | PROVIDERS: PCP Internal Medicine; Visit Provider Physician Assistant | DX: M54.50 Low back pain, unspecified (principal); M70.61 Trochanteric bursitis, right hip | CPT/HCPCS: 99212 ==

== ENCOUNTER → 2022-05-29 08:14 | Outpatient (BNVA) | payer MEDICARE, SELFPAY | PROVIDERS: PCP Internal Medicine; Visit Provider Internal Medicine | DX: I26.99 Other pulmonary embolism without acute cor pulmonale (principal); Z79.01 Long term (current) use of anticoagulants; Z51.81 Encounter for therapeutic drug level monitoring | CPT/HCPCS: 85610; 99211 ==

== ENCOUNTER 2022-06-07 10:16 | Outpatient (REF) | payer MEDICARE, SELFPAY ==
[2022-06-07 10:38] LABS: COVID-19 Test Negative (Negative); IDNOW Serial# 16C4AD1C
== END 2022-06-07 10:17 | disposition home or self-care (01) ==
LOC: HO.LAB 10:16
PROVIDERS: PCP Internal Medicine; Visit Provider Internal Medicine
DX: Z20.822 Contact with and (suspected) exposure to COVID-19 (principal)
CPT/HCPCS: 87635; C9803

== ENCOUNTER → 2022-06-12 08:38 | Outpatient (BNVA) | payer MEDICARE, SELFPAY | PROVIDERS: PCP Internal Medicine; Visit Provider Internal Medicine | DX: I26.99 Other pulmonary embolism without acute cor pulmonale (principal); Z79.01 Long term (current) use of anticoagulants; Z51.81 Encounter for therapeutic drug level monitoring | CPT/HCPCS: 85610; 99211 ==

== ENCOUNTER → 2022-06-26 08:18 | Outpatient (BNVA) | payer MEDICARE, SELFPAY | PROVIDERS: PCP Internal Medicine; Visit Provider Internal Medicine | DX: I26.99 Other pulmonary embolism without acute cor pulmonale (principal); Z79.01 Long term (current) use of anticoagulants; Z51.81 Encounter for therapeutic drug level monitoring; E11.65 Type 2 diabetes mellitus with hyperglycemia; N18.32 Chronic kidney disease, stage 3b; Z71.3 Dietary counseling and surveillance | CPT/HCPCS: 85610; 97803; 99211 ==

== ENCOUNTER → 2022-07-04 13:08 | Outpatient (BNVA) | payer MEDICARE, SELFPAY | PROVIDERS: PCP Internal Medicine; Visit Provider Internal Medicine | DX: I26.99 Other pulmonary embolism without acute cor pulmonale (principal); Z79.01 Long term (current) use of anticoagulants; Z51.81 Encounter for therapeutic drug level monitoring | CPT/HCPCS: 85610; 99211 ==

== ENCOUNTER → 2022-07-08 14:03 | Outpatient (BNVA) | payer MEDICARE, SELFPAY | PROVIDERS: PCP Internal Medicine; Visit Provider Internal Medicine | DX: Z79.01 Long term (current) use of anticoagulants (principal) ==

== ENCOUNTER → 2022-07-11 08:12 | Outpatient (BNVA) | payer MEDICARE, SELFPAY | PROVIDERS: PCP Internal Medicine; Visit Provider Internal Medicine | DX: I26.99 Other pulmonary embolism without acute cor pulmonale (principal); Z79.01 Long term (current) use of anticoagulants; Z51.81 Encounter for therapeutic drug level monitoring | CPT/HCPCS: 85610; 99211 ==

== ENCOUNTER → 2022-07-18 10:46 | Outpatient (BNVA) | payer MEDICARE, SELFPAY | PROVIDERS: PCP Internal Medicine; Referring Provider Internal Medicine Medical Oncology; Visit Provider Surgery | DX: C43.59 Malignant melanoma of other part of trunk (principal) | CPT/HCPCS: 99212 ==

== ENCOUNTER → 2022-07-19 08:21 | Outpatient (BNVA) | payer MEDICARE, SELFPAY | PROVIDERS: PCP Internal Medicine; Visit Provider Internal Medicine | DX: I26.99 Other pulmonary embolism without acute cor pulmonale (principal); Z79.01 Long term (current) use of anticoagulants; Z51.81 Encounter for therapeutic drug level monitoring | CPT/HCPCS: 85610; 99211 ==

== ENCOUNTER 2022-07-29 09:09 | Outpatient (REF) | payer MEDICARE, SELFPAY ==
[2022-07-29 09:26] LABS: MANUAL DIFF FLAG NO
[2022-07-29 10:00] LABS: Basophils Percent Auto 0.2 % (0-2); Eosinophils Absolute Auto 0.1 X10*3/uL (0.0-0.4); Eosinophils Percent Auto 1.7 % (0-4); Hematocrit 39.1 % (42.0-52.0); Hemoglobin 12.3 g/dl (14.0-18.0); Imm Gran Abs Auto 0.03 X10*3/uL (0.00-0.03); Imm Gran Pct Auto 0.4 % (0.0-0.4); Lymphocytes Absolute Auto 1.5 X10*3/uL (1.2-4.9); Lymphocytes Percent Auto 18.3 % (20-40); Mean Corpuscular HGB Conc 31.5 g/dl (31.0-36.0); Mean Corpuscular Hemoglobin 34.8 pg (27.0-33.0); Mean Corpuscular Volume 110.8 fL (80.0-98.0); Mean Platelet Volume 10.2 fL (9.4-12.4); Monocytes Percent Auto 11.9 % (2-11); Neutrophils Absolute Auto 5.5 x10*3/uL (2.0-8.3); Neutrophils Percent Auto 67.5 % (45-73); Platelet Count 135 X10*3/uL (160-400); Red Blood Count 3.53 X10*6/uL (4.60-5.80); Red Cell Distribution Width 14.3 % (11.0-16.0); White Blood Count 8.2 X10*3/uL (4.8-10.8)
[2022-07-29 11:38] LABS: Anion Gap 16 (12-20); Blood Urea Nitrogen 26 mg/dL (9-16); Calcium 9.1 mg/dL (8.4-10.2); Carbon Dioxide 23 mmol/L (22-29); Chloride 111 mmol/L (96-108); Estimated Glomerular Filt Rate 38; Glucose Random 191 mg/dL (60-115); Potassium 4.3 mmol/L (3.3-5.1); Sodium 146 mmol/L (135-145)
== END 2022-07-29 09:10 | disposition home or self-care (01) ==
LOC: HO.LAB 09:09
PROVIDERS: PCP Internal Medicine; Visit Provider Internal Medicine
DX: I26.99 Other pulmonary embolism without acute cor pulmonale (principal); C91.10 Chronic lymphocytic leukemia of B-cell type not having achieved remission; N18.32 Chronic kidney disease, stage 3b; E11.29 Type 2 diabetes mellitus with other diabetic kidney complication; Z51.81 Encounter for therapeutic drug level monitoring; Z79.01 Long term (current) use of anticoagulants
CPT/HCPCS: 36415; 80048; 85025; 85610; 93005; 99211

== ENCOUNTER → 2022-08-02 11:37 | Outpatient (BNVA) | payer MEDICARE, SELFPAY | PROVIDERS: PCP Internal Medicine; Visit Provider Internal Medicine | DX: I26.99 Other pulmonary embolism without acute cor pulmonale (principal); Z79.01 Long term (current) use of anticoagulants; Z51.81 Encounter for therapeutic drug level monitoring | CPT/HCPCS: 85610; 99211 ==

== ENCOUNTER 2022-08-05 06:50 | Day surgery (SDC) | payer MEDICARE, SELFPAY ==
--- NOTE | 2022-07-29 | ECG_ITS ---
Test Reason : Pre-Op Blood Pressure : / mmHG Vent. Rate : 085 BPM Atrial Rate : 085 BPM P-R Int : 176 ms QRS Dur : 074 ms QT Int : 352 ms P-R-T Axes : 071 058 048 degrees QTc Int : 418 ms Sinus rhythm with Premature atrial complexes Otherwise normal ECG When compared with ECG of 23-JAN-2022 11:10, Nonspecific T wave abnormality no longer evident in Inferior leads T wave amplitude has increased in Anterior leads Referred By: Elma Orantes Electronically Signed By:SOM NGUYEN MD
[2022-07-29 10:21] VITALS: BP 108/68; PULSE 92; RESP 20; O2SAT 99; BMI 23.3
--- NOTE | 2022-07-29 10:35 | P.CONAN_ITS ---
HPI - Anesthesia Eval Consult details Narrative: 86yo M for wide Excision abd wall melanoma, [place] Node Biopsy Hx of C4-5 fx after fall. No surgical repair. Last imaging shows resolution, but ROM remains limited with extension. Warfarin for hx PE/DVT 2014 - to bridge with lovenox CLL in remission Midodrine for orthostatic hypotn PMFSH Active Problems Active Problems: All Active Problems (Updated 07/29/22 @ 10:17 by Karla Tamez, ARLENE) CLL (chronic lymphocytic leukemia) (Acute) Patellofemoral pain syndrome of both knees (Acute) Nephrolithiasis (Acute) Pain of both scapulas (Acute) PVC (premature ventricular contraction) (Acute) Atrial tachycardia (Acute) Precordial chest pain (Acute) Bilateral post-traumatic osteoarthritis of knee (Acute) Bilateral primary osteoarthritis of knee (Acute) Atherosclerotic cardiovascular disease (Acute) Trigger finger, left ring finger (Acute) Trochanteric bursitis of right hip (Acute) Orthostatic hypotension (Acute) Low back pain syndrome (Acute) Anemia (Acute) Melanoma (Acute) Tachycardia (Acute) Headache above the eye region (Acute) Cryptococcosis (Acute) Dyslipidemia (Acute) Past Medical History Medical History (Updated 07/29/22 @ 10:38 by Karla Tamez RN) BPH (benign prostatic hyperplasia) CKD (chronic kidney disease) stage 3, GFR 30-59 ml/min CLL (chronic lymphocytic leukemia) Cryptococcosis Current use of anticoagulant therapy Diabetes Diabetes type 2, 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 DVT (deep venous thrombosis) Dyslipidemia Gout Headache above the eye region History of COVID-19 Melanoma Mitral annular calcification Tachycardia Family History Family History Other Family history of cancer in sister Family history of problems with anesthesia: No Surgical History Surgical History (Updated 07/29/22 @ 11:10 by Karla Tamez RN) H/O colonoscopy H/O inguinal hernia repair H/O umbilical hernia repair History of esophagogastroduodenoscopy (EGD) Hx of basal cell carcinoma excision Hx of cataract surgery Hx of cystoscopy Hx of lymph node excision Hx of melanoma excision S/P appendectomy S/P TURP History of Problems with Anesthesia: No Social History Social History Household Members: Spouse Housing: House Are you a primary healthcare project manager to a significant other at home: No Do you presently have visiting nurse or other home services: No Alcohol intake: never Patient Tobacco Use Status: Never used Tobacco Second Hand Smoke Exposure: No Advance Directives Date on File: 06/24/08 service: Yes Current occupational status: retired 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 Narrative Narrative: No recent illness No CP/SOB Meds Allergies Allergy/AdvReac Type Severity Reaction Status Date / Time silver Allergy Intermediate skin Verified 08/02/22 11:42 [From TEGADERM AG MESH] sloughing morphine [MORPHINE] AdvReac Intermediate Vomiting Verified 08/02/22 11:42 Home Medications Medication Instructions Recorded Confirmed Last Taken Type cyanocobalamin (vitamin B-12) 1,000 mcg PO 3XW 02/10/20 08/02/22 02/10/20 08:00 History 1,000 mcg tablet multivitamin 1 tab PO DAILY 02/10/20 08/02/22 02/10/20 08:00 History warfarin 2.5 mg tablet 1 tab PO DAILY 05/11/20 08/02/22 Unknown History glipizide 5 mg tablet 5 mg PO DAILY 03/19/22 08/02/22 Unknown History midodrine 5 mg tablet 5 mg PO TID 03/19/22 08/02/22 Unknown History levothyroxine 50 mcg tablet 50 mcg PO DAILY 04/16/22 08/02/22 08/05/22 History enoxaparin 80 mg/0.8 mL mg subcut 08/02/22 08/02/22 Unknown History subcutaneous syringe Exam Exam Date and Time: July 29, 2022 1036 Height,Weight and Vital Signs: Height 6 ft 2 in Weight 82.554 kg Last Vital Signs Pulse 92 07/29/22 10:21 Resp 20 07/29/22 10:21 BP 108/68 07/29/22 10:21 Pulse Ox 99 07/29/22 10:21 O2 Del Method 07/29/22 10:21 Narrative Narrative: EKG 07/2022 ECHO 2020 Conclusions: -? 1. LV systolic function appears to be normal while in sinus ? rhythm with impaired relaxation filling pattern? 2. Moderate mitral and calcification with normal cardiac valvular Doppler? 3. Normal RV systolic pressure ? 4. No pericardial effusion ? ? NM cardiolite stress test 2020 Impression: ? 1.? Myocardial perfusion imaging study shows normal myocardial perfusion 2.? Gated LVEF is 67% 3. Transient ischemic dilatation not present ? EKG is nondiagnostic for ischemia Airway Mallampati Class: II TM Dist: >3cm Neck ROM: Limited (S/p cervical disc fx 2021, no surgical repair) Denture: Upper and Lower Heart: RRR Lungs: CTAB Assessment and Plan Assessment Anesthesia Assessment: Anesthesia Plan Discussed and PAT Visit Final Anesthetic Review Family History of Problems with Anesthesia: No History of Problems with Anesthesia: No
--- NOTE | ~2022-08-05 | NM_ITS ---
EXAMINATION: NM LYMPH SCINTIGRAPHY CLINICAL INFORMATION: Melanoma excision. COMPARISON: None available. TECHNIQUE: Following explaining sentinel node procedure, benefits and risks, a written consent was obtained. The area around the melanoma excision site inferior umbilical region was cleaned and draped. 0.5 mCi of 99M Lymphoseek was divided in 4 equal doses and was injected in 4 quadrants around the surgical site and imaging was obtained at 30 and 60 minutes. Patient tolerated procedure extremely well. FINDINGS: There are 4 foci of activity seen around the melanoma site surgery inferior to the umbilicus. No abnormal activity seen in the retroperitoneum, mediastinum, shoulders or the pelvis. NM/NM sentinel node w imaging IMPRESSION: [place] node imaging reveals no abnormal lymph node activity on whole body imaging.
[2022-08-05 07:15] VITALS: BP 146/84; PULSE 91; RESP 16; TEMP 36.6; O2SAT 100
[2022-08-05 07:22] LABS: Glucose, Whole Blood 167 mg/dL (60-115)
--- NOTE | 2022-08-05 07:27 | MHC.SHP ---
Pre-Procedural Eval Section A Date of Service: 08/05/22 The patient is an INPATIENT: No Changes since office visit: Yes Patient answered all questions; No Cold of Flu in the past 2 weeks, No New Medical Problems and No Changes in Medication The History & Physical has been completed within 30 days and I have reviewed it.: Yes Section B Chief Complaint: Malignant melanoma of skin, unspecified Allergies: Allergies Allergy/AdvReac Type Severity Reaction Status Date / Time silver Allergy Intermediate skin Verified 08/02/22 11:42 [From TEGADERM AG MESH] sloughing morphine [MORPHINE] AdvReac Intermediate Vomiting Verified 08/02/22 11:42 Plan Diagnosis/Plan: Unchanged I have reviewed the history and physical and performed a pertinent physical examination on my patient. No changes have occurred unless specified. Time Spent With Patient Time: Total time managing care of this patient today ____ minutes.
[2022-08-05 07:32] LABS: INTERNATIONAL NORM RATIO 1.1 (0.9-1.1); Prothrombin Time 12.5 SEC (10.0-13.1)
[2022-08-05] MEDS: Lidocaine 4 % Cream KIT 1 APPL TOPICAL (07:35)
--- NOTE | 2022-08-05 07:35 | P.CONAN_ITS ---
REPLACED BY [facility] Active Problems Active Problems: All Active Problems (Updated 07/29/22 @ 10:38 by Karla Tamez RN) CLL (chronic lymphocytic leukemia) (Acute) Patellofemoral pain syndrome of both knees (Acute) Nephrolithiasis (Acute) Pain of both scapulas (Acute) PVC (premature ventricular contraction) (Acute) Atrial tachycardia (Acute) Precordial chest pain (Acute) Bilateral post-traumatic osteoarthritis of knee (Acute) Bilateral primary osteoarthritis of knee (Acute) Atherosclerotic cardiovascular disease (Acute) Trigger finger, left ring finger (Acute) Trochanteric bursitis of right hip (Acute) Orthostatic hypotension (Acute) Low back pain syndrome (Acute) Anemia (Acute) Melanoma (Acute) Tachycardia (Acute) Headache above the eye region (Acute) Cryptococcosis (Acute) Dyslipidemia (Acute) Past Medical History Medical History (Updated 07/29/22 @ 10:38 by Karla Tamez RN) BPH (benign prostatic hyperplasia) CKD (chronic kidney disease) stage 3, GFR 30-59 ml/min CLL (chronic lymphocytic leukemia) Cryptococcosis Current use of anticoagulant therapy Diabetes Diabetes type 2, 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 DVT (deep venous thrombosis) Dyslipidemia Gout Headache above the eye region History of COVID-19 Melanoma Mitral annular calcification Tachycardia Family History Family History Other Family history of cancer in sister Family history of problems with anesthesia: No Surgical History Surgical History (Updated 07/29/22 @ 11:10 by Karla Tamez RN) H/O colonoscopy H/O inguinal hernia repair H/O umbilical hernia repair History of esophagogastroduodenoscopy (EGD) Hx of basal cell carcinoma excision Hx of cataract surgery Hx of cystoscopy Hx of lymph node excision Hx of melanoma excision S/P appendectomy S/P TURP History of Problems with Anesthesia: No Social History Social History Household Members: Spouse Housing: House Are you a primary career development coordinator/teacher to a significant other at home: No Do you presently have visiting nurse or other home services: No Alcohol intake: never Patient Tobacco Use Status: Never used Tobacco Second Hand Smoke Exposure: No Use of substances other than those prescribed or required for medical reasons: No Have you been hit, kicked, punched, or otherwise hurt by someone within the past year? If so, by whom?: No Are you DNR?: Yes Advance Directives: Yes (HCP & MOLST) Advance Directives Information Provided: Yes Advance Directives on File: Yes Advance Directives Date on File: 06/24/08 Recently lost weight without trying: No Nutrition Risks: Surgical patient >75years Poor oral hygiene: Yes (upper & lower partials) service: Yes Current occupational status: retired 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[employer] Allergies Allergy/AdvReac Type Severity Reaction Status Date / Time silver Allergy Intermediate skin Verified 08/02/22 11:42 [From TEGADERM AG MESH] sloughing morphine [MORPHINE] AdvReac Intermediate Vomiting Verified 08/02/22 11:42 Active Medications: Current Medications Lactated Ringer's (Lr) 1,000 mls @ 100 mls/hr IVCONT .Q10H YONNY Home Medications Medication Instructions Recorded Confirmed Last Taken Type cyanocobalamin (vitamin B-12) 1,000 mcg PO 3XW 02/10/20 08/02/22 02/10/20 08:00 History 1,000 mcg tablet multivitamin 1 tab PO DAILY 02/10/20 08/02/22 02/10/20 08:00 History warfarin 2.5 mg tablet 1 tab PO DAILY 05/11/20 08/02/22 Unknown History glipizide 5 mg tablet 5 mg PO DAILY 03/19/22 08/02/22 Unknown History midodrine 5 mg tablet 5 mg PO TID 03/19/22 08/02/22 Unknown History levothyroxine 50 mcg tablet 50 mcg PO DAILY 04/16/22 08/02/22 08/05/22 History enoxaparin 80 mg/0.8 mL mg subcut 08/02/22 08/02/22 Unknown History subcutaneous syringe Exam Exam Date and Time: August 05, 2022 0735 Height,Weight and Vital Signs: Height 6 ft 2 in Weight 82.554 kg Last Vital Signs Temp 97.9 F 08/05/22 07:15 Pulse 91 08/05/22 07:15 Resp 16 08/05/22 07:15 BP 146/84 H 08/05/22 07:15 Pulse Ox 100 08/05/22 07:15 O2 Del Method Room Air 08/05/22 07:15 Pertinent Lab Results Pertinent Lab Results: Laboratory Tests 08/05/22 08/05/22 07:14 07:19 PT 12.5 INR 1.1 POC Glucose 167 H Airway Mallampati Class: II TM Dist: >3cm Neck ROM: Full Denture: Upper and Lower Heart: rrr Lungs: cta Assessment and Plan Assessment Anesthesia Assessment: Anesthesia Plan Discussed and Chart Reviewed Final Anesthetic Review Family History of Problems with Anesthesia: No History of Problems with Anesthesia: No NPO: Yes ASA Class: III Final Preanesthetic Review: No Changes in Pt Med Stat, Meds/Allgs Chart Reviewed and Consent Obtained/Reviewed Patient Risk: Intermediate Procedure Risk: Intermediate Anesthetic Plan Anesthetic Plan: GA Disposition: Standard PACU
--- NOTE | 2022-08-05 11:49 | P.OP_ITS ---
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 Pathology revealed a malignant melanoma 1.4 mm in depth. He presents now for wide excision of malignant melanoma and possible sentinel node biopsy. Preoperatively the patient underwent lymphoscintigraphy however no regional lymph nodes were identified as the sentinel node. Examination with the gamma probe also revealed no areas of activity including in the bilateral groins bilateral axilla, and bilateral /supraclavicular regions. No sentinel node was obtained. Operative findings: Excision site located just below the umbilicus excise with 2 cm margins circumferentially and closed transversely. Umbilicus was included in the excision due to its proximity to the lesion. Specimen: Abdominal wall melanoma Estimated blood loss: 10 mL Complications: none Procedure details: patient was brought to the OR placed in a supine position. After administering general anesthesia the patient's abdomen was prepped with ChloraPrep and draped in a sterile fashion. A surgical time-out was called the consent confirmed. Patient received preoperative antibiotics and Venodyne boots were placed. Local anesthesia consisting of 1% lidocaine +0.5% Sensorcaine with epinephrine was infiltrated circumferentially around the umbilicus with margins of 2 cm from the original lesion. An elliptical incision was then created oriented transversely extending approximately 4.5 cm laterally on each side of the lesion and 2 cm superiorly and inferiorly. In total the excision site measured 15 x 7 cm. Incision was made with a scalpel carried out through subcutaneous tissue. Electrocautery was then used to dissect the skin and subcutaneous tissue off the muscle fascia. The lesion was excised off the muscle fascia including the umbilical skin. Hemostasis was assured all times wi th electrocautery. Specimen was then marked long suture on the left lateral margin, short suture on the superior margin, and loop suture on the right lateral margin. Specimen was sent to pathology for further examination. Hemostasis was again assured using electrocautery. Deep dermis subcutaneous tissue was then reapproximated using interrupted 3-0 Polysorb sutures. Skin was closed using a running subcuticular 4-0 Polysorb suture. Additional 4-0 nylon sutures were used to assure tension-free closure in the midline. Sterile dressings consisting of sterile gauze and Tegaderm were then applied. The patient tolerated the procedure well. Sponge, instrument, and needle counts reported as correct. The patient was transferred to PACU in stable condition. Primary Cutaneous Melanoma Original [place] thickness of the lesion: Invasive (to the tenth of a millimeter) (1.4 mm) Clinical margin from the edge of the lesion or the prior excision scar: 2 cm Depth down to the fascia; if not down to the fascia, then document why: Yes General Surg. - Synoptic Notes Primary Cutaneous Melanoma Original [place] thickness of the lesion: Invasive (to the tenth of a millimeter) (1.4 mm) Clinical margin from the edge of the lesion or the prior excision scar: 2 cm Depth down to the fascia; if not down to the fascia, then document why: Yes
[2022-08-05 12:06] VITALS: BP 156/91; PULSE 89; RESP 17; TEMP 36.6; O2SAT 99
[2022-08-05 12:11] VITALS: BP 151/85; PULSE 79; RESP 16; O2SAT 99
[2022-08-05 12:21] VITALS: BP 153/83; PULSE 78; RESP 16; O2SAT 99
[2022-08-05 12:36] VITALS: BP 150/85; PULSE 78; RESP 16; O2SAT 99
[2022-08-05 12:46] VITALS: BP 162/83; PULSE 80; RESP 16; TEMP 36.1; O2SAT 97
== END 2022-08-05 14:21 | disposition home or self-care (01) ==
PROVIDERS: Nurse Practitioner; PCP Internal Medicine; Visit Provider Surgery
PROC: (CPT 11606; principal; 2022-08-05 10:20)
PROC: (CPT 11606; 2022-08-05 10:20)
DX: C43.59 Malignant melanoma of other part of trunk (principal); Z85.820 Personal history of malignant melanoma of skin; Z80.9 Family history of malignant neoplasm, unspecified; C91.10 Chronic lymphocytic leukemia of B-cell type not having achieved remission; E11.22 Type 2 diabetes mellitus with diabetic chronic kidney disease; N18.30 Chronic kidney disease, stage 3 unspecified; N40.0 Benign prostatic hyperplasia without lower urinary tract symptoms; E78.5 Hyperlipidemia, unspecified; I95.1 Orthostatic hypotension; R51.9 Headache, unspecified; M10.9 Gout, unspecified; I34.81 Nonrheumatic mitral (valve) annulus calcification; R00.0 Tachycardia, unspecified; Z86.718 Personal history of other venous thrombosis and embolism; Z79.01 Long term (current) use of anticoagulants; Z79.84 Long term (current) use of oral hypoglycemic drugs; Z79.899 Other long term (current) drug therapy; Z88.8 Allergy status to other drugs, medicaments and biological substances; Z86.16 Personal history of COVID-19
CPT/HCPCS: 11606; 12032; 36415; 78195; 82947; 85610; 88305; A9520; J0690; J2405; J3010

== ENCOUNTER → 2022-08-09 11:07 | Outpatient (BNVA) | payer MEDICARE, SELFPAY | PROVIDERS: PCP Internal Medicine; Visit Provider Internal Medicine | DX: I26.99 Other pulmonary embolism without acute cor pulmonale (principal); Z79.01 Long term (current) use of anticoagulants; Z51.81 Encounter for therapeutic drug level monitoring | CPT/HCPCS: 85610; 99211 ==

== ENCOUNTER → 2022-08-13 08:34 | Outpatient (BNVA) | payer MEDICARE, SELFPAY | PROVIDERS: PCP Internal Medicine; Visit Provider Internal Medicine | DX: I47.1 Supraventricular tachycardia (principal); I49.3 Ventricular premature depolarization; I25.10 Atherosclerotic heart disease of native coronary artery without angina pectoris; I05.9 Rheumatic mitral valve disease, unspecified; I95.1 Orthostatic hypotension; I26.99 Other pulmonary embolism without acute cor pulmonale; Z79.01 Long term (current) use of anticoagulants; Z51.81 Encounter for therapeutic drug level monitoring | CPT/HCPCS: 85610; 99211; 99212 ==

== ENCOUNTER → 2022-08-15 10:14 | Outpatient (BNVA) | payer MEDICARE, SELFPAY | PROVIDERS: PCP Internal Medicine; Visit Provider Surgery | DX: Z48.3 Aftercare following surgery for neoplasm (principal); C43.9 Malignant melanoma of skin, unspecified | CPT/HCPCS: 99212 ==

== ENCOUNTER → 2022-08-19 08:34 | Outpatient (BNVA) | payer MEDICARE, SELFPAY | PROVIDERS: PCP Internal Medicine; Visit Provider Internal Medicine | DX: I26.99 Other pulmonary embolism without acute cor pulmonale (principal); Z51.81 Encounter for therapeutic drug level monitoring; Z79.01 Long term (current) use of anticoagulants | CPT/HCPCS: 85610; 99211 ==

== ENCOUNTER → 2022-08-22 08:18 | Outpatient (BNVA) | payer MEDICARE, SELFPAY | PROVIDERS: PCP Internal Medicine; Visit Provider Internal Medicine | DX: I26.99 Other pulmonary embolism without acute cor pulmonale (principal); Z51.81 Encounter for therapeutic drug level monitoring; Z79.01 Long term (current) use of anticoagulants | CPT/HCPCS: 85610; 99211 ==

== ENCOUNTER → 2022-08-29 08:23 | Outpatient (BNVA) | payer MEDICARE, SELFPAY | PROVIDERS: PCP Internal Medicine; Visit Provider Internal Medicine | DX: I26.99 Other pulmonary embolism without acute cor pulmonale (principal); Z79.01 Long term (current) use of anticoagulants; Z51.81 Encounter for therapeutic drug level monitoring | CPT/HCPCS: 85610; 99211 ==

== ENCOUNTER → 2022-09-05 08:21 | Outpatient (BNVA) | payer MEDICARE, SELFPAY | PROVIDERS: PCP Internal Medicine; Visit Provider Internal Medicine | DX: I26.99 Other pulmonary embolism without acute cor pulmonale (principal); Z79.01 Long term (current) use of anticoagulants; Z51.81 Encounter for therapeutic drug level monitoring | CPT/HCPCS: 85610; 99211 ==

== ENCOUNTER 2022-09-09 08:32 | Outpatient (REF) | payer MEDICARE, SELFPAY ==
[2022-09-09 12:08] LABS: Anion Gap 15 (12-20); Blood Urea Nitrogen 23 mg/dL (9-16); Calcium 9.1 mg/dL (8.4-10.2); Carbon Dioxide 24 mmol/L (22-29); Chloride 110 mmol/L (96-108); Estimated Glomerular Filt Rate 46; Potassium 4.7 mmol/L (3.3-5.1); Sodium 144 mmol/L (135-145); Uric Acid 4.8 mg/dL (3.4-7.0)
== END 2022-09-09 08:33 | disposition home or self-care (01) ==
LOC: HO.HMGCLDS 08:32
PROVIDERS: PCP Internal Medicine; Visit Provider Internal Medicine Nephrology
DX: I12.9 Hypertensive chronic kidney disease with stage 1 through stage 4 chronic kidney disease, or unspecified chronic kidney disease (principal); N18.31 Chronic kidney disease, stage 3a; N20.0 Calculus of kidney
CPT/HCPCS: 36415; 80051; 82310; 82565; 84520; 84550

== ENCOUNTER → 2022-09-18 08:53 | Outpatient (BNVA) | payer MEDICARE, SELFPAY | PROVIDERS: PCP Internal Medicine; Visit Provider Internal Medicine | DX: I26.99 Other pulmonary embolism without acute cor pulmonale (principal); Z79.01 Long term (current) use of anticoagulants; Z51.81 Encounter for therapeutic drug level monitoring | CPT/HCPCS: 85610; 99211 ==

== ENCOUNTER 2022-10-02 08:14 | Outpatient (REF) | payer MEDICARE, SELFPAY ==
[2022-10-02 11:13] LABS: MANUAL DIFF FLAG NO
[2022-10-02 11:32] LABS: Basophils Percent Auto 0.1 % (0-2); Eosinophils Absolute Auto 0.1 X10*3/uL (0.0-0.4); Eosinophils Percent Auto 1.2 % (0-4); Hematocrit 38.4 % (42.0-52.0); Hemoglobin 12.3 g/dl (14.0-18.0); Imm Gran Abs Auto 0.03 X10*3/uL (0.00-0.03); Imm Gran Pct Auto 0.3 % (0.0-0.4); Lymphocytes Absolute Auto 1.5 X10*3/uL (1.2-4.9); Lymphocytes Percent Auto 16.7 % (20-40); Mean Corpuscular Hemoglobin 35.5 pg (27.0-33.0); Mean Platelet Volume 10.1 fL (9.4-12.4); Monocytes Percent Auto 11.3 % (2-11); Neutrophils Absolute Auto 6.3 x10*3/uL (2.0-8.3); Neutrophils Percent Auto 70.4 % (45-73); Platelet Count 133 X10*3/uL (160-400); Red Blood Count 3.46 X10*6/uL (4.60-5.80); Red Cell Distribution Width 13.6 % (11.0-16.0); White Blood Count 8.9 X10*3/uL (4.8-10.8)
[2022-10-02 11:45] LABS: Estimated Average Glucose 163 mg/dL; Hemoglobin A1c % 7.3 %
[2022-10-02 12:35] LABS: Alanine Aminotransferase 15 U/L (0-40); Albumin Level 3.6 g/dL (3.5-5.0); Alkaline Phosphatase 129 U/L (39-117); Anion Gap 14 (12-20); Aspartate Amino Transferase 17 U/L (5-37); Bilirubin Total 0.7 mg/dL (0.0-1.0); Blood Urea Nitrogen 15 mg/dL (9-16); Carbon Dioxide 24 mmol/L (22-29); Chloride 112 mmol/L (96-108); Cholesterol 99 mg/dL; Estimated Glomerular Filt Rate 42; Glucose Random 166 mg/dL (60-115); HDL Cholesterol 37 mg/dL; LDL Cholesterol Calculated 45 mg/dl; Potassium 4.8 mmol/L (3.3-5.1); Sodium 145 mmol/L (135-145); Total Protein 5.4 g/dL (6.5-8.0); Triglycerides 88 mg/dL
[2022-10-02 12:55] LABS: Thyroid Stimulating Hormone 6.96 uIU/mL (0.32-4.0)
== END 2022-10-02 08:15 | disposition home or self-care (01) ==
LOC: HO.HMGCLDS 08:14
PROVIDERS: Internal Medicine Medical Oncology; PCP Internal Medicine; Visit Provider Internal Medicine
DX: C91.10 Chronic lymphocytic leukemia of B-cell type not having achieved remission (principal); E11.29 Type 2 diabetes mellitus with other diabetic kidney complication; I26.99 Other pulmonary embolism without acute cor pulmonale; E03.9 Hypothyroidism, unspecified; Z87.39 Personal history of other diseases of the musculoskeletal system and connective tissue; Z51.81 Encounter for therapeutic drug level monitoring; Z79.01 Long term (current) use of anticoagulants
CPT/HCPCS: 36415; 80053; 80061; 83036; 84443; 85025; 85610; 99211

== ENCOUNTER → 2022-10-16 09:20 | Outpatient (BNVA) | payer MEDICARE, SELFPAY | PROVIDERS: PCP Internal Medicine; Visit Provider Internal Medicine | DX: I26.99 Other pulmonary embolism without acute cor pulmonale (principal); Z79.01 Long term (current) use of anticoagulants; Z51.81 Encounter for therapeutic drug level monitoring | CPT/HCPCS: 85610; 99211 ==

== ENCOUNTER 2022-11-06 08:55 | Emergency (ER) | payer MEDICARE, SELFPAY ==
--- NOTE | ~2022-11-06 | US_ITS ---
EXAMINATION: US VENOUS ULTRASOUND WITH DOPPLER LOWER EXTREMITY, LEFT CLINICAL INFORMATION: Left leg swelling. COMPARISON: 01/18/2020 TECHNIQUE: Ultrasound of the deep veins is performed from the hip to the calf with compression sonography and color and pulse Doppler assessment. Spectral analysis with color-flow imaging is performed. FINDINGS: There is normal venous compression and respiratory variation and augmented flow. The visualized common femoral vein, superficial femoral vein, profunda femoral vein, popliteal vein, and the trifurcation region shows no evidence of deep venous thrombosis. If the patient's symptoms persist, followup ultrasound in 5 days 7 days might be of value to exclude proximal propagation from a non-visualized calf vein. US/US venous duplex LE IMPRESSION: No DVT demonstrated in the left lower extremity.
--- NOTE | ~2022-11-06 | XR_ITS ---
EXAMINATION: XR CHEST CLINICAL INFORMATION: Left-sided chest pain. COMPARISON: 01/23/2022 TECHNIQUE: 2 views of the chest were obtained. FINDINGS: The lungs are hyperexpanded. New 1.4 cm nodular opacity in the right midlung. No pleural effusion. Cardiac silhouette is unchanged. XR/XR chest 2V IMPRESSION: New 1.4 cm nodular opacity identified in the right midlung. Chest CT is recommended for further evaluation.
--- NOTE | 2022-11-06 08:56 | ECG_ITS ---
Test Reason : cp Blood Pressure : / mmHG Vent. Rate : 109 BPM Atrial Rate : 109 BPM P-R Int : 178 ms QRS Dur : 072 ms QT Int : 336 ms P-R-T Axes : 087 054 038 degrees QTc Int : 452 ms Sinus tachycardia with Premature atrial complexes Low voltage QRS Nonspecific ST abnormality Abnormal ECG When compared with ECG of 29-JUL-2022 11:11, No significant change was found Referred By: Generic ED Physician Electronically Signed By:Josiah Zhang
--- NOTE | 2022-11-06 09:09 | ED.GENADULT ---
HPI - General Adult General Chief complaint: Chest Pain Stated complaint: chest pain Time Seen by Provider: 11/06/22 09:01 Source: patient Mode of arrival: ambulatory Limitations: no limitations History of Present Illness HPI narrative: 87-year-old male presents with left-sided chest pain. Chest pain started 1 week ago. Got worse over the last 24 hours. Describes the pain as sharp and point specific. The pain does not radiate. Worse with deep inspiration. He denies any coughing, fevers, chills, mucus production. The pain is moderate in nature. He rates it as a 3 to 4/10. Patient denies any additional symptoms at this time Related Data Home Medications Medication Instructions Recorded Confirmed cyanocobalamin (vitamin B-12) 1,000 mcg PO 3XW 02/10/20 10/16/22 1,000 mcg tablet multivitamin 1 tab PO DAILY 02/10/20 10/16/22 glipizide 5 mg tablet 5 mg PO DAILY 03/19/22 10/16/22 levothyroxine 50 mcg tablet 50 mcg PO DAILY 04/16/22 10/16/22 warfarin 2.5 mg tablet 2.5 mg PO DAILY 08/13/22 11/06/22 Previous Rx's Medication Instructions Recorded blood sugar diagnostic (OneTouch #300 ea 09/13/20 Verio test strips) lancets 33 gauge (OneTouch Delica #300 ea 09/13/20 Lancets) blood-glucose meter (OneTouch #1 ea 03/28/21 Verio Flex Start kit) allopurinol 100 mg tablet 100 mg PO DAILY #90 tabs 12/10/21 atorvastatin 20 mg tablet 20 mg PO BEDTIME #30 tabs 07/05/22 lidocaine 5 % topical patch 1 patch topical DAILY #15 ea 11/06/22 Allergies Allergy/AdvReac Type Severity Reaction Status Date / Time silver Allergy Intermediate skin Verified 11/06/22 08:18 [From TEGADERM AG MESH] sloughing morphine [MORPHINE] AdvReac Intermediate Vomiting Verified 11/06/22 08:18 Review of Systems Review of Systems: CONSTITUTIONAL: Denies weight loss, fever and chills. HEENT: Denies changes in vision and hearing. RESPIRATORY: Denies SOB and cough. CV: Denies palpitations +CP. GI: Denies abdominal pain, nausea, vomiting and diarrhea. : Denies dysuria and urinary frequency. MSK: Denies myalgia and joint pain. SKIN: Denies rash and pruritus. NEUROLOGICAL: Denies headache and syncope. PSYCHIATRIC: Denies recent changes in mood. Denies anxiety and depression. All other ROS are negative unless in HPI PMFSH Past Medical History Medical History BPH (benign prostatic hyperplasia) CKD (chronic kidney disease) stage 3, GFR 30-59 ml/min CLL (chronic lymphocytic leukemia) Cryptococcosis Current use of anticoagulant therapy Diabetes Diabetes type 2, 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 DVT (deep venous thrombosis) Dyslipidemia Gout Headache above the eye region History of COVID-19 Melanoma Mitral annular calcification Tachycardia Surgical History H/O colonoscopy H/O inguinal hernia repair H/O umbilical hernia repair History of esophagogastroduodenoscopy (EGD) History of excision of lesion (08/05/22) Hx of basal cell carcinoma excision Hx of cataract surgery Hx of cystoscopy Hx of lymph node excision Hx of melanoma excision S/P appendectomy S/P TURP Family History Family History Other Family history of cancer in sister Social History Social History Household Members: Spouse Housing: House Are you a primary transitional care nurse to a significant other at home: No Do you presently have visiting nurse or other home services: No Alcohol intake: never Patient Tobacco Use Status: Never used Tobacco Second Hand Smoke Exposure: No Advance Directives: Yes Advance Directives on File: Yes Advance Directives Date on File: 01/23/22 service: Yes Current occupational status: retired 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 Physical Exam ED Vital Signs: Vital Signs - 24 hr 11/06/22 09:24 11/06/22 09:27 Temperature 98 F Pulse Rate 88 89 Respiratory Rate 18 19 Blood Pressure 134/76 Pulse Oximetry 98 Oxygen Delivery Method Room Air BMI result Body Mass Index 24.4 GEN: Well developed, no acute distress, alert, oriented HEENT: Normocephalic, atraumatic, normal external ears, nose appears normal, no oropharyngeal edema or exudates Eyes: Normal to appearance Neck: Supple, no lymphadenopathy Respiratory: Talks in complete sentences, no respiratory distress, clear to auscultation bilaterally Cardiovascular: Regular rate and rhythm, no murmurs rubs or gallops Abdomen: Soft, nontender, nondistended, no guarding, no rebound Back: No CVA tenderness Extremities: No clubbing cyanosis or edema Neurologic: No focal neurologic deficits, cranial nerves 2-12 intact, strength is 5/5 bilaterally Skin: No rash Chest: Reproducible point tenderness at the left upper anterior chest wall in the midclavicular line Course Course Course Narrative: The workup is complete at this time. Chest x-ray shows no acute cardiopulmonary disease. There is a pulmonary nodule noted. This was discussed with the patient. Appears to have been evaluated in the past. He can follow up with his primary care provider for further imaging including a CT scan. His chest pain improved with a Lidoderm patch. He had asymmetric edema of the left lower extremity. Ultrasound was negative for DVT. Cardiac enzyme was negative. An EKG was nonischemic. Given the duration of his symptoms, doubt acute coronary syndrome. His troponin is virtually diagnostic given 1 week of intermittent/constant chest pain. His Coumadin level as appropriate and doubt PE as well. I believe his most likely diagnosis is musculoskeletal chest pain. Will discharge the patient with a Lidoderm patch in close follow-up. Medications Administered Discontinued Medications Generic Name Dose Route Start Last Admin Trade Name Freq PRN Reason Stop Dose Admin Lidocaine 1 patch 11/06/22 09:18 11/06/22 09:22 Lidocaine 4 % Patch Adh..Patch TRANSDERMA 11/06/22 09:19 1 patch ONCE ONE Administration Protocol Medical Decision Making Medical Decision Making [facility] Narrative: 87-year-old male presents with chest pain. Is reproducible on examination. Does have some slight asymmetric edema of the lower extremity. Doubt DVT as he is on Coumadin. However, will order an ultrasound. Chest pain is most likely musculoskeletal, strain, sprain or possibly costochondritis. I doubt anatomical pathology. Will order chest x-ray to rule out pneumothorax or other possible causes of his pain. Doubt acute coronary syndrome however will order cardiac enzymes. His symptoms been going on for 1 week and therefore if he has 1- troponin, this is virtually diagnostic for no acute cardiac ischemia. EKG was nonischemic and no significant cardiac dysrhythmia. Differential Diagnosis Differential Diagnoses: The differential diagnosis associated with the presentation includes (Atypical chest pain, musculoskeletal chest pain, chest wall pain, myocardial infarction, pericarditis, myocarditis, anxiety, stress, reflux, pneumonia, pulmonary embolus, dissection) Atypical chest pain, musculoskeletal chest pain, chest wall pain, myocardial infarction, pericarditis, myocarditis, anxiety, stress, reflux, pneumonia, pulmonary embolus, dissection Lab Data MDM Lab Attestation statement: I reviewed the patient's lab results. (Patient has a normal troponin. No evidence acute coronary syndrome. Chronic kidney disease which is stable based on his creatinine level.) 11/06/22 09:17 11/06/22 09:17 Labs: Lab Results 11/06/22 11/06/22 11/06/22 Range/Units 09:17 09:17 09:17 WBC 9.4 (4.8-10.8) X10*3/uL RBC 3.72 L (4.60-5.80) X10*6/uL Hgb 12.9 L (14.0-18.0) g/dl Hct 39.9 L (42.0-52.0) % MCV 107.3 H (80.0-98.0) fL MCH 34.7 H (27.0-33.0) pg MCHC 32.3 (31.0-36.0) g/dl RDW 13.2 (11.0-16.0) % Plt Count 151 L (160-400) X10*3/uL MPV 9.8 (9.4-12.4) fL Immature Gran % (Auto) 0.6 H (0.0-0.4) % Neut % (Auto) 71.4 (45-73) % Lymph % (Auto) 16.0 L (20-40) % Nobles % (Auto) 10.3 (2-11) % Eos % (Auto) 1.5 (0-4) % Baso % (Auto) 0.2 (0-2) % Lymph # (Auto) 1.5 (1.2-4.9) X10*3/uL Nobles # (Auto) 1.0 (0.1-1.2) X10*3/uL Eos # (Auto) 0.1 (0.0-0.4) X10*3/uL Baso # (Auto) 0.0 (0.0-0.2) X10*3/uL Abs Immat Gran (auto) 0.06 H (0.00-0.03) X10*3/uL Absolute Neuts (auto) 6.7 (2.0-8.3) x10*3/uL Absolute Nucleated RBC 0.000 (0.0-0.012) X10*3/uL Nucleated RBC % (auto) 0.0 (0.0-0.2) /100WBC PT 27.2 H (10.0-13.1) SEC INR 2.3 H (0.9-1.1) Sodium 141 (135-145) mmol/L Potassium 4.3 (3.3-5.1) mmol/L Chloride 111 H (96-108) mmol/L Carbon Dioxide 18 L (22-29) mmol/L Anion Gap 16 (12-20) BUN 23 H (9-16) mg/dL Creatinine 1.64 H (0.5-1.4) mg/dL Estim Creat Clear Calc 36.8 Estimated GFR 40 Random Glucose 206 H (60-115) mg/dL Calcium 9.2 (8.4-10.2) mg/dL Troponin I High Sens (<3.5-35.0) ng/L 11/06/22 Range/Units 09:17 WBC (4.8-10.8) X10*3/uL RBC (4.60-5.80) X10*6/uL Hgb (14.0-18.0) g/dl Hct (42.0-52.0) % MCV (80.0-98.0) fL MCH (27.0-33.0) pg MCHC (31.0-36.0) g/dl RDW (11.0-16.0) % Plt Count (160-400) X10*3/uL MPV (9.4-12.4) fL Immature Gran % (Auto) (0.0-0.4) % Neut % (Auto) (45-73) % Lymph % (Auto) (20-40) % Nobles % (Auto) (2-11) % Eos % (Auto) (0-4) % Baso % (Auto) (0-2) % Lymph # (Auto) (1.2-4.9) X10*3/uL Nobles # (Auto) (0.1-1.2) X10*3/uL Eos # (Auto) (0.0-0.4) X10*3/uL Baso # (Auto) (0.0-0.2) X10*3/uL Abs Immat Gran (auto) (0.00-0.03) X10*3/uL Absolute Neuts (auto) (2.0-8.3) x10*3/uL Absolute Nucleated RBC (0.0-0.012) X10*3/uL Nucleated RBC % (auto) (0.0-0.2) /100WBC PT (10.0-13.1) SEC INR (0.9-1.1) Sodium (135-145) mmol/L Potassium (3.3-5.1) mmol/L Chloride (96-108) mmol/L Carbon Dioxide (22-29) mmol/L Anion Gap (12-20) BUN (9-16) mg/dL Creatinine (0.5-1.4) mg/dL Estim Creat Clear Calc Estimated GFR Random Glucose (60-115) mg/dL Calcium (8.4-10.2) mg/dL Troponin I High Sens 11.0 (<3.5-35.0) ng/L Independent Interpretation I performed an independent interpretation of an: EKG (Sinus tachycardia heart rate 109, low voltage, nonspecific T-wave changes, no acute ST elevations depressions.) and Plain X-Ray (Chest: No acute cardiopulmonary disease) Radiology Impression Discussion of test interpretation with radiology: I have reviewed the radiologist's reading. (Chest: No acute cardiopulmonary disease, pulmonary nodule noted.) Tests considered The following testing was considered but not selected: CT scan of the chest for pulmonary nodule however patient apparently has been followed for this issue previously. Prescription Management I considered prescription management with: Pain Medication Discharge Plan Discharge Clinical Impression: Chest wall tenderness, Pulmonary nodule, Leg edema, left Patient Disposition: Home, Self-Care Instructions: Leg Edema (ED), Pulmonary Nodules (ED), Chest Wall Pain (ED) Prescriptions: New lidocaine 5 % adhesive patch,medicated 1 patch topical DAILY Qty: 15 0RF Rx Instructions: leave on most painful area for up to 12 hrs No Action (DME) blood-glucose meter [[employer] Verio Flex Start] Kit See Rx Instructions .Route Qty: 1 0RF Rx Instructions: As directed to check blood glucose 3x/day allopurinol 100 mg tablet 100 mg PO DAILY Qty: 90 4RF atorvastatin 20 mg tablet 20 mg PO BEDTIME Qty: 30 5RF multivitamin Tablet 1 tab PO DAILY cyanocobalamin (vitamin B-12) 1,000 mcg Tablet 1,000 mcg PO 3XW warfarin 2.5 mg tablet 2.5 mg PO DAILY Hold Instructions: Resume on 08/06/22. Protocol: Dose Management Condition: Friday (Week One) Dose/Route: 5 mg Instruction: 2 x 2.5 mg tablets Condition: Friday Dose/Route: 2.5 mg Instruction: 1 x 2.5 mg tablet Condition: Friday Dose/Route: 5 mg Instruction: 2 x 2.5 mg tablets Condition: Friday Dose/Route: 2.5 mg Instruction: 1 x 2.5 mg tablet Condition: Dose/Route: 5 mg Instruction: 2 x 2.5 mg tablets Condition: Friday Dose/Route: 2.5 mg Instruction: 1 x 2.5 mg tablet Condition: Friday Dose/Route: 5 mg Instruction: 2 x 2.5 mg tablets Condition: Friday (Week Two) Dose/Route: 5 mg Instruction: 2 x 2.5 mg tablets Condition: Friday Dose/Route: 2.5 mg Instruction: 1 x 2.5 mg tablet Condition: Friday Dose/Route: 5 mg Instruction: 2 x 2.5 mg tablets Condition: Friday Dose/Route: 2.5 mg Instruction: 1 x 2.5 mg tablet Condition: Dose/Route: 5 mg Instruction: 2 x 2.5 mg tablets Condition: Friday Dose/Route: 2.5 mg Instruction: 1 x 2.5 mg tablet Condition: Friday Dose/Route: 5 mg Instruction: 2 x 2.5 mg tablets Protocol Text: Adjustment Start Date: Friday11/06/22 INR Value: 2.3 INR Date: 11/06/22 Recheck Date: 12/04/22 (DME) lancets [OneTouch Delica Lancets] 33 gauge misc See Rx Instructions .ROUTE .MEDSUPPLY Qty: 300 3RF Rx Instructions: 3 times a day (DME) OneTouch Verio test strips Strip See Rx Instructions .ROUTE .MEDSUPPLY Qty: 300 3RF Rx Instructions: 3 times a day glipizide 5 mg tablet 5 mg PO DAILY levothyroxine 50 mcg tablet 50 mcg PO DAILY Referrals: Abel Velasco MD [Primary Care Provider] - 5 days
[2022-11-06 09:22] LABS: MANUAL DIFF FLAG NO
[2022-11-06] MEDS: Lidocaine 4 % Patch ADH..PATCH 1 PATCH TRANSDERMA (09:22)
[2022-11-06 09:24] VITALS: BP 134/76; PULSE 88; RESP 18; TEMP 36.6; O2SAT 98; BMI 24.4
[2022-11-06 09:24] LABS: Basophils Percent Auto 0.2 % (0-2); Eosinophils Absolute Auto 0.1 X10*3/uL (0.0-0.4); Eosinophils Percent Auto 1.5 % (0-4); Hematocrit 39.9 % (42.0-52.0); Hemoglobin 12.9 g/dl (14.0-18.0); Imm Gran Abs Auto 0.06 X10*3/uL (0.00-0.03); Imm Gran Pct Auto 0.6 % (0.0-0.4); Lymphocytes Absolute Auto 1.5 X10*3/uL (1.2-4.9); Mean Corpuscular HGB Conc 32.3 g/dl (31.0-36.0); Mean Corpuscular Hemoglobin 34.7 pg (27.0-33.0); Mean Corpuscular Volume 107.3 fL (80.0-98.0); Mean Platelet Volume 9.8 fL (9.4-12.4); Monocytes Percent Auto 10.3 % (2-11); Neutrophils Absolute Auto 6.7 x10*3/uL (2.0-8.3); Neutrophils Percent Auto 71.4 % (45-73); Platelet Count 151 X10*3/uL (160-400); Red Blood Count 3.72 X10*6/uL (4.60-5.80); Red Cell Distribution Width 13.2 % (11.0-16.0); White Blood Count 9.4 X10*3/uL (4.8-10.8)
[2022-11-06 09:27] VITALS: PULSE 89; RESP 19
[2022-11-06 09:34] LABS: INTERNATIONAL NORM RATIO 2.3 (0.9-1.1); Prothrombin Time 27.2 SEC (10.0-13.1)
[2022-11-06 09:38] LABS: Anion Gap 16 (12-20); Blood Urea Nitrogen 23 mg/dL (9-16); Calcium 9.2 mg/dL (8.4-10.2); Carbon Dioxide 18 mmol/L (22-29); Chloride 111 mmol/L (96-108); Creatinine Clr Calc Pharmacy 36.8; Estimated Glomerular Filt Rate 40; Glucose Random 206 mg/dL (60-115); Potassium 4.3 mmol/L (3.3-5.1); Sodium 141 mmol/L (135-145)
[2022-11-06 11:28] VITALS: BP 144/76; PULSE 76; RESP 17; O2SAT 97
== END 2022-11-06 11:29 | disposition home or self-care (01) ==
PROVIDERS: Emergency Provider Emergency Medicine; PCP Internal Medicine
DX: R91.1 Solitary pulmonary nodule (principal); R60.0 Localized edema; R07.9 Chest pain, unspecified; E11.22 Type 2 diabetes mellitus with diabetic chronic kidney disease; N18.30 Chronic kidney disease, stage 3 unspecified; Z79.84 Long term (current) use of oral hypoglycemic drugs; Z86.718 Personal history of other venous thrombosis and embolism; Z79.01 Long term (current) use of anticoagulants; Z79.899 Other long term (current) drug therapy
CPT/HCPCS: 36415; 71046; 80048; 84484; 85025; 85610; 93005; 93971; 99211; 99284

== ENCOUNTER 2022-12-04 08:03 | Outpatient (AMB) | payer MEDICARE, SELFPAY ==
--- NOTE | 2022-12-04 08:27 | MHC.OFFVISCO ---
Intake Intake Visit Reasons: Anticoagulation Allergies silver [From TEGADERM AG MESH] Allergy (Intermediate, Verified 12/04/22 08:21) skin sloughing morphine [MORPHINE] Adverse Reaction (Intermediate, Verified 12/04/22 08:21) Vomiting Medication List - Last Reconciled 12/04/22 by Sonia Womack, RN allopurinol 100 mg PO DAILY atorvastatin 20 mg PO BEDTIME blood sugar diagnostic ([employer] Verio test strips) 3 times a day blood-glucose meter ([employer] Verio Flex Start kit) As directed to check blood glucose 3x/day cyanocobalamin (vitamin B-12) 1,000 mcg PO 3XW glipizide 5 mg PO DAILY lancets ([employer] Delica Lancets) 3 times a day levothyroxine 50 mcg PO DAILY lidocaine 5% 1 patch topical DAILY multivitamin 1 tab PO DAILY warfarin 2.5 mg See Protocol PO DAILY Nursing Note INR -4.3-? out of therapeutic range Medications and supplements reviewed Patient status: pt states finished 7 day course of antibiotics approx one week ago, did not call acs Medications or supplements: no changes Diet: same Denies any signs and symptoms of bleeding or clotting or unusual bruising Bleeding, bruising, clotting discussed Nutritional guidance given: eat greens to lower inr Dose: hold warfarin today, 2.5mg tomm then cont reg 2.5mg x 3, 5mg x 4 F/U INR Date : 1 week?? Patient verbalizing understanding of instructions given. 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
[2022-12-04 08:35] LABS: Prothrombin Time Whole Bld POC 52.1 sec (11.1-13.5); ~PT, ~INR - Anti Coag Clinic 4.3 (0.9-1.1)
== END 2022-12-04 08:35 | disposition home or self-care (01) ==
LOC: HO.ACS 08:03
PROVIDERS: PCP Internal Medicine; Visit Provider Internal Medicine
DX: Z79.01 Long term (current) use of anticoagulants (principal)

== ENCOUNTER → 2022-12-04 08:03 | Outpatient (BNVA) | payer MEDICARE, SELFPAY | PROVIDERS: PCP Internal Medicine; Visit Provider Internal Medicine | DX: I26.99 Other pulmonary embolism without acute cor pulmonale (principal); Z79.01 Long term (current) use of anticoagulants; Z51.81 Encounter for therapeutic drug level monitoring | CPT/HCPCS: 85610; 99211 ==

== ENCOUNTER 2022-12-09 08:17 | Outpatient (AMB) | payer MEDICARE, SELFPAY ==
--- NOTE | 2022-12-09 08:45 | MHC.OFFVISCO ---
Intake Intake Visit Reasons: Anticoagulation Allergies silver [From TEGADERM AG MESH] Allergy (Intermediate, Verified 12/09/22 08:36) skin sloughing morphine [MORPHINE] Adverse Reaction (Intermediate, Verified 12/09/22 08:36) Vomiting Medication List - Last Reconciled 12/09/22 by Beryl Patrick RN allopurinol 100 mg PO DAILY atorvastatin 20 mg PO BEDTIME blood sugar diagnostic ([employer] Verio test strips) 3 times a day blood-glucose meter ([employer] Verio Flex Start kit) As directed to check blood glucose 3x/day cyanocobalamin (vitamin B-12) 1,000 mcg PO 3XW doxycycline hyclate 100 mg PO BID glipizide 5 mg PO DAILY lancets ([employer] Delica Lancets) 3 times a day levothyroxine 50 mcg PO DAILY lidocaine 5% 1 patch topical DAILY multivitamin 1 tab PO DAILY warfarin 2.5 mg See Protocol PO DAILY Nursing Note INR: 2.3 in therapeutic range- FOR MOH'S PROCEDURE Medications and supplements reviewed No changes in health, diet, medications, or supplements, Denies any signs and symptoms of bleeding or bruising or clotting. Bleeding, bruising, clotting discussed Nutritional guidance given Dose: RESUME 2.5MG MWF/ 5MG X 4 DAYS F/U INR: 12/19/22 815 Patient verbalizes understanding of instructions given Anti-Coag Initial Assessment Social Hx Patient Tobacco Use Status: Never used Tobacco alcohol intake: never Alcohol intake frequency: does not drink Coding Level of Care Code Est Patient Level 1 Diagnoses Current use of anticoagulant therapy Z79.01 Results AMB INR Fingerstick AMB INR Fingerstick 2.3 Last Edit by Beryl Patrick RN on 12/09/22 08:47 MANUAL ENTRY Assessment & Plan Assessment & Plan (1) Current use of anticoagulant therapy: Code(s): Z79.01 - intermediate (current) use of anticoagulants
[2022-12-09 08:51] LABS: Prothrombin Time Whole Bld POC 27.4 sec (11.1-13.5); ~PT, ~INR - Anti Coag Clinic 2.3 (0.9-1.1)
== END 2022-12-09 08:53 | disposition home or self-care (01) ==
LOC: HO.ACS 08:17
PROVIDERS: PCP Internal Medicine; Visit Provider Internal Medicine
DX: Z79.01 Long term (current) use of anticoagulants (principal)

== ENCOUNTER → 2022-12-09 08:17 | Outpatient (BNVA) | payer MEDICARE, SELFPAY | PROVIDERS: PCP Internal Medicine; Visit Provider Internal Medicine | DX: I26.99 Other pulmonary embolism without acute cor pulmonale (principal); Z79.01 Long term (current) use of anticoagulants; Z51.81 Encounter for therapeutic drug level monitoring | CPT/HCPCS: 85610; 99211 ==

== ENCOUNTER 2022-12-19 08:10 | Outpatient (AMB) | payer MEDICARE, SELFPAY ==
[2022-12-19 08:15] LABS: Prothrombin Time Whole Bld POC 32.6 sec (11.1-13.5); ~PT, ~INR - Anti Coag Clinic 2.7 (0.9-1.1)
--- NOTE | 2022-12-19 08:15 | MHC.OFFVISCO ---
Intake Intake Visit Reasons: Anticoagulation Allergies silver [From TEGADERM AG MESH] Allergy (Intermediate, Verified 12/19/22 08:11) skin sloughing morphine [MORPHINE] Adverse Reaction (Intermediate, Verified 12/19/22 08:11) Vomiting Medication List - Last Reconciled 12/19/22 by Sonia Womack, RN allopurinol 100 mg PO DAILY atorvastatin 20 mg PO BEDTIME blood sugar diagnostic ([email or web address] Verio test strips) 3 times a day blood-glucose meter ([employer] Verio Flex Start kit) As directed to check blood glucose 3x/day cyanocobalamin (vitamin B-12) 1,000 mcg PO 3XW glipizide 5 mg PO DAILY lancets ([email or web address] Delica Lancets) 3 times a day levothyroxine 50 mcg PO DAILY lidocaine 5% 1 patch topical DAILY multivitamin 1 tab PO DAILY warfarin 2.5 mg See Protocol PO DAILY Nursing Note INR: 2.7- in therapeutic range Medications and supplements reviewed No changes in health, diet, medications, or supplements, Denies any signs and symptoms of bleeding or bruising or clotting. Bleeding, bruising, clotting discussed Nutritional guidance given Dose: 2.5mg x 3, 5mg x 4 F/U INR: 2 weeks Patient verbalizes understanding of instructions given s/p moh's procedure- has alexander boot Anti-Coag Initial Assessment Social Hx Patient Tobacco Use Status: Never used Tobacco alcohol intake: never Alcohol intake frequency: does not drink Coding Level of Care Code Est Patient Level 1 Diagnoses Current use of anticoagulant therapy Z79.01 Assessment & Plan Assessment & Plan (1) Current use of anticoagulant therapy: Code(s): Z79.01 - prison (current) use of anticoagulants
== END 2022-12-19 08:25 | disposition home or self-care (01) ==
LOC: HO.ACS 08:10
PROVIDERS: PCP Internal Medicine; Visit Provider Internal Medicine
DX: Z79.01 Long term (current) use of anticoagulants (principal)

== ENCOUNTER → 2022-12-19 08:10 | Outpatient (BNVA) | payer MEDICARE, SELFPAY | PROVIDERS: PCP Internal Medicine; Visit Provider Internal Medicine | DX: I26.99 Other pulmonary embolism without acute cor pulmonale (principal); Z79.01 Long term (current) use of anticoagulants; Z51.81 Encounter for therapeutic drug level monitoring | CPT/HCPCS: 85610; 99211 ==

== ENCOUNTER 2022-12-25 08:49 | Outpatient (AMB) | payer MEDICARE, SELFPAY ==
--- NOTE | 2022-12-25 08:54 | A.OFFVIS_ITS ---
Intake VS Expanded 12/25/22 08:57 Height 6 ft 2 in Weight 188 lb 11.451 oz BMI 24.2 Intake Visit Reasons: T2DM Allergies silver [From TEGADERM AG MESH] Allergy (Intermediate, Verified 12/19/22 08:11) skin sloughing morphine [MORPHINE] Adverse Reaction (Intermediate, Verified 12/19/22 08:11) Vomiting HPI Nutrition Presentation Details Pt presents for MNT for T2DM Pt has questions regarding high fiber food choices. Reports drinking ice tea, milk lactose free , diet soda, 60 oz /d Reports having good appetite B: 2 scrambled eggs or fried eggs and 2vienna sausages on Lao muffin or oatmeal with lactose free milk L: salad with chicken or beef, water or milk D: potatoes with chicken or beef and cabbage or green beans or pierogi and beef snack : fruit cups or crackers with peanut butter or fruits Most Recent Diabetes Results: Creatinine 1.64 mg/dL (0.5-1.4) H 11/06/22 Blood Urea Nitrogen 23 mg/dL (9-16) H 11/06/22 Sodium 141 mmol/L (135-145) 11/06/22 Potassium 4.3 mmol/L (3.3-5.1) 11/06/22 Chloride 111 mmol/L (96-108) H 11/06/22 Carbon Dioxide 18 mmol/L (22-29) L 11/06/22 Calcium 9.2 mg/dL (8.4-10.2) 11/06/22 PFSH Medical History BPH (benign prostatic hyperplasia) CKD (chronic kidney disease) stage 3, GFR 30-59 ml/min CLL (chronic lymphocytic leukemia) Cryptococcosis Current use of anticoagulant therapy Diabetes Diabetes type 2, 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 DVT (deep venous thrombosis) Dyslipidemia Gout Headache above the eye region History of COVID-19 Melanoma Mitral annular calcification Tachycardia Surgical History H/O colonoscopy H/O inguinal hernia repair H/O umbilical hernia repair History of esophagogastroduodenoscopy (EGD) History of excision of lesion (08/05/22) Hx of basal cell carcinoma excision Hx of cataract surgery Hx of cystoscopy Hx of lymph node excision Hx of melanoma excision S/P appendectomy S/P TURP Family History Other Family history of cancer in sister Social History Household Members: Spouse Housing: House Are you a primary child care coordinator to a significant other at home: No Do you presently have visiting nurse or other home services: No Alcohol intake: never Patient Tobacco Use Status: Never used Tobacco Second Hand Smoke Exposure: No Advance Directives Date on File: 01/23/22 service: Yes 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 occupational status: retired 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 Assessment & Plan Assessment & Plan (1) Diabetes type 2, uncontrolled: Code(s): E11.65 - Type 2 diabetes mellitus with hyperglycemia Qualifiers: Glycemic state: with hyperglycemia Qualified Code(s): E11.65 - Type 2 diabetes mellitus with hyperglycemia (2) CKD (chronic kidney disease) stage 3, GFR 30-59 ml/min: Code(s): N18.30 - Chronic kidney disease, stage 3 unspecified Qualifiers: Chronic kidney disease stage 3 subtype: stage 3b (GFR 30-44) Qualified Code(s): N18.32 - Chronic kidney disease, stage 3b Plan Review healthy eating ADA/Mediterranean diet concepts Est kcal needs: 2200 jose rafael/d est prot 1g/kg bw : 88 kg est fluid needs as per 25 ml/kg bw: 2200 Na < 2000 mg/d Educate patient on: (R= Reviewed, V = verbalizes understanding N/R= Needs review N/A= not applicable) * Food sources of carbohydrates : R V * Difference between complex carbohydrates and simple carbohydrates, role of fiber: R V * Iron rich foods/protein rich foods : R, V Patient Instructions: Gradually increase fiber as tolerated, start with 2 -4 g daily for the first week and increase as tolerated. Choose soluble fiber food choices. Keep hydrated by having water with your meals or snacks and to prevent constipation. Coding Level of Care Code Nutr Indiv Subseq ([id number]) Diagnoses Diabetes type 2, uncontrolled E11.65 Glycemic state: with hyperglycemia CKD (chronic kidney disease) stage 3, GFR 30-59 ml/min N18.32 Chronic kidney disease stage 3 subtype: stage 3b (GFR 30-44) Time Spent (min) 20
[2022-12-25 08:57] VITALS: BMI 24.2
== END 2022-12-25 09:36 | disposition home or self-care (01) ==
PROVIDERS: PCP Internal Medicine; Visit Provider Dietitian, Registered
DX: E11.65 Type 2 diabetes mellitus with hyperglycemia (principal); N18.32 Chronic kidney disease, stage 3b

== ENCOUNTER → 2022-12-25 08:49 | Outpatient (BNVA) | payer MEDICARE, SELFPAY | PROVIDERS: Visit Provider Dietitian, Registered | DX: E11.65 Type 2 diabetes mellitus with hyperglycemia (principal); E11.22 Type 2 diabetes mellitus with diabetic chronic kidney disease; N18.32 Chronic kidney disease, stage 3b | CPT/HCPCS: 97803 ==

== ENCOUNTER 2023-01-02 08:21 | Outpatient (AMB) | payer MEDICARE, SELFPAY ==
[2023-01-02 08:28] LABS: Prothrombin Time Whole Bld POC 24.4 sec (11.1-13.5)
--- NOTE | 2023-01-02 08:35 | MHC.OFFVISCO ---
Intake Intake Visit Reasons: Anticoagulation Allergies silver [From TEGADERM AG MESH] Allergy (Intermediate, Verified 12/19/22 08:11) skin sloughing morphine [MORPHINE] Adverse Reaction (Intermediate, Verified 12/19/22 08:11) Vomiting Medication List - Last Reconciled 01/02/23 by Beryl Patrick RN allopurinol 100 mg PO DAILY atorvastatin 20 mg PO BEDTIME blood sugar diagnostic ([employer] Verio test strips) 3 times a day blood-glucose meter ([employer] Verio Flex Start kit) As directed to check blood glucose 3x/day cyanocobalamin (vitamin B-12) 1,000 mcg PO 3XW glipizide 5 mg PO DAILY lancets ([employer] Delica Lancets) 3 times a day levothyroxine 50 mcg PO DAILY lidocaine 5% 1 patch topical DAILY multivitamin 1 tab PO DAILY warfarin 2.5 mg See Protocol PO DAILY Nursing Note INR: 2.0 in therapeutic range Medications and supplements reviewed No changes in medications AT THIS TIME TO SEE MD TODAY - MAY HAVE THE ONSET OF UTI - HAVING BLADDER DISCOMFORT, ENC TO HAVE CRANBERRY AND OR BLUEBERRY UNTIL HE RECEIVES TREATMENT TO HAVE WOUND BOOT DRG CHANGE TOMORROW STOPPED THE BOOST /ENSURE - MAY START UP AFTER BLADDER TX IS COMPLETED Denies any signs and symptoms of bleeding or bruising or clotting. 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
== END 2023-01-02 08:40 | disposition home or self-care (01) ==
LOC: HO.ACS 08:21
PROVIDERS: PCP Internal Medicine; Visit Provider Internal Medicine
DX: Z79.01 Long term (current) use of anticoagulants (principal)

== ENCOUNTER → 2023-01-02 08:21 | Outpatient (BNVA) | payer MEDICARE, SELFPAY | PROVIDERS: PCP Internal Medicine; Visit Provider Internal Medicine | DX: I26.99 Other pulmonary embolism without acute cor pulmonale (principal); Z51.81 Encounter for therapeutic drug level monitoring; Z79.01 Long term (current) use of anticoagulants | CPT/HCPCS: 85610; 99211 ==

== ENCOUNTER 2023-01-16 08:25 | Outpatient (AMB) | payer MEDICARE, SELFPAY ==
[2023-01-16 08:33] LABS: Prothrombin Time Whole Bld POC 28.1 sec (11.1-13.5); ~PT, ~INR - Anti Coag Clinic 2.3 (0.9-1.1)
--- NOTE | 2023-01-16 08:42 | MHC.OFFVISCO ---
Intake Intake Visit Reasons: Anticoagulation Allergies silver [From TEGADERM AG MESH] Allergy (Intermediate, Verified 01/16/23 08:25) skin sloughing morphine [MORPHINE] Adverse Reaction (Intermediate, Verified 01/16/23 08:25) Vomiting Medication List - Last Reconciled 01/16/23 by Beryl Patrick, RN allopurinol 100 mg PO DAILY atorvastatin 20 mg PO BEDTIME blood sugar diagnostic ([employer] Verio test strips) 3 times a day blood-glucose meter ([employer] Verio Flex Start kit) As directed to check blood glucose 3x/day cyanocobalamin (vitamin B-12) 1,000 mcg PO 3XW glipizide 5 mg PO DAILY lancets ([employer] Delica Lancets) 3 times a day levothyroxine 50 mcg PO DAILY lidocaine 5% 1 patch topical DAILY multivitamin 1 tab PO DAILY mupirocin 2% 1 appl topical BID-TID warfarin 2.5 mg See Protocol PO DAILY Nursing Note INR: 2.3 in therapeutic range Medications and supplements reviewed-LEVOTHYROXINE INCREASING PT NOT SURE OF THE EXACT DOSE PERHAPS UP TO 75MCG FROM 50 MCG HEALING FROM MOHS PROCEDURE ON LEG Denies any signs and symptoms of bleeding or bruising or clotting. Bleeding, bruising, clotting discussed Nutritional guidance given Dose: 2.5MG MWF/5MG X 4 DAYS F/U INR: 2 WEEKS DUE TO MED CHANGE Patient verbalizes understanding of instructions given Anti-Coag Initial Assessment Social Hx Patient Tobacco Use Status: Never used Tobacco alcohol intake: never Alcohol intake frequency: does not drink Coding Level of Care Code Est Patient Level 1 Diagnoses Current use of anticoagulant therapy Z79.01 Assessment & Plan Assessment & Plan (1) Current use of anticoagulant therapy: Code(s): Z79.01 - prison (current) use of anticoagulants
== END 2023-01-16 08:45 | disposition home or self-care (01) ==
LOC: HO.ACS 08:25
PROVIDERS: PCP Internal Medicine; Visit Provider Internal Medicine
DX: Z79.01 Long term (current) use of anticoagulants (principal)

== ENCOUNTER → 2023-01-16 08:25 | Outpatient (BNVA) | payer MEDICARE, SELFPAY | PROVIDERS: PCP Internal Medicine; Visit Provider Internal Medicine | DX: I26.99 Other pulmonary embolism without acute cor pulmonale (principal); Z79.01 Long term (current) use of anticoagulants; Z51.81 Encounter for therapeutic drug level monitoring | CPT/HCPCS: 85610; 99211 ==

== ENCOUNTER 2023-01-28 06:53 | Outpatient (REF) | payer MEDICARE, SELFPAY ==
[2023-01-28 12:18] LABS: Anion Gap 14 (12-20); Blood Urea Nitrogen 20 mg/dL (9-16); Calcium 9.4 mg/dL (8.4-10.2); Carbon Dioxide 21 mmol/L (22-29); Chloride 113 mmol/L (96-108); Estimated Glomerular Filt Rate 42; Glucose Random 161 mg/dL (60-115); Potassium 4.6 mmol/L (3.3-5.1); Sodium 143 mmol/L (135-145)
== END 2023-01-28 06:54 | disposition home or self-care (01) ==
LOC: HO.HMGCLDS 06:53
PROVIDERS: PCP Internal Medicine; Visit Provider Internal Medicine
DX: Z00.00 Encounter for general adult medical examination without abnormal findings (principal)
CPT/HCPCS: 36415; 80048

== ENCOUNTER 2023-01-31 08:21 | Outpatient (AMB) | payer MEDICARE, SELFPAY ==
--- NOTE | 2023-01-31 08:33 | MHC.OFFVISCO ---
Intake Intake Visit Reasons: Anticoagulation Allergies silver [From TEGADERM AG MESH] Allergy (Intermediate, Verified 01/31/23 08:29) skin sloughing morphine [MORPHINE] Adverse Reaction (Intermediate, Verified 01/31/23 08:29) Vomiting Medication List - Last Reconciled 01/31/23 by Sonia Womack RN allopurinol 100 mg PO DAILY allopurinol 100 mg PO DAILY atorvastatin 20 mg PO BEDTIME blood sugar diagnostic ([employer] Verio test strips) 3 times a day blood-glucose meter ([employer] Verio Flex Start kit) As directed to check blood glucose 3x/day cyanocobalamin (vitamin B-12) 1,000 mcg PO 3XW glipizide 5 mg PO DAILY lancets ([employer] Delica Lancets) 3 times a day levothyroxine 50 mcg PO DAILY lidocaine 5% 1 patch topical DAILY multivitamin 1 tab PO DAILY mupirocin 2% 1 appl topical BID-TID warfarin 2.5 mg See Protocol PO DAILY Nursing Note INR: 2.4- in therapeutic range Medications and supplements reviewed- no changes No changes in health, diet, medications, or supplements, Denies any signs and symptoms of bleeding or bruising or clotting. 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
[2023-01-31 08:34] LABS: Prothrombin Time Whole Bld POC 29.2 sec (11.1-13.5); ~PT, ~INR - Anti Coag Clinic 2.4 (0.9-1.1)
== END 2023-01-31 08:42 | disposition home or self-care (01) ==
LOC: HO.ACS 08:21
PROVIDERS: PCP Internal Medicine; Visit Provider Internal Medicine
DX: Z79.01 Long term (current) use of anticoagulants (principal)

== ENCOUNTER → 2023-01-31 08:21 | Outpatient (BNVA) | payer MEDICARE, SELFPAY | PROVIDERS: PCP Internal Medicine; Visit Provider Internal Medicine | DX: I26.99 Other pulmonary embolism without acute cor pulmonale (principal); Z79.01 Long term (current) use of anticoagulants; Z51.81 Encounter for therapeutic drug level monitoring | CPT/HCPCS: 85610; 99211 ==

== ENCOUNTER 2023-02-14 08:07 | Outpatient (AMB) | payer MEDICARE, SELFPAY ==
--- NOTE | 2023-02-14 08:23 | MHC.OFFVISCO ---
Intake Intake Visit Reasons: Anticoagulation Allergies silver [From TEGADERM AG MESH] Allergy (Intermediate, Verified 02/14/23 08:16) skin sloughing morphine [MORPHINE] Adverse Reaction (Intermediate, Verified 02/14/23 08:16) Vomiting Medication List - Last Reconciled 02/14/23 by Colette Aponte RN allopurinol 100 mg PO DAILY atorvastatin 20 mg PO BEDTIME blood sugar diagnostic ([employer] Verio test strips) 3 times a day blood-glucose meter ([employer] Verio Flex Start kit) As directed to check blood glucose 3x/day cyanocobalamin (vitamin B-12) 1,000 mcg PO 3XW glipizide 5 mg PO DAILY lancets ([employer] Delica Lancets) 3 times a day levothyroxine 50 mcg PO DAILY lidocaine 5% 1 patch topical DAILY multivitamin 1 tab PO DAILY mupirocin 2% 1 appl topical BID-TID warfarin 2.5 mg See Protocol PO DAILY Nursing Note Amb to ACS using cane, feeling well Medications and supplements reviewed No changes in health, diet, medications, or supplements Denies any unusual signs and symptoms of bruising, bleeding Denies any new Chest pain, SOB, or clotting INR: 2.6 in therapeutic range Nutritional guidance given: balance greens and reds in diet Dose: continue usual dosing;2.5mg x 3 days and 5mg x 4 days F/U INR: 3 weeks Patient verbalizes understanding of instructions given with accurate read back/ teach back of dosing Anti-Coag Initial Assessment Social Hx Patient Tobacco Use Status: Never used Tobacco alcohol intake: never Alcohol intake frequency: does not drink Questionnaires HAS-BLED Does the patient had uncontrolled Hypertension?: No Does the patient have renal disease?: Yes Does the patient have liver disease?: No Does the patient have a history of stroke?: No Has the patient had major bleeding or predisposition to bleeding?: No Does the patient have labile INRs?: No Is the patient over 65 years of age?: Yes Is the patient on medications that gives them a predisposition to bleeding?: Yes Does the patient use alcohol?: No HAS-BLED Score: 3 CHADSVASC Age: 75 or over Gender: Male Does the patient have a history of CHF?: No Does the patient have a history of Hypertension?: Yes Does the patient have a history of Stroke/TIA/Thromboembolism?: Yes Does the patient have a history of Vascular Disease (prior CT, PAD or aortic plaque)?: No Does the patient have a history of Diabetes?: Yes CHADS VACS Score: 6 Ana Lilia Prediction Score Rsk VTE Active Cancer: Yes Previous VTE, excluding superficial vein thrombosis: Yes Reduced mobility: Yes Already known Thrombophilic Condition: Yes With-in last month Trauma and/or Surgery: No Elderly 70 year or older: Yes Heart and/or Respiratory Failure: No Acute Myocardial infarction and/or Ischemic Stroke: No Acute Infection and/or Rheumatologic Disorder: No Obesity (BMI 30 or greater): No Ongoing Hormonal Treatment: No Score: 13 Ana Lilia Score less than 4; Low Risk of VTE Ana Lilia Score 4 or greater; High Risk of VTE Coding Level of Care Code Est Patient Level 1 Diagnoses Current use of anticoagulant therapy Z79.01 Time Spent (min) 15 Assessment & Plan Assessment & Plan (1) Current use of anticoagulant therapy: Code(s): 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
== END 2023-02-14 08:45 | disposition home or self-care (01) ==
LOC: HO.ACS 08:07
PROVIDERS: PCP Internal Medicine; Visit Provider Internal Medicine
DX: Z79.01 Long term (current) use of anticoagulants (principal)

== ENCOUNTER → 2023-02-14 08:07 | Outpatient (BNVA) | payer MEDICARE, SELFPAY | PROVIDERS: PCP Internal Medicine; Visit Provider Internal Medicine | DX: I26.99 Other pulmonary embolism without acute cor pulmonale (principal); Z79.01 Long term (current) use of anticoagulants; Z51.81 Encounter for therapeutic drug level monitoring | CPT/HCPCS: 85610; 99211 ==

== ENCOUNTER 2023-02-18 09:53 | Outpatient (AMB) | payer MEDICARE, SELFPAY ==
--- NOTE | 2023-02-18 10:02 | MHC.OFFVIS ---
Intake Vital Signs 02/18/23 10:08 Height 6 ft 2 in Weight 180 lb 12.465 oz BMI 23.2 BP 126/62 Blood Pressure Location Lt brachial Position Sitting Pulse 105 H Intake Visit Reasons: 6 mth f/up Intake Note: 6 month follow up Water Quality Specialist Required: No Accompanied by: Self / Same As Patient Allergies silver [From TEGADERM AG MESH] Allergy (Intermediate, Verified 02/18/23 10:08) skin sloughing morphine [MORPHINE] Adverse Reaction (Intermediate, Verified 02/18/23 10:08) Vomiting Medication List - Last Reconciled 02/18/23 by Ion Del Cid MD allopurinol 100 mg PO DAILY atorvastatin 20 mg PO BEDTIME blood sugar diagnostic ([employer] Verio test strips) 3 times a day blood-glucose meter ([employer] Verio Flex Start kit) As directed to check blood glucose 3x/day cyanocobalamin (vitamin B-12) 1,000 mcg PO 3XW glipizide 5 mg PO DAILY lancets ([employer] Delica Lancets) 3 times a day levothyroxine 75 mcg PO DAILY lidocaine 5% 1 patch topical DAILY multivitamin 1 tab PO DAILY mupirocin 2% 1 appl topical BID-TID warfarin 2.5 mg See Protocol PO DAILY HPI HPI Comments History of Present Illness Details Jose Guadalupe returns for follow-up. He has a history of sinus tachycardia, atrial tachycardia as well as orthostatic hypotension. Overall, seems to be getting along fine. No specific symptoms like angina or shortness of breath. Few months had some atypical chest pain and came to ER but then nothing since. He is on warfarin for DVT/PE. 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 DVT (deep venous thrombosis) Dyslipidemia Gout Headache above the eye region History of COVID-19 Melanoma Mitral annular calcification Tachycardia Surgical History H/O colonoscopy H/O inguinal hernia repair H/O umbilical hernia repair History of esophagogastroduodenoscopy (EGD) History of excision of lesion (08/05/22) Hx of basal cell carcinoma excision Hx of cataract surgery Hx of cystoscopy Hx of lymph node excision Hx of melanoma excision S/P appendectomy S/P TURP Family History Other Family history of cancer in sister Social History Household Members: Spouse Housing: House Are you a primary healthcare applications analyst to a significant other at home: No Do you presently have visiting nurse or other home services: No Alcohol intake: never Patient Tobacco Use Status: Never used Tobacco Second Hand Smoke Exposure: No Advance Directives Date on File: 01/23/22 service: Yes Current occupational status: retired 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 Review of Systems Const Denies weakness ENT Denies dizziness Card Denies chest pain, Denies chest pain with activity, Denies syncope, Denies rapid heart rate, Denies pedal edema, Denies edema, Denies leg edema, Denies lightheadedness, Denies palpitations, Denies dyspnea, Denies dyspnea on exertion and Denies orthopnea Resp Denies cough, Denies dyspnea and Denies dyspnea on exertion GI Denies hematochezia and Denies change in stool character Musc Denies abnormal gait, Denies muscle cramps, Denies muscle weakness, Denies numbness, Denies radiating pain into limb and Denies tingling Neuro Denies abnormal gait, Denies dizziness, Denies syncope, Denies numbness, Denies tingling and Denies weakness Endo Denies palpitations Physical Exam Vital Signs: Last Vital Signs Pulse 105 H 02/18/23 10:08 BP 126/62 02/18/23 10:08 BMI result Body Mass Index 23.2 Const General: comfortable and no acute distress Orientation/consciousness: patient oriented x3 HEENT Other: Unremarkable Head: Yes normal to inspection Neck Neck: Yes normal visual inspection Chest Chest palpation & inspection: normal inspection of the chest Resp Auscultation: clear to auscultation bilaterally Cardio Palpation: normal PMI Heart sounds: S1 normal heart sound present, S2 normal heart sound present, no gallops, no murmurs and no rubs GI Palpation (GI): Soft to palpation Back/Spine/Pelvis Other: unremarkable Skin General skin exam: no rashes or lesions noted Neuro General: patient oriented x3 Extrem General: Yes normal to inspection Psych Mental Status: mental status grossly normal Assessment & Plan Assessment & Plan (1) Atrial tachycardia: Code(s): I47.1 - Supraventricular tachycardia Plan: Holter had shown atrial tachycardia in the past. In the past, has taken beta-blockers but then hypotension and was stopped. Also has been on digoxin at some point. Not on any meds currently. Check Holter again. Echocardiogram to assess for any cardiomyopathy. (2) PVC (premature ventricular contraction): Code(s): I49.3 - Ventricular premature depolarization Plan: Seen on prior Holters. No specific management. He does not have much symptoms either. 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 Myocardial perfusion imaging study shows normal perfusion. Continue statins. LDL is well controlled. 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 No specific management. (5) Orthostatic hypotension: Code(s): I95.1 - Orthostatic hypotension Plan: Has been on midodrine but as the blood pressures were rather high, it was stopped. No longer on his list. He does not have any orthostatic symptoms either. Orders: Orders ECG 3 day holter monitor Today I47.1 - Supraventricular tachycardia CA echo transthoracic complete Today I42.9 - Cardiomyopathy, unspecified Coding Level of Care Code Est Pt Level 4 (59025) Diagnoses Atrial tachycardia I47.1 PVC (premature ventricular contraction) I49.3 Atherosclerotic cardiovascular disease I25.10 Mitral annular calcification I05.9 Orthostatic hypotension I95.1
[2023-02-18 10:08] VITALS: BP 126/62; PULSE 105; BMI 23.2
== END 2023-02-18 10:23 | disposition home or self-care (01) ==
PROVIDERS: PCP Internal Medicine; Visit Provider Internal Medicine
DX: I47.1 Supraventricular tachycardia (principal); I49.3 Ventricular premature depolarization; I25.10 Atherosclerotic heart disease of native coronary artery without angina pectoris; I05.9 Rheumatic mitral valve disease, unspecified; I95.1 Orthostatic hypotension
CPT/HCPCS: 99214

== ENCOUNTER → 2023-02-18 09:53 | Outpatient (BNVA) | payer MEDICARE, SELFPAY | PROVIDERS: PCP Internal Medicine; Visit Provider Internal Medicine | DX: I47.10 Supraventricular tachycardia, unspecified (principal); I49.3 Ventricular premature depolarization; I25.10 Atherosclerotic heart disease of native coronary artery without angina pectoris; I05.9 Rheumatic mitral valve disease, unspecified; I95.1 Orthostatic hypotension | CPT/HCPCS: 99212 ==

== ENCOUNTER 2023-03-07 08:08 | Outpatient (AMB) | payer MEDICARE, SELFPAY ==
[2023-03-07 08:17] LABS: Prothrombin Time Whole Bld POC 46.5 sec (11.1-13.5); ~PT, ~INR - Anti Coag Clinic 3.9 (0.9-1.1)
--- NOTE | 2023-03-07 08:22 | MHC.OFFVISCO ---
Intake Intake Visit Reasons: Anticoagulation Allergies silver [From TEGADERM AG MESH] Allergy (Intermediate, Verified 03/07/23 08:13) skin sloughing morphine [MORPHINE] Adverse Reaction (Intermediate, Verified 03/07/23 08:13) Vomiting Medication List - Last Reconciled 03/07/23 by Bárbara Borges, RN allopurinol 100 mg PO DAILY atorvastatin 20 mg PO BEDTIME blood sugar diagnostic ([employer] Verio test strips) 3 times a day blood-glucose meter ([employer] Verio Flex Start kit) As directed to check blood glucose 3x/day cyanocobalamin (vitamin B-12) 1,000 mcg PO 3XW glipizide 5 mg PO DAILY lancets ([employer] Delica Lancets) 3 times a day levothyroxine 75 mcg PO DAILY lidocaine 5% 1 patch topical DAILY multivitamin 1 tab PO DAILY mupirocin 2% 1 appl topical BID-TID warfarin 2.5 mg See Protocol PO DAILY Nursing Note PT.STATES THAT HE HAS STOPPED HAVING BOOST FOR NO PARTTICULAR REASON. HE WILL ADD BOOST BACK INTO HIS DAY, AND LIKELY THE INR WILL DECREASE A BIT. NO CP,SOB OR SX OF BLEEDING. HOLD WARFARIN TODAY THEN RESUME USUAL DOSE AND FOLLOW-UP IN 2 WEEKS. GOOD UNDERSTANDING OF DOSING INSTR. Anti-Coag Initial Assessment Social Hx Patient Tobacco Use Status: Never used Tobacco alcohol intake: never Alcohol intake frequency: does not drink Coding Level of Care Code Est Patient Level 1 Diagnoses Current use of anticoagulant therapy Z79.01 Assessment & Plan Assessment & Plan (1) Current use of anticoagulant therapy: Code(s): Z79.01 - jail (current) use of anticoagulants
== END 2023-03-07 08:25 | disposition home or self-care (01) ==
LOC: HO.ACS 08:08
PROVIDERS: PCP Internal Medicine; Visit Provider Internal Medicine
DX: Z79.01 Long term (current) use of anticoagulants (principal)

== ENCOUNTER → 2023-03-07 08:08 | Outpatient (BNVA) | payer MEDICARE, SELFPAY | PROVIDERS: PCP Internal Medicine; Visit Provider Internal Medicine | DX: I26.99 Other pulmonary embolism without acute cor pulmonale (principal); Z79.01 Long term (current) use of anticoagulants; Z51.81 Encounter for therapeutic drug level monitoring | CPT/HCPCS: 85610; 99211 ==

== ENCOUNTER → 2023-03-19 07:53 | Outpatient (REF) | payer MEDICARE, SELFPAY ==
--- NOTE | 2023-03-19 07:58 | HM_ITS ---
* Total monitoring time 3 days. * Underlying rhythm is sinus. Average ventricular rate 84/Min. Range 68 to 114/Min. * Frequent supraventricular ectopy with a burden of 2.4%. Episodes of tachycardia noted. Longest is 55 minutes. Maximum rate is 153/Min. Could be atrial tachycardia. Less likely atrial fibrillation. * Rare ventricular ectopy. * No significant pauses or AV blocks. * Heartburn mentioned in diary associated with sinus rhythm. MTDD
--- NOTE | 2023-03-19 07:58 | CA_ITS ---
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 Normal LV ejection fraction 55-60% with impaired relaxation filling pattern 2. Normal cardiac valvular Dopplers with moderate mitral annular calcification 3. Normal RV systolic pressure 4. Mildly dilated ascending aorta 3.9 cm 5. No gross pericardial effusion Findings Procedure Information Contrast agent, definity, is being given per protocol without apparent complications. Left Ventricle Normal left ventricular size, thickness, and systolic function. The visually estimated ejection fraction is between 55-60%. Regional wall motion abnormalities can not be excluded due to suboptimal endocardial definition. Spectral Doppler is indicative of an impaired relaxation filling pattern. E/E prime ratio is between 8 and 15 consistent with indeterminate filling pressures. There is mild septal asymmetric hypertrophy. Right Ventricle Normal right ventricular cavity size and systolic function. Atria The left atrium is likely dilated. There is lipomatous hypertrophy of the interatrial septum. There is no evidence of interatrial shunt. The right atrium is normal in size. Aortic Valve There is mild calcification of the aortic valve. There is no aortic valve stenosis. There is no aortic valve regurgitation. Mitral Valve There is mild anterior and moderate posterior mitral leaflet thickening. There is moderate mitral annular calcification. There is trace mitral valve regurgitation. There is no mitral valve stenosis. Pulmonic Valve The pulmonic valve was not well visualized. Tricuspid Valve Likely normal tricuspid valve structure and function. There is trace tricuspid valve regurgitation. The right ventricular systolic pressure is normal. The right ventricular systolic pressure is 23 mmHg. Normal right atrial pressure. There is no evidence of pulmonary hypertension. Great Vessels The pulmonary artery was not well visualized. There is mild dilatation of the ascending aorta measuring 3.90 cm. Venous The inferior vena cava is normal in size and collapses greater than 50% with inspiration. Pericardium/Pleural There is no evidence of pericardial effusion. Prior Study Comparison No significant change compared to prior study dated: 10/16/2020. Measurements 2D Linear Measurements IVSd: 1.42 0.6-0.9/0.6-1.0 cm LVIDd: 3.95 3.9-5.3/4.2-5.9 cm LVIDd Index: 1.85 2.4-3.2/2.2-3.1 cm/m2 LVIDs: 2.74 2.0-3.6 cm LVPWd: 0.89 0.7-1.1 cm LA Diam: 3.30 2.7-3.8/3.0-4.0 cm LAIDs Index: 1.55 1.5-2.3 cm/m2 LV Mass: 190.42 67-162/88-224 g LV Mass Index: 89.40 43-95/49-115 g/m2 LVOT Diam: 2.40 3.0+(-)1.3 cm 2D Systolic Function EF 4C: 55.90 >55% Mitral Valve MV Pk E: 0.53 MV PK A: 0.61 MV Decel Time: 245.00 E/A: 0.90 E'Lateral: 5.00 E'Medial: 4.03 E/E' Med: 13.10 E/E' Lat: 10.50 PHT: 72.00 MVA PHT: 3.06 Decel Elk: 2.15 Aortic Valve AoV Pk Jared: 1.13 AoV Mn Jared: 0.81 AoV VTI: 0.21 AoV Pk Grad: 5.00 Aov Mn Grad: 3.00 CELSO Cont.VTI: 3.03 LVOT LVOT Pk Jared: 0.75 LVOT Mn Jared: 0.50 LVOT VTI: 0.14 LVOT Pk Grad: 2.00 LVOT Mn Grad: 1.00 LVOT Diam: 2.40 LVOT Area: 4.52 Diastolic Function MV Pk E: 0.53 MV Pk A: 0.61 E/A: 0.90 E'Medial: 4.03 E/E' Med: 13.10 E' Laterial: 5.00 E/E' Lat: 10.50 Right Ventricle TAPSE (mm): 24.80 TVS' Jared: 13.50 Tricuspid Valve TR Pk Jared: 2.21 TR Pk Grad: 20.00 RA Press: 3.00 RVSP: 23.00 Great Vessels Aorta Sinus of Valsalva: 3.82 2.0-3.5 cm Ao Asc: 3.90 2.1-3.4 cm Updated in Other Vendor System with Status of Final Joel Benjamin MD electronically signed on 03/20/2023 5:01:04 PM with status of Final
== END ==
LOC: HO.CARD 07:53
PROVIDERS: PCP Internal Medicine; Visit Provider Internal Medicine
DX: I42.9 Cardiomyopathy, unspecified (principal); I47.10 Supraventricular tachycardia, unspecified
CPT/HCPCS: 93242; 93306; Q9957

== ENCOUNTER → 2023-03-19 07:58 | Outpatient (BNV) | payer MEDICARE, SELFPAY | PROVIDERS: PCP Internal Medicine; Visit Provider Internal Medicine Cardiovascular Disease | DX: I47.10 Supraventricular tachycardia, unspecified (principal) | CPT/HCPCS: 93244; 93306 ==

== ENCOUNTER 2023-03-21 08:07 | Outpatient (AMB) | payer MEDICARE, SELFPAY ==
--- NOTE | 2023-03-21 08:43 | MHC.OFFVISCO ---
Intake Intake Visit Reasons: Anticoagulation Allergies silver [From TEGADERM AG MESH] Allergy (Intermediate, Verified 03/21/23 08:20) skin sloughing morphine [MORPHINE] Adverse Reaction (Intermediate, Verified 03/21/23 08:20) Vomiting Medication List - Last Reconciled 03/21/23 by Beryl Patrick RN allopurinol 100 mg PO DAILY atorvastatin 20 mg PO BEDTIME blood sugar diagnostic ([employer] Verio test strips) 3 times a day blood-glucose meter ([employer] Verio Flex Start kit) As directed to check blood glucose 3x/day cyanocobalamin (vitamin B-12) 1,000 mcg PO 3XW glipizide 5 mg PO DAILY lancets ([employer] Delica Lancets) 3 times a day levothyroxine 75 mcg PO DAILY lidocaine 5% 1 patch topical DAILY multivitamin 1 tab PO DAILY mupirocin 2% 1 appl topical BID-TID warfarin 2.5 mg See Protocol PO DAILY Nursing Note INR: 3.3 ALMOST IN therapeutic range Medications and supplements reviewed HAD INCREASE IN HEART RATE, WEARING A MONITOR -ENC TO ASK MD DIOR THYROID- HIS THRYROID MED WAS INCREASED IN - ENC TO DISCUSS PCP OR CARDIOLOGY - Denies any signs and symptoms of bleeding or bruising or clotting. Bleeding, bruising, clotting discussed Nutritional guidance given - DARKER GREEN SALADS AND BOOST Dose: KEPT DOSE [facility] FOR NOW DUE TO HEART CONCERNS 2.5MG MWF/ 5MG X 4 DAYS F/U INR: 10 DAYS Patient verbalizes understanding of instructions given Anti-Coag Initial Assessment Social Hx Patient Tobacco Use Status: Never used Tobacco alcohol intake: never Alcohol intake frequency: does not drink Coding Level of Care Code Est Patient Level 1 Diagnoses Current use of anticoagulant therapy Z79.01 Results AMB INR Fingerstick AMB INR Fingerstick 3.3 Last Edit by Beryl Patrick RN on 03/21/23 08:30 MANUAL ENTRY Assessment & Plan Assessment & Plan (1) Current use of anticoagulant therapy: Code(s): 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
[2023-03-21 09:36] LABS: Prothrombin Time Whole Bld POC 39.7 sec (11.1-13.5); ~PT, ~INR - Anti Coag Clinic 3.3 (0.9-1.1)
== END 2023-03-21 08:49 | disposition home or self-care (01) ==
LOC: HO.ACS 08:07
PROVIDERS: PCP Internal Medicine; Visit Provider Internal Medicine
DX: Z79.01 Long term (current) use of anticoagulants (principal)

== ENCOUNTER → 2023-03-21 08:07 | Outpatient (BNVA) | payer MEDICARE, SELFPAY | PROVIDERS: PCP Internal Medicine; Visit Provider Internal Medicine | DX: I26.99 Other pulmonary embolism without acute cor pulmonale (principal); Z79.01 Long term (current) use of anticoagulants; Z51.81 Encounter for therapeutic drug level monitoring | CPT/HCPCS: 85610; 99211 ==

== ENCOUNTER 2023-03-31 08:33 | Outpatient (AMB) | payer MEDICARE, SELFPAY ==
[2023-03-31 08:52] LABS: Prothrombin Time Whole Bld POC 39.9 sec (11.1-13.5); ~PT, ~INR - Anti Coag Clinic 3.3 (0.9-1.1)
--- NOTE | 2023-03-31 08:58 | MHC.OFFVISCO ---
Intake Intake Visit Reasons: Anticoagulation Allergies silver [From [employer] MESH] Allergy (Intermediate, Verified 03/31/23 08:43) skin sloughing morphine [MORPHINE] Adverse Reaction (Intermediate, Verified 03/31/23 08:43) Vomiting Medication List - Last Reconciled 03/31/23 by Colette Aponte, RN allopurinol 100 mg PO DAILY atorvastatin 20 mg PO BEDTIME blood sugar diagnostic ([employer] Verio test strips) 3 times a day blood-glucose meter ([employer] Verio Flex Start kit) As directed to check blood glucose 3x/day cyanocobalamin (vitamin B-12) 1,000 mcg PO 3XW glipizide 5 mg PO DAILY lancets ([employer] Delica Lancets) 3 times a day levothyroxine 75 mcg PO DAILY lidocaine 5% 1 patch topical DAILY metoprolol succinate ER (Toprol XL) 25 mg PO DAILY multivitamin 1 tab PO DAILY mupirocin 2% 1 appl topical BID-TID warfarin 2.5 mg See Protocol PO DAILY Nursing Note Amb to ACS using cane, feeling well Medications and supplements reviewed No changes in health, diet, medications, or supplements Denies any unusual signs and symptoms of bruising, bleeding Denies any new Chest pain, SOB, or clotting INR: 3.3 just above range and same as last visit Nutritional guidance given: add extra serving greens and or Boost Dose: continue usual dosing; 2.5mg x 3 days and 5mg x 4 days F/U INR:2 weeks Patient verbalizes understanding of instructions given with accurate read back/ teach back of dosing Anti-Coag Initial Assessment Social Hx Patient Tobacco Use Status: Never used Tobacco alcohol intake: never Alcohol intake frequency: does not drink Coding Level of Care Code Est Patient Level 1 Diagnoses Current use of anticoagulant therapy Z79.01 Time Spent (min) 15 Assessment & Plan Assessment & Plan (1) Current use of anticoagulant therapy: Code(s): Z79.01 - keno terminal 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
== END 2023-03-31 09:04 | disposition home or self-care (01) ==
LOC: HO.ACS 08:33
PROVIDERS: PCP Internal Medicine; Visit Provider Internal Medicine
DX: Z79.01 Long term (current) use of anticoagulants (principal)

== ENCOUNTER → 2023-03-31 08:33 | Outpatient (BNVA) | payer MEDICARE, SELFPAY | PROVIDERS: PCP Internal Medicine; Visit Provider Internal Medicine | DX: I26.99 Other pulmonary embolism without acute cor pulmonale (principal); Z79.01 Long term (current) use of anticoagulants; Z51.81 Encounter for therapeutic drug level monitoring | CPT/HCPCS: 85610; 99211 ==

== ENCOUNTER 2023-04-14 08:19 | Outpatient (AMB) | payer MEDICARE, SELFPAY ==
[2023-04-14 08:37] LABS: Prothrombin Time Whole Bld POC 37.5 sec (11.1-13.5); ~PT, ~INR - Anti Coag Clinic 3.1 (0.9-1.1)
--- NOTE | 2023-04-14 08:44 | MHC.OFFVISCO ---
Intake Intake Visit Reasons: Anticoagulation Allergies silver [From TEGADERM AG MESH] Allergy (Intermediate, Verified 04/14/23 08:31) skin sloughing morphine [MORPHINE] Adverse Reaction (Intermediate, Verified 04/14/23 08:31) Vomiting Medication List - Last Reconciled 04/14/23 by Beryl Patrick, RN allopurinol 100 mg PO DAILY atorvastatin 20 mg PO BEDTIME blood sugar diagnostic ([employer] Verio test strips) 3 times a day blood-glucose meter ([employer] Verio Flex Start kit) As directed to check blood glucose 3x/day cyanocobalamin (vitamin B-12) 1,000 mcg PO 3XW glipizide 5 mg PO DAILY lancets ([employer] Delica Lancets) 3 times a day levothyroxine 75 mcg PO DAILY lidocaine 5% 1 patch topical DAILY metoprolol succinate ER (Toprol XL) 25 mg PO DAILY multivitamin 1 tab PO DAILY mupirocin 2% 1 appl topical BID-TID warfarin 2.5 mg See Protocol PO DAILY Nursing Note INR: 3.1 OUT OF therapeutic range Medications and supplements reviewed No changes in health, diet, medications, or supplements, Denies any signs and symptoms of bleeding or bruising or clotting. Bleeding, bruising, clotting discussed Nutritional guidance given Dose: 2.5MG X 3 DAYS/ 5MG X 4 DAYS F/U INR: 2 WEEKS Patient verbalizes understanding of instructions given Anti-Coag Initial Assessment Social Hx Patient Tobacco Use Status: Never used Tobacco alcohol intake: never Alcohol intake frequency: does not drink Coding Level of Care Code Est Patient Level 1 Diagnoses Current use of anticoagulant therapy Z79.01 Assessment & Plan Assessment & Plan (1) Current use of anticoagulant therapy: Code(s): Z79.01 - manager document (current) use of anticoagulants
== END 2023-04-14 08:47 | disposition home or self-care (01) ==
LOC: HO.ACS 08:19
PROVIDERS: PCP Internal Medicine; Visit Provider Internal Medicine
DX: Z79.01 Long term (current) use of anticoagulants (principal)

== ENCOUNTER → 2023-04-14 08:19 | Outpatient (BNVA) | payer MEDICARE, SELFPAY | PROVIDERS: PCP Internal Medicine; Visit Provider Internal Medicine | DX: I26.99 Other pulmonary embolism without acute cor pulmonale (principal); Z79.01 Long term (current) use of anticoagulants; Z51.81 Encounter for therapeutic drug level monitoring | CPT/HCPCS: 85610; 99211 ==

== ENCOUNTER 2023-04-28 08:45 | Outpatient (AMB) | payer MEDICARE, SELFPAY ==
--- NOTE | 2023-04-28 09:02 | MHC.OFFVISCO ---
Intake Intake Visit Reasons: Anticoagulation Allergies silver [From TEGADERM AG MESH] Allergy (Intermediate, Verified 04/28/23 08:48) skin sloughing morphine [MORPHINE] Adverse Reaction (Intermediate, Verified 04/28/23 08:48) Vomiting Medication List - Last Reconciled 04/28/23 by Colette Aponte, RN allopurinol 100 mg PO DAILY atorvastatin 20 mg PO BEDTIME blood sugar diagnostic ([facility] Verio test strips) 3 times a day blood-glucose meter ([facility] Verio Flex Start kit) As directed to check blood glucose 3x/day cyanocobalamin (vitamin B-12) 1,000 mcg PO 3XW glipizide 5 mg PO DAILY lancets ([employer] Delica Lancets) 3 times a day levothyroxine 75 mcg PO DAILY lidocaine 5% 1 patch topical DAILY metoprolol succinate ER (Toprol XL) 25 mg PO DAILY multivitamin 1 tab PO DAILY mupirocin 2% 1 appl topical BID-TID warfarin 2.5 mg See Protocol PO DAILY Nursing Note Amb to ACS feeling well, however sts having some constipation Medications and supplements reviewed No other changes in health, diet, medications, or supplements Denies any unusual signs and symptoms of bruising, bleeding Denies any new Chest pain, SOB, or clotting INR:3.2 above therapeutic range Nutritional guidance given: eat a variety of fruits and veggies, increase water intake to help with some constipation and increase ambulation Dose: decrease weekly dosing as trending above range over several visits now will take 5mg x 3 days (vs 4 days) and 2.5mg x 4 days (vs 3 days); F/U INR: 2 weeks Patient verbalizes understanding of instructions given with accurate read back/ teach back of dosing Anti-Coag Initial Assessment Social Hx Patient Tobacco Use Status: Never used Tobacco alcohol intake: never Alcohol intake frequency: does not drink Coding Level of Care Code Est Patient Level 1 Diagnoses Current use of anticoagulant therapy Z79.01 Time Spent (min) 15 Results AMB INR Fingerstick AMB INR Fingerstick 3.2 Last Edit by Colette Aponte, RN on 04/28/23 09:04 interface failure Assessment & Plan Assessment & Plan (1) Current use of anticoagulant therapy: Code(s): Z79.01 - jail (current) use of anticoagulants
[2023-04-28 12:12] LABS: Prothrombin Time Whole Bld POC 38.2 sec (11.1-13.5); ~PT, ~INR - Anti Coag Clinic 3.2 (0.9-1.1)
== END 2023-04-28 09:12 | disposition home or self-care (01) ==
LOC: HO.ACS 08:45
PROVIDERS: PCP Internal Medicine; Visit Provider Internal Medicine
DX: Z79.01 Long term (current) use of anticoagulants (principal)

== ENCOUNTER → 2023-04-28 08:45 | Outpatient (BNVA) | payer MEDICARE, SELFPAY | PROVIDERS: PCP Internal Medicine; Visit Provider Internal Medicine | DX: I26.99 Other pulmonary embolism without acute cor pulmonale (principal); Z79.01 Long term (current) use of anticoagulants; Z51.81 Encounter for therapeutic drug level monitoring | CPT/HCPCS: 85610; 99211 ==

== ENCOUNTER 2023-05-13 08:26 | Outpatient (AMB) | payer MEDICARE, SELFPAY ==
--- NOTE | 2023-05-13 08:31 | MHC.OFFVISCO ---
Intake Intake Visit Reasons: Anticoagulation Allergies silver [From [employer]GADERM AG MESH] Allergy (Intermediate, Verified 05/13/23 08:28) skin sloughing morphine [MORPHINE] Adverse Reaction (Intermediate, Verified 05/13/23 08:28) Vomiting Medication List - Last Reconciled 05/13/23 by Sonia Womack RN allopurinol 100 mg PO DAILY atorvastatin 20 mg PO BEDTIME blood sugar diagnostic ([employer] Verio test strips) 3 times a day blood-glucose meter ([employer] Verio Flex Start kit) As directed to check blood glucose 3x/day cyanocobalamin (vitamin B-12) 1,000 mcg PO 3XW glipizide 5 mg PO DAILY lancets ([employer] Delica Lancets) 3 times a day levothyroxine 75 mcg PO DAILY lidocaine 5% 1 patch topical DAILY metoprolol succinate ER (Toprol XL) 25 mg PO DAILY multivitamin 1 tab PO DAILY mupirocin 2% 1 appl topical BID-TID warfarin 2.5 mg See Protocol PO DAILY Nursing Note INR: 2.7- in therapeutic range of 2-3 Medications and supplements reviewed- no changes No changes in health, diet, medications, or supplements, Denies any signs and symptoms of bleeding or bruising or clotting. Bleeding, bruising, clotting discussed Nutritional guidance given Dose: 2.5mg x 4, 5mg x 3 F/U INR: 2 weeks Patient verbalizes understanding of instructions given Anti-Coag Initial Assessment Social Hx Patient Tobacco Use Status: Never used Tobacco alcohol intake: never Alcohol intake frequency: does not drink Coding Level of Care Code Est Patient Level 1 Diagnoses Current use of anticoagulant therapy Z79.01 Results AMB INR Fingerstick AMB INR Fingerstick 2.7 Last Edit by Sonia Womack RN on 05/13/23 08:32 Assessment & Plan Assessment & Plan (1) Current use of anticoagulant therapy: Code(s): Z79.01 - penitentiary (current) use of anticoagulants
[2023-05-13 08:33] LABS: Prothrombin Time Whole Bld POC 32.1 sec (11.1-13.5); ~PT, ~INR - Anti Coag Clinic 2.7 (0.9-1.1)
== END 2023-05-13 08:38 | disposition home or self-care (01) ==
LOC: HO.ACS 08:26
PROVIDERS: PCP Internal Medicine; Visit Provider Internal Medicine
DX: Z79.01 Long term (current) use of anticoagulants (principal)

== ENCOUNTER → 2023-05-13 08:26 | Outpatient (BNVA) | payer MEDICARE, SELFPAY | PROVIDERS: PCP Internal Medicine; Visit Provider Internal Medicine | DX: I26.99 Other pulmonary embolism without acute cor pulmonale (principal); Z79.01 Long term (current) use of anticoagulants; Z51.81 Encounter for therapeutic drug level monitoring | CPT/HCPCS: 85610; 99211 ==

== ENCOUNTER 2023-05-19 08:46 | Outpatient (AMB) | payer MEDICARE, SELFPAY ==
[2023-05-19 08:48] VITALS: BP 140/58; PULSE 91; BMI 25.2
--- NOTE | 2023-05-19 08:48 | MHC.OFFVIS ---
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: No Accompanied by: Self / Same As Patient Allergies silver [From TEGADERM AG MESH] Allergy (Intermediate, Verified 05/13/23 08:28) skin sloughing morphine [MORPHINE] Adverse Reaction (Intermediate, Verified 05/13/23 08:28) Vomiting Medication List - Last Reconciled 05/19/23 by Ion Del Cid MD allopurinol 100 mg PO DAILY atorvastatin 20 mg PO BEDTIME blood sugar diagnostic ([employer] Verio test strips) 3 times a day blood-glucose meter ([employer] Verio Flex Start kit) As directed to check blood glucose 3x/day cyanocobalamin (vitamin B-12) 1,000 mcg PO 3XW glipizide 5 mg PO DAILY lancets ([employer] Delica Lancets) 3 times a day levothyroxine 75 mcg PO DAILY lidocaine 5% 1 patch topical DAILY metoprolol succinate ER (Toprol XL) 25 mg PO DAILY multivitamin 1 tab PO DAILY mupirocin 2% 1 appl topical BID-TID warfarin 2.5 mg See Protocol PO DAILY HPI HPI Comments History of Present Illness Details Jose Guadalupe returns for follow-up. He has a history of sinus tachycardia, atrial tachycardia as well as orthostatic hypotension. He is on warfarin for DVT/PE. No new concerns since last seen. He states he is feeling fine. [facility] Medical History BPH (benign prostatic hyperplasia) CKD (chronic kidney disease) stage 3, GFR 30-59 ml/min CLL (chronic lymphocytic leukemia) Cryptococcosis Current use of anticoagulant therapy Diabetes Diabetes type 2, 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 DVT (deep venous thrombosis) Dyslipidemia Gout Headache above the eye region History of COVID-19 Melanoma Mitral annular calcification Tachycardia Surgical History History of excision of lesion (08/05/22) History of esophagogastroduodenoscopy (EGD) Hx of melanoma excision Hx of lymph node excision H/O colonoscopy Hx of cystoscopy Hx of basal cell carcinoma excision S/P TURP Hx of cataract surgery H/O inguinal hernia repair H/O umbilical hernia repair S/P appendectomy Family History Other Family history of cancer in sister Social History Household Members: Spouse Housing: House Are you a primary child day care center worker to a significant other at home: No Do you presently have visiting nurse or other home services: No Alcohol intake: never Comment: PATIENT STABLE ON FEET Patient Tobacco Use Status: Never used Tobacco Second Hand Smoke Exposure: No Advance Directives Date on File: 01/23/22 service: Yes Current occupational status: retired 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 Review of Systems Const Reports chills, Reports fatigue, Reports fever(s), Reports frequent falls, Reports weakness, Reports weight gain and Reports weight loss ENT Reports dizziness Card Reports chest pain, Reports leg edema, Reports lightheadedness, Reports palpitations, Reports dyspnea and Reports dyspnea on exertion Resp Reports cough, Reports dyspnea and Reports dyspnea on exertion GI Reports hematochezia Musc Reports abnormal gait, Reports muscle weakness, Reports numbness, Reports radiating pain into limb and Reports tingling Neuro Reports abnormal gait, Reports dizziness, Reports frequent falls, Reports numbness, Reports tingling and Reports weakness Endo Reports fatigue and Reports palpitations Physical Exam Vital Signs: Last Vital Signs Pulse 91 05/19/23 08:48 BP 140/58 H 05/19/23 08:48 BMI result Body Mass Index 25.2 Const General: comfortable and no acute distress Orientation/consciousness: patient oriented x3 HEENT Other: Unremarkable Head: Yes normal to inspection Neck Neck: Yes normal visual inspection Chest Chest palpation & inspection: normal inspection of the chest Resp Auscultation: clear to auscultation bilaterally Cardio Palpation: normal PMI Heart sounds: S1 normal heart sound present, S2 normal heart sound present, no gallops, no murmurs and no rubs GI Palpation (GI): Soft to palpation Back/Spine/Pelvis Other: unremarkable Skin General skin exam: no rashes or lesions noted Neuro General: patient oriented x3 Extrem General: Yes normal to inspection Psych Mental Status: mental status grossly normal Assessment & Plan Assessment & Plan (1) Atrial tachycardia: Code(s): I47.1 - Supraventricular tachycardia Plan: Holter shows underlying sinus rhythm with an average rate of 84/Min. Frequent supraventricular ectopy with a burden of 2.4%. Suspected atrial tachycardia episodes. Echocardiogram with LVEF of 55-60%. May increase beta-luis eduardo dosing. Has had blood pressure issues in the past but not recently. (2) Atherosclerotic cardiovascular disease: Code(s): I25.10 - Atherosclerotic heart disease of [place] coronary artery without angina pectoris Plan: Chest CT scan shows moderate atherosclerotic calcification of the coronary arteries and great vessels. Myocardial perfusion imaging study shows normal perfusion. Continue statins. LDL is well controlled. 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 No significant valvular dysfunction. No specific management. (4) Orthostatic hypotension: Code(s): I95.1 - Orthostatic hypotension Plan: Has been on midodrine but as the blood pressures were rather high, it was stopped. No recent issues. Medications: New metoprolol succinate ER (Toprol XL) 50 mg PO DAILY 90 tabs 3RF Discontinued metoprolol succinate ER (Toprol XL) For heart rate control Discontinued Reason: Doctor's Order 25 mg PO DAILY 30 tabs 5RF Coding Level of Care Code Est Pt Level 4 (88965) Diagnoses Atrial tachycardia I47.1 Atherosclerotic cardiovascular disease I25.10 Mitral annular calcification I05.9 Orthostatic hypotension I95.1
== END 2023-05-19 09:06 | disposition home or self-care (01) ==
PROVIDERS: PCP Internal Medicine; Visit Provider Internal Medicine
DX: I47.10 Supraventricular tachycardia, unspecified (principal); I25.10 Atherosclerotic heart disease of native coronary artery without angina pectoris; I05.9 Rheumatic mitral valve disease, unspecified; I95.1 Orthostatic hypotension
CPT/HCPCS: 99214

== ENCOUNTER → 2023-05-19 08:46 | Outpatient (BNVA) | payer MEDICARE, SELFPAY | PROVIDERS: PCP Internal Medicine; Visit Provider Internal Medicine | DX: I25.10 Atherosclerotic heart disease of native coronary artery without angina pectoris (principal); I05.9 Rheumatic mitral valve disease, unspecified; I95.1 Orthostatic hypotension; I47.19 Other supraventricular tachycardia | CPT/HCPCS: 99212 ==

== ENCOUNTER 2023-05-28 14:11 | Outpatient (AMB) | payer MEDICARE, SELFPAY ==
[2023-05-28 14:17] LABS: Prothrombin Time Whole Bld POC 27.4 sec (11.1-13.5); ~PT, ~INR - Anti Coag Clinic 2.3 (0.9-1.1)
--- NOTE | 2023-05-28 14:25 | MHC.OFFVISCO ---
Intake Intake Visit Reasons: Anticoagulation Allergies silver [From TEGADERM AG MESH] Allergy (Intermediate, Verified 05/28/23 14:11) skin sloughing morphine [MORPHINE] Adverse Reaction (Intermediate, Verified 05/28/23 14:11) Vomiting Medication List - Last Reconciled 05/28/23 by Bárbara Borges, RN allopurinol 100 mg PO DAILY atorvastatin 20 mg PO BEDTIME blood sugar diagnostic ([employer] Verio test strips) 3 times a day blood-glucose meter ([employer] Verio Flex Start kit) As directed to check blood glucose 3x/day cyanocobalamin (vitamin B-12) 1,000 mcg PO 3XW glipizide 5 mg PO DAILY lancets ([employer] Delica Lancets) 3 times a day levothyroxine 75 mcg PO DAILY lidocaine 5% 1 patch topical DAILY metoprolol succinate ER (Toprol XL) 50 mg PO DAILY multivitamin 1 tab PO DAILY mupirocin 2% 1 appl topical BID-TID warfarin 2.5 mg See Protocol PO DAILY Nursing Note NO CP,SOB,DIET/MED CHANGES,FALLS OR SX OF BLEEDING. CONTINUE PRESENT DOSE AND FOLLOW-UP IN 3 WEEKS. GOOD UNDERSTANDING VERB. Anti-Coag Initial Assessment Social Hx Patient Tobacco Use Status: Never used Tobacco alcohol intake: never Alcohol intake frequency: does not drink Coding Level of Care Code Est Patient Level 1 Diagnoses Current use of anticoagulant therapy Z79.01 Assessment & Plan Assessment & Plan (1) Current use of anticoagulant therapy: Code(s): Z79.01 - track layer (current) use of anticoagulants
== END 2023-05-28 14:33 | disposition home or self-care (01) ==
LOC: HO.ACS 14:11
PROVIDERS: PCP Internal Medicine; Visit Provider Internal Medicine
DX: Z79.01 Long term (current) use of anticoagulants (principal)

== ENCOUNTER → 2023-05-28 14:11 | Outpatient (BNVA) | payer MEDICARE, SELFPAY | PROVIDERS: PCP Internal Medicine; Visit Provider Internal Medicine | DX: I26.99 Other pulmonary embolism without acute cor pulmonale (principal); Z79.01 Long term (current) use of anticoagulants; Z51.81 Encounter for therapeutic drug level monitoring | CPT/HCPCS: 85610; 99211 ==

== ENCOUNTER 2023-06-06 10:17 | Outpatient (AMB) | payer MEDICARE, SELFPAY ==
--- NOTE | 2023-06-06 10:29 | HO.NEPHOV_ITS ---
HPI HPI Comments History of Present Illness Details I had the privilege of seeing Devan in follow-up of his chronic kidney disease. 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 He has not had any renal stones, hematuria, urinary infections since last office visit. He is voiding well. He does not have any pedal edema. He denies chest pain, shortness of breath, palpitation, dizziness. He does not take any nonsteroidal anti-inflammatories. His blood pressure has been at goal. His blood sugars are well controlled on current medications. There were no active systemic complaints at the time of this office visit. [facility] Medical History (Updated 06/23/23 @ 15:07 by Rahul Garcia MD) CKD (chronic kidney disease) stage 3, GFR 30-59 ml/min DVT (deep venous thrombosis) Diabetes CLL (chronic lymphocytic leukemia) History of COVID-19 Mitral annular calcification Tachycardia Gout Headache above the eye region Cryptococcosis Dyslipidemia Diabetic nephropathy associated with type 2 diabetes mellitus Diabetes type 2, uncontrolled Melanoma BPH (benign prostatic hyperplasia) Current use of anticoagulant therapy Surgical History History of excision of lesion (08/05/22) History of esophagogastroduodenoscopy (EGD) Hx of melanoma excision Hx of lymph node excision H/O colonoscopy Hx of cystoscopy Hx of basal cell carcinoma excision S/P TURP Hx of cataract surgery H/O inguinal hernia repair H/O umbilical hernia repair S/P appendectomy Family History Other Family history of cancer in sister Social History Household Members: Spouse Housing: House Are you a primary child care specialist to a significant other at home: No Do you presently have visiting nurse or other home services: No Alcohol intake: never Comment: PATIENT STABLE ON FEET Patient Tobacco Use Status: Never used Tobacco Second Hand Smoke Exposure: No Advance Directives Date on File: 01/23/22 service: Yes Current occupational status: retired 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 Vital Signs 06/06/23 10:35 Height 6 ft 1 in Weight 192 lb BMI 25.3 BP 100/60 Blood Pressure Location Lt brachial Position Sitting Pulse 81 Pulse Source Pulse Oximeter Pulse Oximetry (%) 97 Oxygen Delivery Method Room Air Physical Exam Vital Signs: Last Vital Signs Pulse 81 06/06/23 10:35 BP 100/60 06/06/23 10:35 Pulse Ox 97 06/06/23 10:35 Oxygen Delivery Method Room Air 06/06/23 10:35 BMI result Body Mass Index 25.3 Const General: comfortable and no acute distress Orientation/consciousness: patient oriented x3 HEENT Head: Yes normocephalic Mouth: Normal oral and palatal mucosa present Eyes EOM: EOMs intact bilaterally Neck Neck: Yes supple Resp Auscultation: clear to auscultation bilaterally Cardio Jugular venous distension: no JVD Rate: regular rate Heart sounds: Murmur heart sound present GI Palpation (GI): Soft to palpation Auscultation: normal bowel sounds General: Yes no CVA tenderness Back/Spine/Pelvis Back: no CVA tenderness Skin General skin exam: no rashes or lesions noted Neuro General: patient oriented x3 and moves all extremities Extrem General: Yes no pedal edema Assessment & Plan Assessment & Plan (1) CKD (chronic kidney disease) stage 3, GFR 30-59 ml/min: Code(s): N18.30 - Chronic kidney disease, stage 3 unspecified Qualifiers: Chronic kidney disease stage 3 subtype: stage 3b (GFR 30-44) Qualified Code(s): N18.32 - Chronic kidney disease, stage 3b (2) Nephrolithiasis: Code(s): N20.0 - Calculus of kidney (3) Hypertension: Code(s): I10 - Essential (primary) hypertension Qualifiers: Hypertension type: primary hypertension Qualified Code(s): I10 - Essential (primary) hypertension Plan Devan has stage III B CKD. His renal functions are currently stable his potassium is high normal with a very mild metabolic acidosis. He has a diabetic on oral hypoglycemic agents. His blood sugar is controlled and his blood pressure has been at goal. He has not had any active issues due to renal c alculi. He is maintaining good hydration. He avoids nonsteroidal anti- inflammatories. I did not make any medication changes today but rather ordered repeat blood work. All questions answered follow-up appointment given Orders: Orders Vitamin D 25-OH Total 06/04/23 N18.30 - Chronic kidney disease, stage 3 unspecified Electrolytes 06/04/23 N18.30 - Chronic kidney disease, stage 3 unspecified Blood Urea Nitrogen 06/04/23 N18.30 - Chronic kidney disease, stage 3 unspecified Parathyroid Hormone Intact 06/04/23 N18.30 - Chronic kidney disease, stage 3 unspecified Phosphorus 06/04/23 N18.30 - Chronic kidney disease, stage 3 unspecified Calcium 06/04/23 N18.30 - Chronic kidney disease, stage 3 unspecified Creatinine 06/04/23 N18.30 - Chronic kidney disease, stage 3 unspecified Protein Creatinine Ratio, Ur 06/06/23 N18.30 - Chronic kidney disease, stage 3 unspecified Coding Level of Care Code Est Pt Level 3 (12886) Diagnoses Stage 3b chronic kidney disease N18.32 Chronic kidney disease stage 3 subtype: stage 3b (GFR 30-44) Nephrolithiasis N20.0 Primary hypertension I10 Hypertension type: primary hypertension Results Reviewed Nephrology Results: Sodium 144 mmol/L (135-145) 06/17/23 Potassium 5.2 mmol/L (3.3-5.1) H 06/17/23 Chloride 114 mmol/L (96-108) H 06/17/23 Carbon Dioxide 20 mmol/L (22-29) L 06/17/23 BUN 26 mg/dL (9-16) H 06/17/23 Creatinine 1.80 mg/dL (0.5-1.4) H 06/17/23 Calcium 9.2 mg/dL (8.4-10.2) 06/17/23 Phosphorus 3.2 mg/dL (2.7-4.5) 06/17/23 PTH Intact 73.5 pg/mL (8.7-77.1) 06/17/23 Urine Creatinine 128.37 mg/dL 06/17/23 Protein/Creatinin Ratio 0.22 (<0.2) H 06/17/23
[2023-06-06 10:35] VITALS: BP 100/60; PULSE 81; O2SAT 97; BMI 25.3
== END 2023-06-06 11:05 | disposition home or self-care (01) ==
PROVIDERS: PCP Internal Medicine; Visit Provider Internal Medicine Nephrology
DX: N18.32 Chronic kidney disease, stage 3b (principal); N20.0 Calculus of kidney; I10 Essential (primary) hypertension
CPT/HCPCS: 99213

== ENCOUNTER → 2023-06-06 10:17 | Outpatient (BNVA) | payer MEDICARE, SELFPAY | PROVIDERS: PCP Internal Medicine; Visit Provider Internal Medicine Nephrology | DX: I12.9 Hypertensive chronic kidney disease with stage 1 through stage 4 chronic kidney disease, or unspecified chronic kidney disease (principal); N18.32 Chronic kidney disease, stage 3b; N20.0 Calculus of kidney | CPT/HCPCS: 99212 ==

== ENCOUNTER 2023-06-17 08:25 | Outpatient (AMB) | payer MEDICARE, SELFPAY ==
[2023-06-17 08:32] LABS: Prothrombin Time Whole Bld POC 30.5 sec (11.1-13.5); ~PT, ~INR - Anti Coag Clinic 2.5 (0.9-1.1)
--- NOTE | 2023-06-17 08:37 | MHC.OFFVISCO ---
Intake Intake Visit Reasons: Anticoagulation Allergies silver [From [employer] AG MESH] Allergy (Intermediate, Verified 06/17/23 08:26) skin sloughing morphine [MORPHINE] Adverse Reaction (Intermediate, Verified 06/17/23 08:26) Vomiting Medication List - Last Reconciled 06/17/23 by Colette Luz, RN allopurinol 100 mg PO DAILY atorvastatin 20 mg PO BEDTIME blood sugar diagnostic ([employer] Verio test strips) 3 times a day blood-glucose meter ([employer] Verio Flex Start kit) As directed to check blood glucose 3x/day cyanocobalamin (vitamin B-12) 1,000 mcg PO .tiw glipizide 5 mg PO DAILY lancets ([employer] Delica Lancets) 3 times a day levothyroxine 75 mcg PO DAILY metoprolol succinate ER (Toprol XL) 50 mg PO DAILY multivitamin 1 tab PO DAILY warfarin 2.5 mg See Protocol PO DAILY Nursing Note INR: 2.5 in therapeutic range Medications and supplements reviewed No changes in health, diet, medications, or supplements, Denies any signs and symptoms of bleeding or bruising or clotting. Bleeding, bruising, clotting discussed Nutritional guidance given Dose: continue usual dose of 5mg 3X/week and 2.5mg 4X/week F/U INR: 3 weeks Patient verbalizes understanding of instructions given Anti-Coag Initial Assessment Social Hx Patient Tobacco Use Status: Never used Tobacco alcohol intake: never Alcohol intake frequency: does not drink Coding Level of Care Code Est Patient Level 1 Diagnoses Current use of anticoagulant therapy Z79.01 Assessment & Plan Assessment & Plan (1) Current use of anticoagulant therapy: Code(s): Z79.01 - ocean transportation intermediary (current) use of anticoagulants
== END 2023-06-17 08:40 | disposition home or self-care (01) ==
LOC: HO.ACS 08:25
PROVIDERS: PCP Internal Medicine; Visit Provider Internal Medicine
DX: Z79.01 Long term (current) use of anticoagulants (principal)

== ENCOUNTER 2023-06-17 08:25 | Outpatient (REF) | payer MEDICARE, SELFPAY ==
[2023-06-17 11:15] LABS: Parathyroid Hormone Intact 73.5 pg/mL (8.7-77.1)
[2023-06-17 11:24] LABS: Anion Gap 15 (12-20); Blood Urea Nitrogen 26 mg/dL (9-16); Calcium 9.2 mg/dL (8.4-10.2); Carbon Dioxide 20 mmol/L (22-29); Chloride 114 mmol/L (96-108); Estimated Glomerular Filt Rate 36; Phosphorus 3.2 mg/dL (2.7-4.5); Potassium 5.2 mmol/L (3.3-5.1); Sodium 144 mmol/L (135-145)
[2023-06-17 11:42] LABS: Vitamin D 25-OH Total 40.1 ng/mL (>30)
[2023-06-17 17:35] LABS: Creatinine Urine 128.37 mg/dL; Protein/Creatinine Ratio, Ur 0.22 (<0.2); Total Protein Urine Random 28 mg/dL (<12)
== END 2023-06-17 08:26 | disposition home or self-care (01) ==
LOC: HO.LAB 08:25
PROVIDERS: Internal Medicine Nephrology; PCP Internal Medicine; Visit Provider Internal Medicine
DX: I26.99 Other pulmonary embolism without acute cor pulmonale (principal); N18.30 Chronic kidney disease, stage 3 unspecified; Z51.81 Encounter for therapeutic drug level monitoring; Z79.01 Long term (current) use of anticoagulants
CPT/HCPCS: 36415; 80051; 82306; 82310; 82565; 82570; 83970; 84100; 84156; 84520; 85610; 99211

== ENCOUNTER 2023-07-08 08:46 | Outpatient (AMB) | payer MEDICARE, SELFPAY ==
[2023-07-08 08:54] LABS: Prothrombin Time Whole Bld POC 37.8 sec (11.1-13.5); ~PT, ~INR - Anti Coag Clinic 3.2 (0.9-1.1)
--- NOTE | 2023-07-08 09:02 | MHC.OFFVISCO ---
Intake Intake Visit Reasons: Anticoagulation Allergies silver [From TEGADERM AG MESH] Allergy (Intermediate, Verified 07/08/23 08:48) skin sloughing morphine [MORPHINE] Adverse Reaction (Intermediate, Verified 07/08/23 08:48) Vomiting Medication List - Last Reconciled 07/08/23 by Colette Luz, RN allopurinol 100 mg PO DAILY atorvastatin 20 mg PO BEDTIME blood sugar diagnostic ([employer] Verio test strips) 3 times a day blood-glucose meter ([employer] Verio Flex Start kit) As directed to check blood glucose 3x/day cyanocobalamin (vitamin B-12) 1,000 mcg PO .tiw glipizide 5 mg PO DAILY lancets ([employer] Delica Lancets) 3 times a day levothyroxine 75 mcg PO DAILY metoprolol succinate ER (Toprol XL) 50 mg PO DAILY multivitamin 1 tab PO DAILY warfarin 2.5 mg See Protocol PO DAILY Nursing Note INR 3.2?out of therapeutic range OF 2-3 Medications and supplements reviewed Patient status: No changes Medications or supplements: no changes Diet: no changes Denies any signs and symptoms of bleeding or clotting or unusual bruising Bleeding, bruising, clotting discussed Nutritional guidance given: pt to have extra serving of greens today Dose: continue same dose of 2.5mg X4days and 5mg X3days F/U INR Date : 2 weeks? Patient verbalizing understanding of instructions given. 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
== END 2023-07-08 09:13 | disposition home or self-care (01) ==
LOC: HO.ACS 08:46
PROVIDERS: PCP Internal Medicine; Visit Provider Internal Medicine
DX: Z79.01 Long term (current) use of anticoagulants (principal)

== ENCOUNTER → 2023-07-08 08:46 | Outpatient (BNVA) | payer MEDICARE, SELFPAY | PROVIDERS: PCP Internal Medicine; Visit Provider Internal Medicine | DX: I26.99 Other pulmonary embolism without acute cor pulmonale (principal); Z79.01 Long term (current) use of anticoagulants; Z51.81 Encounter for therapeutic drug level monitoring | CPT/HCPCS: 85610; 99211 ==

== ENCOUNTER 2023-07-22 08:22 | Outpatient (AMB) | payer MEDICARE, SELFPAY ==
[2023-07-22 08:30] LABS: Prothrombin Time Whole Bld POC 39.9 sec (11.1-13.5); ~PT, ~INR - Anti Coag Clinic 3.3 (0.9-1.1)
--- NOTE | 2023-07-22 08:30 | MHC.OFFVISCO ---
Intake Intake Visit Reasons: Anticoagulation Allergies silver [From TEGADERM AG MESH] Allergy (Intermediate, Verified 07/22/23 08:26) skin sloughing morphine [MORPHINE] Adverse Reaction (Intermediate, Verified 07/22/23 08:26) Vomiting Medication List - Last Reconciled 07/22/23 by Sonia Womack, RN allopurinol 100 mg PO DAILY atorvastatin 20 mg PO BEDTIME blood sugar diagnostic ([employer] Verio test strips) 3 times a day blood-glucose meter ([employer] Verio Flex Start kit) As directed to check blood glucose 3x/day cyanocobalamin (vitamin B-12) 1,000 mcg PO .tiw glipizide 5 mg PO DAILY lancets ([employer] Delica Lancets) 3 times a day levothyroxine 75 mcg PO DAILY metoprolol succinate ER (Toprol XL) 50 mg PO DAILY multivitamin 1 tab PO DAILY warfarin 2.5 mg See Protocol PO DAILY Nursing Note INR 3.3-? out of therapeutic range of 2-3 Medications and supplements reviewed- Patient status: no c.o Medications or supplements: no changes Diet: not taking ensure as much, will resume Denies any signs and symptoms of bleeding or clotting or unusual bruising Bleeding, bruising, clotting discussed Nutritional guidance given: eat dark cooked greens x 2 Dose: 2.5mg today and tomm then cont reg 5mg x 3, 2.5mg x 4 F/U INR Date : 2 weeks? Patient verbalizing understanding of instructions given. Anti-Coag Initial Assessment Social Hx Patient Tobacco Use Status: Never used Tobacco alcohol intake: never Alcohol intake frequency: does not drink Coding Level of Care Code Est Patient Level 1 Diagnoses Current use of anticoagulant therapy Z79.01 Assessment & Plan Assessment & Plan (1) Current use of anticoagulant therapy: Code(s): Z79.01 - [facility] (current) use of anticoagulants
== END 2023-07-22 08:37 | disposition home or self-care (01) ==
LOC: HO.ACS 08:22
PROVIDERS: PCP Internal Medicine; Visit Provider Internal Medicine
DX: Z79.01 Long term (current) use of anticoagulants (principal)

== ENCOUNTER → 2023-07-22 08:22 | Outpatient (BNVA) | payer MEDICARE, SELFPAY | PROVIDERS: PCP Internal Medicine; Visit Provider Internal Medicine | DX: I26.99 Other pulmonary embolism without acute cor pulmonale (principal); Z79.01 Long term (current) use of anticoagulants; Z51.81 Encounter for therapeutic drug level monitoring | CPT/HCPCS: 85610; 99211 ==

== ENCOUNTER 2023-08-05 08:25 | Outpatient (AMB) | payer MEDICARE, SELFPAY ==
[2023-08-05 08:32] LABS: Prothrombin Time Whole Bld POC 38.7 sec (11.1-13.5); ~PT, ~INR - Anti Coag Clinic 3.2 (0.9-1.1)
--- NOTE | 2023-08-05 08:45 | MHC.OFFVISCO ---
Intake Intake Visit Reasons: Anticoagulation Allergies silver [From TEGADERM AG MESH] Allergy (Intermediate, Verified 08/05/23 08:26) skin sloughing morphine [MORPHINE] Adverse Reaction (Intermediate, Verified 08/05/23 08:26) Vomiting Medication List - Last Reconciled 08/05/23 by Beryl Patrick RN allopurinol 100 mg PO DAILY atorvastatin 20 mg PO BEDTIME blood sugar diagnostic ([employer] Verio test strips) 3 times a day blood-glucose meter ([employer] Verio Flex Start kit) As directed to check blood glucose 3x/day cyanocobalamin (vitamin B-12) 1,000 mcg PO .tiw glipizide 5 mg PO DAILY lancets ([employer] Delica Lancets) 3 times a day levothyroxine 75 mcg PO DAILY metoprolol succinate ER (Toprol XL) 50 mg PO DAILY multivitamin 1 tab PO DAILY warfarin 2.5 mg See Protocol PO DAILY Nursing Note INR: 3.2 in therapeutic range Medications and supplements reviewed No changes in health, diet, medications, or supplements, Denies any signs and symptoms of bleeding or bruising or clotting. Bleeding, bruising, clotting discussed Nutritional guidance given - REVIEW FOOD LIST WEEKLY, INSTRUCRTED TO HAVE MORE GREENS LIKE SALAD AND COLESLAW Dose: KEEP SAME FOR NOW 5MG X3DAYS / 2.5MG X 4 DAYS F/U INR:2 WEEKS Patient verbalizes understanding of instructions given Anti-Coag Initial Assessment Social Hx Patient Tobacco Use Status: Never used Tobacco alcohol intake: never Alcohol intake frequency: does not drink Coding Level of Care Code Est Patient Level 1 Diagnoses Current use of anticoagulant therapy Z79.01 Assessment & Plan Assessment & Plan (1) Current use of anticoagulant therapy: Code(s): 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
== END 2023-08-05 08:46 | disposition home or self-care (01) ==
LOC: HO.ACS 08:25
PROVIDERS: PCP Internal Medicine; Visit Provider Internal Medicine
DX: Z79.01 Long term (current) use of anticoagulants (principal)

== ENCOUNTER → 2023-08-05 08:25 | Outpatient (BNVA) | payer MEDICARE, SELFPAY | PROVIDERS: PCP Internal Medicine; Visit Provider Internal Medicine | DX: I26.99 Other pulmonary embolism without acute cor pulmonale (principal); Z79.01 Long term (current) use of anticoagulants; Z51.81 Encounter for therapeutic drug level monitoring | CPT/HCPCS: 85610; 99211 ==

== ENCOUNTER 2023-08-07 09:29 | Outpatient (AMB) | payer MEDICARE, SELFPAY ==
--- NOTE | 2023-08-07 09:31 | MHC.OFFVIS ---
Intake Vital Signs 08/07/23 09:40 Height 6 ft 1 in Weight 193 lb 6 oz BMI 25.5 BP 118/65 Blood Pressure Location Lt brachial Position Sitting Pulse 104 H Intake Visit Reasons: Enlarging lesions groin Intake Note: Patient is seen in office for evaluation of an enlarging lesion bilateral groin. 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 He reports feeling a left area of roughness in the groin crease. He denies any bleeding or discharge from the site. He is concerned about a new malignant melanoma. She is uncertain how long the lesion has been present and is uncertain of any changes in size. In the right upper leg there is also an area of rough skin which also has not bled. He presents today for skin check. He denies any changes in his abdominal wall at the site of the previous malignant melanoma. [facility] Medical History CKD (chronic kidney disease) stage 3, GFR 30-59 ml/min DVT (deep venous thrombosis) Diabetes CLL (chronic lymphocytic leukemia) History of COVID-19 Mitral annular calcification Tachycardia Gout Headache above the eye region Cryptococcosis Dyslipidemia Diabetic nephropathy associated with type 2 diabetes mellitus Diabetes type 2, uncontrolled Melanoma BPH (benign prostatic hyperplasia) Current use of anticoagulant therapy Surgical History History of excision of lesion (08/05/22) History of esophagogastroduodenoscopy (EGD) Hx of melanoma excision Hx of lymph node excision H/O colonoscopy Hx of cystoscopy Hx of basal cell carcinoma excision S/P TURP Hx of cataract surgery H/O inguinal hernia repair H/O umbilical hernia repair S/P appendectomy Family History Other Family history of cancer in sister Social History Household Members: Spouse Housing: House Are you a primary urgent care physician assistant to a significant other at home: No Do you presently have visiting nurse or other home services: No Alcohol intake: never Comment: PATIENT STABLE ON FEET Patient Tobacco Use Status: Never used Tobacco Second Hand Smoke Exposure: No Advance Directives Date on File: 01/23/22 service: Yes Current occupational status: retired 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 No evidence of recurrent malignant melanoma. Skin Full body images: 1. 3 x 1 cm jade lesion on the surface of the skin with a even color without variegation. No ulceration or bleeding. Lesion appears consistent with a seborrheic keratosis 2. 2 x 1 cm flesh-colored superficial skin lesion with minimal pigmentation at the upper surface without ulceration or bleeding, suggestive of a seborrheic keratosis Neuro General: patient oriented x3 Extrem Other: No edema Assessment & Plan Assessment & Plan (1) Melanoma: Code(s): C43.9 - Malignant melanoma of skin, unspecified Qualifiers: Melanoma location: torso excluding breast Qualified Code(s): C43.59 - Malignant melanoma of other part of trunk Plan 87-year-old male patient with a prior history of abdominal wall melanoma now with 2 lesions for a skin check. Both lesions are superficial with even color patterns and appear most consistent with seborrheic keratosis. Patient was given the option of either continued observation verses excision. He is comfortable with observation and will return in 2-3 months for skin check. He is welcome to call sooner for any new concerns. Coding Level of Care Code Est Pt Level 3 (23931) Diagnoses Malignant melanoma of torso excluding breast C43.59 Melanoma location: torso excluding breast
[2023-08-07 09:40] VITALS: BP 118/65; PULSE 104; BMI 25.5
== END 2023-08-07 09:49 | disposition home or self-care (01) ==
PROVIDERS: PCP Internal Medicine; Visit Provider Surgery
DX: C43.59 Malignant melanoma of other part of trunk (principal)
CPT/HCPCS: 99213

== ENCOUNTER → 2023-08-07 09:29 | Outpatient (BNVA) | payer MEDICARE, SELFPAY | PROVIDERS: PCP Internal Medicine; Visit Provider Surgery | DX: C43.59 Malignant melanoma of other part of trunk (principal) | CPT/HCPCS: 99212 ==

== ENCOUNTER 2023-08-19 08:32 | Outpatient (AMB) | payer MEDICARE, SELFPAY ==
--- NOTE | 2023-08-19 08:40 | MHC.OFFVISCO ---
Intake Intake Visit Reasons: Anticoagulation Allergies silver [From TEGADERM AG MESH] Allergy (Intermediate, Verified 08/19/23 08:36) skin sloughing morphine [MORPHINE] Adverse Reaction (Intermediate, Verified 08/19/23 08:36) Vomiting Medication List - Last Reconciled 08/19/23 by Sonia Womack, RN allopurinol 100 mg PO DAILY atorvastatin 20 mg PO BEDTIME blood sugar diagnostic ([employer] Verio test strips) 3 times a day blood-glucose meter ([employer] Verio Flex Start kit) As directed to check blood glucose 3x/day cyanocobalamin (vitamin B-12) 1,000 mcg PO .tiw glipizide 5 mg PO DAILY lancets ([employer] Delica Lancets) 3 times a day levothyroxine 75 mcg PO DAILY metoprolol succinate ER (Toprol XL) 50 mg PO DAILY multivitamin 1 tab PO DAILY warfarin 2.5 mg See Protocol PO DAILY Nursing Note INR 3.3-?? out of therapeutic range of 2-3 Medications and supplements reviewed Patient status: no c.o Medications or supplements: no changes Diet: same- states ensure a few times a week Denies any signs and symptoms of bleeding or clotting or unusual bruising Bleeding, bruising, clotting discussed Nutritional guidance given: eat greens to lower, pt feels can lower by greens Dose: 2.5mg today and tomm, then 2.5mg x 4, 5mg x 3 F/U INR Date : 2 weeks?? Patient verbalizing understanding of instructions given. Anti-Coag Initial Assessment Social Hx Patient Tobacco Use Status: Never used Tobacco alcohol intake: never Alcohol intake frequency: does not drink Coding Level of Care Code Est Patient Level 1 Diagnoses Current use of anticoagulant therapy Z79.01 Assessment & Plan Assessment & Plan (1) Current use of anticoagulant therapy: Code(s): Z79.01 - [facility] (current) use of anticoagulants
[2023-08-19 08:41] LABS: Prothrombin Time Whole Bld POC 39.5 sec (11.1-13.5); ~PT, ~INR - Anti Coag Clinic 3.3 (0.9-1.1)
== END 2023-08-19 08:50 | disposition home or self-care (01) ==
LOC: HO.ACS 08:32
PROVIDERS: PCP Internal Medicine; Visit Provider Internal Medicine
DX: Z79.01 Long term (current) use of anticoagulants (principal)

== ENCOUNTER → 2023-08-19 08:32 | Outpatient (BNVA) | payer MEDICARE, SELFPAY | PROVIDERS: PCP Internal Medicine; Visit Provider Internal Medicine | DX: I26.99 Other pulmonary embolism without acute cor pulmonale (principal); Z79.01 Long term (current) use of anticoagulants; Z51.81 Encounter for therapeutic drug level monitoring | CPT/HCPCS: 85610; 99211 ==

== ENCOUNTER 2023-08-23 10:35 | Inpatient (IN) | payer OTHER, MEDICARE, SELFPAY ==
[2023-08-23] VITALS (15 sets, daily range): BP systolic 111–182; BP diastolic 71–112; PULSE 85–150; RESP 14–20; TEMP 36.7–39; O2SAT 91–98; BMI 25.8; BMI 25.1
--- NOTE | 2023-08-23 | ECG_ITS ---
Test Reason : tachycardia Blood Pressure : / mmHG Vent. Rate : 135 BPM Atrial Rate : 136 BPM P-R Int : 136 ms QRS Dur : 070 ms QT Int : 310 ms P-R-T Axes : 000 031 -10 degrees QTc Int : 465 ms Sinus tachycardia with Premature supraventricular complexes Low voltage QRS Nonspecific ST and T wave abnormality Abnormal ECG When compared with ECG of 23-AUG-2023 11:03, No significant change was found Referred By: Liliya Leahy Electronically Signed By:Josiah Zhang
--- NOTE | ~2023-08-23 | XR_ITS ---
EXAMINATION: XR CHEST CLINICAL INFORMATION: SOB/Covid COMPARISON: Portable chest 08/23/2023 TECHNIQUE: AP upright portable view of the chest was obtained. 10:45 AM FINDINGS: The right lung base is obscured by overlying leads. There is no focal consolidation, interstitial pulmonary edema or pneumothorax. The cardiomediastinal silhouette is stable. Heart size is normal. No pleural effusion. No acute osseous abnormality. Mild elevation the right hemidiaphragm is again noted. XR/XR chest 1V IMPRESSION: No acute cardiopulmonary disease.
--- NOTE | ~2023-08-23 | XR_ITS ---
EXAMINATION: XR CHEST CLINICAL INFORMATION: Weakness and, fever and shortness of breath COMPARISON: Previous chest x-ray most recent 2022 TECHNIQUE: Frontal view of the chest was obtained. FINDINGS: The cardiac and mediastinal contours are stable. The lungs are clear. No pleural effusion or pneumothorax. Degenerative changes of the spine and shoulders. XR/XR chest 1V IMPRESSION: No evidence for acute disease in the chest.
--- NOTE | 2023-08-23 10:54 | ECG_ITS ---
Test Reason : WEAKNESS Blood Pressure : / mmHG Vent. Rate : 130 BPM Atrial Rate : 131 BPM P-R Int : 168 ms QRS Dur : 074 ms QT Int : 352 ms P-R-T Axes : 067 041 -10 degrees QTc Int : 518 ms Sinus tachycardia with Premature atrial complexes Low voltage QRS Nonspecific ST and T wave abnormality Abnormal ECG When compared with ECG of 20-FEB-2023 09:15, Premature atrial complexes are now Present Vent. rate has increased BY 46 BPM Referred By: Yeimy Kebede Electronically Signed By:Josiah Zhang
--- NOTE | 2023-08-23 11:00 | PC.NURSE ---
pt biba from home d/t increased generalized weakness and foul smelling urine x 2 days. upon ED arrival - pt is a&ox4. hard of hearing/slow to respond. sinus tachy on the quality assurance monitor chassis - HR between 130-140bpm. pt denies chest pain/palpitations. pt hypertensive. states he took his meds this am prior to coming in. pt skin hot to touch - rectal temp obtained displaying 102.2. no sob/wob noted. respirations even and unlabored. pt extremely tremulous. sepsis workup initiated by LIVE Salazar. 20gIV placed in the right forearm as well as a 20gIV in the left hand. labs/urine obtained and sent to lab. pt's bedside for support. plan of care ongoing. call alford placed within reach.
[2023-08-23] MEDS: cefTRIAXone sodium 1 GM in 0.9 % Sodium Chloride 50 ML IV (11:11)
--- NOTE | 2023-08-23 11:15 | PC.NURSE ---
fluid bolus/abx administered per sepsis protocol.
--- NOTE | 2023-08-23 11:17 | ED_ITS ---
HPI - General Adult General Chief complaint: Weakness Stated complaint: WEAKNESS Time Seen by Provider: 08/23/23 10:54 Source: patient and family Mode of arrival: EMS Limitations: other (poor historian ) History of Present Illness HPI narrative: 87-year-old male history of CKD, CLL, PVCs, atrial tachycardia, hypertension, atherosclerotic cardiovascular disease, dyslipidemia presenting to the emergency department with weakness x2 days and foul/strong smelling urine. Patient and poor historians. Patient tells me he is fine. Baby having fevers however unclear. Reports he is on blood thinners however unsure why. Pl Related Data Home Medications ?Medication ?Instructions ?Recorded ?Confirmed multivitamin 1 tab PO DAILY 02/10/20 08/05/23 glipizide 5 mg tablet 5 mg PO DAILY 03/19/22 08/05/23 warfarin 2.5 mg tablet 2.5 mg PO DAILY 08/13/22 08/19/23 levothyroxine 75 mcg tablet 75 mcg PO DAILY 02/18/23 08/05/23 cyanocobalamin (vitamin B-12) 1,000 mcg PO .tiw 06/06/23 08/05/23 1,000 mcg tablet Previous Rx's ?Medication ?Instructions ?Recorded blood sugar diagnostic (MyCubeTouch #300 ea 09/13/20 Verio test strips) lancets 33 gauge (OneTouch Delica #300 ea 09/13/20 Lancets) blood-glucose meter (MyCubeTouch #1 ea 03/28/21 Verio Flex Start kit) atorvastatin 20 mg tablet 20 mg PO BEDTIME #90 tabs 01/14/23 allopurinol 100 mg tablet 100 mg PO DAILY #90 tabs 01/23/23 metoprolol succinate 50 mg 50 mg PO DAILY #90 tabs 05/19/23 tablet,extended release 24 hr (Toprol XL) Allergies Allergy/AdvReac Type Severity Reaction Status Date / Time silver Allergy Intermediate skin Verified 08/23/23 10:52 [From TEGADERM AG MESH] sloughing morphine [MORPHINE] AdvReac Intermediate Vomiting Verified 08/23/23 10:52 Review of Systems 2 Review of Systems: Yes all other systems are reviewed and are negative PMFSH Past Medical History Attestation statement: The following information was validated with the patient. Source: old records reviewed and nursing notes reviewed Medical History CKD (chronic kidney disease) stage 3, GFR 30-59 ml/min DVT (deep venous thrombosis) Diabetes CLL (chronic lymphocytic leukemia) History of COVID-19 Mitral annular calcification Tachycardia Gout Headache above the eye region Cryptococcosis Dyslipidemia Diabetic nephropathy associated with type 2 diabetes mellitus Diabetes type 2, uncontrolled Melanoma BPH (benign prostatic hyperplasia) Current use of anticoagulant therapy Surgical History History of excision of lesion (08/05/22) History of esophagogastroduodenoscopy (EGD) Hx of melanoma excision Hx of lymph node excision H/O colonoscopy Hx of cystoscopy Hx of basal cell carcinoma excision S/P TURP Hx of cataract surgery H/O inguinal hernia repair H/O umbilical hernia repair S/P appendectomy Family History Family History Other Family history of cancer in sister Social History Social History Household Members: Spouse Housing: House Are you a primary medical care evaluation specialist to a significant other at home: No Do you presently have visiting nurse or other home services: No Alcohol intake: never Comment: PATIENT STABLE ON FEET Patient Tobacco Use Status: Never used Tobacco Smoked in Last 30 Days: No Second Hand Smoke Exposure: No Use of substances other than those prescribed or required for medical reasons: No Advance Directives: Yes Advance Directives on File: Yes Advance Directives Date on File: 01/23/22 service: Yes Current occupational status: retired 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 Oriented to person and place not time or situation.? No acute distress.? Head: Normocephalic, atraumatic, no step-offs or deformities Eyes: Pupils equal, round and reactive to light.? Neck: Normal inspection.? Neck supple.? CVS: Normal heart rate and rhythm.? Pulses normal.? Respiratory: No respiratory distress.? Breath sounds normal.? Abdomen: Soft and nontender.? Skin: Skin warm and dry.? Normal skin color.? Normal skin turgor.? Extremities: No lower extremity edema.? No calf ttp. Global weakness Neuro: Oriented to person and place, not time or situation? No motor deficit.? No sensory deficit. CN 2-12 intact Course Reevaluation(s) Reevaluation #1: CBC with leukocytosis and left shift. Chemistry, UA and chest x-ray pending. Time: 11:22 Reevaluation #2: Chemistry with no acute findings requiring acute intervention. Lactic elevated 3.6. Troponin elevated 47.7. Will repeat another troponin at the 3 hour yahaira, EKG with prolonged QTC however sinus tach and low-voltage QRS this could be secondary to viral illness. Pericarditis can not be excluded. UA without infection. Patient noted to be COVID positive. Chest x-ray pending. Patient noted to be 93% on room air. Will do an ambulatory trial at this time Time: 12:38 Reevaluation #3: Repeat troponin 81. Patient does not express chest pain he does have some shortness of breath and cough that we have noted here in the department he is saturating between 91-93% at rest. No history of COPD. I did discuss this case with Cardiology and I am pending a response Time: 13:47 Additional Reevaluation(s): Cardiology states EKG changes nonspecific no need for heparin. Will admit patient at this time for monitoring and new onset altered mental status as well as borderline hypoxia. Medications Administered Discontinued Medications Generic Name Dose Route Start Last Admin Trade Name Freq PRN Reason Stop Dose Admin Acetaminophen 650 mg 08/23/23 11:17 08/23/23 11:38 Acetaminophen 325 Mg Tablet PO 08/23/23 11:18 650 mg ONCE ONE Administration Sodium Chloride 2,736 mls @ 2,736 mls/hr 08/23/23 10:54 08/23/23 12:12 Ns 30 ml/kg infuse over 1 hr (2736 ml) 08/23/23 11:53 Infused IV Infusion .Q1H STA Ceftriaxone Sodium 1 gm/ 50 mls @ 100 mls/hr 08/23/23 10:54 08/23/23 11:41 Sodium Chloride IV 08/23/23 11:23 Infused ONCE ONE Infusion Medical Decision Making Medical Decision Making [facility] Narrative: 1055 87-year-old male presents with weakness x2 days and foul smelling urine. Poor historian both him and his Physical exam global weakness. Patient alert to person and place not time or situation. History and physical exam concerning for UTI versus urosepsis versus viral illness. Unlikely acute abdomen no abdominal tenderness on exam. No signs of appendicitis, cholecystitis, diverticulitis, obstruction, pneumonia, ACS or PE. Unlikely stroke posterior stroke Plan at this time labs, urine, chest x-ray Sepsis focus exam done on arrival Differential Diagnosis Differential Diagnoses: The differential diagnosis associated with the presentation includes History and physical exam concerning for UTI versus urosepsis versus viral illness. Unlikely acute abdomen no abdominal tenderness on exam. No signs of appendicitis, cholecystitis, diverticulitis, obstruction, pneumonia, ACS or PE. Unlikely stroke posterior stroke Admission/Observation Consideration of admission/observation: Escalation of care including admission/observation considered Likely Consult Healthcare Provider Management of the patient was discussed with: Hospitalist Lab Data [facility] Lab Attestation statement: I reviewed the patient's lab results. 08/23/23 11:05 08/23/23 11:49 Labs: Lab Results 08/23/23 08/23/23 08/23/23 Range/Units 11:05 11:10 11:49 WBC 16.4 H (4.8-10.8) X10*3/uL RBC 4.20 L (4.60-5.80) X10*6/uL Hgb 14.4 (14.0-18.0) g/dl Hct 43.1 (42.0-52.0) % MCV 102.6 H (80.0-98.0) fL MCH 34.3 H (27.0-33.0) pg MCHC 33.4 (31.0-36.0) g/dl RDW 13.5 (11.0-16.0) % Plt Count 151 L (160-400) X10*3/uL MPV 10.2 (9.4-12.4) fL Immature Gran % (Auto) 0.7 H (0.0-0.4) % Neut % (Auto) 85.3 H (45-73) % Lymph % (Auto) 6.0 L (20-40) % [place] % (Auto) 7.9 (2-11) % Eos % (Auto) 0.0 (0-4) % Baso % (Auto) 0.1 (0-2) % Lymph # (Auto) 1.0 L (1.2-4.9) X10*3/uL [place] # (Auto) 1.3 H (0.1-1.2) X10*3/uL Eos # (Auto) 0.0 (0.0-0.4) X10*3/uL Baso # (Auto) 0.0 (0.0-0.2) X10*3/uL Abs Immat Gran (auto) 0.11 H (0.00-0.03) X10*3/uL Absolute Neuts (auto) 14.0 H (2.0-8.3) x10*3/uL Absolute Nucleated RBC 0.000 (0.0-0.012) X10*3/uL Nucleated RBC % (auto) 0.0 (0.0-0.2) /100WBC Sodium 143 (135-145) mmol/L Potassium 4.2 (3.3-5.1) mmol/L Chloride 115 H (96-108) mmol/L Carbon Dioxide 16 L (22-29) mmol/L Anion Gap 16 (12-20) BUN 17 H (9-16) mg/dL Creatinine 1.39 (0.5-1.4) mg/dL Estim Creat Clear Calc 43.5 Estimated GFR 48 Random Glucose 229 H (60-115) mg/dL Lactic Acid 3.6 H* (0.5-2.0) mmol/L Lactic Acid F/U @ 2Hr (0.5-2.0) mmol/L Calcium 8.1 L D (8.4-10.2) mg/dL Magnesium 1.5 L (1.6-2.6) mg/dL Total Bilirubin 1.0 (0.0-1.0) mg/dL AST 13 (5-37) U/L ALT 12 (0-40) U/L Alkaline Phosphatase 97 (39-117) U/L Troponin I High Sens 47.7 H D (<3.5-35.0) ng/L Total Protein 5.3 L (6.5-8.0) g/dL Albumin 3.0 L (3.5-5.0) g/dL Urine Color Yellow Urine Appearance Cloudy Urine pH 5.5 (5.0-9.0) Ur Specific [place] 1.020 (1.005-1.025) Urine Protein 100 (2+) H (Neg-Trace) mg/dL Urine Glucose (UA) 250 H (Negative) mg/dL Urine Ketones 40 (Negative) mg/dL Urine Blood Large (3+) H (Negative) Urine Nitrite Negative (Negative) Ur Leukocyte Esterase Negative (Negative) Urine RBC >20 H (0-2) /HPF Urine WBC 6-10 H (0-5) /HPF Ur Squamous Epith Cells 0-2 (0-2) /HPF Urine Bacteria None Seen (None Seen) Hyaline Casts 3-5 (0-2) /LPF Influenza Type A (PCR) NEGATIVE (Negative) Influenza Type B (PCR) NEGATIVE (Negative) RSV RNA Qual (PCR) NEGATIVE (Negative) SARS-CoV-2 RNA (RT-PCR) POSITIVE A (Negative) 08/23/23 08/23/23 Range/Units 12:50 13:23 WBC (4.8-10.8) X10*3/uL RBC (4.60-5.80) X10*6/uL Hgb (14.0-18.0) g/dl Hct (42.0-52.0) % MCV (80.0-98.0) fL MCH (27.0-33.0) pg MCHC (31.0-36.0) g/dl RDW (11.0-16.0) % Plt Count (160-400) X10*3/uL MPV (9.4-12.4) fL Immature Gran % (Auto) (0.0-0.4) % Neut % (Auto) (45-73) % Lymph % (Auto) (20-40) % [place] % (Auto) (2-11) % Eos % (Auto) (0-4) % Baso % (Auto) (0-2) % Lymph # (Auto) (1.2-4.9) X10*3/uL [place] # (Auto) (0.1-1.2) X10*3/uL Eos # (Auto) (0.0-0.4) X10*3/uL Baso # (Auto) (0.0-0.2) X10*3/uL Abs Immat Gran (auto) (0.00-0.03) X10*3/uL Absolute Neuts (auto) (2.0-8.3) x10*3/uL Absolute Nucleated RBC (0.0-0.012) X10*3/uL Nucleated RBC % (auto) (0.0-0.2) /100WBC Sodium (135-145) mmol/L Potassium (3.3-5.1) mmol/L Chloride (96-108) mmol/L Carbon Dioxide (22-29) mmol/L Anion Gap (12-20) BUN (9-16) mg/dL Creatinine (0.5-1.4) mg/dL Estim Creat Clear Calc Estimated GFR Random Glucose (60-115) mg/dL Lactic Acid (0.5-2.0) mmol/L Lactic Acid F/U @ 2Hr 2.5 H* (0.5-2.0) mmol/L Calcium (8.4-10.2) mg/dL Magnesium (1.6-2.6) mg/dL Total Bilirubin (0.0-1.0) mg/dL AST (5-37) U/L ALT (0-40) U/L Alkaline Phosphatase (39-117) U/L Troponin I High Sens 81.0 H D (<3.5-35.0) ng/L Total Protein (6.5-8.0) g/dL Albumin (3.5-5.0) g/dL Urine Color Urine Appearance Urine pH (5.0-9.0) Ur Specific [place] (1.005-1.025) Urine Protein (Neg-Trace) mg/dL Urine Glucose (UA) (Negative) mg/dL Urine Ketones (Negative) mg/dL Urine Blood (Negative) Urine Nitrite (Negative) Ur Leukocyte Esterase (Negative) Urine RBC (0-2) /HPF Urine WBC (0-5) /HPF Ur Squamous Epith Cells (0-2) /HPF Urine Bacteria (None Seen) Hyaline Casts (0-2) /LPF Influenza Type A (PCR) (Negative) Influenza Type B (PCR) (Negative) RSV RNA Qual (PCR) (Negative) SARS-CoV-2 RNA (RT-PCR) (Negative) Independent Interpretation I performed an independent interpretation of an: EKG (Vent. Rate : 130 BPM Atrial Rate : 131 BPM P-R Int : 168 ms QRS Dur : 074 ms QT Int : 352 ms P-R-T Axes : 067 041 -10 degrees QTc Int : 518 ms Sinus tachycardia with Premature atrial complexes Low voltage QRS Nonspecific ST and T wave abnormality Abnormal ECG When comp) and Plain X-Ray Radiology Impression Discussion of test interpretation with radiology: I have reviewed the radiologist's reading. Prescription Management I considered prescription management with: Antibiotic (IV here ) Critical Care Time Critical Care Time Critical Care Time: Yes Total Critical Care Time: 35 Attestation: I attest to this time spent taking care of the patient, obtaining history, physical, reviewing labs, imaging, speaking to my attending, specialist or hospitalist. Discharge Plan Discharge Clinical Impression: COVID-19, Hypoxia, Elevated troponin Patient Disposition: Admitted As Inpatient Print Language: Ecuadorean
[2023-08-23 11:19] LABS: MANUAL DIFF FLAG NO
[2023-08-23 11:21] LABS: Basophils Percent Auto 0.1 % (0-2); Hematocrit 43.1 % (42.0-52.0); Hemoglobin 14.4 g/dl (14.0-18.0); Imm Gran Abs Auto 0.11 X10*3/uL (0.00-0.03); Imm Gran Pct Auto 0.7 % (0.0-0.4); Mean Corpuscular HGB Conc 33.4 g/dl (31.0-36.0); Mean Corpuscular Hemoglobin 34.3 pg (27.0-33.0); Mean Corpuscular Volume 102.6 fL (80.0-98.0); Mean Platelet Volume 10.2 fL (9.4-12.4); Monocytes Absolute Auto 1.3 X10*3/uL (0.1-1.2); Monocytes Percent Auto 7.9 % (2-11); Neutrophils Percent Auto 85.3 % (45-73); Platelet Count 151 X10*3/uL (160-400); Red Cell Distribution Width 13.5 % (11.0-16.0); White Blood Count 16.4 X10*3/uL (4.8-10.8)
[2023-08-23 11:24] LABS: Appearance Urine Cloudy; Color Urine Yellow; Glucose Urine UA 250 mg/dL (Negative); Leukocyte Esterase Urine Negative (Negative); Nitrite Urine Negative (Negative); PH 5.5 (5.0-9.0); UMIC TRIGGER UACC YES; Urine Blood Large (3+) (Negative); Urine Ketones 40 mg/dL (Negative); Urine Protein 100 (2+) mg/dL (Neg-Trace)
[2023-08-23 11:29] LABS: Bacteria Urine None Seen (None Seen); RBC Urine >20 /HPF (0-2); Squamous Epithelial Cell Urine 0-2 /HPF (0-2); UACC Culture Trigger YES
--- NOTE | 2023-08-23 11:32 | PC.NURSE ---
xray bedside at this time.
[2023-08-23 11:33] LABS: Lactic Acid 3.6 mmol/L (0.5-2.0)
[2023-08-23] MEDS: Acetaminophen 325 MG TABLET 650 MG PO ×3 (11:38→23:15)
--- NOTE | 2023-08-23 11:39 | PC.NURSE ---
IVF still infusing at this time. abx completely infused. tylenol administered for fever at this time - effectiveness pending. will reassess rectal temp shortly. pt remains sinus tachy on the cafeteria monitor - HR fluctuates between 125-135 bpm. pt remains tremulous at this time. no sob/wob noted. respirations even and unlabored. bedside for support. plan of care ongoing. call alford placed within reach.
[2023-08-23 11:42] LABS: Troponin-I High Sensitivity 47.7 ng/L (<3.5-35.0)
[2023-08-23 12:15] LABS: Alanine Aminotransferase 12 U/L (0-40); Alkaline Phosphatase 97 U/L (39-117); Anion Gap 16 (12-20); Aspartate Amino Transferase 13 U/L (5-37); Blood Urea Nitrogen 17 mg/dL (9-16); Calcium 8.1 mg/dL (8.4-10.2); Carbon Dioxide 16 mmol/L (22-29); Chloride 115 mmol/L (96-108); Creatinine Clr Calc Pharmacy 43.5; Estimated Glomerular Filt Rate 48; Glucose Random 229 mg/dL (60-115); Magnesium 1.5 mg/dL (1.6-2.6); Potassium 4.2 mmol/L (3.3-5.1); Sodium 143 mmol/L (135-145); Total Protein 5.3 g/dL (6.5-8.0)
[2023-08-23 12:32] LABS: Influenza A PCR NEGATIVE (Negative); Influenza B PCR NEGATIVE (Negative); Resp Syncy Virus RNA Qual PCR NEGATIVE (Negative); SARS COV2 PCR INHOUSE POSITIVE (Negative)
--- NOTE | 2023-08-23 12:56 | PC.NURSE ---
repeat trop obtained/sent to lab. pt remains sinus tachy on the monitor - HR 130s bpm - denies chest pain/palpitations. repeat rectal temp obtained - pt remains afebrile despite medication administration. ED provider notified/aware. BP continues to decrease at this time - now wnl. no sob/wob noted. respirations remain even and unlabored. plan of care ongoing. call alford placed within reach.
[2023-08-23 13:17] LABS: Reflex Lactate? Lactic Acid Added
[2023-08-23 13:42] LABS: ~Lactic Acid-LAB USE ONLY 2.5 mmol/L (0.5-2.0)
--- NOTE | 2023-08-23 13:51 | PC.NURSE ---
repeat lactic obtained/sent to lab. ambulation trial performed w/ tech - O2 between 91%-94% on RA. no sob/wob displayed. pt denies any sx in regards to being sob throughout trial. respirations even and unlabored. 1:1 assist needed w/ the use of a walker during ambulation trial. steady gait noted. pt now resting comfortably in bed in no apparent distress. plan of care ongoing. call alford placed within reach.
--- NOTE | 2023-08-23 13:55 | P.HPHOSP_ITS ---
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 Patient states was feeling ?fine? yesterday, but had difficulty standing up and was unable to walk when he woke up this morning. Denies recent falls at home. Ambulates on his own in the house but uses a cane when leaves home. Reports having a productive cough of whitish sputum for past 1-2 weeks, as well as subjective fever and chills, and reduced p.o. intake the past week. Denies difficulty breathing or shortness of breath. No chest pain/pressure or palpitations. Denies myalgias. No nausea, vomiting, abdominal pain. In the ED pt was febrile up to 102.2, tachycardic up to 134, and hypertensive up to 171/100, satting as low as 91% on RA. Labs were significant for testing positive for COVID, leukocytosis 16.4, lactic acid 3.6 with repeat 2.5, magnesium 1.5, initial troponin 47.7 with repeat 81.0. UA negative for UTI. CXR showed no evidence for acute disease in the chest. EKG demonstrated sinus tachycardia of 130 [address] PACs and mild ST depressions in anterior leads. Pt was treated with IVF, ceftriaxone, and acetaminophen. Pt will be admitted to the hospital for treatment and further evaluation of generalized weakness and elevated troponins in the setting of COVID infection. Review of Systems 2 Review of Systems: Generalized weakness Difficulty standing and walking Fever, chills Productive cough times 1-2 weeks Reduced p.o. intake x1 week Denies chest pain/pressure, palpitations No shortness a breath or difficulty breathing No nausea, vomiting, abdominal pain COUNT INCLUDES THE [facility] Medical History CKD (chronic kidney disease) stage 3, GFR 30-59 ml/min DVT (deep venous thrombosis) Diabetes CLL (chronic lymphocytic leukemia) History of COVID-19 Mitral annular calcification Tachycardia Gout Headache above the eye region Cryptococcosis Dyslipidemia Diabetic nephropathy associated with type 2 diabetes mellitus Diabetes type 2, uncontrolled Melanoma BPH (benign prostatic hyperplasia) Current use of anticoagulant therapy Family History Other Family history of cancer in sister Surgical History History of excision of lesion (08/05/22) History of esophagogastroduodenoscopy (EGD) Hx of melanoma excision Hx of lymph node excision H/O colonoscopy Hx of cystoscopy Hx of basal cell carcinoma excision S/P TURP Hx of cataract surgery H/O inguinal hernia repair H/O umbilical hernia repair S/P appendectomy Social History Household Members: Spouse Housing: House Are you a primary child care attendant to a significant other at home: No Do you presently have visiting nurse or other home services: No Alcohol intake: never Comment: PATIENT STABLE ON FEET Patient Tobacco Use Status: Never used Tobacco Smoked in Last 30 Days: No Second Hand Smoke Exposure: No Use of substances other than those prescribed or required for medical reasons: No Advance Directives: Yes Advance Directives on File: Yes Advance Directives Date on File: 01/23/22 service: Yes Current occupational status: retired 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[employer] Meds Allergies Allergy/AdvReac Type Severity Reaction Status Date / Time silver Allergy Intermediate skin Verified 08/23/23 10:52 [From TEGADERM AG MESH] sloughing morphine [MORPHINE] AdvReac Intermediate Vomiting Verified 08/23/23 10:52 Home Medications ?Medication ?Instructions ?Recorded ?Confirmed ?Last Taken ?Type multivitamin 1 tab PO DAILY 02/10/20 08/05/23 02/10/20 08:00 History glipizide 5 mg tablet 5 mg PO DAILY 03/19/22 08/05/23 Unknown History warfarin 2.5 mg tablet 2.5 mg PO DAILY 08/13/22 08/19/23 Unknown History levothyroxine 75 mcg tablet 75 mcg PO DAILY 02/18/23 08/05/23 Unknown History cyanocobalamin (vitamin B-12) 1,000 mcg PO .tiw 06/06/23 08/05/23 Unknown History 1,000 mcg tablet Physical Exam 2 Vital Signs and Narrative: Vital Signs: Last Vital Signs Temp 101.7 F H 08/23/23 12:55 Pulse 134 H 08/23/23 12:55 Resp 18 08/23/23 12:55 BP 137/78 08/23/23 12:55 Pulse Ox 91 L 08/23/23 13:51 O2 Del Method Room Air 08/23/23 13:51 BMI result Body Mass Index 25.8 Constitutional: Alert, in no acute distress. Mental Status: Oriented to person, place and time. Eyes: Pupils are equal, round, and reactive to light. Ear, Nose, and Throat: Oropharynx clear, mucous membranes moist. Ears and nose without deformities. Trachea midline. Respiratory: Diffuse expiratory rhonchi bilaterally. Cardiovascular: Regularly irregular rhythm, tachycardic.. No murmurs, rubs, or gallops. Gastrointestinal: Abdomen soft, non-tender, non-distended. Normal bowel sounds. Neurologic: Cranial nerves II-XII are grossly intact bilaterally. No focal neurological deficits. Moves all extremities spontaneously. Skin: Warm, dry. Musculoskeletal: No cyanosis or clubbing. Extremities: No edema. Psychiatric: Normal mood and affect. Results Labs 08/23/23 11:05 08/23/23 11:49 Labs: Laboratory Results - last 24 hr 08/23/23 08/23/23 08/23/23 11:05 11:10 11:49 MCV 102.6 H MCH 34.3 H MCHC 33.4 RDW 13.5 Plt Count 151 L MPV 10.2 Immature Gran % (Auto) 0.7 H Neut % (Auto) 85.3 H Lymph % (Auto) 6.0 L [place] % (Auto) 7.9 Eos % (Auto) 0.0 Baso % (Auto) 0.1 Lymph # (Auto) 1.0 L [place] # (Auto) 1.3 H Eos # (Auto) 0.0 Baso # (Auto) 0.0 Abs Immat Gran (auto) 0.11 H Absolute Neuts (auto) 14.0 H Absolute Nucleated RBC 0.000 Nucleated RBC % (auto) 0.0 Anion Gap 16 Estim Creat Clear Calc 43.5 Estimated GFR 48 Random Glucose 229 H Lactic Acid 3.6 H* Lactic Acid F/U @ 2Hr Calcium 8.1 L D Magnesium 1.5 L Total Bilirubin 1.0 AST 13 ALT 12 Alkaline Phosphatase 97 Troponin I High Sens 47.7 H D Total Protein 5.3 L Albumin 3.0 L Urine Color Yellow Urine Appearance Cloudy Urine pH 5.5 Ur Specific [place] 1.020 Urine Protein 100 (2+) H Urine Glucose (UA) 250 H Urine Ketones 40 Urine Blood Large (3+) H Urine Nitrite Negative Ur Leukocyte Esterase Negative Urine RBC >20 H Urine WBC 6-10 H Ur Squamous Epith Cells 0-2 Urine Bacteria None Seen Hyaline Casts 3-5 Influenza Type A (PCR) NEGATIVE Influenza Type B (PCR) NEGATIVE RSV RNA Qual (PCR) NEGATIVE SARS-CoV-2 RNA (RT-PCR) POSITIVE A 08/23/23 08/23/23 12:50 13:23 MCV MCH MCHC RDW Plt Count MPV Immature Gran % (Auto) Neut % (Auto) Lymph % (Auto) [place] % (Auto) Eos % (Auto) Baso % (Auto) Lymph # (Auto) [place] # (Auto) Eos # (Auto) Baso # (Auto) Abs Immat Gran (auto) Absolute Neuts (auto) Absolute Nucleated RBC Nucleated RBC % (auto) Anion Gap Estim Creat Clear Calc Estimated GFR Random Glucose Lactic Acid Lactic Acid F/U @ 2Hr 2.5 H* Calcium Magnesium Total Bilirubin AST ALT Alkaline Phosphatase Troponin I High Sens 81.0 H D Total Protein Albumin Urine Color Urine Appearance Urine pH Ur Specific [place] Urine Protein Urine Glucose (UA) Urine Ketones Urine Blood Urine Nitrite Ur Leukocyte Esterase Urine RBC Urine WBC Ur Squamous Epith Cells Urine Bacteria Hyaline Casts Influenza Type A (PCR) Influenza Type B (PCR) RSV RNA Qual (PCR) SARS-CoV-2 RNA (RT-PCR) Imaging Radiologist's Impressions: Impressions Chest X-Ray 08/23/23 11:35 IMPRESSION: No evidence for acute disease in the chest. Assessment and Plan (1) Elevated troponin: Status: Acute (2) COVID-19: Status: Acute Plan Pt is an 87-year-old male with a PMH significant for?CKD 3, CLL in remission, [id number] type 2 diabetes, BPH, HLD, Hypothyroidism, sinus tachycardia, atrial tachycardia, orthostatic hypotension, hx of DVT and PE on warfarin, hx of cryptococcosis, and gout who presents to the ED for evaluation of generalized weakness and cough. COVID infection Patient with generalized weakness, productive cough, F/C Not hypoxic, currently satting at 95% Patient received IVF and IV antibiotics in ED Will treat with remdesivir x3 days Xopenex, supportive care Elevated troponin Pt denies chest pain/pressure or palpitations; EKG with mild ST depressions in anterior leads Likely type two in the setting of increased demand Viral sepsis Pt with tachycardia, tachypnea, fever, and leukocytosis; acid 6 with repeat 2.5 Patient given IVF and started on broad-spectrum antibiotics in the ED No clear source for bacterial infection: UA and CXR negative, denies N/V/D/abd pain No indication to continue antibiotics at this time Will check procalcitonin Generalized weakness Patient with inability to stand or ambulate this morning upon waking Likely in the setting of COVID infection Pt consultation Hx of DVT/PE Cotninue warfarin HTN Continue metoprolol HLD Statin Gout Continue allopurinol DNR/DNI, verified with pt and /HCP Attending:?Dr. Daniels DVT Prophylaxis: On warfarin Pt will require a hospitalization of at least two nights for treatment of ? with . Quality Stroke Does the patient have a stroke diagnosis?: No VTE Prior VTE?: No VTE Risk Level:: Medical - moderate - high VTE Device Contraindication: Treatment Not Indicated VTE Drug Contraindication: N/A - Med Ordered
[2023-08-23 15:25] LABS: Reflex Lactate? 2 Y
[2023-08-23] MEDS: levalbuterol HCL 1.25 MG/3 ML VIAL.NEB INHALE ×3 (15:41→23:22)
[2023-08-23 15:47] LABS: Cancel Lactic Acid Canceled
[2023-08-23 15:53] LABS: Procalcitonin 0.11 ng/mL
[2023-08-23] MEDS: Azithromycin 500 MG in 0.9 % Sodium Chloride 250 ML 125 MG IV (16:04)
[2023-08-23] MEDS: Metoprolol Tartrate 5 MG/5 ML VIAL IVPUSH ×2 (16:19→23:57)
--- NOTE | 2023-08-23 16:25 | PC.NURSE ---
pt remains sinus tachy on the campus monitor- HR in 150s. pt denies chest pain/palpitations. IVP metoprolol administered at this time. effectiveness pending.
[2023-08-23] MEDS: Remdesivir 200 MG in 0.9 % Sodium Chloride 210 ML 105 MG IV (16:32)
[2023-08-23] MEDS: 0.9 % Sodium Chloride 500 ML 250 ML IVCONT (16:32)
--- NOTE | 2023-08-23 16:59 | PHA.MEDREC ---
Pharmacy Consult ? Medication Reconciliation Pharmacy has completed the medication reconciliation. spoke with patient to confirm medications. He reports taking metoprolol BID instead of once daily as prescribed. He reports taking warfarin 5mg MO, WE, FR instead of MO and FR as reported in the protocol (with 2.5mg on all other days). Patient reports not taking his medications today.
[2023-08-23 17:05] LABS: Troponin-I High Sensitivity 154.5 ng/L (<3.5-35.0)
--- NOTE | 2023-08-23 17:09 | PC.NURSE ---
pt's HR continues to decrease post metoprolol administration. HR between 115-125bpm. pt denies chest pain/palpitations. pt's skin hot to touch while repositioning pt. rectal temp obtained displaying 101.7 - PRN tylenol administered per provider order. effectiveness pending. critical lab value received from lab - [facility] hernandez notified/aware. no new orders at this time. pt continues to rest in no apparent distress at this time. no sob/wob noted. respirations even and unlabored. pt continues to wait for bed assignment at this time. plan of care ongoing. call alford placed within reach.
[2023-08-23 21:22] LABS: Glucose, Whole Blood 227 mg/dL (60-115)
[2023-08-23] MEDS: Insulin Lispro 100 UNIT/ML 3 ML VIAL SUBCUT (22:05)
[2023-08-24] VITALS (14 sets, daily range): BP systolic 110–143; BP diastolic 63–92; PULSE 71–145; RESP 16–20; TEMP 36.6–38; O2SAT 91–98
--- NOTE | 2023-08-24 | ECG_ITS ---
Test Reason : TACHYCARDIA Blood Pressure : / mmHG Vent. Rate : 106 BPM Atrial Rate : 106 BPM P-R Int : 192 ms QRS Dur : 078 ms QT Int : 000 ms P-R-T Axes : 076 038 023 degrees QTc Int : 000 ms Artifact in tracing Sinus tachycardia with Premature supraventricular complexes Low voltage QRS Nonspecific ST and T wave abnormality Abnormal ECG When compared with ECG of 23-AUG-2023 23:33, No significant changes seen Referred By: John Daniels Electronically Signed By:JOSÉ MIGUEL PIMENTEL
--- NOTE | 2023-08-24 01:02 | PC.NURSE ---
Addendum entered by Adan Montilla RN 08/24/23 01:55: Approx 0140: F/U TEMP 100.2. lactate 2.9. sinus tach with pac's labile from 95-130. MD aware. No further orders at this time. Addendum entered by Adan Montilla RN 08/24/23 01:20: 0115: IV Tylenol ordered and transfusing. Lactic drawn by clinical resource nurse Original Note: Pt HR peaking into 160s. Rectal temp 101.6. MD notified. EKG done showing sinus tach w/ frequent PAC. MD read. Tylenol PO given for temp. Metoprolol IV prn given. Pt remains calm, alert and oriented. conversing with nurse at bedside. Temp reduced to 100.4 rectal. HR 105-120. MD notified. New order of IV Tylenol given. Pt remains alert and oriented, arousable to voice. Call alford in reach. Plan of care continues.
[2023-08-24] MEDS: Acetaminophen 1,000 MG/100 ML PIGGYBACK 400 MG IV (01:15)
[2023-08-24 01:42] LABS: Lactic Acid 2.9 mmol/L (0.5-2.0)
[2023-08-24 03:20] LABS: Reflex Lactate? Lactic Acid Added
[2023-08-24 03:53] LABS: ~Lactic Acid-LAB USE ONLY 2.6 mmol/L (0.5-2.0)
[2023-08-24 05:35] LABS: Reflex Lactate? 2 Y
[2023-08-24 07:26] LABS: Glucose, Whole Blood 187 mg/dL (60-115)
[2023-08-24 07:52] LABS: Anion Gap 12 (12-20); Blood Urea Nitrogen 17 mg/dL (9-16); Calcium 8.2 mg/dL (8.4-10.2); Carbon Dioxide 19 mmol/L (22-29); Chloride 114 mmol/L (96-108); Creatinine Clr Calc Pharmacy 47.6; Estimated Glomerular Filt Rate 54; Glucose Random 190 mg/dL (60-115); Potassium 3.4 mmol/L (3.3-5.1); Sodium 142 mmol/L (135-145)
[2023-08-24] MEDS: levalbuterol HCL 1.25 MG/3 ML VIAL.NEB INHALE ×4 (07:54→18:57)
[2023-08-24 07:57] LABS: Hematocrit 40.4 % (42.0-52.0); Hemoglobin 13.3 g/dl (14.0-18.0); Mean Corpuscular HGB Conc 32.9 g/dl (31.0-36.0); Mean Corpuscular Hemoglobin 34.3 pg (27.0-33.0); Mean Corpuscular Volume 104.1 fL (80.0-98.0); Mean Platelet Volume 10.2 fL (9.4-12.4); Platelet Count 111 X10*3/uL (160-400); Red Blood Count 3.88 X10*6/uL (4.60-5.80); Red Cell Distribution Width 13.8 % (11.0-16.0); White Blood Count 13.2 X10*3/uL (4.8-10.8)
[2023-08-24 08:17] LABS: INTERNATIONAL NORM RATIO 3.3 (0.9-1.1); Prothrombin Time 39.7 SEC (11.1-13.3)
[2023-08-24 08:31] LABS: Troponin-I High Sensitivity 173.3 ng/L (<3.5-35.0)
[2023-08-24] MEDS: Levothyroxine Sodium 75 MCG TABLET PO (08:37)
[2023-08-24] MEDS: allopurinoL 100 MG TABLET PO (08:37)
[2023-08-24] MEDS: Metoprolol Succinate ER 50 MG TAB.ER.24H PO ×2 (08:37→20:28)
[2023-08-24] MEDS: Atorvastatin Calcium 20 MG TABLET PO ×2 (08:37→20:28)
[2023-08-24] MEDS: guaiFENesin DM 200/20/10 ML 10 ML SYRUP PO ×2 (08:37→17:11)
[2023-08-24] MEDS: Cyanocobalamin (Vitamin B-12) 1,000 MCG TABLET 1000 MCG PO (08:37)
[2023-08-24] MEDS: Multivitamin TABLET 1 TAB PO (08:37)
[2023-08-24] MEDS: Insulin Lispro 100 UNIT/ML 3 ML VIAL SUBCUT ×4 (08:38→20:29)
[2023-08-24] MEDS: 0.9 % Sodium Chloride Flush 3 ML SYRINGE IVFLUSH ×3 (08:38→20:32)
[2023-08-24] MEDS: ondansetron HCL 4 MG/2 ML VIAL IVPUSH (08:39)
--- NOTE | 2023-08-24 08:48 | MHC.CM.PN ---
IMM 08/23. Pt self-care, lives at home with his who will transport him home at D/C. Pt uses a cane and a walker. HCP on file and verified. PCP: Dr. Abel Velasco
--- NOTE | 2023-08-24 08:51 | PC.NURSE ---
Warfarin late- continues unverified at this time.
[2023-08-24] MEDS: Lactated Ringers 500 ML 999 ML IV (09:20)
[2023-08-24] MEDS: Metoprolol Tartrate 5 MG/5 ML VIAL IVPUSH ×2 (09:20→17:12)
[2023-08-24 11:37] LABS: Glucose, Whole Blood 195 mg/dL (60-115)
--- NOTE | 2023-08-24 12:33 | P.PNIM_ITS ---
Subjective Subjective Date of Service: 08/24/23 Interval History: Slowly responding to therapies. Was able to wean off of O2 Review of Systems Denies chest pain Admits shortness of breath with movement Denies nausea vomiting diarrhea Denies fever chills Physical Exam 2 Vital Signs: Vital Signs: Last Vital Signs Temp 98.9 F 08/24/23 08:00 Pulse 71 08/24/23 11:14 Resp 20 08/24/23 11:14 BP 134/81 08/24/23 09:22 Pulse Ox 94 08/24/23 08:00 O2 Del Method Room Air 08/24/23 08:00 BMI result Body Mass Index 25.1 Const: Other: Awake alert no acute distress Resp: Other: Clear but diminished all andrews. No rales rhonchi or wheezes Cardio: Other: No S4; positive S1-S2; no S3 murmurs rubs or gallops GI: Other: Soft nontender nondistended normoactive bowel sounds Extrem: Other: No edema bilaterally Objective Data Active Medications Acetaminophen (Acetaminophen 325 Mg Tablet) 650 mg PO Q6H PRN PRN Reason: Pain, Mild (Pain Scale 1-3) Last Admin: 08/23/23 23:15 Dose: 650 mg Documented By: MARCO A Allopurinol (Allopurinol 100 Mg Tablet) 100 mg PO DAILY [facility] Last Admin: 08/24/23 08:37 Dose: 100 mg Documented By: MARIANGEL Atorvastatin Calcium (Atorvastatin Calcium 20 Mg Tablet) 20 mg PO BEDTIME [facility] Last Admin: 08/24/23 08:37 Dose: 20 mg Documented By: MARIANGEL Cyanocobalamin (Cyanocobalamin (Vitamin B-12) 1,000 Mcg Tablet) 1,000 mcg PO DAILY [facility] Last Admin: 08/24/23 08:37 Dose: 1,000 mcg Documented By: MARIANGEL Docusate Sodium (Docusate Sodium 100 Mg Capsule) 100 mg PO DAILY PRN PRN Reason: Constipation Glucose (Glucose Gel 15 Gm Gel..Gram.) 15 gm PO Q15M PRN; Protocol PRN Reason: per Hypoglycemia Standing Ord. Guaifenesin/Dextromethorphan (Guaifenesin Dm 200/20/10 Ml 10 Ml Syrup) 10 ml PO Q6H PRN PRN Reason: Cough Last Admin: 08/24/23 08:37 Dose: 10 ml Documented By: MARIANGEL Remdesivir 100 mg/ Sodium (Chloride) 230 mls @ 115 mls/hr IV Q24H [facility] Stop: 08/25/23 17:59 Dextrose (D10) 250 mls @ 750 mls/hr IV Q15M PRN; Protocol PRN Reason: per Hypoglycemia Standing Ord. Insulin Human Lispro (Insulin Lispro 100 Unit/Ml 3 Ml Vial) 0 unit SUBCUT QIDACHS [facility]; Protocol Last Admin: 08/24/23 11:51 Dose: 2 unit Documented By: MARIANGEL Levalbuterol HCl (Levalbuterol Hcl 1.25 Mg/3 Ml Vial.Neb) 1.25 mg INHALE RQ4H [facility] Last Admin: 08/24/23 11:10 Dose: 1.25 mg Documented By: MARJORIE Levothyroxine Sodium (Levothyroxine Sodium 75 Mcg Tablet) 75 mcg PO DAILY@0600 [facility] Last Admin: 08/24/23 08:37 Dose: 75 mcg Documented By: MARIANGEL Melatonin (Melatonin 3 Mg Tablet) 6 mg PO BEDTIME PRN PRN Reason: Insomnia Metoprolol Succinate (Metoprolol Succinate Er 50 Mg Tab.Er.24h) 50 mg PO BID [facility]; Protocol Last Admin: 08/24/23 08:37 Dose: 50 mg Documented By: MARIANGEL Metoprolol Tartrate (Metoprolol Tartrate 5 Mg/5 Ml Vial) 5 mg IVPUSH Q6H PRN PRN Reason: Heart Rate >100 Last Admin: 08/23/23 23:57 Dose: 5 mg Documented By: MARCO A Multivitamins/Vitamin C (Multivitamin Tablet) 1 tab PO DAILY [facility] Last Admin: 08/24/23 08:37 Dose: 1 tab Documented By: MARIANGEL Ondansetron HCl (Ondansetron Hcl 4 Mg/2 Ml Vial) 4 mg IVPUSH Q8H PRN PRN Reason: Nausea and Vomiting Last Admin: 08/24/23 08:39 Dose: 4 mg Documented By: MARIANGEL Sodium Chloride (0.9 % Sodium Chloride Flush 3 Ml Syringe) 3 ml IVFLUSH QSHIFT [facility] Last Admin: 08/24/23 08:38 Dose: 3 ml Documented By: MARIANGEL Warfarin Sodium (Warfarin Sodium 5 Mg Tablet) 5 mg PO [facility] Warfarin Sodium (Warfarin Sodium 2.5 Mg Tablet) 2.5 mg PO [place] [facility] Last Admin: 08/24/23 10:58 Dose: Not Given Documented By: MARIANGEL Non-Admin Reason: Physician Held Med Labs 08/24/23 06:53 08/24/23 06:53 Labs: Laboratory Results - last 24 hr 08/23/23 08/23/23 08/23/23 11:49 12:50 13:23 MCV MCH MCHC RDW Plt Count MPV Absolute Nucleated RBC Nucleated RBC % (auto) PT INR Anion Gap Estim Creat Clear Calc Estimated GFR POC Glucose Random Glucose Lactic Acid Lactic Acid F/U @ 2Hr 2.5 H* Calcium Troponin I High Sens 81.0 H D Procalcitonin 0.11 08/23/23 08/23/23 08/24/23 16:27 21:16 01:16 MCV MCH MCHC RDW Plt Count MPV Absolute Nucleated RBC Nucleated RBC % (auto) PT INR Anion Gap Estim Creat Clear Calc Estimated GFR POC Glucose 227 H Random Glucose Lactic Acid 2.9 H* Lactic Acid F/U @ 2Hr Calcium Troponin I High Sens 154.5 H* D Procalcitonin 08/24/23 08/24/23 08/24/23 03:31 06:53 07:08 MCV 104.1 H MCH 34.3 H MCHC 32.9 RDW 13.8 Plt Count 111 L D MPV 10.2 Absolute Nucleated RBC 0.000 Nucleated RBC % (auto) 0.0 PT INR Anion Gap 12 Estim Creat Clear Calc 47.6 Estimated GFR 54 POC Glucose 187 H Random Glucose 190 H Lactic Acid Lactic Acid F/U @ 2Hr 2.6 H* Calcium 8.2 L Troponin I High Sens 173.3 H* Procalcitonin 08/24/23 08/24/23 07:49 11:27 MCV MCH MCHC RDW Plt Count MPV Absolute Nucleated RBC Nucleated RBC % (auto) PT 39.7 H INR 3.3 H Anion Gap Estim Creat Clear Calc Estimated GFR POC Glucose 195 H Random Glucose Lactic Acid Lactic Acid F/U @ 2Hr Calcium Troponin I High Sens Procalcitonin Microbiology Microbiology Results: Microbiology 08/23/23 Unknown Urine Culture - Final Urine clean catch - Urine faith top Assessment and Plan (1) COVID-19: Status: Acute (2) Elevated troponin: Status: Acute Plan Pt is an 87-year-old male with a PMH significant for?CKD 3, CLL in remission, [id number] type 2 diabetes, BPH, HLD, Hypothyroidism, sinus tachycardia, atrial tachycardia, orthostatic hypotension, hx of DVT and PE on warfarin, hx of cryptococcosis, and gout who presents to the ED for evaluation of generalized weakness and cough. ER workup consistent with COVID-19 infection 1.COVID infection -remdesivir(2/3) days -Xopenex, ...supportive care 2.Elevated troponin -likely type two in the setting of increased demand -trend troponins 3.Viral sepsis -resolved 4.Hx of DVT/PE -Cotninue warfarin -daily PT INR 5.HTN -acceptable control on current therapies -adjust as indicated DNR/DNI warfarin Patient will require ongoing hospitalization for IV remdesivir to treat COVID-19 infection Quality Stroke Does the patient have a stroke diagnosis?: No VTE Prior VTE?: No VTE Risk Level:: Medical - moderate - high VTE Device Contraindication: Treatment Not Indicated VTE Drug Contraindication: N/A - Med Ordered
[2023-08-24 14:20] LABS: Troponin-I High Sensitivity 131.1 ng/L (<3.5-35.0)
[2023-08-24 16:10] LABS: Glucose, Whole Blood 183 mg/dL (60-115)
[2023-08-24] MEDS: Acetaminophen 325 MG TABLET 650 MG PO (17:11)
[2023-08-24] MEDS: Remdesivir 100 MG in 0.9 % Sodium Chloride 230 ML 115 MG IV (17:11)
[2023-08-24] MEDS: Melatonin 3 MG TABLET 6 MG PO (20:28)
[2023-08-24 21:12] LABS: Glucose, Whole Blood 206 mg/dL (60-115)
[2023-08-25] VITALS (17 sets, daily range): BP systolic 103–141; BP diastolic 69–89; PULSE 101–132; RESP 16–20; TEMP 36.4–37.4; O2SAT 91–97
[2023-08-25] MEDS: levalbuterol HCL 1.25 MG/3 ML VIAL.NEB INHALE ×5 (00:27→19:02)
--- NOTE | 2023-08-25 01:39 | PC.NURSE ---
0005 DR Leahy contacted to request Maalox order for pt with heartburn. Patient stated little releif from [facility]. agreed to order, but must have gotten busy as over an hour has passed. I went to speak to patient at 0025 to let him know i was waiting for order and pt was asleep. Has not rang for meds.
[2023-08-25] MEDS: Metoprolol Tartrate 5 MG/5 ML VIAL IVPUSH ×2 (02:53→12:30)
[2023-08-25] MEDS: Levothyroxine Sodium 75 MCG TABLET PO (06:56)
[2023-08-25 06:58] LABS: INTERNATIONAL NORM RATIO 2.7 (0.9-1.1); Prothrombin Time 32.8 SEC (11.1-13.3)
[2023-08-25 07:43] LABS: Glucose, Whole Blood 165 mg/dL (60-115)
[2023-08-25] MEDS: 0.9 % Sodium Chloride Flush 3 ML SYRINGE IVFLUSH ×3 (08:10→21:18)
[2023-08-25] MEDS: Multivitamin TABLET 1 TAB PO (08:10)
[2023-08-25] MEDS: allopurinoL 100 MG TABLET PO (08:10)
[2023-08-25] MEDS: Cyanocobalamin (Vitamin B-12) 1,000 MCG TABLET 1000 MCG PO (08:10)
[2023-08-25] MEDS: Metoprolol Succinate ER 50 MG TAB.ER.24H PO ×2 (08:10→21:17)
[2023-08-25] MEDS: Insulin Lispro 100 UNIT/ML 3 ML VIAL SUBCUT ×3 (08:10→21:17)
[2023-08-25 10:25] LABS: Venous Blood Gas Refer to POC result
[2023-08-25 10:30] LABS: VBG HCO3 20 mmol/L (22-26); VBG pCO2 38 mmHg; VBG pH 7.32 (7.32-7.43); VBG pO2 39 mmHg
--- NOTE | 2023-08-25 10:53 | P.CONPL_ITS ---
History of Present Illness History of Present Illness Consult date: 08/25/23 Chief complaint: COVID+, elevated trops Narrative: 87-year-old gentleman with underlying CKD, CLL, diabetes mellitus, PE on Coumadin, admitted on 08/23/2023 with weakness and cough. Noted to have COVID-19 and treated with empiric remdesivir. Patient with an episode of hypoxia, but now with normoxemia on room air. Denies pulmonary related concerns. INR is therapeutic. Chest x-ray does not demonstrate any infiltrates. Review of Systems 2 Constitutional: Constitutional: Denies daytime sleepiness, Denies excessive sweating, Reports fatigue, Denies fever(s), Denies lethargy, Denies malaise, Denies night sweats, Denies snoring, Reports weakness and Denies weight loss Eyes: Eyes: Denies blurry vision and Denies itchy eyes ENT: Denies nasal congestion, Denies post nasal drip, Denies sinus pain, Denies sinus pressure and Denies other ( Thrush) Cardiovascular: Cardiovascular: Denies chest pain, Denies pedal edema, Denies dyspnea, Denies orthopnea and Denies paroxysmal nocturnal dyspnea Respiratory: Respiratory: Denies cough, Denies hemoptysis, Denies excessive phlegm production, Denies dyspnea, Denies snoring and Denies wheezing Gastrointestinal: Gastrointestinal: Denies abdominal pain and Denies heartburn Musculoskeletal: Musculoskeletal: Denies myalgias, Denies arthralgias and Denies joint swelling Integumentary/Breasts: Skin/Breast: Denies rash Neurologic: Denies memory loss, Denies seizure-like activity and Reports weakness Psychiatric: Psychiatric: Denies abnormal sleep pattern, Denies anxiety and Denies memory loss Endocrine: Endocrine: Denies excessive sweating, Reports fatigue and Denies heat intolerance Hematologic/Lymphatic: Hematologic/Lymphatic: Denies easy bruising Allergic/Immunologic: Allergic/Immunologic: Denies itchy eyes, Denies seasonal rhinorrhea and Denies wheezing PMFSH Past Medical History Medical History CKD (chronic kidney disease) stage 3, GFR 30-59 ml/min DVT (deep venous thrombosis) Diabetes CLL (chronic lymphocytic leukemia) History of COVID-19 Mitral annular calcification Tachycardia Gout Headache above the eye region Cryptococcosis Dyslipidemia Diabetic nephropathy associated with type 2 diabetes mellitus Diabetes type 2, uncontrolled Melanoma BPH (benign prostatic hyperplasia) Current use of anticoagulant therapy Family History Family History Other Family history of cancer in sister Surgical History Surgical History History of excision of lesion (08/05/22) History of esophagogastroduodenoscopy (EGD) Hx of melanoma excision Hx of lymph node excision H/O colonoscopy Hx of cystoscopy Hx of basal cell carcinoma excision S/P TURP Hx of cataract surgery H/O inguinal hernia repair H/O umbilical hernia repair S/P appendectomy Social History Social History Household Members: Spouse [facility] Are you a primary infant caregiver to a significant other at home: No Do you presently have visiting nurse or other home services: Yes Alcohol intake: never Comment: PATIENT STABLE ON FEET Patient Tobacco Use Status: Never used Tobacco Smoked in Last 30 Days: No Second Hand Smoke Exposure: No Use of substances other than those prescribed or required for medical reasons: No Currently Displaying Signs/Symptoms of Drug Intoxication Withdrawal: No Have you been hit, kicked, punched, or otherwise hurt by someone within the past year? 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 Meds Allergies Allergy/AdvReac Type Severity Reaction Status Date / Time silver Allergy Intermediate skin Verified 08/23/23 10:52 [From TEGADERM AG MESH] sloughing morphine [MORPHINE] AdvReac Intermediate Vomiting Verified 08/23/23 10:52 Active Medications: Current Medications Acetaminophen (Acetaminophen 325 Mg Tablet) 650 mg PO Q6H PRN PRN Reason: Pain, Mild (Pain Scale 1-3) Last Admin: 04/14/24 17:11 Dose: 650 mg Allopurinol (Allopurinol 100 Mg Tablet) 100 mg PO DAILY [facility] Last Admin: 08/25/23 08:10 Dose: 100 mg Atorvastatin Calcium (Atorvastatin Calcium 20 Mg Tablet) 20 mg PO BEDTIME [facility] Last Admin: 08/24/23 20:28 Dose: 20 mg Cyanocobalamin (Cyanocobalamin (Vitamin B-12) 1,000 Mcg Tablet) 1,000 mcg PO DAILY [facility] Last Admin: 08/25/23 08:10 Dose: 1,000 mcg Docusate Sodium (Docusate Sodium 100 Mg Capsule) 100 mg PO DAILY PRN PRN Reason: Constipation Glucose (Glucose Gel 15 Gm Gel..Gram.) 15 gm PO Q15M PRN; Protocol PRN Reason: per Hypoglycemia Standing Ord. Guaifenesin/Dextromethorphan (Guaifenesin Dm 200/20/10 Ml 10 Ml Syrup) 10 ml PO Q6H PRN PRN Reason: Cough Last Admin: 08/24/23 17:11 Dose: 10 ml Remdesivir 100 mg/ Sodium (Chloride) 230 mls @ 115 mls/hr IV Q24H [facility] Stop: 08/27/23 17:59 Last Infusion: 08/24/23 20:32 Dose: Infused Dextrose (D10) 250 mls @ 750 mls/hr IV Q15M PRN; Protocol PRN Reason: per Hypoglycemia Standing Ord. Insulin Human Lispro (Insulin Lispro 100 Unit/Ml 3 Ml Vial) 0 unit SUBCUT QIDACHS [facility]; Protocol Last Admin: 08/25/23 08:10 Dose: 2 unit Levalbuterol HCl (Levalbuterol Hcl 1.25 Mg/3 Ml Vial.Neb) 1.25 mg INHALE RQ4H [facility] Last Admin: 08/25/23 07:53 Dose: 1.25 mg Levothyroxine Sodium (Levothyroxine Sodium 75 Mcg Tablet) 75 mcg PO DAILY@0600 [facility] Last Admin: 08/25/23 06:56 Dose: 75 mcg Melatonin (Melatonin 3 Mg Tablet) 6 mg PO BEDTIME PRN PRN Reason: Insomnia Last Admin: 08/24/23 20:28 Dose: 6 mg Metoprolol Succinate (Metoprolol Succinate Er 50 Mg Tab.Er.24h) 50 mg PO BID [facility]; Protocol Last Admin: 08/25/23 08:10 Dose: 50 mg Metoprolol Tartrate (Metoprolol Tartrate 5 Mg/5 Ml Vial) 5 mg IVPUSH Q6H PRN PRN Reason: Heart Rate >100 Last Admin: 08/25/23 02:53 Dose: 5 mg Multivitamins/Vitamin C (Multivitamin Tablet) 1 tab PO DAILY [facility] Last Admin: 08/25/23 08:10 Dose: 1 tab Ondansetron HCl (Ondansetron Hcl 4 Mg/2 Ml Vial) 4 mg IVPUSH Q8H PRN PRN Reason: Nausea and Vomiting Last Admin: 08/24/23 08:39 Dose: 4 mg Sodium Chloride (0.9 % Sodium Chloride Flush 3 Ml Syringe) [facility] Last Admin: 08/25/23 08:10 Dose: 3 ml Warfarin Sodium (Warfarin Sodium 5 Mg Tablet) 5 mg PO MoWeFr@1800 [facility] Warfarin Sodium (Warfarin Sodium 2.5 Mg Tablet) 2.5 mg PO SuTuThSa@1800 [facility] Home Medications ?Medication ?Instructions ?Recorded ?Confirmed ?Last Taken ?Type multivitamin 1 tab PO DAILY 02/10/20 08/23/23 02/10/20 08:00 History glipizide 5 mg tablet 5 mg PO DAILY 03/19/22 08/23/23 Unknown History warfarin 2.5 mg tablet 2.5 mg PO SUTUTHSA 08/13/22 08/23/23 Unknown History levothyroxine 75 mcg tablet 75 mcg PO DAILY@0600 02/18/23 08/23/23 Unknown History cyanocobalamin (vitamin B-12) 1,000 mcg PO DAILY 06/06/23 08/23/23 Unknown History 1,000 mcg tablet metoprolol succinate 50 mg 50 mg PO BID 08/23/23 08/23/23 Unknown History tablet,extended release 24 hr (Toprol XL) warfarin 2.5 mg tablet 5 mg PO MOWEFR 08/23/23 08/23/23 Unknown History Physical Exam 2 Vital Signs: Vital Signs: Last Vital Signs Temp 98.7 F 08/25/23 07:54 Pulse 101 H 08/25/23 07:54 Resp 16 08/25/23 07:54 BP 140/85 H 08/25/23 10:24 Pulse Ox 93 08/25/23 07:54 O2 Del Method Oxymask 08/25/23 07:54 O2 Flow Rate 5 08/25/23 07:54 BMI result Body Mass Index 25.1 Const: General: no acute distress and alert Nutritional Appearance: not obese Orientation/consciousness: Other orientation findings ( oriented) HEENT: Head: Yes atraumatic Eyes: General: appearance normal, both eyes and all related structures S clerae: sclerae normal EOM: EOMs intact bilaterally Neck: Neck: Yes supple Lymphatic: no lymphadenopathy noted Resp: Effort & Inspection: normal respiratory effort and no use of accessory muscles Auscultation: clear to auscultation bilaterally Cardio: Rate: tachycardic Rhythm: regular rhythm Heart sounds: no gallops, no murmurs and no rubs Skin: General skin exam: other ( warm) Extrem: General: No clubbing, No cyanosis and No edema Results Laboratory Findings 08/24/23 06:53 08/24/23 06:53 ABG, PT/INR, D-dimer: PT/INR, D-dimer PT 32.8 SEC (11.1-13.3) H 08/25/23 06:22 INR 2.7 (0.9-1.1) H 08/25/23 06:22 Abnormal lab findings: Abnormal Labs 08/23/23 08/23/23 08/23/23 11:05 11:10 11:49 WBC 16.4 H RBC 4.20 L Hgb Hct MCV 102.6 H MCH 34.3 H Plt Count 151 L Immature Gran % (Auto) 0.7 H Neut % (Auto) 85.3 H Lymph % (Auto) 6.0 L Lymph # (Auto) 1.0 L [place] # (Auto) 1.3 H Abs Immat Gran (auto) 0.11 H Absolute Neuts (auto) 14.0 H PT INR VBG HCO3 Chloride 115 H Carbon Dioxide 16 L BUN 17 H POC Glucose Random Glucose 229 H Lactic Acid 3.6 H* Lactic Acid F/U @ 2Hr Calcium 8.1 L D Magnesium 1.5 L Troponin I High Sens 47.7 H D Total Protein 5.3 L Albumin 3.0 L Urine Protein 100 (2+) H Urine Glucose (UA) 250 H Urine Blood Large (3+) H Urine RBC >20 H Urine WBC 6-10 H SARS-CoV-2 RNA (RT-PCR) POSITIVE A 08/23/23 08/23/23 08/23/23 12:50 13:23 16:27 WBC RBC Hgb Hct MCV MCH Plt Count Immature Gran % (Auto) Neut % (Auto) Lymph % (Auto) Lymph # (Auto) [place] # (Auto) Abs Immat Gran (auto) Absolute Neuts (auto) PT INR VBG HCO3 Chloride Carbon Dioxide BUN POC Glucose Random Glucose Lactic Acid Lactic Acid F/U @ 2Hr 2.5 H* Calcium Magnesium Troponin I High Sens 81.0 H D 154.5 H* D Total Protein Albumin Urine Protein Urine Glucose (UA) Urine Blood Urine RBC Urine WBC SARS-CoV-2 RNA (RT-PCR) 08/23/23 08/24/23 08/24/23 21:16 01:16 03:31 WBC RBC Hgb Hct MCV MCH Plt Count Immature Gran % (Auto) Neut % (Auto) Lymph % (Auto) Lymph # (Auto) [place] # (Auto) Abs Immat Gran (auto) Absolute Neuts (auto) PT INR VBG HCO3 Chloride Carbon Dioxide BUN POC Glucose 227 H Random Glucose Lactic Acid 2.9 H* Lactic Acid F/U @ 2Hr 2.6 H* Calcium Magnesium Troponin I High Sens Total Protein Albumin Urine Protein Urine Glucose (UA) Urine Blood Urine RBC Urine WBC SARS-CoV-2 RNA (RT-PCR) 08/24/23 08/24/23 08/24/23 06:53 07:08 07:49 WBC 13.2 H RBC 3.88 L Hgb 13.3 L Hct 40.4 L MCV 104.1 H MCH 34.3 H Plt Count 111 L D Immature Gran % (Auto) Neut % (Auto) Lymph % (Auto) Lymph # (Auto) [place] # (Auto) Abs Immat Gran (auto) Absolute Neuts (auto) PT 39.7 H INR 3.3 H VBG HCO3 Chloride 114 H Carbon Dioxide 19 L BUN 17 H POC Glucose 187 H Random Glucose 190 H Lactic Acid Lactic Acid F/U @ 2Hr Calcium 8.2 L Magnesium Troponin I High Sens 173.3 H* Total Protein Albumin Urine Protein Urine Glucose (UA) Urine Blood Urine RBC Urine WBC SARS-CoV-2 RNA (RT-PCR) 08/24/23 08/24/23 08/24/23 11:27 12:45 16:04 WBC RBC Hgb Hct MCV MCH Plt Count Immature Gran % (Auto) Neut % (Auto) Lymph % (Auto) Lymph # (Auto) [place] # (Auto) Abs Immat Gran (auto) Absolute Neuts (auto) PT INR VBG HCO3 Chloride Carbon Dioxide BUN POC Glucose 195 H 183 H Random Glucose Lactic Acid Lactic Acid F/U @ 2Hr Calcium Magnesium Troponin I High Sens 131.1 H* Total Protein Albumin Urine Protein Urine Glucose (UA) Urine Blood Urine RBC Urine WBC SARS-CoV-2 RNA (RT-PCR) 08/24/23 08/25/23 08/25/23 19:15 06:22 07:24 WBC RBC Hgb Hct MCV MCH Plt Count Immature Gran % (Auto) Neut % (Auto) Lymph % (Auto) Lymph # (Auto) [place] # (Auto) Abs Immat Gran (auto) Absolute Neuts (auto) PT 32.8 H INR 2.7 H VBG HCO3 Chloride Carbon Dioxide BUN POC Glucose 206 H 165 H Random Glucose Lactic Acid Lactic Acid F/U @ 2Hr Calcium Magnesium Troponin I High Sens Total Protein Albumin Urine Protein Urine Glucose (UA) Urine Blood Urine RBC Urine WBC SARS-CoV-2 RNA (RT-PCR) 08/25/23 10:21 WBC RBC Hgb Hct MCV MCH Plt Count Immature Gran % (Auto) Neut % (Auto) Lymph % (Auto) Lymph # (Auto) [place] # (Auto) Abs Immat Gran (auto) Absolute Neuts (auto) PT INR VBG HCO3 20 L Chloride Carbon Dioxide BUN POC Glucose Random Glucose Lactic Acid Lactic Acid F/U @ 2Hr Calcium Magnesium Troponin I High Sens Total Protein Albumin Urine Protein Urine Glucose (UA) Urine Blood Urine RBC Urine WBC SARS-CoV-2 RNA (RT-PCR) Microbiology: Microbiology 08/23/23 11:10 Blood - Venous Blood Culture - Preliminary No growth after 24 hours. 08/23/23 11:10 Blood - Venous Blood Culture - Preliminary No growth after 24 hours. 08/23/23 Unknown Urine clean catch - Urine faith top Urine Culture - Final Assessment and Plan (1) COVID-19: Status: Acute (2) Dyspnea: Status: Acute Plan Impression: 87-year-old gentleman with underlying CLL, prior PE now on Coumadin, diabetes mellitus, CKD admitted with weakness and fatigue, COVID-19 positive. Patient with an episode of hypoxia, but on my exam has normal oximetry on room air. INR is therapeutic. X-ray does not demonstrate pulmonary infiltrates. Recommendations: At this time would advise against continuation of remdesivir. Patient does not appear to have a pneumonic process, thus agree with no empiric antibiotic. Appears to be at baseline of respiratory status. Patient is approximately 4 L positive since admission, consider a dose of diuretic. Procedures Date of Service Date of Service: 08/25/23
[2023-08-25 11:36] LABS: Glucose, Whole Blood 201 mg/dL (60-115)
[2023-08-25] MEDS: Furosemide 20 MG/2 ML VIAL IVPUSH (12:04)
[2023-08-25 15:57] LABS: Glucose, Whole Blood 136 mg/dL (60-115)
--- NOTE | 2023-08-25 16:03 | HO.PM.IMPN ---
Subjective Subjective Date of Service: 08/25/23 Interval History: hypoxia ,sob Review of Systems sob seems improving taper oxygen Physical Exam Vital Signs: Vital Signs: Last Vital Signs Temp 98.0 F 08/25/23 11:48 Pulse 120 H 08/25/23 11:48 Resp 18 08/25/23 15:09 BP 103/69 08/25/23 11:48 Pulse Ox 91 L 08/25/23 11:48 O2 Del Method Room Air 08/25/23 11:48 O2 Flow Rate 5 08/25/23 07:54 BMI result Body Mass Index 25.1 Appearance: Alert.? Oriented X3.? sob seems improving? cvs: rrr, [id number] , no murmur res: air entry improving ,has few rhonchii abd: no rebound or guarding ,nt, bs present. ext pulses present , no cyanosis . neuro: axo3 , nonfocal. Objective Data Active Medications Acetaminophen (Acetaminophen 325 Mg Tablet) 650 mg PO Q6H PRN PRN Reason: Pain, Mild (Pain Scale 1-3) Last Admin: 08/24/23 17:11 Dose: 650 mg Documented By: MARIANGEL Allopurinol (Allopurinol 100 Mg Tablet) 100 mg PO DAILY [facility] Last Admin: 08/25/23 08:10 Dose: 100 mg Documented By: MADELINE Atorvastatin Calcium (Atorvastatin Calcium 20 Mg Tablet) 20 mg PO BEDTIME [facility] Last Admin: 08/24/23 20:28 Dose: 20 mg Documented By: MARIANGEL Cyanocobalamin (Cyanocobalamin (Vitamin B-12) 1,000 Mcg Tablet) 1,000 mcg PO DAILY [facility] Last Admin: 08/25/23 08:10 Dose: 1,000 mcg Documented By: MADELINE Docusate Sodium (Docusate Sodium 100 Mg Capsule) 100 mg PO DAILY PRN PRN Reason: Constipation Glucose (Glucose Gel 15 Gm Gel..Gram.) 15 gm PO Q15M PRN; Protocol PRN Reason: per Hypoglycemia Standing Ord. Guaifenesin/Dextromethorphan (Guaifenesin Dm 200/20/10 Ml 10 Ml Syrup) 10 ml PO Q6H PRN PRN Reason: Cough Last Admin: 08/24/23 17:11 Dose: 10 ml Documented By: MARIANGEL Remdesivir 100 mg/ Sodium (Chloride) 230 mls @ 115 mls/hr IV Q24H [facility] Stop: 08/27/23 17:59 Last Infusion: 08/24/23 20:32 Dose: Infused Documented By: MARIANGEL Dextrose (D10) 250 mls @ 750 mls/hr IV Q15M PRN; Protocol PRN Reason: per Hypoglycemia Standing Ord. Insulin Human Lispro (Insulin Lispro 100 Unit/Ml 3 Ml Vial) 0 unit SUBCUT QIDACHS [facility]; Protocol Last Admin: 08/25/23 12:04 Dose: 4 unit Documented By: MADELINE Levalbuterol HCl (Levalbuterol Hcl 1.25 Mg/3 Ml Vial.Neb) 1.25 mg INHALE RQ4H [facility] Last Admin: 08/25/23 15:08 Dose: 1.25 mg Documented By: OSIEL Levothyroxine Sodium (Levothyroxine Sodium 75 Mcg Tablet) 75 mcg PO DAILY@0600 [facility] Last Admin: 08/25/23 06:56 Dose: 75 mcg Documented By: CATE Melatonin (Melatonin 3 Mg Tablet) 6 mg PO BEDTIME PRN PRN Reason: Insomnia Last Admin: 08/24/23 20:28 Dose: 6 mg Documented By: MARIANGEL Metoprolol Succinate (Metoprolol Succinate Er 50 Mg Tab.Er.24h) 50 mg PO BID [facility]; Protocol Last Admin: 08/25/23 08:10 Dose: 50 mg Documented By: MADELINE Metoprolol Tartrate (Metoprolol Tartrate 5 Mg/5 Ml Vial) 5 mg IVPUSH Q6H PRN PRN Reason: Heart Rate >100 Last Admin: 08/25/23 12:30 Dose: 5 mg Documented By: MADELINE Multivitamins/Vitamin C (Multivitamin Tablet) 1 tab PO DAILY [facility] Last Admin: 08/25/23 08:10 Dose: 1 tab Documented By: MADELINE Ondansetron HCl (Ondansetron Hcl 4 Mg/2 Ml Vial) 4 mg IVPUSH Q8H PRN PRN Reason: Nausea and Vomiting Last Admin: 08/24/23 08:39 Dose: 4 mg Documented By: MARIANGEL Sodium Chloride (0.9 % Sodium Chloride Flush 3 Ml Syringe) 3 ml IVFLUSH QSHIFT [facility] Last Admin: 08/25/23 08:10 Dose: 3 ml Documented By: MADELINE Warfarin Sodium (Warfarin Sodium 5 Mg Tablet) 5 mg PO MoWeFr@1800 [facility] Warfarin Sodium (Warfarin Sodium 2.5 Mg Tablet) 2.5 mg PO SuTuThSa@1800 [facility] Labs 08/24/23 06:53 08/24/23 06:53 Labs: Laboratory Results - last 24 hr 08/24/23 08/24/23 08/25/23 16:04 19:15 06:22 Hold Purple Top SEE NOTE PT 32.8 H INR 2.7 H VBG pH VBG pCO2 VBG pO2 VBG HCO3 VBG O2 Saturation VBG Base Excess POC Glucose 183 H 206 H 08/25/23 08/25/23 08/25/23 07:24 10:21 11:19 Hold Purple Top PT INR VBG pH 7.32 VBG pCO2 38 VBG pO2 39 VBG HCO3 20 L VBG O2 Saturation 61.0 VBG Base Excess -5.0 POC Glucose 165 H 201 H 08/25/23 15:36 Hold Purple Top PT INR VBG pH VBG pCO2 VBG pO2 VBG HCO3 VBG O2 Saturation VBG Base Excess POC Glucose 136 H Microbiology Microbiology Results: Microbiology 08/23/23 11:10 Blood Culture - Preliminary Blood - Venous No growth after 48 hours. 08/23/23 11:10 Blood Culture - Preliminary Blood - Venous No growth after 48 hours. Assessment and Plan (1) Hypoxia: Status: Acute (2) COVID-19: Status: Acute Plan 87-year-old male with a PMH significant for?CKD 3, CLL in remission, [id number] type 2 diabetes, BPH, HLD, Hypothyroidism, sinus tachycardia, atrial tachycardia, orthostatic hypotension, hx of DVT and PE on warfarin, hx of cryptococcosis, and gout who presents to the ED for evaluation of generalized weakness and cough. ER workup consistent with COVID-19 infection COVID infection -remdesivir(2/3) days -Xopenex, ...supportive care vbg noted ,ph fine ,cxr seems groslly simialr to previous ( officialreading pendin), give 1 low dose lasix. pulm eval. Elevated troponin -likely type two in the setting of increased demand -trend troponins Viral sepsis -resolved Hx of DVT/PE -Cotninue warfarin -daily PT INR HTN -acceptable control on current therapies -adjust as indicated DNR/DNI warfarin Patient will require ongoing hospitalization for hypoxia /covid: IV remdesivir to treat COVID-19 infection Quality Stroke Does the patient have a stroke diagnosis?: No VTE Prior VTE?: No VTE Risk Level:: Medical - moderate - high VTE Device Contraindication: Treatment Not Indicated VTE Drug Contraindication: N/A - Med Ordered
[2023-08-25] MEDS: Remdesivir 100 MG in 0.9 % Sodium Chloride 230 ML 115 MG IV (17:02)
[2023-08-25] MEDS: Warfarin Sodium 5 MG TABLET PO (17:46)
[2023-08-25 20:28] LABS: Glucose, Whole Blood 219 mg/dL (60-115)
[2023-08-25] MEDS: Atorvastatin Calcium 20 MG TABLET PO (21:17)
[2023-08-26 03:55] VITALS: BP 118/75; PULSE 102; RESP 20; TEMP 36.6; O2SAT 90
[2023-08-26] MEDS: Levothyroxine Sodium 75 MCG TABLET PO (04:50)
--- NOTE | 2023-08-26 07:00 | CA_ITS ---
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 The calculated ejection fraction is 60% by biplane method. - There is moderately increased left ventricular wall thickness. - There is mild calcification of the aortic valve. - No obvious valvular pathology seen on this study. - There is mild dilatation of the ascending aorta measuring 4.00 cm. Findings Left Ventricle Normal left ventricular cavity size. There is moderately increased left ventricular wall thickness. The left ventricular systolic function is normal. The calculated ejection fraction is 60% by biplane method. There is no evidence of regional wall motion abnormalities. Diastolic function is normal for age. Right Ventricle Normal right ventricular cavity size and systolic function. Atria Both atria are normal in size. Aortic Valve There is mild calcification of the aortic valve. There is no aortic valve stenosis. There is no aortic valve regurgitation. Mitral Valve The mitral valve appears normal. There is no mitral valve regurgitation. There is no mitral valve stenosis. Pulmonic Valve The pulmonic valve is likely normal. Tricuspid Valve There is trace tricuspid valve regurgitation. There is no evidence of pulmonary hypertension. Great Vessels There is mild dilatation of the ascending aorta measuring 4.00 cm. Venous The inferior vena cava is normal in size and collapses greater than 50% with inspiration. Pericardium/Pleural There is no evidence of pericardial effusion. Prior Study Comparison No significant change compared to prior study dated: 03/19/2023. Recommendations, Care & Conclusions No obvious valvular pathology seen on this study. Measurements 2D Linear Measurements IVSd: 1.32 0.6-0.9/0.6-1.0 cm LVIDd: 3.57 3.9-5.3/4.2-5.9 cm LVIDd Index: 1.66 2.4-3.2/2.2-3.1 cm/m2 LVIDs: 2.64 2.0-3.6 cm LVPWd: 1.39 0.7-1.1 cm LA Diam: 4.10 2.7-3.8/3.0-4.0 cm LAIDs Index: 1.91 1.5-2.3 cm/m2 LV Mass: 210.26 67-162/88-224 g LV Mass Index: 97.80 43-95/49-115 g/m2 LVOT Diam: 2.50 3.0+(-)1.3 cm 2D Systolic Function EF 4C: 56.20 >55% EF 2C: 61.60 >55% EF BiP: 59.90 >55% Mitral Valve MV Pk E: 0.48 MV PK A: 0.69 MV Decel Time: 210.00 E/A: 0.70 E'Lateral: 8.16 E'Medial: 6.96 E/E' Med: 7.00 E/E' Lat: 5.90 PHT: 61.00 MVA PHT: 3.61 Decel [place]: 2.31 Aortic Valve AoV Pk Jared: 1.20 AoV Mn Jared: 0.84 AoV VTI: 0.24 AoV Pk Grad: 6.00 Aov Mn Grad: 3.00 CELSO Cont.VTI: 2.71 LVOT LVOT Pk Jared: 0.70 LVOT Mn Jared: 0.46 LVOT VTI: 0.13 LVOT Pk Grad: 2.00 LVOT Mn Grad: 1.00 LVOT Diam: 2.50 LVOT Area: 4.91 Diastolic Function MV Pk E: 0.48 MV Pk A: 0.69 E/A: 0.70 E'Medial: 6.96 E/E' Med: 7.00 E' Laterial: 8.16 E/E' Lat: 5.90 Right Ventricle TAPSE (mm): 22.30 TVS' Jared: 17.30 Tricuspid Valve TR Pk Jared: 2.32 TR Pk Grad: 22.00 Great Vessels Aorta Sinus of Valsalva: 3.30 2.0-3.5 cm Ao Asc: 4.00 2.1-3.4 cm Pulmonary Valve PV Pk Jared: 1.40 Peak PV Grad: 8.00 Updated in Other Vendor System with Status of Final Ion Del Cid MD electronically signed on 08/26/2023 4:41:35 PM with status of Final
[2023-08-26] MEDS: levalbuterol HCL 1.25 MG/3 ML VIAL.NEB INHALE ×2 (07:50→11:26)
[2023-08-26 07:52] VITALS: PULSE 123; RESP 18; O2SAT 94
[2023-08-26 08:00] VITALS: BP 136/72; PULSE 82; RESP 18; TEMP 36.7; O2SAT 98
[2023-08-26 08:22] LABS: Glucose, Whole Blood 162 mg/dL (60-115)
[2023-08-26 08:32] LABS: INTERNATIONAL NORM RATIO 2.8 (0.9-1.1); Prothrombin Time 33.7 SEC (11.1-13.3)
[2023-08-26] MEDS: Metoprolol Succinate ER 50 MG TAB.ER.24H PO (08:43)
[2023-08-26] MEDS: allopurinoL 100 MG TABLET PO (08:43)
[2023-08-26] MEDS: Multivitamin TABLET 1 TAB PO (08:43)
[2023-08-26] MEDS: Cyanocobalamin (Vitamin B-12) 1,000 MCG TABLET 1000 MCG PO (08:44)
[2023-08-26] MEDS: Insulin Lispro 100 UNIT/ML 3 ML VIAL SUBCUT ×2 (08:44→12:00)
[2023-08-26] MEDS: 0.9 % Sodium Chloride Flush 3 ML SYRINGE IVFLUSH (08:44)
[2023-08-26 11:08] VITALS: BP 125/80; PULSE 100; RESP 18; TEMP 36.6; O2SAT 94
[2023-08-26 11:13] LABS: Glucose, Whole Blood 214 mg/dL (60-115)
--- NOTE | 2023-08-26 11:24 | MHC.CM.PN ---
Pt is medically cleared for D/C to STR at [facility] at 2pm via BLS/[place]. Pt and his are aware and in agreement with discharge plan.
[2023-08-26 11:28] VITALS: PULSE 107; RESP 20; O2SAT 95
--- NOTE | 2023-08-26 11:37 | PM.DS ---
DS: Providers Provider Date of Service: 08/26/23 Date of admission: 08/23/23 14:50 Date of discharge: 08/26/23 Primary care physician: Abel Velasco MD Consults: 08/25/23 09:51 Consult to Pulmonology Routine Consulting Provider: [facility] Pulmonology Services Reason for consultation: acute hypoxemic respiratory failure sec to covid Has provider been notified: No Attending physician on discharge: Ericka Lindsey Discharging clinician: Ericka Lindsey DS: Diagnosis Discharge Diagnosis (1) Hypoxia: Status: Acute (2) COVID-19: Status: Acute DS: Summary Hospital Course Hospital Course: 87-year-old male with a PMH significant for?CKD 3, CLL in remission, [id number] type 2 diabetes, BPH, HLD, Hypothyroidism, sinus tachycardia, atrial tachycardia, orthostatic hypotension, hx of DVT and PE on warfarin, hx of cryptococcosis, and gout who presents to the ED for evaluation of generalized weakness and cough. Patient states was feeling ?fine? yesterday, but had difficulty standing up and was unable to walk when he woke up this morning. Denies recent falls at home. Ambulates on his own in the house but uses a cane when leaves home. Reports having a productive cough of whitish sputum for past 1-2 weeks, as well as subjective fever and chills, and reduced p.o. intake the past week. Denies difficulty breathing or shortness of breath. No chest pain/pressure or palpitations. Denies myalgias. No nausea, vomiting, abdominal pain. In the ED pt was febrile up to 102.2, tachycardic up to 134, and hypertensive up to 171/100, satting as low as 91% on RA. Labs were significant for testing positive for COVID, leukocytosis 16.4, lactic acid 3.6 with repeat 2.5, magnesium 1.5, initial troponin 47.7 with repeat 81.0. UA negative for UTI. CXR showed no evidence for acute disease in the chest. EKG demonstrated sinus tachycardia of 130 with PACs and mild ST depressions in anterior leads. Pt was treated with IVF, ceftriaxone, and acetaminophen. Pt will be admitted to the hospital for treatment and further evaluation of generalized weakness and elevated troponins in the setting of COVID infection. Hospital course: Patient came to the hospital because generalized weakness, cough found to have COVID positive ,also had episode of hypoxia: Chest x-ray shows no infiltrates, mild leukocytosis, blood cultures sent- Patient received oxygen, nebs, cough medication, remdesivir for 3 days, also seen by Pulmonary: With above supportive care Patient hypoxia resolved, no need of further remdesivir. Leukocytosis improving no fever, blood culture negative at 48 hours. Seen by PT recommended rehab. Above management discussed with the patient detail length he understand in agreement with the above plan, time spent 35 minutes. Time Attestation Total time managing care of this patient today: 35 mintues. Discharge Coordination Time (in mins): 35 min Quality: Safe Use of Opioids Does Pt have an Active Cancer Diagnosis on the Problem List?: No Quality: Stroke Does the patient have a stroke diagnosis?: No Physical Exam Vital Signs: Vital Signs: Last Vital Signs Temp 97.8 F 08/26/23 11:08 Pulse 107 H 08/26/23 11:28 Resp 20 08/26/23 11:28 BP 125/80 08/26/23 11:08 Pulse Ox 94 08/26/23 11:08 O2 Del Method Room Air 08/26/23 11:08 O2 Flow Rate 5 08/25/23 07:54 BMI result Body Mass Index 25.1 Appearance: Alert.? Oriented X3.? sob seems improving? cvs: rrr, [id number] , no murmur res: air entry improving ,has few rhonchii abd: no rebound or guarding ,nt, bs present. ext pulses present , no cyanosis . neuro: axo3 , nonfocal. DS: Data Data Completed and Pending Completed studies during hospitalization [Text1]: Procedures Introduction of Remdesivir Anti-infective into Peripheral Vein, Percutaneous Approach, [employer] 5 (01/23/22) Labs on day of discharge: Laboratory Results - last 24 hr 08/25/23 08/25/23 08/25/23 11:19 15:36 20:22 Hold Purple Top PT INR POC Glucose 201 H 136 H 219 H 08/26/23 08/26/23 08/26/23 07:38 08:12 11:05 Hold Purple Top SEE NOTE PT 33.7 H INR 2.8 H POC Glucose 162 H 214 H Preliminary micro results at discharge 08/23/23 11:10 Blood Culture - Preliminary Blood - Venous No growth after 48 hours. 08/23/23 11:10 Blood Culture - Preliminary Blood - Venous No growth after 48 hours. Imaging Chest x-ray: Radiologist's impression: ITS Impressions Chest X-Ray 08/23/23 11:35 IMPRESSION: No evidence for acute disease in the chest. Chest X-Ray 08/25/23 10:45 IMPRESSION: No acute cardiopulmonary disease. Discharge Plan Discharge Anticipated Discharge Date/Time: 08/26/23 11:18 Patient Disposition: Xfer SNF Discharge Diagnosis: hypoxia with covid. Referrals: [facility] [Outside] - 1 Week Abel Velasco MD [Primary Care Provider] - 1 Week Discharge Medications: New dextromethorphan-guaifenesin 10-100 mg/5 mL Syrup 10 ml PO Q6H PRN (Reason: Cough) Qty: 100 0RF levalbuterol HCl 1.25 mg/3 mL Solution For Nebulization 1.25 mg inhalation RQ4H Qty: 1 0RF Continued (DME) blood-glucose meter [ShoptagrTouch Verio Flex Start] Kit See Rx Instructions .Route Qty: 1 0RF Rx Instructions: As directed to check blood glucose 3x/day atorvastatin 20 mg tablet 20 mg PO BEDTIME Qty: 90 3RF allopurinol 100 mg Tablet 100 mg PO DAILY Qty: 90 6RF multivitamin Tablet 1 tab PO DAILY warfarin 2.5 mg tablet 2.5 mg PO SUTUTHSA Hold Instructions: Resume on 08/06/22. Protocol: Dose Management Condition: Friday (Week One) Dose/Route: 2.5 mg Instruction: 1 x 2.5 mg tablet Condition: Friday Dose/Route: 5 mg Instruction: 2 x 2.5 mg tablets Condition: Friday Dose/Route: 2.5 mg Instruction: 1 x 2.5 mg tablet Condition: Friday Dose/Route: 2.5 mg Instruction: 1 x 2.5 mg tablet Condition: Dose/Route: 2.5 mg Instruction: 1 x 2.5 mg tablet Condition: Friday Dose/Route: 5 mg Instruction: 2 x 2.5 mg tablets Condition: Friday Dose/Route: 2.5 mg Instruction: 1 x 2.5 mg tablet Condition: Friday (Week Two) Dose/Route: 2.5 mg Instruction: 1 x 2.5 mg tablet Condition: Friday Dose/Route: 5 mg Instruction: 2 x 2.5 mg tablets Condition: Friday Dose/Route: 2.5 mg Instruction: 1 x 2.5 mg tablet Condition: Friday Dose/Route: 5 mg Instruction: 2 x 2.5 mg tablets Condition: Dose/Route: 2.5 mg Instruction: 1 x 2.5 mg tablet Condition: Friday Dose/Route: 5 mg Instruction: 2 x 2.5 mg tablets Condition: Friday Dose/Route: 2.5 mg Instruction: 1 x 2.5 mg tablet Protocol Text: Adjustment Start Date: Friday08/19/23 INR Value: Pending INR Date: 08/19/23 Recheck Date: 09/02/23 Additional Instructions: take 2.5mg today and tomm eat greens to lower, no reds for 2 days cyanocobalamin (vitamin B-12) 1,000 mcg tablet 1,000 mcg PO DAILY metoprolol succinate [Toprol XL] 50 mg tablet extended release 24 hr 50 mg PO BID warfarin 2.5 mg tablet 5 mg PO MOWEFR (DME) lancets [OneTouch Delica Lancets] 33 gauge misc See Rx Instructions .ROUTE .MEDSUPPLY Qty: 300 3RF Rx Instructions: 3 times a day (DME) OneTouch Verio test strips Strip See Rx Instructions .ROUTE .MEDSUPPLY Qty: 300 3RF Rx Instructions: 3 times a day glipizide 5 mg tablet 5 mg PO DAILY levothyroxine 75 mcg tablet 75 mcg PO DAILY@0600 Discharge Orders: Discharge Order (Routine); Ordered 08/26/23 Ordered By: Ericka Lindsey Diet: Advance to usual diet Activity on Discharge: As tolerated Stand Alone Forms: Patient Portal Discharge page Print Language: Italian Care Plan Goals: Patient came to the hospital because generalized weakness, cough found to have COVID positive ,also had episode of hypoxia: Chest x-ray shows no infiltrates, mild leukocytosis, blood cultures sent- Patient received oxygen, nebs, cough medication, remdesivir for 3 days, also seen by Pulmonary: With above supportive care Patient hypoxia resolved, no need of further remdesivir. Leukocytosis improving no fever, blood culture negative at 48 hours. Seen by PT recommended rehab. Health Concerns: As above. Plan of Treatment: As above. Assessment: As above.
[2023-08-26 13:35] VITALS: PULSE 130; O2SAT 94
== END 2023-08-26 14:47 | disposition skilled nursing facility (03) | DRG 871 ==
LOC: HO.ED 11:24 → HO.EDOVER 15:40 → HO.IMC 18:13
PROVIDERS: Hospitalist; Internal Medicine Pulmonary Disease; Physician Assistant; Student in an Organized Health Care Education/Training Program; Admitting Provider Student in an Organized Health Care Education/Training Program; Emergency Provider Emergency Medicine Emergency Medical Services; PCP Internal Medicine; Visit Provider Internal Medicine
DX: A41.89 Other specified sepsis (principal); U07.1 COVID-19; C91.11 Chronic lymphocytic leukemia of B-cell type in remission; Z66 Do not resuscitate; E03.9 Hypothyroidism, unspecified; N18.30 Chronic kidney disease, stage 3 unspecified; E78.5 Hyperlipidemia, unspecified; M10.9 Gout, unspecified; I25.10 Atherosclerotic heart disease of native coronary artery without angina pectoris; E11.22 Type 2 diabetes mellitus with diabetic chronic kidney disease; I12.9 Hypertensive chronic kidney disease with stage 1 through stage 4 chronic kidney disease, or unspecified chronic kidney disease; Z86.711 Personal history of pulmonary embolism; Z86.718 Personal history of other venous thrombosis and embolism; Z79.01 Long term (current) use of anticoagulants; Z79.84 Long term (current) use of oral hypoglycemic drugs; Z79.890 Hormone replacement therapy; Z79.899 Other long term (current) drug therapy
CPT/HCPCS: 0241U; 36415; 71045; 80048; 80053; 81001; 82803; 82947; 83605; 83735; 84145; 84484; 85025; 85027; 85610; 87040; 87086; 93005; 93306; 94640; 97110; 97116; 97163; 99285; J0131; J0248; J0456; J0696; J1940; J2405; J7120; Q9957

== ENCOUNTER → 2023-08-23 10:54 | Outpatient (BNV) | payer MEDICARE, SELFPAY | PROVIDERS: Admitting Provider Student in an Organized Health Care Education/Training Program; Emergency Provider Emergency Medicine Emergency Medical Services; Visit Provider Internal Medicine Cardiovascular Disease | DX: I49.3 Ventricular premature depolarization (principal); I49.1 Atrial premature depolarization | CPT/HCPCS: 93010 ==

== ENCOUNTER 2023-08-23 14:50 | Outpatient (BNV) | payer OTHER, MEDICARE, SELFPAY | END 2023-08-24 09:13 | PROVIDERS: Admitting Provider Student in an Organized Health Care Education/Training Program; Emergency Provider Emergency Medicine Emergency Medical Services; PCP Internal Medicine; Visit Provider Internal Medicine | DX: I49.3 Ventricular premature depolarization (principal) | CPT/HCPCS: 93010 ==

== ENCOUNTER 2023-08-23 14:50 | Outpatient (BNV) | payer OTHER, MEDICARE, SELFPAY | END 2023-08-26 07:00 | PROVIDERS: Admitting Provider Student in an Organized Health Care Education/Training Program; Emergency Provider Emergency Medicine Emergency Medical Services; PCP Internal Medicine; Visit Provider Internal Medicine | DX: I42.2 Other hypertrophic cardiomyopathy (principal); I35.8 Other nonrheumatic aortic valve disorders | CPT/HCPCS: 93306 ==

== ENCOUNTER → 2023-08-23 14:50 | Outpatient (BNV) | payer OTHER, MEDICARE, SELFPAY | PROVIDERS: Admitting Provider Student in an Organized Health Care Education/Training Program; Emergency Provider Emergency Medicine Emergency Medical Services; PCP Internal Medicine; Visit Provider Internal Medicine Pulmonary Disease | DX: U07.1 COVID-19 (principal); R06.00 Dyspnea, unspecified | CPT/HCPCS: 99222 ==

== ENCOUNTER → 2023-08-23 14:50 | Outpatient (BNV) | payer MEDICARE, SELFPAY | PROVIDERS: Admitting Provider Student in an Organized Health Care Education/Training Program; Emergency Provider Emergency Medicine Emergency Medical Services; Visit Provider Student in an Organized Health Care Education/Training Program | DX: J96.01 Acute respiratory failure with hypoxia (principal); U07.1 COVID-19 | CPT/HCPCS: 99223; 99232; 99233; 99239 ==

== ENCOUNTER 2023-09-15 14:45 | Inpatient (IN) | payer OTHER, SELFPAY ==
[2023-09-15] VITALS (9 sets, daily range): BP systolic 91–147; BP diastolic 54–129; PULSE 76–152; RESP 14–22; TEMP 36.6–37.2; O2SAT 88–96; BMI 23.8
--- NOTE | ~2023-09-15 | XR_ITS ---
EXAMINATION: XR CHEST CLINICAL INFORMATION: Shortness of breath COMPARISON: 08/25/2023 TECHNIQUE: Frontal view of the chest was obtained. FINDINGS: No significant abnormality is noted involving the heart, lungs, mediastinum, bony thorax or soft tissues. There is been improvement in bilateral basilar atelectasis. XR/XR chest 1V IMPRESSION: No acute intrathoracic disease.
--- NOTE | ~2023-09-15 | XR_ITS ---
EXAMINATION: XR CHEST CLINICAL INFORMATION: Tube placement COMPARISON: 09/15/2023 at 4:19 PM TECHNIQUE: Frontal view of the chest was obtained. FINDINGS: Lungs are hypoinflated and right hemidiaphragm mildly elevated. The right lateral costophrenic sulcus is slightly indistinct, possibly due to a trace pleural effusion. Bibasilar atelectasis is present. The persistent hazy opacity of the left lower hemithorax could be from atelectasis or layering of a trace pleural effusion. Cardiac silhouette is normal in size. The pulmonary vascular pattern is normal. The tip of the enteric tube is in the region of the esophagogastric junction and the side port of the tube is approximately 6 cm above the EG junction. Recommend advancing the tube so that it resides within the stomach. Cholecystectomy clips are present in the upper abdomen. No dilated loops of bowel are seen in the partially visualized upper abdomen. No acute osseous abnormality. XR/XR chest 1V IMPRESSION: The tip of the NG tube is in the region of the esophagogastric junction. Recommend advancing the tube further into the stomach. Lungs are hypoinflated and there is bibasilar atelectasis, with or without trace pleural effusions.
--- NOTE | ~2023-09-15 | XR_ITS ---
EXAMINATION: XR CHEST CLINICAL INFORMATION: 2 placement COMPARISON: 09/17/2023 2:13 PM TECHNIQUE: Frontal view of the chest was obtained. FINDINGS: An NG tube is present. The tip is in the same location as a chest radiograph performed at 2:13 PM on the same day. The tip is at the GE junction with the side port in the distal esophagus. No other change. Heart size within normal limits. Bibasilar atelectasis. XR/XR chest 1V IMPRESSION: NG tube tip at the GE junction. The tube should be advanced.
--- NOTE | ~2023-09-15 | XR_ITS ---
EXAMINATION: PORTABLE CHEST 1 VIEW CLINICAL INFORMATION: hypoxia dyspnea. COMPARISON: 09/17/2023. TECHNIQUE: Portable frontal view of the chest was obtained. FINDINGS: The lungs are hypoexpanded with increased bibasilar markings more likely reflecting a component of atelectasis in this setting. Cannot exclude tiny layering effusions. No additional focal infiltrate, edema, or pneumothorax. Cardiac and mediastinal silhouettes are within normal limits for technique. No acute bony abnormality seen. The Dobbhoff tube tip below level the diaphragm and not seen on the study XR/XR chest 1V IMPRESSION: Hypoexpanded with increased bibasilar markings more likely reflecting a component of atelectasis. Cannot exclude tiny layering effusions.
--- NOTE | ~2023-09-15 | FL_ITS ---
FLUOROSCOPIC PLACEMENT OF A SOFT FLEXIBLE FEEDING TUBE INDICATIONS: Patient requires temporary access for nutrition/hydration. Altered mental status. Failed bedside attempts. PROCEDURE: The patient was placed in the right reverse Trendelenburg position the fluoroscopy table. A well lubricated 10 Uzbek soft possible feeding tube was inserted through the right naris and advanced down esophagus and into the stomach under fluoroscopic guidance. The tip of the tube overlies the body the stomach along the greater curvature. A small injection of dilute Gastrografin was through the tube to verify its position within the stomach. The tube was secured to the nose at the 70 cm marked. There were no immediate complications. FL/FL drain tube change IMPRESSION: Successful fluoroscopic placement of a soft feeding tube. Tube is okay for use. The procedure was performed by Jose Delgado PA-C, and directly supervised by Dr. Santiago.
--- NOTE | 2023-09-15 15:10 | ECG_ITS ---
Test Reason : AMS Blood Pressure : / mmHG Vent. Rate : 140 BPM Atrial Rate : 000 BPM P-R Int : 000 ms QRS Dur : 078 ms QT Int : 286 ms P-R-T Axes : 000 020 008 degrees QTc Int : 436 ms Multifocal atrial tachycardia Low voltage QRS Nonspecific T wave abnormality Abnormal ECG When compared with ECG of 24-AUG-2023 09:13, MAT has replaced Sinus rhythm Nonspecific T wave abnormality no longer evident in Anterior leads Referred By: Jennifer Rivera Electronically Signed By:Josiah Zhang
--- NOTE | 2023-09-15 15:18 | ED.SOB ---
HPI - SOB/Dyspnea General Chief Complaint: Altered Mental Status Stated Complaint: PNEUMONIA,?SEPSIS,92% 10L NRB PER EMS Time Seen by Provider: 09/15/23 15:11 Source: family and EMS Mode of arrival: EMS History of Present Illness HPI Narrative: From [facility], satting fine on 2L via nasal cannula, tachy and suspect a-fib with RVR. History unable to be obtained from the patient. Related Data Home Medications ?Medication ?Instructions ?Recorded ?Confirmed multivitamin 1 tab PO DAILY 02/10/20 09/15/23 glipizide 5 mg tablet 5 mg PO DAILY 03/19/22 09/15/23 levothyroxine 75 mcg tablet 75 mcg PO DAILY@0600 02/18/23 09/15/23 cyanocobalamin (vitamin B-12) 1,000 mcg PO DAILY 06/06/23 09/15/23 1,000 mcg tablet metoprolol succinate 50 mg 50 mg PO BID 08/23/23 09/15/23 tablet,extended release 24 hr (Toprol XL) benzonatate 200 mg capsule 200 mg PO BEDTIME 09/15/23 09/15/23 ceftriaxone 1 gram solution for 1 g IM DAILY 09/15/23 09/15/23 injection Previous Rx's ?Medication ?Instructions ?Recorded blood sugar diagnostic (OneTouch #300 ea 09/13/20 Verio test strips) lancets 33 gauge (OneTouch Delica #300 ea 09/13/20 Lancets) blood-glucose meter (OneTouch #1 ea 03/28/21 Verio Flex Start kit) atorvastatin 20 mg tablet 20 mg PO BEDTIME #90 tabs 01/14/23 allopurinol 100 mg tablet 100 mg PO DAILY #90 tabs 01/23/23 dextromethorphan-guaifenesin 10 10 ml PO Q6H PRN Cough #100 mL 08/26/23 mg-100 mg/5 mL oral syrup levalbuterol HCl 1.25 mg/3 mL 1.25 mg (3 mL) inhalation RQ4H #1 08/26/23 solution for nebulization mL Allergies Allergy/AdvReac Type Severity Reaction Status Date / Time silver Allergy Intermediate skin Verified 09/15/23 15:22 [From TEGADERM AG MESH] sloughing morphine [MORPHINE] AdvReac Intermediate Vomiting Verified 09/15/23 15:22 Review of Systems Review of Systems: Yes Unobtainable due to mental condition [facility] Past Medical History Source: nursing notes reviewed Medical History CKD (chronic kidney disease) stage 3, GFR 30-59 ml/min DVT (deep venous thrombosis) Diabetes CLL (chronic lymphocytic leukemia) History of COVID-19 Mitral annular calcification Tachycardia Gout Headache above the eye region Cryptococcosis Dyslipidemia Diabetic nephropathy associated with type 2 diabetes mellitus Diabetes type 2, uncontrolled Melanoma BPH (benign prostatic hyperplasia) Current use of anticoagulant therapy Surgical History History of excision of lesion (08/05/22) History of esophagogastroduodenoscopy (EGD) Hx of melanoma excision Hx of lymph node excision H/O colonoscopy Hx of cystoscopy Hx of basal cell carcinoma excision S/P TURP Hx of cataract surgery H/O inguinal hernia repair H/O umbilical hernia repair S/P appendectomy Family History Family History Other Family history of cancer in sister Social History Social History Household Members: Spouse Housing: Condominium Are you a primary care technician to a significant other at home: No Do you presently have visiting nurse or other home services: Yes Alcohol intake: never Comment: PATIENT STABLE ON FEET Patient Tobacco Use Status: Never used Tobacco Smoked in Last 30 Days: No Second Hand Smoke Exposure: No Use of substances other than those prescribed or required for medical reasons: No Advance Directives: Yes Advance Directives on File: Yes Advance Directives Date on File: 01/23/22 Do you have a plan to hurt others: No Plan service: No Current occupational status: retired 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 GENERAL: Appears unwell, cachectic HEAD: Normocephalic/atraumatic EYES: PERRLA, EOMI EARS: Ext canals without abnormality NOSE: Nares patent bilateral OROPHARYNX: no oral lesions noted, posterior pharynx clear, dry mucous NECK: Supple, no adenopathy LUNGS: Normal breath sounds. No adventitious sounds or accessory muscle use. SpO2<96> CARDIOVASCULAR: IRR/IRR and rhythm without noted murmurs ABDOMEN: Soft, non-tender, non-distended with bowel sounds. MUSCULOSKELETAL: No tenderness, deformities, or effusions noted on gross inspection. EXTREMITIES: No cyanosis, clubbing or edema. SKIN: Inspection of the skin reveals no rashes NEUROLOGIC: Alert and oriented x 2. Strength and sensation to light touch were grossly intact x 4. Medications Administered Discontinued Medications Generic Name Dose Route Start Last Admin Trade Name Freq PRN Reason Stop Dose Admin Sodium Chloride 500 mls @ 999 mls/hr 09/15/23 15:45 09/15/23 18:01 Ns IV 09/15/23 16:15 Infused .Q31M YONNY Infusion Cefepime HCl 2 gm/ Sodium 50 mls @ 100 mls/hr 09/15/23 15:47 09/15/23 18:02 Chloride IV 09/15/23 16:16 Infused ONCE ONE Infusion Sodium Chloride 500 mls @ 999 mls/hr 09/15/23 16:45 09/15/23 18:02 Ns IV 09/15/23 17:15 Infused .Q31M YONNY Infusion Calcium Gluconate 2 gm in 100 mls @ 400 mls/hr 09/15/23 16:43 09/15/23 19:09 Calcium Gluconate IV 09/15/23 16:57 Infused ONCE ONE Infusion Sodium Chloride 1,000 mls @ 999 mls/hr 09/15/23 18:00 09/15/23 19:09 Ns IV 09/15/23 19:00 Infused .Q1H1M YONNY Infusion Metoprolol Tartrate 5 mg 09/15/23 17:44 09/15/23 19:23 Metoprolol Tartrate 5 Mg/5 Ml Vial IVPUSH 09/15/23 17:45 5 mg ONCE ONE Administration Protocol Metoprolol Tartrate 2.5 mg 09/15/23 20:21 09/15/23 20:15 Metoprolol Tartrate 5 Mg/5 Ml Vial IVPUSH 09/15/23 20:22 2.5 mg ONCE ONE Administration Protocol Metoprolol Tartrate 5 mg 09/15/23 20:25 09/15/23 20:32 Metoprolol Tartrate 5 Mg/5 Ml Vial IVPUSH 09/15/23 20:26 5 mg ONCE ONE Administration Protocol Medical Decision Making Medical Decision Making [facility] Narrative: This is an 87-year-old male with history and clinical presentation of what appears to be either viral or bacterial pneumonia, patient treated with antibiotics empirically after obtaining lactic acid and blood cultures, there is significant derangement of patient's laboratory workup although not significantly changed from baseline and suspect that this is gradual progression of underlying medical conditions which include melanoma/CLL/atrial fibrillation and according to the facility patient was diagnosed with a pneumonia. I reviewed all investigations and hematologic indices demonstrate a chronic worsening noninfectious leukocytosis without anemia or thrombocytopenia. Coagulation studies are significantly elevated and demonstrate patient's use of Coumadin. VBG does not demonstrate respiratory acidosis or hypercapnia. Chemistry indices demonstrates some acute changes with worsening elevation of sodium and chloride, mild bump in potassium level with a chronic metabolic acidosis and chronic CKD patient also has an elevated calcium which is suspected to be associated with possible malignancy. Lactic acidosis is likely contributing to patient's metabolic acidosis, he is afebrile is noted to be COVID-19 positive. CXR without findings of infiltrate or venous congestion. Nursing has made several attempts to reach out to family members who are local to include patient's , unable to reach these individuals. I reviewed prior hospitalist note which documents that patient's CLL is in remission and the patient was discharged on 08/25 with instructions to follow-up with hematology/oncology. 1740: I just had a discussion with patient's son and who wish for everything to be done for their father as when he arrived at [facility] he was ambulating well with a walker but has continued to decline. Plan is to begin hydrating patient but need to proceed cautiously given elevated sodium level. I discussed case with inpatient hospitalist who accepts admission. Differential Diagnosis Differential Diagnoses: The differential diagnosis associated with the presentation includes Please see the discussion above Admission/Observation Consideration of admission/observation: Escalation of care including admission/observation considered Please see the discussion above Consult Healthcare Provider Management of the patient was discussed with: Hospitalist Please see the discussion above Lab Data MDM Lab Attestation statement: I reviewed the patient's lab results. Please see the discussion above 09/15/23 15:36 09/15/23 20:20 Labs: Lab Results 09/15/23 09/15/23 09/15/23 Range/Units 15:36 15:39 16:03 WBC 21.5 H (4.8-10.8) X10*3/uL RBC 4.42 L (4.60-5.80) X10*6/uL Hgb 15.1 (14.0-18.0) g/dl Hct 47.4 (42.0-52.0) % MCV 107.2 H (80.0-98.0) fL MCH 34.2 H (27.0-33.0) pg MCHC 31.9 (31.0-36.0) g/dl RDW 14.8 (11.0-16.0) % Plt Count 223 (160-400) X10*3/uL MPV 10.8 (9.4-12.4) fL Immature Gran % (Auto) 4.5 H (0.0-0.4) % Neut % (Auto) 82.5 H (45-73) % Lymph % (Auto) 7.1 L (20-40) % [place] % (Auto) 5.3 (2-11) % Eos % (Auto) 0.3 (0-4) % Baso % (Auto) 0.3 (0-2) % Lymph # (Auto) 1.5 (1.2-4.9) X10*3/uL [place] # (Auto) 1.1 (0.1-1.2) X10*3/uL Eos # (Auto) 0.1 (0.0-0.4) X10*3/uL Baso # (Auto) 0.1 (0.0-0.2) X10*3/uL Abs Immat Gran (auto) 0.96 H (0.00-0.03) X10*3/uL Absolute Neuts (auto) 17.8 H (2.0-8.3) x10*3/uL Absolute Nucleated RBC 0.130 H (0.0-0.012) X10*3/uL Nucleated RBC % (auto) 0.6 H (0.0-0.2) /100WBC VBG pH 7.38 (7.32-7.43) VBG pCO2 24 mmHg VBG pO2 70 mmHg VBG HCO3 14 L (22-26) mmol/L VBG O2 Saturation 93.0 % VBG Base Excess -8.4 mmol/L Sodium 154 H (135-145) mmol/L Potassium 5.3 H D (3.3-5.1) mmol/L Chloride 121 H (96-108) mmol/L Carbon Dioxide 15 L (22-29) mmol/L Anion Gap 23 H (12-20) BUN 90 H (9-16) mg/dL Creatinine 2.96 H (0.5-1.4) mg/dL Estim Creat Clear Calc 19.8 Estimated GFR 20 Random Glucose 293 H (60-115) mg/dL Osmolality (281-305) mosm/kg Lactic Acid 3.9 H* (0.5-2.0) mmol/L Lactic Acid F/U @ 2Hr (0.5-2.0) mmol/L Calcium 13.1 H* (8.4-10.2) mg/dL Magnesium 2.7 H (1.6-2.6) mg/dL Total Bilirubin 0.4 (0.0-1.0) mg/dL AST 30 (5-37) U/L ALT 16 (0-40) U/L Alkaline Phosphatase 93 (39-117) U/L Troponin I High Sens 114.8 H* (<3.5-35.0) ng/L B-Natriuretic Peptide 239 H (<100) pg/mL Total Protein 6.4 L (6.5-8.0) g/dL Albumin 3.1 L (3.5-5.0) g/dL Urine Color Urine Appearance Urine pH (5.0-9.0) Ur Specific [place] (1.005-1.025) Urine Protein (Neg-Trace) mg/dL Urine Glucose (UA) (Negative) mg/dL Urine Ketones (Negative) mg/dL Urine Blood (Negative) Urine Nitrite (Negative) Ur Leukocyte Esterase (Negative) Urine RBC (0-2) /HPF Urine WBC (0-5) /HPF Ur Squamous Epith Cells (0-2) /HPF Urine Bacteria (None Seen) Hyaline Casts (0-2) /LPF Influenza Type A (PCR) NEGATIVE (Negative) Influenza Type B (PCR) NEGATIVE (Negative) RSV RNA Qual (PCR) NEGATIVE (Negative) SARS-CoV-2 RNA (RT-PCR) POSITIVE A (Negative) 09/15/23 09/15/23 Range/Units 18:48 20:20 WBC (4.8-10.8) X10*3/uL RBC (4.60-5.80) X10*6/uL Hgb (14.0-18.0) g/dl Hct (42.0-52.0) % MCV (80.0-98.0) fL MCH (27.0-33.0) pg MCHC (31.0-36.0) g/dl RDW (11.0-16.0) % Plt Count (160-400) X10*3/uL MPV (9.4-12.4) fL Immature Gran % (Auto) (0.0-0.4) % Neut % (Auto) (45-73) % Lymph % (Auto) (20-40) % [place] % (Auto) (2-11) % Eos % (Auto) (0-4) % Baso % (Auto) (0-2) % Lymph # (Auto) (1.2-4.9) X10*3/uL [place] # (Auto) (0.1-1.2) X10*3/uL Eos # (Auto) (0.0-0.4) X10*3/uL Baso # (Auto) (0.0-0.2) X10*3/uL Abs Immat Gran (auto) (0.00-0.03) X10*3/uL Absolute Neuts (auto) (2.0-8.3) x10*3/uL Absolute Nucleated RBC (0.0-0.012) X10*3/uL Nucleated RBC % (auto) (0.0-0.2) /100WBC VBG pH (7.32-7.43) VBG pCO2 mmHg VBG pO2 mmHg VBG HCO3 (22-26) mmol/L VBG O2 Saturation % VBG Base Excess mmol/L Sodium 154 H (135-145) mmol/L Potassium 5.0 (3.3-5.1) mmol/L Chloride 125 H (96-108) mmol/L Carbon Dioxide 14 L (22-29) mmol/L Anion Gap 20 (12-20) BUN 90 H (9-16) mg/dL Creatinine 2.90 H (0.5-1.4) mg/dL Estim Creat Clear Calc 20.2 Estimated GFR 21 Random Glucose 265 H (60-115) mg/dL Osmolality 366 H (281-305) mosm/kg Lactic Acid (0.5-2.0) mmol/L Lactic Acid F/U @ 2Hr 3.9 H* (0.5-2.0) mmol/L Calcium 12.7 H* (8.4-10.2) mg/dL Magnesium (1.6-2.6) mg/dL Total Bilirubin (0.0-1.0) mg/dL AST (5-37) U/L ALT (0-40) U/L Alkaline Phosphatase (39-117) U/L Troponin I High Sens (<3.5-35.0) ng/L B-Natriuretic Peptide (<100) pg/mL Total Protein (6.5-8.0) g/dL Albumin (3.5-5.0) g/dL Urine Color Dark Yellow Urine Appearance Turbid Urine pH 5.0 (5.0-9.0) Ur Specific [place] 1.020 (1.005-1.025) Urine Protein 100 (2+) H (Neg-Trace) mg/dL Urine Glucose (UA) Negative (Negative) mg/dL Urine Ketones Negative (Negative) mg/dL Urine Blood Large (3+) H (Negative) Urine Nitrite Negative (Negative) Ur Leukocyte Esterase Small (1+) H (Negative) Urine RBC >20 H (0-2) /HPF Urine WBC 6-10 H (0-5) /HPF Ur Squamous Epith Cells 6-10 (0-2) /HPF Urine Bacteria None Seen (None Seen) Hyaline Casts 11-20 (0-2) /LPF Influenza Type A (PCR) (Negative) Influenza Type B (PCR) (Negative) RSV RNA Qual (PCR) (Negative) SARS-CoV-2 RNA (RT-PCR) (Negative) Independent Interpretation I performed an independent interpretation of an: EKG Interpretation: Atrial fibrillation with RVR, HR-140, no STEMI, QRS/QTC is within normal limits. Radiology Impression Discussion of test interpretation with radiology: I have reviewed the radiologist's reading. Radiologist Impression: Please see the discussion above External Record Review External record reviewed: Inpatient record, Outpatient record, Prior outpatient labs and Prior outpatient radiology Chronic Conditions Chronic anticoagulation Critical Care Time Critical Care Time Critical Care Time: Yes Total Critical Care Time: 60 Attestation: I personally attest to this time spent taking care of the patient. Discharge Plan Discharge Clinical Impression: Lab test positive for detection of COVID-19 virus, Atrial fibrillation with RVR, Dehydration, Confusion Patient Disposition: Admitted As Inpatient Print Language: Canadian
[2023-09-15 15:40] LABS: MANUAL DIFF FLAG NO
[2023-09-15 15:42] LABS: Basophils Absolute Auto 0.1 X10*3/uL (0.0-0.2); Basophils Percent Auto 0.3 % (0-2); Eosinophils Absolute Auto 0.1 X10*3/uL (0.0-0.4); Eosinophils Percent Auto 0.3 % (0-4); Hematocrit 47.4 % (42.0-52.0); Hemoglobin 15.1 g/dl (14.0-18.0); Imm Gran Abs Auto 0.96 X10*3/uL (0.00-0.03); Imm Gran Pct Auto 4.5 % (0.0-0.4); Lymphocytes Absolute Auto 1.5 X10*3/uL (1.2-4.9); Lymphocytes Percent Auto 7.1 % (20-40); Mean Corpuscular HGB Conc 31.9 g/dl (31.0-36.0); Mean Corpuscular Hemoglobin 34.2 pg (27.0-33.0); Mean Corpuscular Volume 107.2 fL (80.0-98.0); Mean Platelet Volume 10.8 fL (9.4-12.4); Monocytes Absolute Auto 1.1 X10*3/uL (0.1-1.2); Monocytes Percent Auto 5.3 % (2-11); NRBC Pct Auto 0.6 /100WBC (0.0-0.2); Neutrophils Absolute Auto 17.8 x10*3/uL (2.0-8.3); Neutrophils Percent Auto 82.5 % (45-73); Platelet Count 223 X10*3/uL (160-400); Red Blood Count 4.42 X10*6/uL (4.60-5.80); Red Cell Distribution Width 14.8 % (11.0-16.0); White Blood Count 21.5 X10*3/uL (4.8-10.8)
[2023-09-15 15:45] LABS: VBG Base Excess -8.4 mmol/L; VBG HCO3 14 mmol/L (22-26); VBG pCO2 24 mmHg; VBG pH 7.38 (7.32-7.43); VBG pO2 70 mmHg
[2023-09-15 15:48] LABS: Venous Blood Gas Refer to POC result
[2023-09-15 16:14] LABS: Troponin-I High Sensitivity 114.8 ng/L (<3.5-35.0)
[2023-09-15 16:20] LABS: Alanine Aminotransferase 16 U/L (0-40); Albumin Level 3.1 g/dL (3.5-5.0); Alkaline Phosphatase 93 U/L (39-117); Anion Gap 23 (12-20); Aspartate Amino Transferase 30 U/L (5-37); Bilirubin Total 0.4 mg/dL (0.0-1.0); Blood Urea Nitrogen 90 mg/dL (9-16); Calcium 13.1 mg/dL (8.4-10.2); Carbon Dioxide 15 mmol/L (22-29); Chloride 121 mmol/L (96-108); Creatinine Clr Calc Pharmacy 19.8; Estimated Glomerular Filt Rate 20; Glucose Random 293 mg/dL (60-115); Magnesium 2.7 mg/dL (1.6-2.6); Potassium 5.3 mmol/L (3.3-5.1); Sodium 154 mmol/L (135-145); Total Protein 6.4 g/dL (6.5-8.0)
[2023-09-15 16:31] LABS: Influenza A PCR NEGATIVE (Negative); Influenza B PCR NEGATIVE (Negative); Resp Syncy Virus RNA Qual PCR NEGATIVE (Negative); SARS COV2 PCR INHOUSE POSITIVE (Negative)
[2023-09-15 16:37] LABS: B Type Natriuretic Peptide 239 pg/mL (<100)
[2023-09-15 16:44] LABS: Lactic Acid 3.9 mmol/L (0.5-2.0)
[2023-09-15] MEDS: 0.9 % Sodium Chloride 500 ML 999 ML IV ×2 (17:02→17:18)
[2023-09-15] MEDS: cefEPime HCl 2 GM in 0.9 % Sodium Chloride 50 ML IV (17:18)
[2023-09-15] MEDS: Calcium Gluconate/NaCl,Iso-Osm 2 GM/100 ML PLAST..BAG IV (17:20)
[2023-09-15] MEDS: 0.9 % Sodium Chloride 1,000 ML 999 ML IV (18:05)
[2023-09-15 18:06] LABS: Reflex Lactate? Lactic Acid Added
[2023-09-15 19:10] LABS: ~Lactic Acid-LAB USE ONLY 3.9 mmol/L (0.5-2.0)
[2023-09-15] MEDS: Metoprolol Tartrate 5 MG/5 ML VIAL IVPUSH ×2 (19:23→20:32)
[2023-09-15 19:31] LABS: Osmolality, Serum 366 mosm/kg (281-305)
[2023-09-15] MEDS: Metoprolol Tartrate 5 MG/5 ML VIAL 2.5 MG IVPUSH (20:15)
--- NOTE | 2023-09-15 20:15 | PC.NURSE ---
verbal order for 2.[address] Michael; dose comfirmed and repeated back to Dr. Michael. vitals as documented.
[2023-09-15 20:29] LABS: Appearance Urine Turbid; Color Urine Dark Yellow; Glucose Urine UA Negative (Negative); Leukocyte Esterase Urine Small (1+) (Negative); Nitrite Urine Negative (Negative); UMIC TRIGGER UACC YES; Urine Blood Large (3+) (Negative); Urine Ketones Negative (Negative); Urine Protein 100 (2+) mg/dL (Neg-Trace)
--- NOTE | 2023-09-15 20:30 | PHA.MEDREC ---
Pharmacy Consult ? Medication Reconciliation Pharmacy has completed the medication reconciliation. patient form [facility] with med list. Zeina Guerra, SouleymaneD
[2023-09-15 20:41] LABS: Bacteria Urine None Seen (None Seen); RBC Urine >20 /HPF (0-2); UACC Culture Trigger YES
[2023-09-15 20:53] LABS: Reflex Lactate? 2 Y
[2023-09-15 20:53] LABS: Anion Gap 20 (12-20); Blood Urea Nitrogen 90 mg/dL (9-16); Calcium 12.7 mg/dL (8.4-10.2); Carbon Dioxide 14 mmol/L (22-29); Chloride 125 mmol/L (96-108); Creatinine Clr Calc Pharmacy 20.2; Estimated Glomerular Filt Rate 21; Glucose Random 265 mg/dL (60-115); Sodium 154 mmol/L (135-145)
[2023-09-15 21:26] LABS: Troponin-I High Sensitivity 125.1 ng/L (<3.5-35.0)
--- NOTE | 2023-09-15 21:36 | PC.NURSE ---
pt is tracking in room and able to reposition self in stretcher with assist. pt does not verbalize needs; unsure of baseline. per family this may be new baseline x 1 week. resp even and unlabored. pt is on heart monitor sustaining heart rate 90-110s. awaiting admission orders by hospitalist.
--- NOTE | 2023-09-15 21:42 | P.HPHOSP_ITS ---
History of Present Illness Date of Service: 09/15/23 Chief Complaint: Tachycardia This is a 87-year-old male with pertinent history of CLL, CKD stage 3, [id number]-[id number] type 2 diabetes mellitus, essential hypertension, gout, mixed hyperlipidemia, history of DVT/PE on warfarin who was sent from [facility] for evaluation of tachycardia. History obtained from ER provider and chart review. Unable to obtain history from the patient. Patient is only eye opening to verbal stimulus at the time of my evaluation. Of note, patient was recently admitted and discharged on 08/26/2023 with acute hypoxic respiratory failure due to COVID-19 infection. Patient was found to be in AFib with RVR in the ER and given IV Lopressor. Also found to be hypernatremic. Unable to obtain review of systems. Review of Systems 2 Review of Systems: Yes Unobtainable due to mental status [facility] Medical History CKD (chronic kidney disease) stage 3, GFR 30-59 ml/min DVT (deep venous thrombosis) Diabetes CLL (chronic lymphocytic leukemia) History of COVID-19 Mitral annular calcification Tachycardia Gout Headache above the eye region Cryptococcosis Dyslipidemia Diabetic nephropathy associated with type 2 diabetes mellitus Diabetes type 2, uncontrolled Melanoma BPH (benign prostatic hyperplasia) Current use of anticoagulant therapy Family History Other Family history of cancer in sister Surgical History History of excision of lesion (08/05/22) History of esophagogastroduodenoscopy (EGD) Hx of melanoma excision Hx of lymph node excision H/O colonoscopy Hx of cystoscopy Hx of basal cell carcinoma excision S/P TURP Hx of cataract surgery H/O inguinal hernia repair H/O umbilical hernia repair S/P appendectomy Social History Household Members: Spouse Housing: Condominium Are you a primary critical care physician assistant to a significant other at home: No Do you presently have visiting nurse or other home services: Yes Alcohol intake: never Comment: PATIENT STABLE ON FEET Patient Tobacco Use Status: Never used Tobacco Smoked in Last 30 Days: No Second Hand Smoke Exposure: No Use of substances other than those prescribed or required for medical reasons: No Advance Directives: Yes Advance Directives on File: Yes Advance Directives Date on File: 01/23/22 Do you have a plan to hurt others: No Plan Nutrition Risks: Difficulty chewing, Difficulty swallowing and Poor intake 0- 25% >4 days service: No Current occupational status: retired 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 Meds Allergies Allergy/AdvReac Type Severity Reaction Status Date / Time silver Allergy Intermediate skin Verified 09/15/23 15:22 [From TEGADERM AG MESH] sloughing morphine [MORPHINE] AdvReac Intermediate Vomiting Verified 09/15/23 15:22 Home Medications ?Medication ?Instructions ?Recorded ?Confirmed ?Last Taken ?Type multivitamin 1 tab PO DAILY 02/10/20 09/15/23 02/10/20 08:00 History glipizide 5 mg tablet 5 mg PO DAILY 03/19/22 09/15/23 Unknown History levothyroxine 75 mcg tablet 75 mcg PO DAILY@0600 02/18/23 09/15/23 Unknown History cyanocobalamin (vitamin B-12) 1,000 mcg PO DAILY 06/06/23 09/15/23 Unknown History 1,000 mcg tablet metoprolol succinate 50 mg 50 mg PO BID 08/23/23 09/15/23 Unknown History tablet,extended release 24 hr (Toprol XL) benzonatate 200 mg capsule 200 mg PO BEDTIME 09/15/23 09/15/23 Unknown History ceftriaxone 1 gram solution for 1 g IM DAILY 09/15/23 09/15/23 Unknown History injection Physical Exam 2 Vital Signs and Narrative: Vital Signs: Last Vital Signs Temp 98.6 F 09/15/23 17:57 Pulse 142 H 09/15/23 20:34 Resp 20 09/15/23 20:34 BP 102/54 L 09/15/23 20:34 Pulse Ox 96 09/15/23 20:34 O2 Del Method Room Air 09/15/23 20:34 O2 Flow Rate 2 09/15/23 18:02 Oxygen Flow Rate 2 09/15/23 15:08 BMI result Body Mass Index 23.8 Elderly male lying in bed in no distress Neck supple, no JVD Irregularly irregular, S1-S2 heard Bilateral crackles appreciated Abdomen soft nontender, no guarding, no rigidity Patient is drowsy and only awakens to verbal stimulus, non conversation, unable to assess orientation Psych: Lethargic Results Labs 09/15/23 15:36 09/15/23 20:20 Labs: Laboratory Results - last 24 hr 09/15/23 09/15/23 09/15/23 15:36 15:39 16:03 MCV 107.2 H MCH 34.2 H MCHC 31.9 RDW 14.8 Plt Count 223 MPV 10.8 Immature Gran % (Auto) 4.5 H Neut % (Auto) 82.5 H Lymph % (Auto) 7.1 L Hartley % (Auto) 5.3 Eos % (Auto) 0.3 Baso % (Auto) 0.3 Lymph # (Auto) 1.5 Hartley # (Auto) 1.1 Eos # (Auto) 0.1 Baso # (Auto) 0.1 Abs Immat Gran (auto) 0.96 H Absolute Neuts (auto) 17.8 H Absolute Nucleated RBC 0.130 H Nucleated RBC % (auto) 0.6 H VBG pH 7.38 VBG pCO2 24 VBG pO2 70 VBG HCO3 14 L VBG O2 Saturation 93.0 VBG Base Excess -8.4 Anion Gap 23 H Estim Creat Clear Calc 19.8 Estimated GFR 20 Random Glucose 293 H Osmolality Lactic Acid 3.9 H* Lactic Acid F/U @ 2Hr Calcium 13.1 H* Magnesium 2.7 H Total Bilirubin 0.4 AST 30 ALT 16 Alkaline Phosphatase 93 Troponin I High Sens 114.8 H* B-Natriuretic Peptide 239 H Total Protein 6.4 L Albumin 3.1 L Urine Color Urine Appearance Urine pH Ur Specific Tatum Urine Protein Urine Glucose (UA) Urine Ketones Urine Blood Urine Nitrite Ur Leukocyte Esterase Urine RBC Urine WBC Ur Squamous Epith Cells Urine Bacteria Hyaline Casts Influenza Type A (PCR) NEGATIVE Influenza Type B (PCR) NEGATIVE RSV RNA Qual (PCR) NEGATIVE SARS-CoV-2 RNA (RT-PCR) POSITIVE A 09/15/23 09/15/23 18:48 20:20 MCV MCH MCHC RDW Plt Count MPV Immature Gran % (Auto) Neut % (Auto) Lymph % (Auto) Hartley % (Auto) Eos % (Auto) Baso % (Auto) Lymph # (Auto) Hartley # (Auto) Eos # (Auto) Baso # (Auto) Abs Immat Gran (auto) Absolute Neuts (auto) Absolute Nucleated RBC Nucleated RBC % (auto) VBG pH VBG pCO2 VBG pO2 VBG HCO3 VBG O2 Saturation VBG Base Excess Anion Gap 20 Estim Creat Clear Calc 20.2 Estimated GFR 21 Random Glucose 265 H Osmolality 366 H Lactic Acid Lactic Acid F/U @ 2Hr 3.9 H* Calcium 12.7 H* Magnesium Total Bilirubin AST ALT Alkaline Phosphatase Troponin I High Sens 125.1 H* B-Natriuretic Peptide Total Protein Albumin Urine Color Dark Yellow Urine Appearance Turbid Urine pH 5.0 Ur Specific Tatum 1.020 Urine Protein 100 (2+) H Urine Glucose (UA) Negative Urine Ketones Negative Urine Blood Large (3+) H Urine Nitrite Negative Ur Leukocyte Esterase Small (1+) H Urine RBC >20 H Urine WBC 6-10 H Ur Squamous Epith Cells 6-10 Urine Bacteria None Seen Hyaline Casts 11-20 Influenza Type A (PCR) Influenza Type B (PCR) RSV RNA Qual (PCR) SARS-CoV-2 RNA (RT-PCR) Imaging Radiologist's Impressions: Impressions Chest X-Ray 09/15/23 16:20 IMPRESSION: No acute intrathoracic disease. Assessment and Plan (1) Atrial fibrillation with RVR: Status: Acute (2) Dehydration: Status: Acute (3) Confusion: Status: Acute Plan This is a 87-year-old male with pertinent history of CLL, CKD stage 3, ysn-gznanvc-vqyovselm type 2 diabetes mellitus, essential hypertension, gout, mixed hyperlipidemia, history of DVT/PE on warfarin who was sent from [facility] for evaluation of tachycardia. #. Atrial fibrillation with RVR, ?new diagnosis: due to dehydration. Rate controlled with IV lopressor in the ER. Will admit with cardiac monitoring. Obtain TSH, cardiology eval and Echo. Patient is on coumadin #. Hypernatremia due to IVVD: Received crystalloids in the ER. Initiating hypotonic fluids. Monitor sodium #. Acute metabolic encephalopathy in the setting of hypernatremia #. Non insulin DM with hyperglycemia: Initiating basal plus insulin regimen. #. Acute kidney injury on CKD, prerenal: Monitor creatinine and urine output with fluid resuscitation. Avoid nephrotoxins #. Leukocytosis: Reactive and patient has CLL. Chest x-ray and UA negative, no indication for bacterial infection and antibiotics. Has COVID infection #. Acute lactic acidosis due to dehydration. No sepsis #. Hypercalcemia in the setting of dehydration. Obtaining PTH #. History of DVT/PE: On Coumadin #. Essential hypertension: On metoprolol #. Mixed hyperlipidemia: On statin #. Gout: On allopurinol Med rec pending DNR/DNI DVT prophylaxis: Coumadin Admit as inpatient and will require two night minimum hospital stay for close monitoring of electrolytes, heart rate (as above), which is not possible in a lesser acute setting. Specialist consult pending Quality Stroke Does the patient have a stroke diagnosis?: No VTE Prior VTE?: No VTE Risk Level:: Medical - moderate - high VTE Device Contraindication: Treatment Not Indicated VTE Drug Contraindication: N/A - Med Ordered
[2023-09-15 22:08] LABS: ~Lactic Acid-LAB USE ONLY 3.6 mmol/L (0.5-2.0)
[2023-09-15] MEDS: Insulin Lispro 100 UNIT/ML 3 ML VIAL SUBCUT (23:01)
[2023-09-15] MEDS: Enoxaparin Sodium 30 MG/0.3 ML SYRINGE SUBCUT (23:01)
[2023-09-15] MEDS: Dextrose 5 % 1,000 ML 125 ML IVCONT (23:01)
[2023-09-15] MEDS: Insulin Glargine,Hum.rec.anlog 100 UNIT/ML 10 ML VIAL 8 UNIT SUBCUT (23:01)
--- NOTE | 2023-09-15 23:35 | PC.NURSE ---
Dr. Leahy aware of vitals. verbal order HR ok <140 bpm. pt is now more alert and responsive. axox2. pt reports no pain. pt following commands appropriately. precautions in place. pt requested extra blanket; warm blanket provided. nad. call alford within reach.
[2023-09-16] VITALS (13 sets, daily range): BP systolic 95–124; BP diastolic 50–67; PULSE 95–126; RESP 15–24; TEMP 35.6–37.1; O2SAT 95–100
[2023-09-16 00:33] LABS: Glucose, Whole Blood 224 mg/dL (60-115)
[2023-09-16 02:09] LABS: Glucose, Whole Blood 242 mg/dL (60-115)
[2023-09-16] MEDS: Insulin Lispro 100 UNIT/ML 3 ML VIAL SUBCUT ×6 (02:45→21:33)
[2023-09-16 06:40] LABS: Glucose, Whole Blood 270 mg/dL (60-115)
[2023-09-16] MEDS: Dextrose 5 % 1,000 ML 125 ML IVCONT ×3 (06:41→21:58)
[2023-09-16 06:43] LABS: Anion Gap 19 (12-20); Blood Urea Nitrogen 94 mg/dL (9-16); Calcium 12.4 mg/dL (8.4-10.2); Carbon Dioxide 12 mmol/L (22-29); Chloride 126 mmol/L (96-108); Creatinine Clr Calc Pharmacy 19.2; Estimated Glomerular Filt Rate 20; Glucose Random 317 mg/dL (60-115); Potassium 5.1 mmol/L (3.3-5.1); Sodium 152 mmol/L (135-145)
[2023-09-16 06:58] LABS: Hematocrit 42.4 % (42.0-52.0); Hemoglobin 13.7 g/dl (14.0-18.0); Mean Corpuscular HGB Conc 32.3 g/dl (31.0-36.0); Mean Corpuscular Hemoglobin 35.1 pg (27.0-33.0); Mean Corpuscular Volume 108.7 fL (80.0-98.0); NRBC Pct Auto 0.6 /100WBC (0.0-0.2); PLT CLUMP 1; Red Cell Distribution Width 14.9 % (11.0-16.0)
--- NOTE | 2023-09-16 07:30 | PC.NURSE ---
PT IS A/O X 1 AT THIS TIME. NO SOB/BRET NOTED SPEAKS IN FULL SENTENCES. PT DENIES ANY PAIN/DISC,PT HR 108 AT THIS TIME. [place] CATH IN PLACE/PATENT WITH YELLOW URINE. PT IS ADMITTED TO HOSP. WILL CONTINUE TO MONITOR.
--- NOTE | 2023-09-16 07:35 | PC.NURSE ---
PT'S ANUJA UPPER LUNGS - CTA. ANUJA LOWER LUNGS - DIMINISHED. WILL CONTINUE TO MONITOR.
[2023-09-16 07:51] LABS: Band Neutrophils Percent 0 % (3-5); Lymphocytes Percent Manual 8 % (20-40); Metamyelocytes Percent 2 %; Monocytes Percent Manual 6 % (2-11); Myelocytes Percent 1 %; Neutrophils Percent Manual 83 % (45-73)
[2023-09-16 07:54] LABS: Platelet Estimate DECREASED (NORMAL); Platelet Morphology Comment NORMAL
[2023-09-16 07:55] LABS: Polychromasia 1+ (0-2) /OIF; RBC Morphology NOTED
[2023-09-16 07:59] LABS: Burr Cells 3+ (>5) /OIF
[2023-09-16 08:02] LABS: White Blood Count 21.1 X10*3/uL (4.8-10.8)
[2023-09-16 08:13] LABS: Neutrophils Absolute Manual 17.5 X10*3/uL (2.0-8.3)
[2023-09-16 08:16] LABS: Parathyroid Hormone Intact 7.4 pg/mL (8.7-77.1)
[2023-09-16] MEDS: 0.9 % Sodium Chloride Flush 3 ML SYRINGE IVFLUSH (08:29)
[2023-09-16 08:30] LABS: Thyroid Stimulating Hormone 2.17 uIU/mL (0.32-4.0)
[2023-09-16] MEDS: Metoprolol Succinate ER 50 MG TAB.ER.24H PO ×2 (09:17→21:35)
[2023-09-16] MEDS: Cyanocobalamin (Vitamin B-12) 1,000 MCG TABLET 1000 MCG PO (09:17)
[2023-09-16] MEDS: Levothyroxine Sodium 75 MCG TABLET PO (09:17)
[2023-09-16] MEDS: Multivitamin TABLET 1 TAB PO (09:17)
[2023-09-16] MEDS: allopurinoL 100 MG TABLET PO (09:18)
--- NOTE | 2023-09-16 09:38 | PC.NURSE ---
MEDS CRUSHED IN APPLESAUCE/PUDDING.
--- NOTE | 2023-09-16 10:24 | MHC.EDTECH ---
pt boosted and repositioned from right lateral to left lateral. pt now comfortable in bed, call alford within reach, rn aware
[2023-09-16 10:43] LABS: Glucose, Whole Blood 231 mg/dL (60-115)
--- NOTE | 2023-09-16 10:44 | HO.PM.IMPN ---
Subjective Subjective Date of Service: 09/16/23 Interval History: f/u on metabolic encephalopathy, afib with rvr Physical Exam Vital Signs: Vital Signs: Last Vital Signs Temp 98.2 F 09/16/23 10:03 Pulse 111 H 09/16/23 10:03 Resp 21 H 09/16/23 10:03 BP 112/61 09/16/23 10:03 Pulse Ox 95 09/16/23 10:03 O2 Del Method Nasal Cannula 09/16/23 10:03 O2 Flow Rate 2 09/16/23 10:03 Oxygen Flow Rate 2 09/15/23 15:08 BMI result Body Mass Index 23.8 Const: Other: General:very confused, not able to converse Resp: jory rhonchi CVS: S1,S2, iregular iregular GI: +BS, NT, no distention Skin: No rash Neuro: motor grossly intact Psych: appropriate affect Objective Data Active Medications Acetaminophen (Acetaminophen 325 Mg Tablet) 650 mg PO Q6H PRN PRN Reason: Pain, Mild (Pain Scale 1-3) Acetaminophen (Acetaminophen Supp 650 Mg Supp.Rect) 650 mg IN Q6H PRN PRN Reason: Pain, Mild (Pain Scale 1-3) Allopurinol (Allopurinol 100 Mg Tablet) 100 mg PO DAILY [facility] Last Admin: 09/16/23 09:18 Dose: 100 mg Documented By: CASI Atorvastatin Calcium (Atorvastatin Calcium 20 Mg Tablet) 20 mg PO BEDTIME YONNY Benzonatate (Benzonatate 100 Mg Capsule) 200 mg PO BEDTIME [facility] Cyanocobalamin (Cyanocobalamin (Vitamin B-12) 1,000 Mcg Tablet) 1,000 mcg PO DAILY [facility] Last Admin: 09/16/23 09:17 Dose: 1,000 mcg Documented By: CASI Enoxaparin Sodium (Enoxaparin Sodium 30 Mg/0.3 Ml Syringe) 30 mg SUBCUT Q24H [facility] Last Admin: 09/15/23 23:01 Dose: 30 mg Documented By: JUAN CARLOS Glucose (Glucose Gel 15 Gm Gel..Gram.) 15 gm PO Q15M PRN; Protocol PRN Reason: per Hypoglycemia Standing Ord. Guaifenesin/Dextromethorphan (Guaifenesin Dm 100/10/5 Ml 5 Ml Syrup) 10 ml PO Q6H PRN PRN Reason: Cough Dextrose (D5w) 1,000 mls @ 125 mls/hr IVCONT .Q8H [facility] Last Admin: 09/16/23 06:41 Dose: 125 mls/hr Documented By: JUAN CARLOS Dextrose (D10) 250 mls @ 750 mls/hr IV Q15M PRN; Protocol PRN Reason: per Hypoglycemia Standing Ord. Insulin Glargine (Insulin Glargine,Hum.Rec.Anlog 100 Unit/Ml 10 Ml Vial) 8 unit SUBCUT BEDTIME [facility] Last Admin: 09/15/23 23:01 Dose: 8 unit Documented By: JUAN CARLOS Insulin Human Lispro (Insulin Lispro 100 Unit/Ml 3 Ml Vial) 0 unit SUBCUT Q4H [facility]; Protocol Last Admin: 09/16/23 06:41 Dose: 6 unit Documented By: JUAN CARLOS Levalbuterol HCl (Levalbuterol Hcl 1.25 Mg/3 Ml Vial.Neb) 1.25 mg INHALE RQ4H [facility] Levothyroxine Sodium (Levothyroxine Sodium 75 Mcg Tablet) 75 mcg PO DAILY@0600 [facility] Last Admin: 09/16/23 09:17 Dose: 75 mcg Documented By: CASI Metoprolol Succinate (Metoprolol Succinate Er 50 Mg Tab.Er.24h) 50 mg PO BID [facility]; Protocol Last Admin: 09/16/23 09:17 Dose: 50 mg Documented By: CASI Multivitamins/Vitamin C (Multivitamin Tablet) 1 tab PO DAILY [facility] Last Admin: 09/16/23 09:17 Dose: 1 tab Documented By: CASI Ondansetron HCl (Ondansetron Hcl 4 Mg/2 Ml Vial) 4 mg IVPUSH Q8H PRN PRN Reason: Nausea and Vomiting Sodium Chloride (0.9 % Sodium Chloride Flush 3 Ml Syringe) 3 ml IVFLUSH QSHIFT [facility] Last Admin: 09/16/23 08:29 Dose: 3 ml Documented By: CASI Labs 09/16/23 06:17 09/16/23 06:17 Labs: Laboratory Results - last 24 hr 09/15/23 09/15/23 09/15/23 15:36 15:39 16:03 MCV 107.2 H MCH 34.2 H MCHC 31.9 RDW 14.8 Plt Count 223 MPV 10.8 Immature Gran % (Auto) 4.5 H Neut % (Auto) 82.5 H Lymph % (Auto) 7.1 L [place] % (Auto) 5.3 Eos % (Auto) 0.3 Baso % (Auto) 0.3 Lymph # (Auto) 1.5 [place] # (Auto) 1.1 Eos # (Auto) 0.1 Baso # (Auto) 0.1 Abs Immat Gran (auto) 0.96 H Absolute Neuts (auto) 17.8 H Absolute Nucleated RBC 0.130 H Nucleated RBC % (auto) 0.6 H Neutrophils % (Manual) Band Neutrophils % Lymphocytes % (Manual) Monocytes % (Manual) Metamyelocytes % Myelocytes % Abs Neuts (Manual) Platelet Estimate Plt Morphology Comment RBC Morphology Polychromasia [place] Cells VBG pH 7.38 VBG pCO2 24 VBG pO2 70 VBG HCO3 14 L VBG O2 Saturation 93.0 VBG Base Excess -8.4 Anion Gap 23 H Estim Creat Clear Calc 19.8 Estimated GFR 20 POC Glucose Random Glucose 293 H Osmolality Lactic Acid 3.9 H* Lactic Acid F/U @ 2Hr Lactic Acid F/U @ 4Hr Calcium 13.1 H* Magnesium 2.7 H Total Bilirubin 0.4 AST 30 ALT 16 Alkaline Phosphatase 93 Troponin I High Sens 114.8 H* B-Natriuretic Peptide 239 H Total Protein 6.4 L Albumin 3.1 L TSH PTH Intact Urine Color Urine Appearance Urine pH Ur Specific [place] Urine Protein Urine Glucose (UA) Urine Ketones Urine Blood Urine Nitrite Ur Leukocyte Esterase Urine RBC Urine WBC Ur Squamous Epith Cells Urine Bacteria Hyaline Casts Influenza Type A (PCR) NEGATIVE Influenza Type B (PCR) NEGATIVE RSV RNA Qual (PCR) NEGATIVE SARS-CoV-2 RNA (RT-PCR) POSITIVE A 09/15/23 09/15/23 09/15/23 18:48 20:20 21:44 MCV MCH MCHC RDW Plt Count MPV Immature Gran % (Auto) Neut % (Auto) Lymph % (Auto) [place] % (Auto) Eos % (Auto) Baso % (Auto) Lymph # (Auto) [place] # (Auto) Eos # (Auto) Baso # (Auto) Abs Immat Gran (auto) Absolute Neuts (auto) Absolute Nucleated RBC Nucleated RBC % (auto) Neutrophils % (Manual) Band Neutrophils % Lymphocytes % (Manual) Monocytes % (Manual) Metamyelocytes % Myelocytes % Abs Neuts (Manual) Platelet Estimate Plt Morphology Comment RBC Morphology Polychromasia [place] Cells VBG pH VBG pCO2 VBG pO2 VBG HCO3 VBG O2 Saturation VBG Base Excess Anion Gap 20 Estim Creat Clear Calc 20.2 Estimated GFR 21 POC Glucose Random Glucose 265 H Osmolality 366 H Lactic Acid Lactic Acid F/U @ 2Hr 3.9 H* Lactic Acid F/U @ 4Hr 3.6 H* Calcium 12.7 H* Magnesium Total Bilirubin AST ALT Alkaline Phosphatase Troponin I High Sens 125.1 H* B-Natriuretic Peptide Total Protein Albumin TSH PTH Intact Urine Color Dark Yellow Urine Appearance Turbid Urine pH 5.0 Ur Specific [place] 1.020 Urine Protein 100 (2+) H Urine Glucose (UA) Negative Urine Ketones Negative Urine Blood Large (3+) H Urine Nitrite Negative Ur Leukocyte Esterase Small (1+) H Urine RBC >20 H Urine WBC 6-10 H Ur Squamous Epith Cells 6-10 Urine Bacteria None Seen Hyaline Casts 11-20 Influenza Type A (PCR) Influenza Type B (PCR) RSV RNA Qual (PCR) SARS-CoV-2 RNA (RT-PCR) 09/15/23 09/16/23 09/16/23 22:13 02:05 06:17 MCV 108.7 H MCH 35.1 H MCHC 32.3 RDW 14.9 Plt Count TNP MPV Not Reportable Immature Gran % (Auto) Cancelled Neut % (Auto) Cancelled Lymph % (Auto) Cancelled [place] % (Auto) Cancelled Eos % (Auto) Cancelled Baso % (Auto) Cancelled Lymph # (Auto) Cancelled [place] # (Auto) Cancelled Eos # (Auto) Cancelled Baso # (Auto) Cancelled Abs Immat Gran (auto) Cancelled Absolute Neuts (auto) Cancelled Absolute Nucleated RBC 0.120 H Nucleated RBC % (auto) 0.6 H Neutrophils % (Manual) 83 H Band Neutrophils % 0 L Lymphocytes % (Manual) 8 L Monocytes % (Manual) 6 Metamyelocytes % 2 Myelocytes % 1 Abs Neuts (Manual) 17.5 H Platelet Estimate DECREASED Plt Morphology Comment NORMAL RBC Morphology NOTED Polychromasia 1+ (0-2) [place] Cells 3+ (>5) VBG pH VBG pCO2 VBG pO2 VBG HCO3 VBG O2 Saturation VBG Base Excess Anion Gap 19 Estim Creat Clear Calc 19.2 Estimated GFR 20 POC Glucose 224 H 242 H Random Glucose 317 H Osmolality Lactic Acid Lactic Acid F/U @ 2Hr Lactic Acid F/U @ 4Hr Calcium 12.4 H Magnesium Total Bilirubin AST ALT Alkaline Phosphatase Troponin I High Sens B-Natriuretic Peptide Total Protein Albumin TSH PTH Intact Urine Color Urine Appearance Urine pH Ur Specific [place] Urine Protein Urine Glucose (UA) Urine Ketones Urine Blood Urine Nitrite Ur Leukocyte Esterase Urine RBC Urine WBC Ur Squamous Epith Cells Urine Bacteria Hyaline Casts Influenza Type A (PCR) Influenza Type B (PCR) RSV RNA Qual (PCR) SARS-CoV-2 RNA (RT-PCR) 09/16/23 09/16/23 09/16/23 06:34 07:51 10:39 MCV MCH MCHC RDW Plt Count MPV Immature Gran % (Auto) Neut % (Auto) Lymph % (Auto) [place] % (Auto) Eos % (Auto) Baso % (Auto) Lymph # (Auto) [place] # (Auto) Eos # (Auto) Baso # (Auto) Abs Immat Gran (auto) Absolute Neuts (auto) Absolute Nucleated RBC Nucleated RBC % (auto) Neutrophils % (Manual) Band Neutrophils % Lymphocytes % (Manual) Monocytes % (Manual) Metamyelocytes % Myelocytes % Abs Neuts (Manual) Platelet Estimate Plt Morphology Comment RBC Morphology Polychromasia [place] Cells VBG pH VBG pCO2 VBG pO2 VBG HCO3 VBG O2 Saturation VBG Base Excess Anion Gap Estim Creat Clear Calc Estimated GFR POC Glucose 270 H 231 H Random Glucose Osmolality Lactic Acid Lactic Acid F/U @ 2Hr Lactic Acid F/U @ 4Hr Calcium Magnesium Total Bilirubin AST ALT Alkaline Phosphatase Troponin I High Sens B-Natriuretic Peptide Total Protein Albumin TSH 2.17 PTH Intact 7.4 L Urine Color Urine Appearance Urine pH Ur Specific [place] Urine Protein Urine Glucose (UA) Urine Ketones Urine Blood Urine Nitrite Ur Leukocyte Esterase Urine RBC Urine WBC Ur Squamous Epith Cells Urine Bacteria Hyaline Casts Influenza Type A (PCR) Influenza Type B (PCR) RSV RNA Qual (PCR) SARS-CoV-2 RNA (RT-PCR) Assessment and Plan (1) Metabolic encephalopathy: Status: Acute Plan 87-year-old male with pertinent history of CLL, CKD stage 3, [id number] type 2 diabetes mellitus, essential hypertension, gout, mixed hyperlipidemia, history of DVT/PE on warfarin who was sent from [facility] for evaluation of tachycardia and found to have metabolic encephalopathy, afib with rvr, dehydration, hypernatremia Acute metabolic encephalopathy d/t dehydration, covid underlying dementia. -IVF fluid hydration and avoid meds that could make it worse Tachycardia d/t MAT NOT afib -contonue metoprolol for rate control -no indication for anticoagulation -cardiology consult HypERnatremia d/t dehydration, lack of oral water -continue D5 and frequent sodium level Not insulin dependent DM with hyperglycemia, hold glipizide, sliding scale insulin Acute kidney injury on CKD, prerenal: IVF, monitor renal function Leukocytosis: Reactive and patient has CLL. Chest x-ray and UA negative,ntibiotics. Has COVID infection Acute lactic acidosis due to dehydration. No sepsis Covid Not new, was positive in mid august Hypercalcemia in the setting of dehydration. Obtaining PTH History of DVT/PE: On Coumadin Essential hypertension: On metoprolol Mixed hyperlipidemia: On statin Gout: On allopurinol DNR/DNI DVT prophylaxis: Lovenox need for inpt: acute metabolic encephalopathy, dehydration, hypernatremia Will discus goal of care with proxy Quality Stroke Does the patient have a stroke diagnosis?: No VTE Prior VTE?: No VTE Risk Level:: Medical - moderate - high VTE Device Contraindication: Treatment Not Indicated VTE Drug Contraindication: N/A - Med Ordered
--- NOTE | 2023-09-16 10:57 | P.CONCA_ITS ---
History of Present Illness History of Present Illness Date of Service: 09/16/23 Requesting physician: Ancelmo Rodriguez Chief complaint: Tachycardia, COVID + Narrative: 87-year-old gentleman with background history of dementia, CLL, CKD, atrial tachycardia, hyperlipidemia, orthostatic hypotension and previous COVID-19 infection who is presenting with confusion and encephalopathy. He was noticed to be dehydrated with hypernatremia and was started on IV fluid resuscitation. He is COVID positive again. EKG has shown tachycardia with concern for atrial fibrillation. No history is possible from the patient. I reviewed his EKGs and his previous EKGs were showing sinus tachycardia with premature atrial complexes. His current EKGs showing potentially multifocal atrial tachycardia/atrial tachycardia. No clear evidence of atrial fibrillation. He has not been on anticoagulation previously. [facility] Past Medical History Medical History (Updated 09/16/23 @ 11:00 by Josiah Zhang MD) CKD (chronic kidney disease) stage 3, GFR 30-59 ml/min DVT (deep venous thrombosis) Diabetes CLL (chronic lymphocytic leukemia) History of COVID-19 Mitral annular calcification Tachycardia Gout Headache above the eye region Cryptococcosis Dyslipidemia Diabetic nephropathy associated with type 2 diabetes mellitus Diabetes type 2, uncontrolled Melanoma BPH (benign prostatic hyperplasia) Current use of anticoagulant therapy Family History Family History Other Family history of cancer in sister Surgical History Surgical History History of excision of lesion (08/05/22) History of esophagogastroduodenoscopy (EGD) Hx of melanoma excision Hx of lymph node excision H/O colonoscopy Hx of cystoscopy Hx of basal cell carcinoma excision S/P TURP Hx of cataract surgery H/O inguinal hernia repair H/O umbilical hernia repair S/P appendectomy Social History Social History Household Members: Spouse Housing: Condominium Are you a primary critical care physician assistant to a significant other at home: No Do you presently have visiting nurse or other home services: Yes Alcohol intake: never Comment: PATIENT STABLE ON FEET Patient Tobacco Use Status: Never used Tobacco Second Hand Smoke Exposure: No Advance Directives Date on File: 01/23/22 service: No Current occupational status: retired 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 Meds Allergies Allergy/AdvReac Type Severity Reaction Status Date / Time silver Allergy Intermediate skin Verified 09/15/23 15:22 [From TEGADERM AG MESH] sloughing morphine [MORPHINE] AdvReac Intermediate Vomiting Verified 09/15/23 15:22 Active Medications: Current Medications Acetaminophen (Acetaminophen 325 Mg Tablet) 650 mg PO Q6H PRN PRN Reason: Pain, Mild (Pain Scale 1-3) Acetaminophen (Acetaminophen Supp 650 Mg Supp.Rect) 650 mg [place] Q6H PRN PRN Reason: Pain, Mild (Pain Scale 1-3) Allopurinol (Allopurinol 100 Mg Tablet) 100 mg PO DAILY [facility] Last Admin: 09/16/23 09:18 Dose: 100 mg Atorvastatin Calcium (Atorvastatin Calcium 20 Mg Tablet) 20 mg PO BEDTIME YONNY Benzonatate (Benzonatate 100 Mg Capsule) 200 mg PO BEDTIME YONNY Cyanocobalamin (Cyanocobalamin (Vitamin B-12) 1,000 Mcg Tablet) 1,000 mcg PO DAILY [facility] Last Admin: 09/16/23 09:17 Dose: 1,000 mcg Enoxaparin Sodium (Enoxaparin Sodium 30 Mg/0.3 Ml Syringe) 30 mg SUBCUT Q24H [facility] Last Admin: 09/15/23 23:01 Dose: 30 mg Glucose (Glucose Gel 15 Gm Gel..Gram.) 15 gm PO Q15M PRN; Protocol PRN Reason: per Hypoglycemia Standing Ord. Guaifenesin/Dextromethorphan (Guaifenesin Dm 100/10/5 Ml 5 Ml Syrup) 10 ml PO Q6H PRN PRN Reason: Cough Dextrose (D5w) 1,000 mls @ 125 mls/hr IVCONT .Q8H [facility] Last Admin: 09/16/23 06:41 Dose: 125 mls/hr Dextrose (D10) 250 mls @ 750 mls/hr IV Q15M PRN; Protocol PRN Reason: per Hypoglycemia Standing Ord. Insulin Glargine (Insulin Glargine,Hum.Rec.Anlog 100 Unit/Ml 10 Ml Vial) 8 unit SUBCUT BEDTIME [facility] Last Admin: 09/15/23 23:01 Dose: 8 unit Insulin Human Lispro (Insulin Lispro 100 Unit/Ml 3 Ml Vial) 0 unit SUBCUT Q4H [facility]; Protocol Last Admin: 09/16/23 10:55 Dose: 4 unit Levalbuterol HCl (Levalbuterol Hcl 1.25 Mg/3 Ml Vial.Neb) 1.25 mg INHALE RQ4H [facility] Levothyroxine Sodium (Levothyroxine Sodium 75 Mcg Tablet) 75 mcg PO DAILY@0600 [facility] Last Admin: 09/16/23 09:17 Dose: 75 mcg Metoprolol Succinate (Metoprolol Succinate Er 50 Mg Tab.Er.24h) 50 mg PO BID [facility]; Protocol Last Admin: 09/16/23 09:17 Dose: 50 mg Multivitamins/Vitamin C (Multivitamin Tablet) 1 tab PO DAILY [facility] Last Admin: 09/16/23 09:17 Dose: 1 tab Ondansetron HCl (Ondansetron Hcl 4 Mg/2 Ml Vial) 4 mg IVPUSH Q8H PRN PRN Reason: Nausea and Vomiting Sodium Chloride (0.9 % Sodium Chloride Flush 3 Ml Syringe) 3 ml IVFLUSH QSHIFT [facility] Last Admin: 09/16/23 08:29 Dose: 3 ml Home Medications ?Medication ?Instructions ?Recorded ?Confirmed ?Last Taken ?Type multivitamin 1 tab PO DAILY 02/10/20 09/15/23 02/10/20 08:00 History glipizide 5 mg tablet 5 mg PO DAILY 03/19/22 09/15/23 Unknown History levothyroxine 75 mcg tablet 75 mcg PO DAILY@0600 02/18/23 09/15/23 Unknown History cyanocobalamin (vitamin B-12) 1,000 mcg PO DAILY 06/06/23 09/15/23 Unknown History 1,000 mcg tablet metoprolol succinate 50 mg 50 mg PO BID 08/23/23 09/15/23 Unknown History tablet,extended release 24 hr (Toprol XL) benzonatate 200 mg capsule 200 mg PO BEDTIME 09/15/23 09/15/23 Unknown History ceftriaxone 1 gram solution for 1 g IM DAILY 09/15/23 09/15/23 Unknown History injection Physical Exam 2 Vital Signs: Vital Signs: Last Vital Signs Temp 98.2 F 09/16/23 10:03 Pulse 111 H 09/16/23 10:03 Resp 21 H 09/16/23 10:03 BP 112/61 09/16/23 10:03 Pulse Ox 95 05/07/24 10:03 O2 Del Method Nasal Cannula 09/16/23 10:03 O2 Flow Rate 2 09/16/23 10:03 Oxygen Flow Rate 2 09/15/23 15:08 BMI result Body Mass Index 23.8 GENERAL APPEARANCE: Confused. NECK: no carotid bruit, no jugular venous distention. SKIN: no suspicious lesions, warm and dry. HEART: no murmurs, regular rate and rhythm. Tachycardic. LUNGS: clear to auscultation bilaterally. ABDOMEN: soft, nontender. EXTREMITIES: no edema. PERIPHERAL PULSES: equal. NEUROLOGIC: Confused. Objective Labs and Meds 09/16/23 06:17 09/16/23 06:17 Lab results: Laboratory Results - last 24 hr 09/15/23 09/15/23 09/15/23 15:36 15:39 16:03 WBC 21.5 H RBC 4.42 L Hgb 15.1 Hct 47.4 MCV 107.2 H MCH 34.2 H MCHC 31.9 RDW 14.8 Plt Count 223 MPV 10.8 Immature Gran % (Auto) 4.5 H Neut % (Auto) 82.5 H Lymph % (Auto) 7.1 L [place] % (Auto) 5.3 Eos % (Auto) 0.3 Baso % (Auto) 0.3 Lymph # (Auto) 1.5 [place] # (Auto) 1.1 Eos # (Auto) 0.1 Baso # (Auto) 0.1 Abs Immat Gran (auto) 0.96 H Absolute Neuts (auto) 17.8 H Absolute Nucleated RBC 0.130 H Nucleated RBC % (auto) 0.6 H Neutrophils % (Manual) Band Neutrophils % Lymphocytes % (Manual) Monocytes % (Manual) Metamyelocytes % Myelocytes % Abs Neuts (Manual) Platelet Estimate Plt Morphology Comment RBC Morphology Polychromasia [place] Cells VBG pH 7.38 VBG pCO2 24 VBG pO2 70 VBG HCO3 14 L VBG O2 Saturation 93.0 VBG Base Excess -8.4 Sodium 154 H Potassium 5.3 H D Chloride 121 H Carbon Dioxide 15 L Anion Gap 23 H BUN 90 H Creatinine 2.96 H Estim Creat Clear Calc 19.8 Estimated GFR 20 POC Glucose Random Glucose 293 H Osmolality Lactic Acid 3.9 H* Lactic Acid F/U @ 2Hr Lactic Acid F/U @ 4Hr Calcium 13.1 H* Magnesium 2.7 H Total Bilirubin 0.4 AST 30 ALT 16 Alkaline Phosphatase 93 Troponin I High Sens 114.8 H* B-Natriuretic Peptide 239 H Total Protein 6.4 L Albumin 3.1 L TSH PTH Intact Urine Color Urine Appearance Urine pH Ur Specific [place] Urine Protein Urine Glucose (UA) Urine Ketones Urine Blood Urine Nitrite Ur Leukocyte Esterase Urine RBC Urine WBC Ur Squamous Epith Cells Urine Bacteria Hyaline Casts Influenza Type A (PCR) NEGATIVE Influenza Type B (PCR) NEGATIVE RSV RNA Qual (PCR) NEGATIVE SARS-CoV-2 RNA (RT-PCR) POSITIVE A 09/15/23 09/15/23 09/15/23 18:48 20:20 21:44 WBC RBC Hgb Hct MCV MCH MCHC RDW Plt Count MPV Immature Gran % (Auto) Neut % (Auto) Lymph % (Auto) [place] % (Auto) Eos % (Auto) Baso % (Auto) Lymph # (Auto) [place] # (Auto) Eos # (Auto) Baso # (Auto) Abs Immat Gran (auto) Absolute Neuts (auto) Absolute Nucleated RBC Nucleated RBC % (auto) Neutrophils % (Manual) Band Neutrophils % Lymphocytes % (Manual) Monocytes % (Manual) Metamyelocytes % Myelocytes % Abs Neuts (Manual) Platelet Estimate Plt Morphology Comment RBC Morphology Polychromasia [place] Cells VBG pH VBG pCO2 VBG pO2 VBG HCO3 VBG O2 Saturation VBG Base Excess Sodium 154 H Potassium 5.0 Chloride 125 H Carbon Dioxide 14 L Anion Gap 20 BUN 90 H Creatinine 2.90 H Estim Creat Clear Calc 20.2 Estimated GFR 21 POC Glucose Random Glucose 265 H Osmolality 366 H Lactic Acid Lactic Acid F/U @ 2Hr 3.9 H* Lactic Acid F/U @ 4Hr 3.6 H* Calcium 12.7 H* Magnesium Total Bilirubin AST ALT Alkaline Phosphatase Troponin I High Sens 125.1 H* B-Natriuretic Peptide Total Protein Albumin TSH PTH Intact Urine Color Dark Yellow Urine Appearance Turbid Urine pH 5.0 Ur Specific [place] 1.020 Urine Protein 100 (2+) H Urine Glucose (UA) Negative Urine Ketones Negative Urine Blood Large (3+) H Urine Nitrite Negative Ur Leukocyte Esterase Small (1+) H Urine RBC >20 H Urine WBC 6-10 H Ur Squamous Epith Cells 6-10 Urine Bacteria None Seen Hyaline Casts 11-20 Influenza Type A (PCR) Influenza Type B (PCR) RSV RNA Qual (PCR) SARS-CoV-2 RNA (RT-PCR) 09/15/23 09/16/23 09/16/23 22:13 02:05 06:17 WBC 21.1 H RBC 3.90 L Hgb 13.7 L Hct 42.4 MCV 108.7 H MCH 35.1 H MCHC 32.3 RDW 14.9 Plt Count TNP MPV Not Reportable Immature Gran % (Auto) Cancelled Neut % (Auto) Cancelled Lymph % (Auto) Cancelled [place] % (Auto) Cancelled Eos % (Auto) Cancelled Baso % (Auto) Cancelled Lymph # (Auto) Cancelled [place] # (Auto) Cancelled Eos # (Auto) Cancelled Baso # (Auto) Cancelled Abs Immat Gran (auto) Cancelled Absolute Neuts (auto) Cancelled Absolute Nucleated RBC 0.120 H Nucleated RBC % (auto) 0.6 H Neutrophils % (Manual) 83 H Band Neutrophils % 0 L Lymphocytes % (Manual) 8 L Monocytes % (Manual) 6 Metamyelocytes % 2 Myelocytes % 1 Abs Neuts (Manual) 17.5 H Platelet Estimate DECREASED Plt Morphology Comment NORMAL RBC Morphology NOTED Polychromasia 1+ (0-2) [place] Cells 3+ (>5) VBG pH VBG pCO2 VBG pO2 VBG HCO3 VBG O2 Saturation VBG Base Excess Sodium 152 H Potassium 5.1 Chloride 126 H Carbon Dioxide 12 L Anion Gap 19 BUN 94 H Creatinine 3.05 H Estim Creat Clear Calc 19.2 Estimated GFR 20 POC Glucose 224 H 242 H Random Glucose 317 H Osmolality Lactic Acid Lactic Acid F/U @ 2Hr Lactic Acid F/U @ 4Hr Calcium 12.4 H Magnesium Total Bilirubin AST ALT Alkaline Phosphatase Troponin I High Sens B-Natriuretic Peptide Total Protein Albumin TSH PTH Intact Urine Color Urine Appearance Urine pH Ur Specific [place] Urine Protein Urine Glucose (UA) Urine Ketones Urine Blood Urine Nitrite Ur Leukocyte Esterase Urine RBC Urine WBC Ur Squamous Epith Cells Urine Bacteria Hyaline Casts Influenza Type A (PCR) Influenza Type B (PCR) RSV RNA Qual (PCR) SARS-CoV-2 RNA (RT-PCR) 09/16/23 09/16/23 09/16/23 06:34 07:51 10:39 WBC RBC Hgb Hct MCV MCH MCHC RDW Plt Count MPV Immature Gran % (Auto) Neut % (Auto) Lymph % (Auto) [place] % (Auto) Eos % (Auto) Baso % (Auto) Lymph # (Auto) [place] # (Auto) Eos # (Auto) Baso # (Auto) Abs Immat Gran (auto) Absolute Neuts (auto) Absolute Nucleated RBC Nucleated RBC % (auto) Neutrophils % (Manual) Band Neutrophils % Lymphocytes % (Manual) Monocytes % (Manual) Metamyelocytes % Myelocytes % Abs Neuts (Manual) Platelet Estimate Plt Morphology Comment RBC Morphology Polychromasia [place] Cells VBG pH VBG pCO2 VBG pO2 VBG HCO3 VBG O2 Saturation VBG Base Excess Sodium Potassium Chloride Carbon Dioxide Anion Gap BUN Creatinine Estim Creat Clear Calc Estimated GFR POC Glucose 270 H 231 H Random Glucose Osmolality Lactic Acid Lactic Acid F/U @ 2Hr Lactic Acid F/U @ 4Hr Calcium Magnesium Total Bilirubin AST ALT Alkaline Phosphatase Troponin I High Sens B-Natriuretic Peptide Total Protein Albumin TSH 2.17 PTH Intact 7.4 L Urine Color Urine Appearance Urine pH Ur Specific [place] Urine Protein Urine Glucose (UA) Urine Ketones Urine Blood Urine Nitrite Ur Leukocyte Esterase Urine RBC Urine WBC Ur Squamous Epith Cells Urine Bacteria Hyaline Casts Influenza Type A (PCR) Influenza Type B (PCR) RSV RNA Qual (PCR) SARS-CoV-2 RNA (RT-PCR) Imaging Radiologist's impression: Impressions Chest X-Ray 09/15/23 16:20 IMPRESSION: No acute intrathoracic disease. Assessment and Plan (1) Metabolic encephalopathy: Status: Acute (2) Tachycardia: Status: Acute Plan [age] year gentleman presenting for COVID-19 infection, metabolic encephalopathy, hypernatremia and tachycardia. EKG was initially thought to be atrial fibrillation but clearly there are P-waves with different morphologies and I think he has multifocal atrial tachycardia. He does not need anticoagulation. Agree with gentle hydration. Blood pressure is okay and he can take his home dose of metoprolol. Hyponatremia is due to underlying dementia and poor p.o. intake. We will follow along with you. Thank you for allowing me to participate in the care of your patient. Please feel free to contact me if you have any questions. Procedures Date of Service Date of Service: 09/16/23
[2023-09-16] MEDS: levalbuterol HCL 1.25 MG/3 ML VIAL.NEB INHALE (11:40)
[2023-09-16 14:43] LABS: Glucose, Whole Blood 201 mg/dL (60-115)
--- NOTE | 2023-09-16 14:50 | PC.NURSE ---
pt's hr is 100-132.pt is asymptomatic. aware.
--- NOTE | 2023-09-16 15:10 | MHC.CM.PN ---
IMM 09/16/23 sent to HCP. Pt was at [facility] for STR. Prior to this he was at home and independent, drove, used a cane to walk. CM spoke to his , she said that she was unhappy with the care that was given at [facility], and she is unsure if she wants him to return there. HCP is on file. CM will follow for DC needs.
--- NOTE | 2023-09-16 15:17 | MHC.EDTECH ---
pt nilsa cleaned, new condom cath was placed d/t previous condom coming out on own, pt was repositioned from right lateral to lefet lateral, head of the bed is up, call alford within reach. pt now comfortable in bed, rn aware
[2023-09-16 18:19] LABS: Glucose, Whole Blood 250 mg/dL (60-115)
[2023-09-16 19:14] LABS: Anion Gap 19 (12-20); Blood Urea Nitrogen 90 mg/dL (9-16); Calcium 12.2 mg/dL (8.4-10.2); Carbon Dioxide 13 mmol/L (22-29); Chloride 124 mmol/L (96-108); Estimated Glomerular Filt Rate 22; Glucose Random 289 mg/dL (60-115); Potassium 4.8 mmol/L (3.3-5.1); Sodium 151 mmol/L (135-145)
[2023-09-16 21:25] LABS: Glucose, Whole Blood 231 mg/dL (60-115)
[2023-09-16] MEDS: Enoxaparin Sodium 30 MG/0.3 ML SYRINGE SUBCUT (21:34)
[2023-09-16] MEDS: Insulin Glargine,Hum.rec.anlog 100 UNIT/ML 10 ML VIAL 8 UNIT SUBCUT (21:34)
[2023-09-16] MEDS: Benzonatate 100 MG CAPSULE 200 MG PO (21:35)
--- NOTE | 2023-09-16 21:53 | PC.NURSE ---
Attempted to give Mr. Yoder his pills he was able to get some down then had to suction his mouth. Was not able to drink any water. Dr. Corrigan notified.
[2023-09-16] MEDS: Lactated Ringers 1,000 ML 150 ML IVCONT (22:08)
--- NOTE | 2023-09-16 23:44 | PC.NURSE ---
this rn assumed care of pt, pt resting in stretcher, no acute distress noted. pt on 2L nasal cannula sating 96-98%, sinus tachy on tele 118-125bpm.
[2023-09-17] VITALS (11 sets, daily range): BP systolic 92–132; BP diastolic 46–77; PULSE 101–123; RESP 17–24; TEMP 36.1–37.7; O2SAT 96–98; BMI 23.8
--- NOTE | 2023-09-17 03:36 | PC.NURSE ---
aware of pt vital signs. no new orders at this time. per , systolic over 90mmhg is okay.
[2023-09-17 03:42] LABS: Glucose, Whole Blood 132 mg/dL (60-115)
[2023-09-17] MEDS: Lactated Ringers 1,000 ML 150 ML IVCONT ×2 (05:06→11:50)
--- NOTE | 2023-09-17 06:19 | PC.NURSE ---
pt repositioned in bed at this time, pillow placed under right hip. pt resting comfortably.
[2023-09-17 06:36] LABS: Glucose, Whole Blood 141 mg/dL (60-115)
[2023-09-17 10:55] LABS: Glucose, Whole Blood 132 mg/dL (60-115)
[2023-09-17 11:12] LABS: Hematocrit 44.7 % (42.0-52.0); Hemoglobin 14.1 g/dl (14.0-18.0); Mean Corpuscular HGB Conc 31.5 g/dl (31.0-36.0); Mean Corpuscular Hemoglobin 33.9 pg (27.0-33.0); Mean Corpuscular Volume 107.5 fL (80.0-98.0); Mean Platelet Volume 11.4 fL (9.4-12.4); NRBC Pct Auto 0.9 /100WBC (0.0-0.2); Platelet Count 149 X10*3/uL (160-400); Red Blood Count 4.16 X10*6/uL (4.60-5.80); Red Cell Distribution Width 14.7 % (11.0-16.0)
[2023-09-17] MEDS: Ampicillin Sodium/Sulbactam Na 1.5 GM in 0.9 % Sodium Chloride 100 ML IV ×2 (11:19→21:29)
[2023-09-17 11:36] LABS: Anion Gap 21 (12-20); Blood Urea Nitrogen 83 mg/dL (9-16); Carbon Dioxide 14 mmol/L (22-29); Chloride 120 mmol/L (96-108); Creatinine Clr Calc Pharmacy 23.5; Estimated Glomerular Filt Rate 25; Potassium 4.6 mmol/L (3.3-5.1); Sodium 150 mmol/L (135-145)
[2023-09-17 11:37] LABS: Glucose Random 165 mg/dL (60-115)
--- NOTE | 2023-09-17 11:59 | P.PNIM_ITS ---
Subjective Subjective Date of Service: 09/18/23 Interval History: F/u on metabolic encephalopathy, UIT, hypernatermia, hypercalcemia he remains very confused, not very respponsive Physical Exam 2 Vital Signs: Vital Signs: Last Vital Signs Temp 98.6 F 09/17/23 11:02 Pulse 107 H 09/17/23 11:02 Resp 20 09/17/23 11:02 BP 120/74 09/17/23 11:02 Pulse Ox 97 09/17/23 11:02 O2 Del Method Nasal Cannula 09/17/23 11:02 O2 Flow Rate 2 09/17/23 11:02 Oxygen Flow Rate 2 09/15/23 15:08 BMI result Body Mass Index 23.8 GENERAL APPEARANCE: Confused. NECK: no carotid bruit, no jugular venous distention. SKIN: no suspicious lesions, warm and dry. HEART: no murmurs, regular rate and rhythm. Tachycardic. LUNGS: clear to auscultation bilaterally. ABDOMEN: soft, nontender. EXTREMITIES: no edema. PERIPHERAL PULSES: equal. NEUROLOGIC: Confused, no focal deficit Objective Data Active Medications Acetaminophen (Acetaminophen 325 Mg Tablet) 650 mg PO Q6H PRN PRN Reason: Pain, Mild (Pain Scale 1-3) Acetaminophen (Acetaminophen Supp 650 Mg Supp.Rect) 650 mg [place] Q6H PRN PRN Reason: Pain, Mild (Pain Scale 1-3) Allopurinol (Allopurinol 100 Mg Tablet) 100 mg PO DAILY [facility] Last Admin: 09/17/23 10:49 Dose: Not Given Documented By: RAEANN Non-Admin Reason: NPO Atorvastatin Calcium (Atorvastatin Calcium 20 Mg Tablet) 20 mg PO BEDTIME [facility] Last Admin: 09/16/23 21:47 Dose: Not Given Documented By: JOHANA Non-Admin Reason: pt couldnt swallow it Benzonatate (Benzonatate 100 Mg Capsule) 200 mg PO BEDTIME [facility] Last Admin: 09/16/23 21:35 Dose: 200 mg Documented By: JOHANA Cyanocobalamin (Cyanocobalamin (Vitamin B-12) 1,000 Mcg Tablet) 1,000 mcg PO DAILY [facility] Last Admin: 09/17/23 10:49 Dose: Not Given Documented By: RAEANN Non-Admin Reason: NPO Enoxaparin Sodium (Enoxaparin Sodium 30 Mg/0.3 Ml Syringe) 30 mg SUBCUT Q24H [facility] Last Admin: 09/16/23 21:34 Dose: 30 mg Documented By: JOHANA Glucose (Glucose Gel 15 Gm Gel..Gram.) 15 gm PO Q15M PRN; Protocol PRN Reason: per Hypoglycemia Standing Ord. Guaifenesin/Dextromethorphan (Guaifenesin Dm 100/10/5 Ml 5 Ml Syrup) 10 ml PO Q6H PRN PRN Reason: Cough Dextrose (D10) 250 mls @ 750 mls/hr IV Q15M PRN; Protocol PRN Reason: per Hypoglycemia Standing Ord. Lactated Ringer's (Lr) 1,000 mls @ 200 mls/hr IVCONT .Q5H [facility] Last Infusion: 09/17/23 11:57 Dose: 200 mls/hr Documented By: NATHAN Ampicillin Sodium/Sulbactam (Sodium 1.5 gm/ Sodium Chloride) 100 mls @ 200 mls/hr IV Q12H [facility] Last Infusion: 09/17/23 11:56 Dose: Infused Documented By: NATHAN Insulin Glargine (Insulin Glargine,Hum.Rec.Anlog 100 Unit/Ml 10 Ml Vial) 8 unit SUBCUT BEDTIME [facility] Last Admin: 09/16/23 21:34 Dose: 8 unit Documented By: JOHANA Insulin Human Lispro (Insulin Lispro 100 Unit/Ml 3 Ml Vial) 0 unit SUBCUT Q4H [facility]; Protocol Last Admin: 09/17/23 11:05 Dose: Not Given Documented By: NATHAN Non-Admin Reason: No Insulin Coverage Levalbuterol HCl (Levalbuterol Hcl 1.25 Mg/3 Ml Vial.Neb) 1.25 mg INHALE RQ4H PRN PRN Reason: Wheezing Levothyroxine Sodium (Levothyroxine Sodium 75 Mcg Tablet) 75 mcg PO DAILY@0600 [facility] Last Admin: 09/17/23 06:28 Dose: Not Given Documented By: CHRIS Non-Admin Reason: Physician Held Med Comments: per hold med due to pt inability to swallow Metoprolol Succinate (Metoprolol Succinate Er 50 Mg Tab.Er.24h) 50 mg PO BID [facility]; Protocol Last Admin: 09/17/23 10:49 Dose: Not Given Documented By: RAEANN Non-Admin Reason: NPO Multivitamins/Vitamin C (Multivitamin Tablet) 1 tab PO DAILY [facility] Last Admin: 09/17/23 10:50 Dose: Not Given Documented By: RAEANN Non-Admin Reason: NPO Ondansetron HCl (Ondansetron Hcl 4 Mg/2 Ml Vial) 4 mg IVPUSH Q8H PRN PRN Reason: Nausea and Vomiting Sodium Chloride (0.9 % Sodium Chloride Flush 3 Ml Syringe) 3 ml IVFLUSH QSHIFT [facility] Last Admin: 09/17/23 10:49 Dose: Not Given Documented By: RAEANN Non-Admin Reason: in ed Labs 09/18/23 07:42 09/18/23 07:42 Labs: Laboratory Results - last 24 hr 09/16/23 09/16/23 09/16/23 14:40 18:14 18:38 MCV MCH MCHC RDW Plt Count MPV Absolute Nucleated RBC Nucleated RBC % (auto) Anion Gap 19 Estim Creat Clear Calc 21.0 Estimated GFR 22 POC Glucose 201 H 250 H Random Glucose 289 H Calcium 12.2 H 09/16/23 09/17/23 09/17/23 21:21 03:33 06:31 MCV MCH MCHC RDW Plt Count MPV Absolute Nucleated RBC Nucleated RBC % (auto) Anion Gap Estim Creat Clear Calc Estimated GFR POC Glucose 231 H 132 H 141 H Random Glucose Calcium 09/17/23 09/17/23 09/17/23 10:31 10:39 10:49 MCV 107.5 H MCH 33.9 H MCHC 31.5 RDW 14.7 Plt Count 149 L D MPV 11.4 Absolute Nucleated RBC 0.230 H Nucleated RBC % (auto) 0.9 H Anion Gap 21 H Estim Creat Clear Calc 23.5 Estimated GFR 25 POC Glucose 132 H Random Glucose 165 H Calcium Microbiology Microbiology Results: Microbiology 09/15/23 20:42 Urine Culture - Preliminary Urine clean catch - Urine faith top Enterococcus/Streptococcus sp 09/15/23 16:54 Blood Culture - Preliminary Blood - Venous No growth after 24 hours. 09/15/23 16:03 Blood Culture - Preliminary Blood - Venous No growth after 24 hours. Assessment and Plan (1) Metabolic encephalopathy: Status: Acute Plan 87-year-old male with pertinent history of CLL, CKD stage 3, [id number] type 2 diabetes mellitus, essential hypertension, gout, mixed hyperlipidemia, history of DVT/PE on warfarin who was sent from [facility] for evaluation of tachycardia and found to have metabolic encephalopathy, afib with rvr, dehydration, hypernatremia Acute metabolic encephalopathy d/t dehydration, UTI, hypernatremia, hypercalcemia and underlying dementia. -IVF fluid hydration to correct underlying electrolytes abnormalities UTI--culture growing Enterococcus and streptococcus species -Started on Unasyn, follow sensitivity Hypernatremia d/t dehydration--sodium level remains high despite IVF, he's unable to drink water on his own, will discuss further with nephrology, consider NGT for water Hypercalcemia--seems to have been rapid rise within the last week, etiology unclear, not on supplement, ? Low PTH, ? malignancy related -IVF, Pamidronate, Nephrology and heme input Tachycardia d/t MAT NOT afib, see by cardiology, HR is overall better, hold echo for now Not insulin dependent DM with hyperglycemia, hold glipizide, sliding scale insulin and Lantus Acute kidney injury on CKD, prerenal: IVF, monitor renal function Leukocytosis: Reactive and patient has history CLL. Abx for UTI as above, heme consult Acute lactic acidosis due to dehydration. likely related to renal failure Covid, Not new, was positive in mid august and likely residual viral particle History of DVT/PE: He has been on coumadin but not listed on home meds, follow INR, and check with SNF to see if still on Essential hypertension: On metoprolol Mixed hyperlipidemia: On statin Gout: On allopurinol DNR/DNI DVT prophylaxis: Lovenox need for inpt: acute metabolic encephalopathy, dehydration, hypernatremia, hypercalcemia, UTI, on IVF not eating. Poor prognosis, not able to reach or daughter at this time Will discus goal of care with proxy Quality Stroke Does the patient have a stroke diagnosis?: No VTE Prior VTE?: No VTE Risk Level:: Medical - moderate - high VTE Device Contraindication: Treatment Not Indicated VTE Drug Contraindication: N/A - Med Ordered
--- NOTE | 2023-09-17 11:59 | MHC.SLORD ---
Speech Language Pathology Order Status: [employer] saw patient this morning for clinical swallow evaluation at bedside. Patient requiring frequent suctioning; unable to manage secretions. Presenting w/ secretions and phlegm throughout oral cavity following deep suctioning. Provided oral care by [employer]. Recommend strict NPO w/ frequent oral care d/t inability to manage secretions and requirement of suctioning. [employer] spoke w/ RN at [facility]. Reportedly patient was downgraded to honey thick liquids on 09/11/23 d/t overt s/s aspiration. His current baseline diet there is NDD2, honey thick liquids, meds in puree, supervision for PO, out of bed for all meals d/t choking risk. No reported hx of instrumental swallow evaluation. [employer] to re-attempt later today if appropriate, otherwise visit tomorrow AM.
--- NOTE | 2023-09-17 12:07 | MHC.SLORD ---
Speech Language Pathology Order Status: VETERANS SERVICES SPECIALIST saw patient this morning for clinical swallow evaluation at bedside. Patient requiring frequent suctioning; unable to manage secretions. Presenting w/ secretions and phlegm throughout oral cavity following deep suctioning. Provided oral care by VETERANS SERVICES SPECIALIST. Recommend strict NPO w/ frequent oral care d/t inability to manage secretions, suctioning, and lethargy. VETERANS SERVICES SPECIALIST spoke w/ RN at [facility]. Reportedly patient was downgraded to honey thick liquids on 09/11/23 d/t overt s/s aspiration. His current baseline diet there is NDD2, honey thick liquids, meds in puree, supervision for PO, out of bed for all meals d/t choking risk. No reported hx of instrumental swallow evaluation. VETERANS SERVICES SPECIALIST to re-attempt later today if appropriate, otherwise visit tomorrow AM.
--- NOTE | 2023-09-17 12:24 | MHC.CM.PN ---
Pt has not been medically cleared for DC, he continues to be treated for : acute metabolic encephalopathy, dehydration, hypernatremia. CM will follow for DC needs.
[2023-09-17 12:46] LABS: INTERNATIONAL NORM RATIO 2.7 (0.9-1.1); Prothrombin Time 32.4 SEC (11.1-13.3)
[2023-09-17] MEDS: Dextrose 5 % 1,000 ML 125 ML IVCONT (13:36)
--- NOTE | 2023-09-17 14:20 | MHC.CLN ---
RE: CONSULT PT REQUIRES TF FOR NUTRITION SUPPORT R/T PROLONGED NPO STATUS GLOVE TURNER FOLLOWING PT FOR APPROPRIATE DIET CONSISTENCY; RECOMMENDING NPO X 2 DAYS PT WITH NGT IN PLACE REVIEWED LABS RECOMMEND TF GLUCERNA 1.0 AT MAX GOAL RATE 100ML/HR WITH 240ML FREE WATER FLUSHES Q 8 HRS TO PROVIDE 2400KCALS (29KCALS/KG), 100G PROTEIN (1.2G/KG), 2767ML TOTAL WATER FROM FORMULA AND FLUSHES START FORMULA AT 20ML/HR AND INCREASE BY 10ML Q 4 HRS UNTIL MAX GOAL IS ACHIEVED MONITOR TOLERANCE, RESIDUALS AND LYTES SEE ALSO FULL CLINICAL NUTRITION ASSESSMENT
[2023-09-17 17:43] LABS: Anion Gap 19 (12-20); Carbon Dioxide 12 mmol/L (22-29); Chloride 120 mmol/L (96-108); Potassium 4.8 mmol/L (3.3-5.1); Sodium 146 mmol/L (135-145)
[2023-09-17 18:41] LABS: Glucose, Whole Blood 232 mg/dL (60-115)
[2023-09-17] MEDS: Insulin Lispro 100 UNIT/ML 3 ML VIAL SUBCUT (18:44)
[2023-09-17 19:19] LABS: ABG Base Excess -7.7 mmol/L; ABG HCO3 15 mmol/L (22-26); ABG pCO2 26 mmHg (32-45); ABG pH 7.38 (7.35-7.45); ABG pO2 82 mmHg (83-108)
[2023-09-17 20:03] LABS: Beta-Hydroxybutyrate 0.52 mmol/L (0.02-0.27)
--- NOTE | 2023-09-17 20:28 | PM.CNNEP ---
History of Present Illness Reason for Consult Consult date: 09/17/23 Reason for consult: DAYAN Chief Complaint Chief complaint: Tachycardia, COVID + History of Present Illness Narrative: 87-year-old patient of mine with CKD stage 3 b who recently had been an in patient who was sent from [facility] for evaluation of tachycardia. Unable to obtain history from the patient. Details taken from EMR and from Med Attending.He had acute hypoxic respiratory failure due to COVID-19 infection. Patient was found to be in AFib with RVR in the ER and given IV Lopressor. Also found to be hypernatremic, hypercalcemic, acidotic with DAYAN. Nephrology has been consulted to assist in his clinical care during his current hospital stay Review of Systems Review of Systems Yes Unobtainable due to mental status PMFSH Past Medical History Medical History (Updated 09/17/23 @ 20:34 by Rahul Garcia MD) CKD (chronic kidney disease) stage 3, GFR 30-59 ml/min DVT (deep venous thrombosis) Diabetes CLL (chronic lymphocytic leukemia) History of COVID-19 Mitral annular calcification Tachycardia Gout Headache above the eye region Cryptococcosis Dyslipidemia Diabetic nephropathy associated with type 2 diabetes mellitus Diabetes type 2, uncontrolled Melanoma BPH (benign prostatic hyperplasia) Current use of anticoagulant therapy Family History Family History Other Family history of cancer in sister Surgical History Surgical History History of excision of lesion (08/05/22) History of esophagogastroduodenoscopy (EGD) Hx of melanoma excision Hx of lymph node excision H/O colonoscopy Hx of cystoscopy Hx of basal cell carcinoma excision S/P TURP Hx of cataract surgery H/O inguinal hernia repair H/O umbilical hernia repair S/P appendectomy Social History Social History Household Members: Unknown / Unable to assess Housing: Unknown / Unable to assess Are you a primary home care attendant to a significant other at home: No Do you presently have visiting nurse or other home services: Yes Alcohol intake: never Comment: PATIENT STABLE ON FEET Patient Tobacco Use Status: Never used Tobacco Second Hand Smoke Exposure: No Advance Directives Date on File: 01/23/22 service: Yes Current occupational status: retired 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[employer] Meds Allergies Allergy/AdvReac Type Severity Reaction Status Date / Time silver Allergy Intermediate skin Verified 09/15/23 15:22 [From TEGADERM AG MESH] sloughing morphine [MORPHINE] AdvReac Intermediate Vomiting Verified 09/15/23 15:22 Active Medications: Current Medications Acetaminophen (Acetaminophen 325 Mg Tablet) 650 mg NG-TUBE Q6H PRN PRN Reason: Pain, Mild (Pain Scale 1-3) Allopurinol (Allopurinol 100 Mg Tablet) 100 mg PO DAILY [facility] Last Admin: 09/17/23 10:49 Dose: Not Given Atorvastatin Calcium (Atorvastatin Calcium 20 Mg Tablet) 20 mg PO BEDTIME YONNY Last Admin: 09/16/23 21:47 Dose: Not Given Benzonatate (Benzonatate 100 Mg Capsule) 200 mg PO BEDTIME [facility] Last Admin: 09/16/23 21:35 Dose: 200 mg Cyanocobalamin (Cyanocobalamin (Vitamin B-12) 1,000 Mcg Tablet) 1,000 mcg PO DAILY [facility] Last Admin: 09/17/23 10:49 Dose: Not Given Enoxaparin Sodium (Enoxaparin Sodium 30 Mg/0.3 Ml Syringe) 30 mg SUBCUT Q24H [facility] Last Admin: 09/16/23 21:34 Dose: 30 mg Glucose (Glucose Gel 15 Gm Gel..Gram.) 15 gm PO Q15M PRN; Protocol PRN Reason: per Hypoglycemia Standing Ord. Guaifenesin/Dextromethorphan (Guaifenesin Dm 100/10/5 Ml 5 Ml Syrup) 10 ml PO Q6H PRN PRN Reason: Cough Dextrose (D10) 250 mls @ 750 mls/hr IV Q15M PRN; Protocol PRN Reason: per Hypoglycemia Standing Ord. Ampicillin Sodium/Sulbactam (Sodium 1.5 gm/ Sodium Chloride) 100 mls @ 200 mls/hr IV Q12H [facility] Last Infusion: 09/17/23 11:56 Dose: Infused Sodium Bicarbonate 150 meq/ (Dextrose) 1,000 mls @ 100 mls/hr IV .Q10H [facility] Stop: 09/18/23 05:29 Insulin Glargine (Insulin Glargine,Hum.Rec.Anlog 100 Unit/Ml 10 Ml Vial) 8 unit SUBCUT BEDTIME [facility] Last Admin: 09/16/23 21:34 Dose: 8 unit Insulin Human Lispro (Insulin Lispro 100 Unit/Ml 3 Ml Vial) 0 unit SUBCUT Q6H [facility]; Protocol Last Admin: 09/17/23 18:44 Dose: 4 unit Levalbuterol HCl (Levalbuterol Hcl 1.25 Mg/3 Ml Vial.Neb) 1.25 mg INHALE RQ4H PRN PRN Reason: Wheezing Levothyroxine Sodium (Levothyroxine Sodium 75 Mcg Tablet) 75 mcg PO DAILY@0600 [facility] Last Admin: 09/17/23 06:28 Dose: Not Given Metoprolol Succinate (Metoprolol Succinate Er 50 Mg Tab.Er.24h) 50 mg PO BID [facility]; Protocol Multivitamins/Vitamin C (Multivitamin Tablet) 1 tab PO DAILY [facility] Last Admin: 09/17/23 10:50 Dose: Not Given Ondansetron HCl (Ondansetron Hcl 4 Mg/2 Ml Vial) 4 mg IVPUSH Q8H PRN PRN Reason: Nausea and Vomiting Sodium Chloride (0.9 % Sodium Chloride Flush 3 Ml Syringe) 3 ml IVFLUSH QSHIFT [facility] Last Admin: 09/17/23 17:16 Dose: Not Given Home Medications ?Medication ?Instructions ?Recorded ?Confirmed ?Last Taken ?Type multivitamin 1 tab PO DAILY 02/10/20 09/15/23 02/10/20 08:00 History glipizide 5 mg tablet 5 mg PO DAILY 03/19/22 09/15/23 Unknown History levothyroxine 75 mcg tablet 75 mcg PO DAILY@0600 02/18/23 09/15/23 Unknown History cyanocobalamin (vitamin B-12) 1,000 mcg PO DAILY 06/06/23 09/15/23 Unknown History 1,000 mcg tablet metoprolol succinate 50 mg 50 mg PO BID 08/23/23 09/15/23 Unknown History tablet,extended release 24 hr (Toprol XL) benzonatate 200 mg capsule 200 mg PO BEDTIME 09/15/23 09/15/23 Unknown History ceftriaxone 1 gram solution for 1 g IM DAILY 09/15/23 09/15/23 Unknown History injection Physical Exam Vital Signs: Last Vital Signs Temp 97.2 F 09/17/23 19:40 Pulse 120 H 09/17/23 19:40 Resp 21 H 09/17/23 19:40 BP 132/77 09/17/23 19:40 Pulse Ox 97 09/17/23 19:40 O2 Del Method Nasal Cannula 09/17/23 19:40 O2 Flow Rate 2 09/17/23 19:40 Oxygen Flow Rate 2 09/15/23 15:08 BMI result Body Mass Index 23.8 Const General: no acute distress HEENT Head: Yes normocephalic Neck Neck: Yes supple Resp Auscultation: diminished lung sounds Cardio Jugular venous distension: no JVD Rate: regular rate GI Palpation (GI): Soft to palpation Auscultation: normal bowel sounds General: Yes no CVA tenderness Back/Spine/Pelvis Back: no CVA tenderness Neuro General: moves all extremities Extrem General: Yes no pedal edema Results Lab Results 09/17/23 10:39 09/17/23 17:13 Lab results: Chemistry 09/15/23 09/15/23 09/16/23 15:36 20:20 06:17 Sodium 154 H 154 H 152 H Potassium 5.3 H D 5.0 5.1 Carbon Dioxide 15 L 14 L 12 L BUN 90 H 90 H 94 H Creatinine 2.96 H 2.90 H 3.05 H Calcium 13.1 H* 12.7 H* 12.4 H 09/16/23 09/17/23 09/17/23 18:38 10:31 17:13 Sodium 151 H 150 H 146 H Potassium 4.8 4.6 4.8 Carbon Dioxide 13 L 14 L 12 L BUN 90 H 83 H Creatinine 2.79 H 2.50 H Calcium 12.2 H 13.2 H* D Hematology 09/15/23 09/16/23 09/17/23 15:36 06:17 10:39 WBC 21.5 H 21.1 H 25.0 H Hgb 15.1 13.7 L 14.1 Plt Count 223 TNP 149 L D Urinalysis 09/15/23 20:20 Urine Color Dark Yellow Urine Appearance Turbid Urine pH 5.0 Ur Specific Valera 1.020 Urine Protein 100 (2+) H Urine Glucose (UA) Negative Urine Ketones Negative Urine Blood Large (3+) H Urine Nitrite Negative Ur Leukocyte Esterase Small (1+) H Urine RBC >20 H Urine WBC 6-10 H Ur Squamous Epith Cells 6-10 Hyaline Casts 11-20 Assessment and Plan (1) Acute kidney injury superimposed on CKD: Status: Acute (2) Hypernatremia: Status: Acute (3) Hypercalcemia: Status: Acute (4) Metabolic acidosis: Status: Acute Plan Has severe volume contraction with significant water deficit. Getting D5W and Na getting appropriately corrected DAYAN due to tubular injury. NO reason to suspect obstruction/ GN or AIN Shall check ABG , lactate levels and beta hydroxy butrate; Will replace Bicarb & then restart D5W @ 100/hr Renal function improving. If serum calcium not settling down, shall give Na palmidronate 60 mg IV once Labs AM. Shall closely follow up Procedures Date of Service Date of Service: 09/17/23
[2023-09-17 20:34] LABS: Lactic Acid 3.4 mmol/L (0.5-2.0)
[2023-09-17] MEDS: Sodium Bicarbonate 8.4% 150 MEQ in Dextrose 5 % 850 ML 100 MEQ IV (21:15)
[2023-09-17 21:26] LABS: ABG Refer to POC result
[2023-09-17 21:34] LABS: Reflex Lactate? Lactic Acid Added
[2023-09-17] MEDS: Insulin Glargine,Hum.rec.anlog 100 UNIT/ML 10 ML VIAL 8 UNIT SUBCUT (21:35)
[2023-09-17] MEDS: Enoxaparin Sodium 30 MG/0.3 ML SYRINGE SUBCUT (21:37)
[2023-09-17 21:43] LABS: Glucose, Whole Blood 214 mg/dL (60-115)
[2023-09-17 22:57] LABS: ~Lactic Acid-LAB USE ONLY 3.8 mmol/L (0.5-2.0)
--- NOTE | 2023-09-17 23:41 | PC.NURSE ---
Addendum entered by Viviana De La Cruz RN 09/18/23 00:59: Multiple nurses attempted with ng tube insertion and unsuccessful. Nursing press room supervisor attempted as well. To reduce potential risk of trauma to nasal cavity will re-attempt ng tube insertion at a later time. Original Note: At approximately 2000; this RN received a telephone call from Dr. Corrigan with instructions to advance the ng tube 10cm/4 inches and follow with xray to confirm placement. Per last xray, placement of ng tube was not in correct placement. This RN reported to Dr. Corrigan that prior to change of shift, patient was started on tube feed glucerna at 20mls/hr by previous RN. This RN disconnected tube feed. Patient alert, awake, o2 sats stable. With a second RN, before attempting to advance the ng tube, noticed that the ng tube was coiled in the back of patient's throat and therefore ng tube was pulled out. This was reported to Dr. Corrigan with [employer], with instruction to place new ng tube and confirm placement with xray.
[2023-09-18] VITALS (7 sets, daily range): BP systolic 103–139; BP diastolic 57–86; PULSE 111–133; RESP 20; TEMP 36.1–37.1; O2SAT 92–97
[2023-09-18] MEDS: Metoprolol Tartrate 5 MG/5 ML VIAL IVPUSH (00:14)
[2023-09-18] MEDS: 0.9 % Sodium Chloride Flush 3 ML SYRINGE IVFLUSH ×4 (00:15→23:24)
[2023-09-18 00:17] LABS: Glucose, Whole Blood 208 mg/dL (60-115)
[2023-09-18] MEDS: Insulin Lispro 100 UNIT/ML 3 ML VIAL SUBCUT ×4 (00:20→23:23)
[2023-09-18 00:26] LABS: Reflex Lactate? 2 Y
--- NOTE | 2023-09-18 02:21 | PC.NURSE ---
phlebotomy attempted multiple times to draw f/u lactic acid and were not able to, hospitalist made aware
[2023-09-18 07:00] LABS: Glucose, Whole Blood 188 mg/dL (60-115)
[2023-09-18 07:16] LABS: Calcium 13.2 mg/dL (8.4-10.2)
[2023-09-18 08:06] LABS: Hematocrit 42.3 % (42.0-52.0); Hemoglobin 13.2 g/dl (14.0-18.0); Mean Corpuscular HGB Conc 31.2 g/dl (31.0-36.0); Mean Corpuscular Hemoglobin 33.5 pg (27.0-33.0); Mean Corpuscular Volume 107.4 fL (80.0-98.0); Mean Platelet Volume 11.5 fL (9.4-12.4); NRBC Pct Auto 0.6 /100WBC (0.0-0.2); Platelet Count 147 X10*3/uL (160-400); Red Blood Count 3.94 X10*6/uL (4.60-5.80); Red Cell Distribution Width 14.5 % (11.0-16.0)
[2023-09-18 08:15] LABS: Anion Gap 17 (12-20); Blood Urea Nitrogen 88 mg/dL (9-16); Carbon Dioxide 19 mmol/L (22-29); Chloride 116 mmol/L (96-108); Creatinine Clr Calc Pharmacy 23.4; Estimated Glomerular Filt Rate 24; Glucose Random 269 mg/dL (60-115); Potassium 4.2 mmol/L (3.3-5.1); Sodium 148 mmol/L (135-145)
[2023-09-18] MEDS: Ampicillin Sodium/Sulbactam Na 1.5 GM in 0.9 % Sodium Chloride 100 ML IV ×2 (08:17→23:05)
[2023-09-18 08:21] LABS: Calcium 13.7 mg/dL (8.4-10.2); ~Lactic Acid-LAB USE ONLY 3.1 mmol/L (0.5-2.0)
[2023-09-18 09:02] LABS: Cancel Lactic Acid Canceled
[2023-09-18 10:57] LABS: Glucose, Whole Blood 226 mg/dL (60-115)
--- NOTE | 2023-09-18 13:13 | PM.EVENT ---
Event Note Date of Service: 09/18/23 Event Note: Procedure Note: Fl feeding tube placement 10 fr soft flexible feeding tube placed via right nare and advanced into the stomach under fluoroscopy. Tip located in gastric body along greater curvature. Ok for immediate use. Tube secured to right nare at 70 cm. Jose MANCINI Interventional Radiology Time Spent With Patient Time: Total time managing care of this patient today ____ minutes.
--- NOTE | 2023-09-18 13:14 | MHC.SLORD ---
Speech Language Pathology Order Status: Attempted to see patient for Swallow Assessment. Patient not adequately alert/awake, provided oral care, with patient coughing on trace amount of liquid presented. Recommend continue NPO, patient pending NG tube. LOG TURNER will assess when appropriate.
--- NOTE | 2023-09-18 13:34 | P.PNIM_ITS ---
Subjective Subjective Date of Service: 09/18/23 Interval History: F/u on metabolic encephalopathy, UIT, hypernatermia, hypercalcemia, DAYAN Patient remains minimally responsive, sodium is trednding down, calcium still high. Attempt to insert NGT last night was unsucesfull and inserted by IR this morning. Family was at bedside 2 sons and 2 daughters Review of Systems not able to obtain Physical Exam 2 Vital Signs: Vital Signs: Last Vital Signs Temp 97.9 F 09/18/23 11:00 Pulse 115 H 09/18/23 11:00 Resp 20 09/18/23 11:00 BP 139/86 09/18/23 11:00 Pulse Ox 97 09/18/23 11:00 O2 Del Method Nasal Cannula 09/18/23 11:00 O2 Flow Rate 3 09/18/23 11:00 Oxygen Flow Rate 2 09/15/23 15:08 BMI result Body Mass Index 23.8 Objective Data Active Medications Acetaminophen (Acetaminophen 325 Mg Tablet) 650 mg NG-TUBE Q6H PRN PRN Reason: Pain, Mild (Pain Scale 1-3) Allopurinol (Allopurinol 100 Mg Tablet) 100 mg PO DAILY [facility] Last Admin: 09/18/23 12:40 Dose: Not Given Documented By: CEDRIC Non-Admin Reason: NPO Atorvastatin Calcium (Atorvastatin Calcium 20 Mg Tablet) 20 mg PO BEDTIME [facility] Last Admin: 09/17/23 23:09 Dose: Not Given Documented By: ANTOINE Non-Admin Reason: npo; ng tube was not in correct placement Benzonatate (Benzonatate 100 Mg Capsule) 200 mg PO BEDTIME [facility] Last Admin: 09/17/23 23:09 Dose: Not Given Documented By: ANTOINE Non-Admin Reason: NPO; ng tube was not in correct placement Cyanocobalamin (Cyanocobalamin (Vitamin B-12) 1,000 Mcg Tablet) 1,000 mcg PO DAILY [facility] Last Admin: 09/18/23 12:40 Dose: Not Given Documented By: CEDRIC Non-Admin Reason: NPO Enoxaparin Sodium (Enoxaparin Sodium 30 Mg/0.3 Ml Syringe) 30 mg SUBCUT Q24H [facility] Last Admin: 09/17/23 21:37 Dose: 30 mg Documented By: ANTOINE Glucose (Glucose Gel 15 Gm Gel..Gram.) 15 gm PO Q15M PRN; Protocol PRN Reason: per Hypoglycemia Standing Ord. Guaifenesin/Dextromethorphan (Guaifenesin Dm 100/10/5 Ml 5 Ml Syrup) 10 ml PO Q6H PRN PRN Reason: Cough Dextrose (D10) 250 mls @ 750 mls/hr IV Q15M PRN; Protocol PRN Reason: per Hypoglycemia Standing Ord. Ampicillin Sodium/Sulbactam (Sodium 1.5 gm/ Sodium Chloride) 100 mls @ 200 mls/hr IV Q12H [facility] Last Infusion: 09/18/23 09:22 Dose: Infused Documented By: CEDRIC Dextrose (D5w) 1,000 mls @ 125 mls/hr IVCONT .Q8H [facility] Insulin Glargine (Insulin Glargine,Hum.Rec.Anlog 100 Unit/Ml 10 Ml Vial) 8 unit SUBCUT BEDTIME [facility] Last Admin: 09/17/23 21:35 Dose: 8 unit Documented By: ANTOINE Insulin Human Lispro (Insulin Lispro 100 Unit/Ml 3 Ml Vial) 0 unit SUBCUT Q6H [facility]; Protocol Last Admin: 09/18/23 08:18 Dose: 2 unit Documented By: CEDRIC Levalbuterol HCl (Levalbuterol Hcl 1.25 Mg/3 Ml Vial.Neb) 1.25 mg INHALE RQ4H PRN PRN Reason: Wheezing Levothyroxine Sodium (Levothyroxine Sodium 75 Mcg Tablet) 75 mcg PO DAILY@0600 [facility] Last Admin: 09/18/23 07:14 Dose: Not Given Documented By: CERDIC Non-Admin Reason: NPO Metoprolol Succinate (Metoprolol Succinate Er 50 Mg Tab.Er.24h) 50 mg PO BID [facility]; Protocol Last Admin: 09/18/23 12:40 Dose: Not Given Documented By: CEDRIC Non-Admin Reason: NPO Multivitamins/Vitamin C (Multivitamin Tablet) 1 tab PO DAILY [facility] Last Admin: 09/18/23 12:41 Dose: Not Given Documented By: CEDRIC Non-Admin Reason: NPO Ondansetron HCl (Ondansetron Hcl 4 Mg/2 Ml Vial) 4 mg IVPUSH Q8H PRN PRN Reason: Nausea and Vomiting Sodium Chloride (0.9 % Sodium Chloride Flush 3 Ml Syringe) [address] [facility] Last Admin: 09/18/23 08:18 Dose: 3 ml Documented By: CEDRIC Labs 09/18/23 07:42 09/18/23 07:42 Labs: Laboratory Results - last 24 hr 09/17/23 09/17/23 09/17/23 10:31 17:13 18:37 MCV MCH MCHC RDW Plt Count MPV Absolute Nucleated RBC Nucleated RBC % (auto) O2 Saturation ABG pH at Pt Temp ABG pCO2 at Pt Temp ABG pO2 at Pt Temp ABG HCO3 ABG Base Excess (Actual) Anion Gap 19 Estim Creat Clear Calc Estimated GFR POC Glucose 232 H Random Glucose Lactic Acid Lactic Acid F/U @ 2Hr Lactic Acid F/U @ 4Hr Calcium 13.2 H* D Beta-Hydroxybutyrate 09/17/23 09/17/23 09/17/23 19:10 19:27 21:35 MCV MCH MCHC RDW Plt Count MPV Absolute Nucleated RBC Nucleated RBC % (auto) O2 Saturation 97.0 ABG pH at Pt Temp 7.38 ABG pCO2 at Pt Temp 26 L ABG pO2 at Pt Temp 82 L ABG HCO3 15 L ABG Base Excess (Actual) -7.7 Anion Gap Estim Creat Clear Calc Estimated GFR POC Glucose 214 H Random Glucose Lactic Acid 3.4 H* Lactic Acid F/U @ 2Hr Lactic Acid F/U @ 4Hr Calcium Beta-Hydroxybutyrate 0.52 H 09/17/23 09/18/23 09/18/23 22:16 00:13 06:55 MCV MCH MCHC RDW Plt Count MPV Absolute Nucleated RBC Nucleated RBC % (auto) O2 Saturation ABG pH at Pt Temp ABG pCO2 at Pt Temp ABG pO2 at Pt Temp ABG HCO3 ABG Base Excess (Actual) Anion Gap Estim Creat Clear Calc Estimated GFR POC Glucose 208 H 188 H Random Glucose Lactic Acid Lactic Acid F/U @ 2Hr 3.8 H* Lactic Acid F/U @ 4Hr Calcium Beta-Hydroxybutyrate 09/18/23 09/18/23 07:42 10:54 MCV 107.4 H MCH 33.5 H MCHC 31.2 RDW 14.5 Plt Count 147 L MPV 11.5 Absolute Nucleated RBC 0.130 H Nucleated RBC % (auto) 0.6 H O2 Saturation ABG pH at Pt Temp ABG pCO2 at Pt Temp ABG pO2 at Pt Temp ABG HCO3 ABG Base Excess (Actual) Anion Gap 17 Estim Creat Clear Calc 23.4 Estimated GFR 24 POC Glucose 226 H Random Glucose 269 H Lactic Acid Lactic Acid F/U @ 2Hr Lactic Acid F/U @ 4Hr 3.1 H* Calcium 13.7 H* Beta-Hydroxybutyrate Microbiology Microbiology Results: Microbiology 09/15/23 20:42 Urine Culture - Final Urine clean catch - Urine faith top Enterococcus faecalis 09/15/23 16:54 Blood Culture - Preliminary Blood - Venous No growth after 48 hours. 09/15/23 16:03 Blood Culture - Preliminary Blood - Venous No growth after 48 hours. Assessment and Plan (1) Metabolic encephalopathy: Status: Acute Plan 87-year-old male with pertinent history of CLL, CKD stage 3, [id number] type 2 diabetes mellitus, essential hypertension, gout, mixed hyperlipidemia, history of DVT/PE on warfarin who was sent from [facility] for evaluation of tachycardia and found to have metabolic encephalopathy, afib with rvr, dehydration, hypernatremia Acute metabolic encephalopathy d/t dehydration, UTI, hypernatremia, hypercalcemia and underlying dementia, CLL -IVF fluid hydration to correct underlying electrolytes abnormalities UTI--culture growing Enterococcus, sensitive to ampicillin, continue Unasyn 09/16 Hypernatremia d/t dehydration--sodium level improving, continue IVF per nephrology guidance Hypercalcemia--seems to have been rapid rise within the last week, etiology unclear, not on supplement, ? Low PTH, ? malignancy related -IVF, Pamidronate given today, Nephrology and heme input, follow calcium level Tachycardia d/t MAT NOT afib, see by cardiology, HR is overall better, hold echo, metoprolol via NGT Not insulin dependent DM with hyperglycemia, hold glipizide, sliding scale insulin and Lantus Acute kidney injury on CKD, prerenal: IVF, monitor renal function Malnutrition--tube feed history of cryptococcus pneumonia0 and has not been on antifunction in more than a year, check antigen Leukocytosis: Reactive and patient has history CLL. Abx for UTI as above, heme consult Acute lactic acidosis due to dehydration. likely related to renal failure--and level has been stable, no indication to repeat Covid, Not new, was positive in mid august and likely residual viral particle History of DVT/PE: He has been on coumadin but not listed on home meds, follow INR, and check with SNF to see if still on Essential hypertension: On metoprolol Mixed hyperlipidemia: On statin Gout: On allopurinol DNR/DNI DVT prophylaxis: has been on coumadin, INR high need for inpt: acute metabolic encephalopathy, dehydration, hypernatremia, hypercalcemia, UTI, on IVF not eating. Poor prognosis, not able to reach or daughter at this time Will discus goal of care with proxy discuss wth family they understand his situation to be dire and will have further conversation tomorrow Quality Stroke Does the patient have a stroke diagnosis?: No VTE Prior VTE?: No VTE Risk Level:: Medical - moderate - high VTE Device Contraindication: Treatment Not Indicated VTE Drug Contraindication: N/A - Med Ordered
[2023-09-18] MEDS: Dextrose 5 % 1,000 ML 125 ML IVCONT ×2 (14:07→17:47)
[2023-09-18] MEDS: Pamidronate Disodium 60 MG in 0.9 % Sodium Chloride 250 ML 130 MG IV (14:07)
--- NOTE | 2023-09-18 14:31 | PC.NURSE ---
Glucerna tube feeding started at 20 ml/hr @14:15, increase rate @ 18:15
--- NOTE | 2023-09-18 15:10 | P.CNHO_ITS ---
Subjective - Subjective Chief complaint: Consult for: 1. CLL. 2. Hypercalcemia. Patient: known to practice within the last 3 years Consult date: 09/18/23 Requesting Physician: Meenu. Primary Care Provider: Jeremy Perez MD Family Provider: Rod. Medical Summary: DIAGNOSIS: 1. CLL. 2. Hypercalcemia. HPI - Consult Narrative Reason for consult: Consult for: 1. CLL. 2. Hypercalcemia. Narrative: Jose Guadalupe Yoder is a 87 year old gentleman referred by Dr. Corrigan on account of CLL and hypercalcemia. Patient was recently in house with COVID. He had acute hypoxic respiratory failure. He was transferred to rehab. He was again admitted on 09/14. Narrative: This is a 87-year-old male with pertinent history of CLL, CKD stage 3, [id number] type 2 diabetes mellitus, essential hypertension, gout, mixed hyperlipidemia, history of DVT/PE on warfarin. He was sent from [facility] for evaluation of tachycardia. Patient is only eye opening to verbal stimuli. History obtained from ER provider and chart review. Unable to obtain history from the patient. He was noted to be in AFib with RVR in the ER and given IV Lopressor. Also found to be hypernatremic. DATABASE: 09/14. CBC: WBC 21.5, HGB 14.1, HCT 44.7, PLT 149. BUN 88. Creatinine 2.5. Calcium 13.1. PAST MEDICAL HISTORY: BPH (benign prostatic hyperplasia) CKD (chronic kidney disease) stage 3, GFR 30-59 ml/min CLL (chronic lymphocytic leukemia) Cryptococcosis Current use of anticoagulant therapy Diabetes Diabetes type 2, 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 DVT (deep venous thrombosis) Dyslipidemia Gout Headache above the eye region History of COVID-19 Melanoma Mitral annular calcification Tachycardia Surgical History: H/O colonoscopy H/O inguinal hernia repair H/O umbilical hernia repair History of esophagogastroduodenoscopy (EGD) History of excision of lesion Onset Date: 08/05/22 Hx of basal cell carcinoma excision Hx of cataract surgery Hx of cystoscopy Hx of lymph node excision Hx of melanoma excision S/P appendectomy S/P TURP. Family History: Family history of cancer in sister Review of Systems - Constitutional Reports system reviewed and no additional complaints, except as documented - Eyes Reports system reviewed and no additional complaints, except as documented - ENT Reports system reviewed and no additional complaints, except as documented - Cardiovascular Reports system reviewed and no additional complaints, except as documented - Respiratory Reports no additional respiratory complaints - Gastrointestinal Reports system reviewed and no additional complaints, except as documented - Genitourinary Genitourinary: Reports no additional male genitourinary complaints - Musculoskeletal Reports system reviewed and no additional complaints, except as documented - Integumentary/Breasts Skin/Breast: Reports no additional skin complaints - Neurologic Reports system reviewed and no additional complaints, except as documented - Psychiatric Reports system reviewed and no additional complaints, except as documented - Endocrine Reports no additional endocrine complaints - Hematologic/Lymphatic Reports system reviewed and no additional complaints, except as documented - Allergic/Immunologic Reports system reviewed and no additional complaints, except as documented PMFSH Medical History: Medical History (Last Reviewed 09/17/23 @ 11:38 by Glo Salguero RN) BPH (benign prostatic hyperplasia) CKD (chronic kidney disease) stage 3, GFR 30-59 ml/min CLL (chronic lymphocytic leukemia) Cryptococcosis Current use of anticoagulant therapy Diabetes Diabetes type 2, 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 DVT (deep venous thrombosis) Dyslipidemia Gout Headache above the eye region History of COVID-19 Melanoma Mitral annular calcification Tachycardia Family History: Family History (Last Reviewed 09/15/23 @ 22:48 by Toh Leahy MD) Other Family history of cancer in sister Surgical History: Surgical History (Last Reviewed 09/17/23 @ 11:38 by Glo Salguero RN) H/O colonoscopy H/O inguinal hernia repair H/O umbilical hernia repair History of esophagogastroduodenoscopy (EGD) History of excision of lesion Onset Date: 08/05/22 Hx of basal cell carcinoma excision Hx of cataract surgery Hx of cystoscopy Hx of lymph node excision Hx of melanoma excision S/P appendectomy S/P TURP Social History: Social History (Last Reviewed 09/15/23 @ 22:48 by Tho Leahy MD) Living Situation History: Household Members: Unknown / Unable to asses Housing: Unknown / Unable to asses Are you a primary director day care center to a significant other at home: No Do you presently have visiting nurse or other home services: Yes Tobacco History: Patient Tobacco Use Status: Never used Tobacco Second Hand Smoke Exposure: No Advance Directives: Advance Directives Date on File: 01/23/22 Occupation Assessmet: service: Yes Current occupational status: retired 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 Home Medications and Allergies Current Medications: Current Medications Acetaminophen (Acetaminophen 325 Mg Tablet) 650 mg NG-TUBE Q6H PRN PRN Reason: Pain, Mild (Pain Scale 1-3) Allopurinol (Allopurinol 100 Mg Tablet) 100 mg PO DAILY [facility] Last Admin: 09/18/23 12:40 Dose: Not Given Atorvastatin Calcium (Atorvastatin Calcium 20 Mg Tablet) 20 mg PO BEDTIME [facility] Last Admin: 09/17/23 23:09 Dose: Not Given Benzonatate (Benzonatate 100 Mg Capsule) 200 mg PO BEDTIME [facility]ONNY Last Admin: 09/17/23 23:09 Dose: Not Given Cyanocobalamin (Cyanocobalamin (Vitamin B-12) 1,000 Mcg Tablet) 1,000 mcg PO DAILY [facility] Last Admin: 09/18/23 12:40 Dose: Not Given Enoxaparin Sodium (Enoxaparin Sodium 30 Mg/0.3 Ml Syringe) 30 mg SUBCUT Q24H [facility] Last Admin: 09/17/23 21:37 Dose: 30 mg Glucose (Glucose Gel 15 Gm Gel..Gram.) 15 gm PO Q15M PRN; Protocol PRN Reason: per Hypoglycemia Standing Ord. Guaifenesin/Dextromethorphan (Guaifenesin Dm 100/10/5 Ml 5 Ml Syrup) 10 ml PO Q6H PRN PRN Reason: Cough Dextrose (D10) 250 mls @ 750 mls/hr IV Q15M PRN; Protocol PRN Reason: per Hypoglycemia Standing Ord. Ampicillin Sodium/Sulbactam (Sodium 1.5 gm/ Sodium Chloride) 100 mls @ 200 mls/hr IV Q12H [facility] Last Infusion: 09/18/23 09:22 Dose: Infused Dextrose (D5w) 1,000 mls @ 125 mls/hr IVCONT .Q8H [facility] Last Admin: 09/18/23 14:07 Dose: 125 mls/hr Insulin Glargine (Insulin Glargine,Hum.Rec.Anlog 100 Unit/Ml 10 Ml Vial) 8 unit SUBCUT BEDTIME [facility] Last Admin: 09/17/23 21:35 Dose: 8 unit Insulin Human Lispro (Insulin Lispro 100 Unit/Ml 3 Ml Vial) 0 unit SUBCUT Q6H [facility]; Protocol Last Admin: 09/18/23 14:07 Dose: Not Given Levalbuterol HCl (Levalbuterol Hcl 1.25 Mg/3 Ml Vial.Neb) 1.25 mg INHALE RQ4H PRN PRN Reason: Wheezing Levothyroxine Sodium (Levothyroxine Sodium 75 Mcg Tablet) 75 mcg PO DAILY@0600 [facility] Last Admin: 09/18/23 07:14 Dose: Not Given Metoprolol Succinate (Metoprolol Succinate Er 50 Mg Tab.Er.24h) 50 mg PO BID [facility]; Protocol Last Admin: 09/18/23 12:40 Dose: Not Given Multivitamins/Vitamin C (Multivitamin Tablet) 1 tab PO DAILY [facility] Last Admin: 09/18/23 12:41 Dose: Not Given Ondansetron HCl (Ondansetron Hcl 4 Mg/2 Ml Vial) 4 mg IVPUSH Q8H PRN PRN Reason: Nausea and Vomiting Sodium Chloride (0.9 % Sodium Chloride Flush 3 Ml Syringe) 3 ml IVFLUSH QSHIFT [facility] Last Admin: 09/18/23 08:18 Dose: 3 ml Home Medications ?Medication ?Instructions ?Recorded ?Confirmed ?Type multivitamin 1 tab PO DAILY 02/10/20 09/15/23 History glipizide 5 mg tablet 5 mg PO DAILY 03/19/22 09/15/23 History levothyroxine 75 mcg tablet 75 mcg PO DAILY@0600 02/18/23 09/15/23 History cyanocobalamin (vitamin B-12) 1,000 mcg PO DAILY 06/06/23 09/15/23 History 1,000 mcg tablet metoprolol succinate 50 mg 50 mg PO BID 08/23/23 09/15/23 History tablet,extended release 24 hr (Toprol XL) benzonatate 200 mg capsule 200 mg PO BEDTIME 09/15/23 09/15/23 History ceftriaxone 1 gram solution for 1 g IM DAILY 09/15/23 09/15/23 History injection Allergies Allergy/AdvReac Type Severity Reaction Status Date / Time silver Allergy Intermediate skin Verified 09/15/23 15:22 [From TEGADERM AG MESH] sloughing morphine [MORPHINE] AdvReac Intermediate Vomiting Verified 09/15/23 15:22 Physical Exam Vital signs: Vital Signs Temp 97.9 F 09/18/23 11:00 Pulse 115 H 09/18/23 11:00 Resp 20 09/18/23 11:00 BP 139/86 09/18/23 11:00 Pulse Ox 97 09/18/23 11:00 O2 Del Method Nasal Cannula 09/18/23 11:00 O2 Flow Rate 3 09/18/23 11:00 Intake & Output 09/17/23 09/18/23 09/18/23 18:59 06:59 18:59 Intake Total 1401.667 / 3224.584 1822.917 / 3224.584 100 / 100 Output Total 600 / 850 250 / 850 100 / 100 Balance 801.667 / 2374.584 1572.917 / 2374.584 0 / 0 Urine Output (Average ml/kg/hr) 0.61 0.25 0.10 Intake: Intake, IV Amount 1401.667 / 3224.584 1822.917 / 3224.584 100 / 100 Ampicillin Sodium/Sulbactam Na 100 / 200 100 / 200 100 / 100 1.5 gm In 0.9 % Sodium Chloride 100 ml @ 200 mls/hr IV Q12H [facility] Rx#:[id number] Sodium Bicarbonate 8.4% 150 meq 891.667 / 891.667 In Dextrose 5 % 850 ml @ 100 mls/hr IV .Q10H [facility] Rx#: [id number] Dextrose 5 % 1,000 ml @ 100 mls 0 / 831.25 831.25 / 831.25 /hr IVCONT .Q10H [facility] Rx#: [id number] Lactated Ringers 1,000 ml @ 200 1301.667 / 1301.667 mls/hr IVCONT .Q5H [facility] Rx#: [id number] Output: Output, Urine Amount 600 / 850 250 / 850 100 / 100 Output, Urine Amount (Catheter) 0 / 0 [place] 0 / 0 Other: NPO Yes Yes Yes Number of Incontinent Voids 1 1 1 Urine [facility] Urine Color Concentrated Yellow Concentrated Weight 81.7 kg [place] Weight in Grams 74816 Weight 81.7 kg Hem/Onc Consult Result - Labs CBC & Chem 7: 09/20/23 05:21 09/20/23 05:20 Labs: Short CBC 09/18/23 Range/Units 07:42 WBC 20.0 H (4.8-10.8) X10*3/uL Hgb 13.2 L (14.0-18.0) g/dl Hct 42.3 (42.0-52.0) % Plt Count 147 L (160-400) X10*3/uL BMP 09/17/23 09/17/23 09/18/23 10:31 17:13 07:42 Sodium 146 H 148 H Potassium 4.8 4.2 Chloride 120 H 116 H Carbon Dioxide 12 L 19 L BUN 88 H Creatinine 2.51 H Calcium 13.2 H* D 13.7 H* Assessment and Plan Patient Active problem list reviewed?: Yes (1) Chronic lymphocytic leukemia Status: Acute Assessment and plan: This is a pleasant 87-year-old gentleman, with a history of CLL. In 09/2019, PET scan revealed: There is mildly increased adenopathy in the axillary area as but the chest and abdomen appears stable. He was seen on September 19 for fatigue and polyuria. His kidney function was elevated. His calcium was noted to be elevated at 13.6. Urine sodium was 39. He was given IV hydration. This was followed by pamidronate 60 mg over 2 hours. In view of the external iliac adenopathy, we proceeded with good core biopsies, to look for any evidence of more aggressive transformation, of CLL i.e. Alcocer's transformation. This was done on September 30. Pathology revealed: Lymph node, left groin, core biopsy: - Involvement by patient's known chronic lymphocytic leukemia/small lymphocytic lymphoma. - Diagnostic features of large cell transformation (Alcocer's) not seen. I discussed his case with Dr. Grover. The plan was made to proceed with systemic treatment for the CLL. Two options, were discussed: 1. Acalabrutinib. 2. Venetoclax plus Obinutuzumab. Acalabrutinib would be oral however the concern with that was the bleeding risk, especially with blood thinners on board. With the venetoclax, concern would be worsening of the kidney function, related to the tumor lysis syndrome. The second option would be time limited, and preferred by the patient. Baseline hepatitis screen is negative. He was started on treatment with Obinutuzumab, November 03, 2019. On October,, he was noted to have some abnormalities including elevated creatinine, calcium and uric acid level. He was given IV hydration, Denosumab and started on Allopurinol. On November 02, day 1 of Obinutuzumab treatment, he was given a dose of Rasburicase, 1.5 mg, to prevent any tumor lysis syndrome. He received a dose of Denosumab, on October 31 and November 28 for hypercalcemia. He received the day 15, Obinutuzumab, 1000 mg, dose, on November 15. He completed the 1st cycle, then he was re-staged with imaging. Initial plan was to add venetoclax, with the 3rd cycle, based upon his response. He had repeat imaging done December 05. That revealed: CT neck: Bulky bilateral cervical chain lymphadenopathy remains present but has significantly decreased in size compared to exams from 09/17/2019 and 06/03/2019. CT chest and abdomen, revealed: Overall the generalized adenopathy improved. However there were new pulmonary nodules, noted, mainly confined to the right lower lobe. Concern was an infectious process. CT scan-guided biopsy/cultures of one of the peripheral pulmonary nodules from 12/16: Granulomatous inflammation and GMS, fungus concerning for Cryptococcus. He was started on Diflucan 200 mg po BID. He was started on it on December 19. Cyptococcal antigen, came back positive with a titer of 1:32. HIV: Negative. A lumbar puncture was done to rule out cryptococcus meningitis. On December 27 by IR. This was negative for cryptococcus. Cytology was negative. He was on Diflucan for a year. His kidney function, calcium and uric acid have all improved. His treatment for CLL was resumed on 01/27/20. First 3 cycles of Venetoclax, he was admitted overnight for monitoring and management of tumor lysis syndrome, on a weekly basis x3. He did really well. Subsequently he was able to tolerate treatment as an outpatient, with generous hydration. He had a prolonged remission. He was last seen here in February of last year. WBC normal. Hemoglobin and platelets were up: 13/ 139. 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 LDH: 238, previously, 328, Was 283.previously 348. There was no evidence of progression of CLL. He subsequently had hypoxic respiratory failure related to COVID. He is now here with mental status changes. He has been noted to have a high white count and hypercalcemia. My concern is that he has progressive CLL, alongwith humoral hypercalcemia of malignancy. He had presented with hupernatremia, poor po intake,dehydration. He is being rehydrated. Started on NG tube feedings. PLAN: Would treat hypercalcemia with Pamidronate. Monitor calcium level and kidney function carefully. Can treat him with anti- CLL therapy if and once he stabilizes. Unfortunately prognosis appears guarded. Thank you for the consult, I will follow along with you, CC: Dr. Velasco. - Time Spent With Patient Time Spent with Patient (in minutes): 30
[2023-09-18 15:58] LABS: INTERNATIONAL NORM RATIO 2.5 (0.9-1.1); Prothrombin Time 30.9 SEC (11.1-13.3)
--- NOTE | 2023-09-18 16:00 | P.PNNP_ITS ---
Subjective Subjective Date of Service: 09/18/23 Interval history: Events noted. Not verbalizing. Belly responsive. Physical Exam 2 Vital Signs: Vital Signs: Last Vital Signs Temp 97.0 F 09/18/23 15:36 Pulse 126 H 09/18/23 15:36 Resp 20 09/18/23 15:36 BP 113/75 09/18/23 15:36 Pulse Ox 97 09/18/23 15:36 O2 Del Method Nasal Cannula 09/18/23 15:36 O2 Flow Rate 3 09/18/23 15:36 Oxygen Flow Rate 2 09/15/23 15:08 BMI result Body Mass Index 23.8 Const: General: ill appearing Neck: Neck: Yes supple Cardio: Palpation: no palpable S3 Heart sounds: no rubs GI: Palpation (GI): Soft to palpation Auscultation: normal bowel sounds Neuro: Motor exam (neuro): no asterixis Objective Data Labs 09/18/23 07:42 09/18/23 07:42 Labs: Laboratory Results - last 24 hr 09/17/23 09/17/23 09/17/23 10:31 17:13 18:37 WBC RBC Hgb Hct MCV MCH MCHC RDW Plt Count MPV Absolute Nucleated RBC Nucleated RBC % (auto) PT INR O2 Saturation ABG pH at Pt Temp ABG pCO2 at Pt Temp ABG pO2 at Pt Temp ABG HCO3 ABG Base Excess (Actual) Sodium 146 H Potassium 4.8 Chloride 120 H Carbon Dioxide 12 L Anion Gap 19 BUN Creatinine Estim Creat Clear Calc Estimated GFR POC Glucose 232 H Random Glucose Lactic Acid Lactic Acid F/U @ 2Hr Lactic Acid F/U @ 4Hr Calcium 13.2 H* D Beta-Hydroxybutyrate 09/17/23 09/17/23 09/17/23 19:10 19:27 21:35 WBC RBC Hgb Hct MCV MCH MCHC RDW Plt Count MPV Absolute Nucleated RBC Nucleated RBC % (auto) PT INR O2 Saturation 97.0 ABG pH at Pt Temp 7.38 ABG pCO2 at Pt Temp 26 L ABG pO2 at Pt Temp 82 L ABG HCO3 15 L ABG Base Excess (Actual) -7.7 Sodium Potassium Chloride Carbon Dioxide Anion Gap BUN Creatinine Estim Creat Clear Calc Estimated GFR POC Glucose 214 H Random Glucose Lactic Acid 3.4 H* Lactic Acid F/U @ 2Hr Lactic Acid F/U @ 4Hr Calcium Beta-Hydroxybutyrate 0.52 H 09/17/23 09/18/23 09/18/23 22:16 00:13 06:55 WBC RBC Hgb Hct MCV MCH MCHC RDW Plt Count MPV Absolute Nucleated RBC Nucleated RBC % (auto) PT INR O2 Saturation ABG pH at Pt Temp ABG pCO2 at Pt Temp ABG pO2 at Pt Temp ABG HCO3 ABG Base Excess (Actual) Sodium Potassium Chloride Carbon Dioxide Anion Gap BUN Creatinine Estim Creat Clear Calc Estimated GFR POC Glucose 208 H 188 H Random Glucose Lactic Acid Lactic Acid F/U @ 2Hr 3.8 H* Lactic Acid F/U @ 4Hr Calcium Beta-Hydroxybutyrate 09/18/23 09/18/23 09/18/23 07:42 10:54 15:41 WBC 20.0 H RBC 3.94 L Hgb 13.2 L Hct 42.3 MCV 107.4 H MCH 33.5 H MCHC 31.2 RDW 14.5 Plt Count 147 L MPV 11.5 Absolute Nucleated RBC 0.130 H Nucleated RBC % (auto) 0.6 H PT 30.9 H INR 2.5 H O2 Saturation ABG pH at Pt Temp ABG pCO2 at Pt Temp ABG pO2 at Pt Temp ABG HCO3 ABG Base Excess (Actual) Sodium 148 H Potassium 4.2 Chloride 116 H Carbon Dioxide 19 L Anion Gap 17 BUN 88 H Creatinine 2.51 H Estim Creat Clear Calc 23.4 Estimated GFR 24 POC Glucose 226 H Random Glucose 269 H Lactic Acid Lactic Acid F/U @ 2Hr Lactic Acid F/U @ 4Hr 3.1 H* Calcium 13.7 H* Beta-Hydroxybutyrate Microbiology Microbiology Results: Microbiology 09/15/23 20:42 Urine clean catch - Urine faith top Urine Culture - Final Enterococcus faecalis 09/15/23 16:54 Blood - Venous Blood Culture - Preliminary No growth after 48 hours. 09/15/23 16:03 Blood - Venous Blood Culture - Preliminary No growth after 48 hours. Procedures Date of Service Date of Service: 09/18/23 Assessment & Plan Assessment and plan (1) Hypernatremia: Status: Acute (2) Acute kidney injury superimposed on CKD: Status: Acute Plan Acute renal failure and hypernatremia. Both due to dehydration/free water deficit. Oral intake is poor. No significant improvement in creatinine since yesterday. Serum sodium remains elevated. Keep intake more than output with hypotonic fluids. Monitor urine output. Not a candidate for dialysis. Overall prognosis is poor. Time Spent With Patient Time: Total time managing care of this patient today ____ minutes. Progress Note: Quality Stroke Does the patient have a stroke diagnosis?: No
[2023-09-18] MEDS: Metoprolol Tartrate 25 MG TABLET NG-TUBE (17:47)
[2023-09-18 18:28] LABS: Glucose, Whole Blood 244 mg/dL (60-115)
[2023-09-18 19:43] LABS: Anion Gap 21 (12-20); Carbon Dioxide 13 mmol/L (22-29); Chloride 117 mmol/L (96-108); Potassium 4.8 mmol/L (3.3-5.1); Sodium 146 mmol/L (135-145)
[2023-09-18 22:46] LABS: Glucose, Whole Blood 318 mg/dL (60-115)
[2023-09-18] MEDS: Metoprolol Tartrate 50 MG TABLET NG-TUBE (23:05)
[2023-09-18] MEDS: Atorvastatin Calcium 20 MG TABLET PO (23:21)
[2023-09-18] MEDS: Insulin Glargine,Hum.rec.anlog 100 UNIT/ML 10 ML VIAL 8 UNIT SUBCUT (23:22)
[2023-09-19] VITALS (10 sets, daily range): BP systolic 99–133; BP diastolic 55–64; PULSE 66–150; RESP 20–40; TEMP 36.1–36.8; O2SAT 92–96
[2023-09-19] MEDS: Dextrose 5 % 1,000 ML 125 ML IVCONT (02:30)
[2023-09-19 06:00] LABS: Glucose, Whole Blood 303 mg/dL (60-115)
[2023-09-19] MEDS: Levothyroxine Sodium 75 MCG TABLET PO (06:01)
[2023-09-19] MEDS: Insulin Lispro 100 UNIT/ML 3 ML VIAL SUBCUT ×3 (06:01→17:56)
[2023-09-19 08:31] LABS: Hematocrit 38.8 % (42.0-52.0); Hemoglobin 12.5 g/dl (14.0-18.0); Mean Corpuscular HGB Conc 32.2 g/dl (31.0-36.0); Mean Corpuscular Hemoglobin 34.8 pg (27.0-33.0); Mean Corpuscular Volume 108.1 fL (80.0-98.0); Mean Platelet Volume 11.8 fL (9.4-12.4); NRBC Pct Auto 0.7 /100WBC (0.0-0.2); Platelet Count 126 X10*3/uL (160-400); Red Blood Count 3.59 X10*6/uL (4.60-5.80); Red Cell Distribution Width 14.7 % (11.0-16.0); White Blood Count 21.5 X10*3/uL (4.8-10.8)
[2023-09-19 08:49] LABS: Anion Gap 17 (12-20); Blood Urea Nitrogen 87 mg/dL (9-16); Calcium 13.7 mg/dL (8.4-10.2); Carbon Dioxide 18 mmol/L (22-29); Chloride 113 mmol/L (96-108); Creatinine Clr Calc Pharmacy 19.8; Estimated Glomerular Filt Rate 20; Glucose Random 348 mg/dL (60-115); Potassium 4.3 mmol/L (3.3-5.1); Sodium 144 mmol/L (135-145)
[2023-09-19 09:04] LABS: ABG Base Excess -3.6 mmol/L; ABG HCO3 18 mmol/L (22-26); ABG pCO2 26 mmHg (32-45); ABG pH 7.46 (7.35-7.45); ABG pO2 85 mmHg (83-108)
[2023-09-19] MEDS: Ampicillin Sodium/Sulbactam Na 1.5 GM in 0.9 % Sodium Chloride 100 ML IV ×2 (10:35→23:18)
[2023-09-19] MEDS: allopurinoL 100 MG TABLET PO (10:36)
[2023-09-19] MEDS: Cyanocobalamin (Vitamin B-12) 1,000 MCG TABLET 1000 MCG PO (10:36)
[2023-09-19] MEDS: Metoprolol Tartrate 50 MG TABLET NG-TUBE ×2 (10:36→23:16)
[2023-09-19] MEDS: 0.9 % Sodium Chloride Flush 3 ML SYRINGE IVFLUSH ×2 (10:37→17:57)
[2023-09-19] MEDS: Multivitamin TABLET 1 TAB PO (10:37)
--- NOTE | 2023-09-19 10:58 | PC.NURSE ---
residual tube feeding collected more than 40cc, feed held till 1300
--- NOTE | 2023-09-19 11:09 | P.PNIM_ITS ---
Subjective Subjective Date of Service: 09/19/23 Interval History: F/u on metabolic encephalopathy, UIT, hypernatermia, hypercalcemia, DAYAN Patient remains minimally responsive, sodium level is normal , calcium still high despite pamidronate. Tolerating tube feed Acidosis improving Review of Systems not able to obtain Physical Exam 2 Vital Signs: Vital Signs: Last Vital Signs Temp 98.1 F 09/19/23 10:57 Pulse 123 H 09/19/23 10:57 Resp 20 09/19/23 10:57 BP 133/60 09/19/23 10:57 Pulse Ox 95 09/19/23 10:57 O2 Del Method Nasal Cannula 09/19/23 10:57 O2 Flow Rate 3 09/19/23 10:57 Oxygen Flow Rate 2 09/15/23 15:08 BMI result Body Mass Index 23.8 General: somnolent, diffuclt to arouse Resp: jory rhonchi CVS: iregular iregular GI: +BS, NT, no distention Skin: No rash Neuro: no apparent deficit Psych: flat Objective Data Active Medications Acetaminophen (Acetaminophen 325 Mg Tablet) 650 mg NG-TUBE Q6H PRN PRN Reason: Pain, Mild (Pain Scale 1-3) Allopurinol (Allopurinol 100 Mg Tablet) 100 mg PO DAILY [facility] Last Admin: 09/19/23 10:36 Dose: 100 mg Documented By: CEDRIC Atorvastatin Calcium (Atorvastatin Calcium 20 Mg Tablet) 20 mg PO BEDTIME [facility] Last Admin: 09/18/23 23:21 Dose: 20 mg Documented By: VENICE Benzonatate (Benzonatate 100 Mg Capsule) 200 mg PO BEDTIME [facility] Last Admin: 09/18/23 23:22 Dose: Not Given Documented By: VENICE Non-Admin Reason: NPO Cyanocobalamin (Cyanocobalamin (Vitamin B-12) 1,000 Mcg Tablet) 1,000 mcg PO DAILY [facility] Last Admin: 09/19/23 10:36 Dose: 1,000 mcg Documented By: CEDRIC Glucose (Glucose Gel 15 Gm Gel..Gram.) 15 gm PO Q15M PRN; Protocol PRN Reason: per Hypoglycemia Standing Ord. Guaifenesin/Dextromethorphan (Guaifenesin Dm 100/10/5 Ml 5 Ml Syrup) 10 ml PO Q6H PRN PRN Reason: Cough Dextrose (D10) 250 mls @ 750 mls/hr IV Q15M PRN; Protocol PRN Reason: per Hypoglycemia Standing Ord. Ampicillin Sodium/Sulbactam (Sodium 1.5 gm/ Sodium Chloride) 100 mls @ 200 mls/hr IV Q12H [facility] Last Admin: 09/19/23 10:35 Dose: 200 mls/hr Documented By: CEDRIC Insulin Glargine (Insulin Glargine,Hum.Rec.Anlog 100 Unit/Ml 10 Ml Vial) 15 unit SUBCUT BEDTIME [facility] Insulin Human Lispro (Insulin Lispro 100 Unit/Ml 3 Ml Vial) 0 unit SUBCUT Q6H [facility]; Protocol Last Admin: 09/19/23 06:01 Dose: 8 unit Documented By: ELIZABETH Levalbuterol HCl (Levalbuterol Hcl 1.25 Mg/3 Ml Vial.Neb) 1.25 mg INHALE RQ4H PRN PRN Reason: Wheezing Levothyroxine Sodium (Levothyroxine Sodium 75 Mcg Tablet) 75 mcg PO DAILY@0600 [facility] Last Admin: 09/19/23 06:01 Dose: 75 mcg Documented By: ELIZABETH Metoprolol Tartrate (Metoprolol Tartrate 50 Mg Tablet) 50 mg NG-TUBE BID [facility]; Protocol Last Admin: 09/19/23 10:36 Dose: 50 mg Documented By: CEDRIC Multivitamins/Vitamin C (Multivitamin Tablet) 1 tab PO DAILY [facility] Last Admin: 09/19/23 10:37 Dose: 1 tab Documented By: CEDRIC Ondansetron HCl (Ondansetron Hcl 4 Mg/2 Ml Vial) 4 mg IVPUSH Q8H PRN PRN Reason: Nausea and Vomiting Sodium Chloride (0.9 % Sodium Chloride Flush 3 Ml Syringe) 3 ml IVFLUSH QSHIFT [facility] Last Admin: 09/19/23 10:37 Dose: 3 ml Documented By: CEDRIC Labs 09/19/23 08:14 09/19/23 08:14 Labs: Laboratory Results - last 24 hr 09/18/23 09/18/23 09/18/23 15:41 18:01 19:12 MCV MCH MCHC RDW Plt Count MPV Absolute Nucleated RBC Nucleated RBC % (auto) PT 30.9 H INR 2.5 H Hold Blue Top O2 Saturation ABG pH at Pt Temp ABG pCO2 at Pt Temp ABG pO2 at Pt Temp ABG HCO3 ABG Base Excess (Actual) Anion Gap 21 H Estim Creat Clear Calc Estimated GFR POC Glucose 244 H Random Glucose Calcium Hold Yellow Top 09/18/23 09/19/23 09/19/23 22:43 05:56 08:14 MCV 108.1 H MCH 34.8 H MCHC 32.2 RDW 14.7 Plt Count 126 L MPV 11.8 Absolute Nucleated RBC 0.160 H Nucleated RBC % (auto) 0.7 H PT INR Hold Blue Top SEE NOTE O2 Saturation ABG pH at Pt Temp ABG pCO2 at Pt Temp ABG pO2 at Pt Temp ABG HCO3 ABG Base Excess (Actual) Anion Gap 17 Estim Creat Clear Calc 19.8 Estimated GFR 20 POC Glucose 318 H 303 H Random Glucose 348 H Calcium 13.7 H* Hold Yellow Top See Note 09/19/23 08:56 MCV MCH MCHC RDW Plt Count MPV Absolute Nucleated RBC Nucleated RBC % (auto) PT INR Hold Blue Top O2 Saturation 97.0 ABG pH at Pt Temp 7.46 H ABG pCO2 at Pt Temp 26 L ABG pO2 at Pt Temp 85 ABG HCO3 18 L ABG Base Excess (Actual) -3.6 Anion Gap Estim Creat Clear Calc Estimated GFR POC Glucose Random Glucose Calcium Hold Yellow Top Microbiology Microbiology Results: Microbiology 09/15/23 20:42 Urine Culture - Final Urine clean catch - Urine faith top Enterococcus faecalis Assessment and Plan (1) Metabolic encephalopathy: Status: Acute Plan 87-year-old male with pertinent history of CLL, CKD stage 3, [id number] type 2 diabetes mellitus, essential hypertension, gout, mixed hyperlipidemia, history of DVT/PE on warfarin who was sent from [facility] for evaluation of tachycardia and found to have metabolic encephalopathy, afib with rvr, dehydration, hypernatremia Acute metabolic encephalopathy d/t dehydration, UTI, hypernatremia, hypercalcemia and underlying dementia, andCLL -IVF fluid hydration to correct underlying electrolytes abnormalities, Abx for UTI UTI--culture growing Enterococcus, sensitive to ampicillin, continue Unasyn /8 Hypernatremia d/t dehydration--sodium level now normal. Stop IVF and oral water via NGT, nephrology following Hypercalcemia--seems to have been rapid rise within the last week, etiology unclear, not on supplement, Low PTH, concern for malignancy related -IVF, Pamidronate given 09/17, takes days to have an effect, calcium level still high today, Nephrology and heme input noted, follow calcium level Tachycardia d/t MAT NOT afib, see by cardiology, HR is overall better, hold echo, metoprolol via NGT Not insulin dependent DM with hyperglycemia, hold glipizide, sliding scale insulin and Lantus and adjust for better sugar contro Acute kidney injury on CKD, prerenal: IVF, monitor renal function Malnutrition--tube feed with glucerna history of cryptococcus pneumonia0 and has not been on antifunction in more than a year, check antigen Leukocytosis: Reactive and patient has history CLL. Abx for UTI as above, heme consult Acute lactic acidosis due to dehydration. likely related to renal failure--and level has been stable, no indication to repeat Metabolic acidosis--likely related to multifactorial from above acute illness, ABG reassuring, bicab improving, continue to monitor Covid, Not new, was positive in mid august and likely residual viral particle History of DVT/PE: He has been on coumadin but not listed on home meds, follow INR and adjust coumadin for INR 2 to 3 Essential hypertension: On metoprolol Mixed hyperlipidemia: On statin Gout: On allopurinol DNR/DNI DVT prophylaxis: has been on coumadin, INR high need for inpt: acute metabolic encephalopathy, dehydration, hypernatremia, hypercalcemia, UTI, on IVF not eating. Poor prognosis, not able to reach or daughter at this time Goals of care been discussed with the family and decision to be altered based on clinical course Quality Stroke Does the patient have a stroke diagnosis?: No VTE Prior VTE?: No VTE Risk Level:: Medical - moderate - high VTE Device Contraindication: Treatment Not Indicated VTE Drug Contraindication: N/A - Med Ordered
[2023-09-19 11:27] LABS: Glucose, Whole Blood 306 mg/dL (60-115)
--- NOTE | 2023-09-19 11:28 | MHC.CM.PN ---
PER PREVIOUS CM, PTS MAY NOT WANT HIM TO RETURN TO [facility] CM WILL DISCUSS THIS FURTHER WITH PTS CONCERNS ARE NOT CLARIFIED REFERRAL SENT TO [facility] TO DETERMINE IF THEY ARE EVEN WILLING TO ACCEPT HIM BACK, AND HOW MUCH STR TIME HE HAS USED CM WILL ALSO CONTACT PTS TO DETERMINE WHAT THE GOAL IS FOR DC AND WHERE SHE WOULD LIKE REFERRALS SENT
[2023-09-19 11:40] LABS: INTERNATIONAL NORM RATIO 2.6 (0.9-1.1); Prothrombin Time 31.5 SEC (11.1-13.3)
--- NOTE | 2023-09-19 11:51 | P.CDIM_ITS ---
PROVIDER RESPONSE TEXT: To clarify, the appropriate diagnosis supported by the clinical indicators: Moderate QUERY TEXT: PHYSICIAN'S DOCUMENTATION REQUEST Date of Query: 09/19/2023 11:40 AM EDT Patient Name: Jose Guadalupe Yoder Admit Date: 09/16/2023 Dear Ancelmo Corrigan, A review of the medical record indicates additional documentation may be needed. Please review below and update the documentation accordingly. Documentation includes the diagnosis of malnutrition. Progress note dated 09/18 - Plan: Malnutrition, tube feed with glucerna If possible, please provide additional specificity regarding the severity of the malnutrition using t he above information: Mild Moderate Severe Other (explain) Clinically unable to determine (explain) Thank you, Judy Rodriguez, CCS, CDIS Use of terms such as suspected, likely, concern for, or probable (associated with a specific diagnosi s that is being evaluated, monitored, or treated as if it exists) are acceptable and can be coded in the inpatient se tting, when documented at the time of discharge. Please use your independent medical judgment in providing your response. THIS QUERY IS PART OF THE PERMANENT MEDICAL RECORD
--- NOTE | 2023-09-19 12:01 | MHC.CLN ---
F/U PT WITH NGT IN PLACE REVIEWED LABS-SERUM NA WNL PT RECEIVING TF GLUCERNA 1.0 AT MAX GOAL RATE 100ML/HR WITH 240ML FREE WATER FLUSHES Q 8 HRS PROVIDES 2400KCALS (29KCALS/KG), 100G PROTEIN (1.2G/KG), 2767ML TOTAL WATER FROM FORMULA AND FLUSHES (34ML/KG) MONITOR TOLERANCE, RESIDUALS AND LYTES
--- NOTE | 2023-09-19 12:55 | MHC.SLORD ---
Speech Language Pathology Order Status: SENIOR BENEFITS SPECIALIST attempted to see patient for bedside dysphagia exam this morning. Patient was sleeping with open mouth posture, did not wake with sternal rub. He was provided with oral care via mouthwash and swab, to which he did grimace and then produced immediate wet cough. Small amount dried secretions removed. Patient is not appropriate for PO trials at this time. Patient was accompanied by his family at bedside, who report patient has been very sleepy and lethargic for days. BDE deferred. Patient has NGT in place. Notified , RN, RD.
[2023-09-19 15:18] LABS: Glucose, Whole Blood 305 mg/dL (60-115)
[2023-09-19 16:47] LABS: ABG Refer to POC result
[2023-09-19 17:30] LABS: Glucose, Whole Blood 273 mg/dL (60-115)
--- NOTE | 2023-09-19 17:55 | PC.NURSE ---
checked for residual and adjusted feed rate to 60 ml per hour @1400
--- NOTE | 2023-09-19 17:57 | PC.NURSE ---
adjusted tube feed rate to 70 ml per hour @ 1800 , checked residual.
--- NOTE | 2023-09-19 18:14 | P.PNNP_ITS ---
Subjective Subjective Date of Service: 09/19/23 Interval history: Events noted. All recent data reviewed this morning. D/W Hospitalist this morning Physical Exam 2 Vital Signs: Vital Signs: Last Vital Signs Temp 97.8 F 09/19/23 15:22 Pulse 111 H 09/19/23 15:22 Resp 20 09/19/23 15:22 BP 114/59 L 09/19/23 15:22 Pulse Ox 93 09/19/23 15:22 O2 Del Method Nasal Cannula 09/19/23 15:22 O2 Flow Rate 3 09/19/23 15:22 Oxygen Flow Rate 2 09/15/23 15:08 BMI result Body Mass Index 23.8 Const: General: no acute distress Neck: Neck: Yes supple Resp: Auscultation: diminished lung sounds Cardio: Rate: regular rate GI: Palpation (GI): Soft to palpation Neuro: General: moves all extremities Objective Data Labs 09/19/23 08:14 09/19/23 08:14 Labs: Laboratory Results - last 24 hr 09/18/23 09/18/23 09/18/23 13:42 18:01 19:12 WBC RBC Hgb Hct MCV MCH MCHC RDW Plt Count MPV Absolute Nucleated RBC Nucleated RBC % (auto) PT INR Hold Blue Top O2 Saturation ABG pH at Pt Temp ABG pCO2 at Pt Temp ABG pO2 at Pt Temp ABG HCO3 ABG Base Excess (Actual) Sodium 146 H Potassium 4.8 Chloride 117 H Carbon Dioxide 13 L Anion Gap 21 H BUN Creatinine Estim Creat Clear Calc Estimated GFR POC Glucose 244 H Random Glucose Calcium Hold Yellow Top Cryptococcal Ag SEE NOTE 09/18/23 09/19/23 09/19/23 22:43 05:56 08:14 WBC 21.5 H RBC 3.59 L Hgb 12.5 L Hct 38.8 L MCV 108.1 H MCH 34.8 H MCHC 32.2 RDW 14.7 Plt Count 126 L MPV 11.8 Absolute Nucleated RBC 0.160 H Nucleated RBC % (auto) 0.7 H PT 31.5 H INR 2.6 H Hold Blue Top SEE NOTE O2 Saturation ABG pH at Pt Temp ABG pCO2 at Pt Temp ABG pO2 at Pt Temp ABG HCO3 ABG Base Excess (Actual) Sodium 144 Potassium 4.3 Chloride 113 H Carbon Dioxide 18 L Anion Gap 17 BUN 87 H Creatinine 2.96 H Estim Creat Clear Calc 19.8 Estimated GFR 20 POC Glucose 318 H 303 H Random Glucose 348 H Calcium 13.7 H* Hold Yellow Top See Note Cryptococcal Ag 09/19/23 09/19/23 09/19/23 08:56 11:21 15:13 WBC RBC Hgb Hct MCV MCH MCHC RDW Plt Count MPV Absolute Nucleated RBC Nucleated RBC % (auto) PT INR Hold Blue Top O2 Saturation 97.0 ABG pH at Pt Temp 7.46 H ABG pCO2 at Pt Temp 26 L ABG pO2 at Pt Temp 85 ABG HCO3 18 L ABG Base Excess (Actual) -3.6 Sodium Potassium Chloride Carbon Dioxide Anion Gap BUN Creatinine Estim Creat Clear Calc Estimated GFR POC Glucose 306 H 305 H Random Glucose Calcium Hold Yellow Top Cryptococcal Ag 09/19/23 17:27 WBC RBC Hgb Hct MCV MCH MCHC RDW Plt Count MPV Absolute Nucleated RBC Nucleated RBC % (auto) PT INR Hold Blue Top O2 Saturation ABG pH at Pt Temp ABG pCO2 at Pt Temp ABG pO2 at Pt Temp ABG HCO3 ABG Base Excess (Actual) Sodium Potassium Chloride Carbon Dioxide Anion Gap BUN Creatinine Estim Creat Clear Calc Estimated GFR POC Glucose 273 H Random Glucose Calcium Hold Yellow Top Cryptococcal Ag Microbiology Microbiology Results: Microbiology 09/15/23 20:42 Urine clean catch - Urine faith top Urine Culture - Final Enterococcus faecalis 09/15/23 16:54 Blood - Venous Blood Culture - Preliminary No growth after 48 hours. 09/15/23 16:03 Blood - Venous Blood Culture - Preliminary No growth after 48 hours. Procedures Date of Service Date of Service: 09/19/23 Assessment & Plan Assessment and plan (1) Acute kidney injury superimposed on CKD: Status: Acute (2) Hypercalcemia: Status: Acute (3) Metabolic acidosis: Status: Acute Plan Na appropriately corrected; DAYAN due to tubular injury. NO reason to suspect obstruction/ GN or AIN Was given Na palmidronate 60 mg IV once; Serum calcium stable; PTHrp; Not a candidate for renal replacement, if thats needed C/W rest of current supportive care for now; Labs AM. Shall closely follow up Progress Note: Quality Stroke Does the patient have a stroke diagnosis?: No
[2023-09-19] MEDS: Acetaminophen 325 MG TABLET 650 MG NG-TUBE (23:16)
[2023-09-19] MEDS: Atorvastatin Calcium 20 MG TABLET PO (23:17)
[2023-09-19] MEDS: Insulin Glargine,Hum.rec.anlog 100 UNIT/ML 10 ML VIAL 15 UNIT SUBCUT (23:18)
[2023-09-20] VITALS (11 sets, daily range): BP systolic 60–109; BP diastolic 40–61; PULSE 30–130; RESP 12–40; TEMP 36.1; O2SAT 83–92
[2023-09-20 01:50] LABS: Glucose, Whole Blood 242 mg/dL (60-115)
--- NOTE | 2023-09-20 01:52 | PC.NURSE ---
Addendum entered by Adan Montilla RN 09/20/23 07:20: 0720: MD Corrigan at bedside. asked to obtain EKG. EKD done and MD read. no further orders for this nurse. Addendum entered by Adan Montilla RN 09/20/23 06:08: around 0530, increased oxygen need on oxymask 8L not able to maintain >90% SpO2. RT at bedside placed NRB mask at 15L. pt improved to 92% O2 sat. around 0540, BP found to be 70/47. Nurse supervisor dog license officer and MD at bedside. fluid bolus ordered and running at 0600 at 200 mL. at 0615, f/u BP found to be 55/40. [facility] called. team at bedside. automatic BP decreasing to 50/38. 0621: second access obtained and second NS bolus started. Addendum entered by Adan Montilla RN 09/20/23 04:44: 0330 assessment of gastric residual presents 350 mL. pt remains tachypneic, breathing agonally. second morphine dose ordered by MD. 93% on 6L oxymask. Around 0430, MD assessed patient at bedside. new labs, VBG, CXR, KUB ordered Original Note: MD notified of NG tube gastric residual 275 mL around 2300. feed held. reassesment around 0130 shows residual of 325 mL. POC glucose 242. tube feed continues to be held. MD aware.
[2023-09-20] MEDS: Insulin Lispro 100 UNIT/ML 3 ML VIAL SUBCUT ×2 (01:56→05:24)
[2023-09-20] MEDS: 0.9 % Sodium Chloride Flush 3 ML SYRINGE IVFLUSH (01:58)
[2023-09-20] MEDS: Morphine Sulfate 2 MG/ML CARTRIDGE IVPUSH (02:06)
--- NOTE | 2023-09-20 04:39 | P.EN_ITS ---
Event Note Date of Service: 09/20/23 Event Note: Was notified with the nurse due to increasing oxygen requirements overnight. Patient with significant tachypnea and gasping for air upon examination. Bilateral crackles present. Minimal response to painful stimulus. Also noted to have tachycardia. Having large gastric residue low volumes>> tube feeding paused. Concerns for aspiration, noted patient is on Unasyn. Prognosis poor. Tried to call the daughter Gladis, no answer. Continue goals of care discus celine. Will obtain labs and imaging. Patient is DNR/DNI Time Spent With Patient Time: Total time managing care of this patient today ____ minutes.
[2023-09-20] MEDS: Morphine Sulfate 4 MG/ML CARTRIDGE IVPUSH (04:47)
[2023-09-20] MEDS: levalbuterol HCL 1.25 MG/3 ML VIAL.NEB INHALE (04:54)
[2023-09-20 05:22] LABS: Glucose, Whole Blood 196 mg/dL (60-115)
[2023-09-20] MEDS: Levothyroxine Sodium 75 MCG TABLET PO (05:24)
[2023-09-20 05:31] LABS: Hematocrit 41.4 % (42.0-52.0); Hemoglobin 12.7 g/dl (14.0-18.0); Mean Corpuscular HGB Conc 30.7 g/dl (31.0-36.0); Mean Corpuscular Hemoglobin 34.2 pg (27.0-33.0); Mean Platelet Volume 12.2 fL (9.4-12.4); PLT CLUMP 1; Red Blood Count 3.71 X10*6/uL (4.60-5.80); Red Cell Distribution Width 14.8 % (11.0-16.0)
[2023-09-20 05:32] LABS: Mean Corpuscular Volume 111.6 fL (80.0-98.0)
[2023-09-20 05:33] LABS: Platelet Count 134 X10*3/uL (160-400); White Blood Count 23.9 X10*3/uL (4.8-10.8)
[2023-09-20 05:33] LABS: VBG Base Excess -5.9 mmol/L; VBG HCO3 21 mmol/L (22-26); VBG pCO2 52 mmHg; VBG pH 7.22 (7.32-7.43); VBG pO2 67 mmHg
[2023-09-20 05:36] LABS: INTERNATIONAL NORM RATIO 1.8 (0.9-1.1); Prothrombin Time 21.3 SEC (11.1-13.3)
[2023-09-20 05:37] LABS: Venous Blood Gas Refer to POC result
[2023-09-20 05:54] LABS: Band Neutrophils Percent 4 % (3-5); Eosinophils Absolute Manual 0.5 X10*3/uL (0.0-0.4); Eosinophils Percent Manual 2 % (0-4); Lymphocytes Absolute Manual 2.2 X10*3/uL (1.2-4.9); Lymphocytes Percent Manual 9 % (20-40); Metamyelocytes Absolute 0.7 X10*3/uL; Metamyelocytes Percent 3 %; Monocytes Percent Manual 4 % (2-11); Myelocytes Absolute 0.2 X10*/uL; Myelocytes Percent 1 %; Neutrophils Absolute Manual 19.4 X10*3/uL (2.0-8.3); Neutrophils Percent Manual 77 % (45-73)
[2023-09-20 05:55] LABS: Acanthocytes 2+ (3-5) /OIF; Giant Platelet PRESENT; Large Platelet PRESENT; Macrocytosis 2+ (15-30) /OIF; Nucleated Red Blood Cells 3 /100WBC (0-0); Platelet Estimate SLIGHTLY DECREASED (NORMAL); Platelet Morphology Comment NOTED; RBC Morphology NOTED
[2023-09-20 05:56] LABS: Burr Cells 2+ (3-5) /OIF; Polychromasia 1+ (0-2) /OIF; Schistocytes 1+ (0-2) /OIF; Tear Drop Cells 1+ (0-2) /OIF; Toxic Vacuolation PRESENT
--- NOTE | 2023-09-20 05:59 | P.EN_ITS ---
Event Note Date of Service: 09/20/23 Event Note: Nurse informed that patient's blood pressure is 70/50. Ordered crystalloid fluids. After multiple attempts through the night, was finally able to reach daughter Gladis. She understands that the patient is very sick and prognosis is extremely poor. Also understands that treatment is futile and at this point would like to focus on quality of life and comfort care. Patient's family is 2 hours away from the hospital. She stated that she would like to continue current care till they come to the hospital although would not like any life prolonging measures or escalation of treatment. Family will make the patient [facility] once they arrive. Time Spent With Patient Time: Total time managing care of this patient today ____ minutes.
[2023-09-20 06:09] LABS: Anion Gap 17 (12-20); Blood Urea Nitrogen 106 mg/dL (9-16); Calcium 13.8 mg/dL (8.4-10.2); Carbon Dioxide 20 mmol/L (22-29); Chloride 112 mmol/L (96-108); Estimated Glomerular Filt Rate 17; Glucose Random 245 mg/dL (60-115); Potassium 5.3 mmol/L (3.3-5.1); Sodium 144 mmol/L (135-145)
[2023-09-20 06:10] LABS: B Type Natriuretic Peptide 671 pg/mL (<100)
[2023-09-20 06:11] LABS: Lactic Acid 3.4 mmol/L (0.5-2.0)
[2023-09-20] MEDS: 0.9 % Sodium Chloride 1,000 ML 200 ML IVCONT (06:20)
[2023-09-20] MEDS: 0.9 % Sodium Chloride 1,000 ML 999 ML IV (06:30)
--- NOTE | 2023-09-20 07:04 | ECG_ITS ---
Test Reason : ARRYTMIA Blood Pressure : / mmHG Vent. Rate : 057 BPM Atrial Rate : 057 BPM P-R Int : 000 ms QRS Dur : 138 ms QT Int : 132 ms P-R-T Axes : 000 043 000 degrees QTc Int : 128 ms Junctional rhythm Non-specific intra-ventricular conduction block Abnormal ECG When compared to the previous EKG of Junctional bradycardia present IVCD. Referred By: Ancelmo Rodriguez Electronically Signed By:Josiah Zhang
--- NOTE | 2023-09-20 07:20 | PC.NURSE ---
Assumed care of patient at this time. Bolus finished and disconnected. Patient noted to be agonally breathing, non-responsive, DNR/DNI code status, HR of 20-40's with elevated ST segment on tele. EKG obtained. MD Meenu at bedside at this time.
[2023-09-20 07:26] LABS: Reflex Lactate? Lactic Acid Added
--- NOTE | 2023-09-20 07:35 | PM.EVENT ---
Event Note Date of Service: 09/20/23 Event Note: Pt who has been doing poorly overnight, unresponsive, severe hypoxia, and BP becoming very low and not responding to IVF stopped breathing and loss of pulse, pupils were fixed and dilated no response to painful stimuli. O2 saturation could not be obtained, ECG rhythm which became flat line. Patient pronounced at 7:20 am. Family was aware of imminent and on their way Time Spent With Patient Time: Total time managing care of this patient today ____ minutes.
--- NOTE | 2023-09-20 08:16 | P.DN_ITS ---
Discharge Sum: Prov Provider Primary care physician: Jeremy Perez MD Consults: 09/15/23 21:51 Consult to Cardiology [place]ine [place]ing [place] [facility] Reason for consultation: afib with rvr Has provider been notified: Yes 09/16/23 21:19 Consult to Nephrology Routine Consulting Provider[place] [facility] Reason for consultation: DAYAN, ckd, hypernatremia Has provider been notified: No 09/17/23 11:57 Consult to Hematology / Oncology Routine Consulting Provider: Sarah Villarreal Reason for consultation: Hypercalcemi, CLL Has provider been notified: No Discharge Sum: Diag Contributing Factors (1) Acute kidney injury superimposed on CKD: (2) Hypercalcemia: (3) Metabolic acidosis: Discharge Sum: Summary Date and Time Date of admission: 09/15/23 21:41 Date of : 09/20/23 Time of : 07:20 Summary Details: Admission HPI Chief Complaint: Tachycardia This is a 87-year-old male with pertinent history of CLL, CKD stage 3, ajf-sbrvova-tbrrnrhjt type 2 diabetes mellitus, essential hypertension, gout, mixed hyperlipidemia, history of DVT/PE on warfarin who was sent from [facility] for evaluation of tachycardia. History obtained from ER provider and chart review. Unable to obtain history from the patient. Patient is only eye opening to verbal stimulus at the time of my evaluation. Of note, patient was recently admitted and discharged on 08/26/2023 with acute hypoxic respiratory failure due to COVID-19 infection. Patient was found to be in AFib with RVR in the ER and given IV Lopressor. Also found to be hypernatremic. Unable to obtain review of systems. Hospital : Patient is an eldelmy man with complext medical problems including history of CLL that has been in remision, history of DVT/PE on coumadin, hTN, diabetes, gout, hyperlimpdema. He was admitted for covid infection recently and subsequently was discharged to SNF for rehab and quite never recovered, becoming increaasing weak, not eating or drinking much and was brought to the hospital and noted to be tachycardic, dehydrated with hypernatremia with sodium of over 150, he has DAYAN on top of CKD and noted to have much higher WBC concerning for recurrent CLL. Additonally had Hypercalcemia calcium of 13, acute lactic acidosis, had UTI and signs of malnutrition. Patient's under issues wer addressed including IVF to correct hypernatremia and dehydration, IV antibiotic to treat underlying UTI, hypercalcemia was managed with Palmidronate under the direction of Nephrology expert, the increasing WBC which is attributed to likely recurrent CLL was reviewed by Customer Support Manager and demmed not candiate for treatment, Acute lactic acidosis in the range of 3 chronic was not due to sepsis but rather from renal failure and other metabolic derangement. Malnutrition was addressed with feeding via NGT. Despitite addresing the patient above issues, he continued to clinically decline and on this particular morning he became more unresponsive, becoming hypoxic with increased oxygen demand and and becoming profoundly HypOtensive with SBP in the 50s and 60 and no responsive to IVF. Patient likely developped aspiration, with shock and like became septic, however at that point family opted for no further work up including septic work up or treatment and opted for patient to be comfort measures. Patient this morning and pronounced at 7:20 am, family notified Hospital course: This elderly gentleman presented with a complex medical history including chronic lymphocytic leukemia (CLL) in remission, deep vein thrombosis/pulmonary embolism (DVT/PE) on Coumadin, hypertension (hTN), diabetes, gout, and lymphedema. Following a recent COVID-19 infection and subsequent [facility] for [facility], he experienced progressive decline and never really recovered from the covid illness. He became increasingly weak, stopped eating and drinking adequately, and was readmitted to the hospital. Upon admission, he was noted to have tachycardia, dehydration with severe hypernatremia sodium of 155, acute kidney injury (DAYAN) on top of chronic kidney disease (CKD), and a significantly elevated white blood cell count (WBC) suggestive of CLL recurrence. Additionally, he had hypercalcemia (calcium 13), acute lactic acidosis, a urinary tract infection (UTI), and signs of malnutrition. The following issues were addressed * Intravenous fluids (IVF) corrected hypernatremia and dehydration. * Intravenous antibiotics (Uanysn) to treat the UTI due to Enterococcus faecalis * Valve Repairer Reclamation guidedmanagement of hypercalcemia with Palmidronate. * Hematologists reviewed the elevated WBC count, likely due to CLL recurrence, and deemed him unsuitable for further treatment. * Non-septic persistent lactic acidosis around 3 was attributed to renal failure and metabolic derangements. * Malnutrition was addressed with a nasogastric tube (NGT) for feeding. Despite treatment, the patient continued to deteriorate. This morning, he became unresponsive, hypoxic with increased oxygen needs, and profoundly hypotensive w ith systolic blood pressure (SBP) in the 50s and 60s unresponsive to IVF. He likely developed aspiration pneumonia, septic shock, and sepsis. However, the family opted for comfort measures, declining further investigation or treatment. The patient peacefully this morning at 7:20 am. The family has been notified. Final diagnoses: Acute hypoxic respiratory Metabolic encephalopathy Aspiration penumonia Hypercalcemia Hyperkalemia CLL complications related to covid Leukocytosis due to CLL Tachycardia d/t MAT Sepsis sequela of COVID UTI DAYAN on CKD Acute Lactic Acidosis Hypernatremia moderate Malnutriton Additional Data Attending physician: Ancelmo Corrigan MD
== END 2023-09-20 07:20 | disposition expired | DRG 308 ==
LOC: HO.ED 21:08 → HO.EDOVER 21:47 → HO.IMC 09-17 07:18
PROVIDERS: Physician Assistant Medical; Admitting Provider Student in an Organized Health Care Education/Training Program; Emergency Provider Student in an Organized Health Care Education/Training Program; PCP Family Medicine; Referring Provider Internal Medicine; Visit Provider Internal Medicine
DX: I47.19 Other supraventricular tachycardia (principal); A41.9 Sepsis, unspecified organism; G93.41 Metabolic encephalopathy; U07.1 COVID-19; N17.0 Acute kidney failure with tubular necrosis; J69.0 Pneumonitis due to inhalation of food and vomit; R65.21 Severe sepsis with septic shock; E87.0 Hyperosmolality and hypernatremia; C91.10 Chronic lymphocytic leukemia of B-cell type not having achieved remission; E87.21 Acute metabolic acidosis; N39.0 Urinary tract infection, site not specified; E44.0 Moderate protein-calorie malnutrition; I48.91 Unspecified atrial fibrillation; N18.32 Chronic kidney disease, stage 3b; Z66 Do not resuscitate; F03.90 Unspecified dementia, unspecified severity, without behavioral disturbance, psychotic disturbance, mood disturbance, and anxiety; E11.22 Type 2 diabetes mellitus with diabetic chronic kidney disease; E11.65 Type 2 diabetes mellitus with hyperglycemia; B95.2 Enterococcus as the cause of diseases classified elsewhere; U09.9 Post COVID-19 condition, unspecified; Z51.5 Encounter for palliative care; E87.5 Hyperkalemia; Z68.23 Body mass index [BMI] 23.0-23.9, adult; N40.0 Benign prostatic hyperplasia without lower urinary tract symptoms; E86.0 Dehydration; I12.9 Hypertensive chronic kidney disease with stage 1 through stage 4 chronic kidney disease, or unspecified chronic kidney disease; E78.2 Mixed hyperlipidemia; M10.9 Gout, unspecified; Z86.718 Personal history of other venous thrombosis and embolism; Z86.711 Personal history of pulmonary embolism; Z79.01 Long term (current) use of anticoagulants; Z79.890 Hormone replacement therapy; Z79.899 Other long term (current) drug therapy
CPT/HCPCS: 0241U; 36415; 36600; 71045; 75984; 80048; 80051; 80053; 81001; 82010; 82803; 82947; 83605; 83735; 83880; 83930; 83970; 84443; 84484; 85007; 85025; 85027; 85610; 86403; 87040; 87086; 87088; 87186; 92950; 93005; 94640; 99285; J0295; J0613; J0692; J1650; J2270; J2430; J7120

== ENCOUNTER 2023-09-15 21:41 | Outpatient (BNV) | payer OTHER, MEDICARE, SELFPAY | END 2023-09-20 07:04 | PROVIDERS: Admitting Provider Student in an Organized Health Care Education/Training Program; Emergency Provider Student in an Organized Health Care Education/Training Program; PCP Family Medicine; Visit Provider Internal Medicine Cardiovascular Disease | DX: I45.9 Conduction disorder, unspecified (principal) | CPT/HCPCS: 93010 ==

== ENCOUNTER 2023-09-15 21:41 | Outpatient (BNV) | payer OTHER, MEDICARE, SELFPAY | END 2023-09-18 13:00 | PROVIDERS: Admitting Provider Student in an Organized Health Care Education/Training Program; Emergency Provider Student in an Organized Health Care Education/Training Program; PCP Family Medicine; Visit Provider Physician Assistant Surgical | DX: R41.82 Altered mental status, unspecified (principal) | CPT/HCPCS: 43752 ==

== ENCOUNTER → 2023-09-15 21:41 | Outpatient (BNV) | payer OTHER, MEDICARE, SELFPAY | PROVIDERS: Admitting Provider Student in an Organized Health Care Education/Training Program; Emergency Provider Student in an Organized Health Care Education/Training Program; PCP Family Medicine; Visit Provider Internal Medicine Cardiovascular Disease | DX: G93.41 Metabolic encephalopathy (principal); R00.0 Tachycardia, unspecified; R94.31 Abnormal electrocardiogram [ECG] [EKG] | CPT/HCPCS: 93010; 99222 ==

== ENCOUNTER → 2023-09-15 21:41 | Outpatient (BNV) | payer OTHER, MEDICARE, SELFPAY | PROVIDERS: Admitting Provider Student in an Organized Health Care Education/Training Program; Emergency Provider Student in an Organized Health Care Education/Training Program; PCP Family Medicine; Visit Provider Internal Medicine Nephrology | DX: N17.9 Acute kidney failure, unspecified (principal); N18.32 Chronic kidney disease, stage 3b; E87.0 Hyperosmolality and hypernatremia; E86.0 Dehydration | CPT/HCPCS: 99223; 99232; 99233 ==

== ENCOUNTER → 2023-09-15 21:41 | Outpatient (BNV) | payer OTHER, MEDICARE, SELFPAY | PROVIDERS: Admitting Provider Student in an Organized Health Care Education/Training Program; Emergency Provider Student in an Organized Health Care Education/Training Program; PCP Family Medicine; Visit Provider Student in an Organized Health Care Education/Training Program | DX: N17.9 Acute kidney failure, unspecified (principal); N18.9 Chronic kidney disease, unspecified; E83.52 Hypercalcemia; E87.20 Acidosis, unspecified | CPT/HCPCS: 99223; 99232; 99233; 99238; 99499 ==

== ENCOUNTER → 2023-09-15 21:41 | Outpatient (BNV) | payer OTHER, MEDICARE, SELFPAY | PROVIDERS: Admitting Provider Student in an Organized Health Care Education/Training Program; Emergency Provider Student in an Organized Health Care Education/Training Program; PCP Family Medicine; Visit Provider Internal Medicine Medical Oncology | DX: C91.10 Chronic lymphocytic leukemia of B-cell type not having achieved remission (principal); E83.52 Hypercalcemia | CPT/HCPCS: 99223 ==

== ENCOUNTER → 2024-09-28 08:02 | Outpatient (RCR) | payer MEDICARE, SELFPAY ==
--- NOTE | 2020-08-15 13:44 | MHC.PT.EP ---
[facility] [place] Office [place] Office [place] Office [address] Cody Hernández [address] [phone] F: [phone] F: [phone] F: [phone] F: [phone] Physical Therapy Plan of Care Date of Evaluation: 08/14/20 Date of Surgery: Diagnosis: Shoulder dysfunction Assessment: Pt is an 84 y/o right hand dominant male referred to PT for shoulder disorder who presents with B shoulder/ scapular dysfunction resulting in decreased tolerance for rolling in bed, sleeping on his side, reaching high shelves, performing hobby pf photography, dressing pullovers, as well as lifting/ pushing/ pulling objects of weight secondary to decreased B shoulder strength and ROM, increased scapular tissue tension, decreased thoracic and scapular posture, and pain. Pt is deemed an appropriate candidate to receive skilled PT in order to address her physical limitations to improve her functional ability. Frequency and Duration: The patient will be seen 2 x / wk x 5 wks. Short Term Goals: In 1 week: initiate HEP with evidence of compliance. In 3 weeks: baseline pain improved form 6/10 to < 4/10. Mcc Goals: In 5 weeks: I with HEP In 5 weeks: Pt will report no longer disturbed of sleep d/t shoulder pain; initial: 1/4 nights rest disturbed. In 5 weeks: Pt will be able to place object on high shelf with managed Sx. Treatment Plan: Modalities to reduce pain, spasms and effusion. Manual therapy to restore motion and function. Therapeutic exercise to improve strength and flexibility. Neuromuscular re-education for posture and balance. Therapeutic activities to return to functional activities of daily living. Electronically signed by: Yo Pizano PT. Please sign and return to therapist. Thank you for your referral.
--- NOTE | 2020-10-03 12:12 | MHC.PT.DC ---
[facility] [place] Office [place] Office [place] Office [address] Cody Hernández [address] [phone] F: [phone] F: [phone] F: [phone] F: [phone] Physical Therapy Discharge Report Diagnosis: Shoulder dysfunction Date of Surgery: Date of Evaluation: 08/14/20 Date of Discharge: 10/03/20 Treatments to Date: 11 Cancellations to Date: 0 No Shows to Date: 0 Discharge Status: Achieved Goals Improved Function Independent with HEP Discharge Summary: Pt has met his functional goals and is now sleeping comfortable and though improved he persists with thoracic and shoulder pain. He is i with a home program and is in agreement with DC at this time. Electronically signed by: Yo Pizano PT. Please sign and return to therapist. Thank you for your referral.
== END | disposition home or self-care (01) ==
LOC: HO.PTCHIC 08-14 08:52
PROVIDERS: PCP Internal Medicine; Visit Provider Orthopaedic Surgery
DX: M89.8X1 Other specified disorders of bone, shoulder (principal)
CPT/HCPCS: 85610; 97110; 97140; 97150; 97162; 99211